=== PATIENT | male | born 1950 | race Native Hawaiian/Other Pacific Islander ===

== ENCOUNTER 2017-06-04 10:32 | Day surgery (SDC) | payer MEDICARE, MEDICAID ==
[2017-06-03 09:55] VITALS: BMI 18.6
[2017-06-04 11:21] LABS: BASO # 0.02 K/mm3 (0.0-2.0); BASO % 0.3 % (0.0-3.0); EOS # 0.5 (0.0-0.7); EOS % 6.3 % (1.5-5.0); GRAN # 5.51 (1.4-6.5); LYMPH # 1.1 (1.2-3.4); MEAN CELL VOLUME 88.1 fl (80.0-105.0); MEAN CORPUSCULAR HEMOGLOBIN 29.5 pg (25.0-35.0); MEAN CORPUSCULAR HGB CONC 33.4 g/dl (31.0-37.0); MEAN PLATELET VOLUME 8.9 fl (7.0-11.0); MONO # 0.7 (0.1-0.6); MONO % 8.4 % (1.0-6.0); WHITE BLOOD COUNT 7.8 10^3/ul (4.5-11.0)
[2017-06-04 11:30] LABS: CALCIUM 9.9 mg/dL (8.4-10.5); POTASSIUM 4.7 mmol/L (3.6-5.0)
[2017-06-04] MEDS ORDERED: Lidocaine 2% Inj (20ml) ONE (11:31)
[2017-06-04] MEDS ORDERED: Iodixanol 320 MG/ML 100 ML BOTTLE IV ONE (11:31)
[2017-06-04 11:33] LABS: INR 1.04 (0.93-1.08); PARTIAL THROMBOPLASTIN TIME 31.7 Seconds (23.7-30.8)
[2017-06-04] MEDS ORDERED: Midazolam 2 MG/2 ML VIAL ONE (13:24)
--- NOTE | 2017-06-04 13:30 | CP.SDSHP ---
Same Day Surgery H & P - History Proposed Procedure: Right arm AV fistulagram with possible TOSSER or stent. Pre-Op Diagnosis: ESRD, AVF poor flow - Previous Medical/Surgical History Cardiac: Hypertension - Allergies Allergies: Allergies No Known Allergies Allergy (Verified 07/27/15 21:57) - Physical Exam Vital Signs: Vital Signs 06/04/17 11:11 Temperature 98.0 F Pulse Rate 70 Respiratory 18 Rate Blood Pressure 166/72 H O2 Sat by Pulse 100 Oximetry Mental Status: Alert & Oriented x3 Neuro: WNL Heart: WNL Lungs: WNL - {Optional Preform as Required} Other Pertinent Findings: Failed right brachiocephalic AVF. Patent Right brachiobasilic AVF has thrill. Two small venous aneurysm. Failed left arm AVG. - Impression Impression: Pt with ESRD and right arm AVF with poor flow. Plan AV fistulagram and possible stent placement, thrombectomy. Informed consent obtained. Pt. Evaluated Today:Candidate for Anesthesia & Procedure: Yes (ASA 3 Malampati 3) - Date & Time Date: 06/04/17 Time: 13:20 Short Stay Discharge - Short Stay Discharge Admitting Diagnosis/Reason for Visit: ESRD N18.6 Progress Note/Discharge Note with Instructions: s/p AV fistulagram. There were no immediate complications.
--- NOTE | 2017-06-04 13:45 | PCM.SURG1 ---
Surgeon's Initial Post Op Note - Surgeon's Notes Surgeon: aRul Meyer MD Shorthand Teacher: NONE Type of Anesthesia: Moderate Sedation{RN} Pre-Operative Diagnosis: ESRD Operative Findings: Moderate 30% basilic vein stenosis. Normal central venogram. Normal arterial anastomosis. Post-Operative Diagnosis: ESRD, outflow vein 30 % stenosis Operation Performed: Right arm AV fistulagram. LOG CUTTER outflow basilic vein stenosis. Specimen/Specimens Removed: NONE Estimated Blood Loss: EBL {In ML}: 4 Blood Products Given: N/A Drains Used: No Drains Post-Op Condition: Good Date of Surgery/Procedure: 06/04/17 Time of Surgery/Procedure: 13:40
[2017-06-04 14:49] VITALS: RESP 18; TEMP 97.8; O2SAT 96
--- NOTE | 2017-06-04 15:34 | VASCULAR ---
PROCEDURE: Date of procedure: 06/04/2017 Procedure: 1. Right arm AVG fistulagram 2. Balloon angioplasty outflow 30 percent stenosis basilic Vein Medications: 3 cubic centimeters 2 percent lidocaine, 1 milligram Versed and 50 microgram fentanyl. HISTORY: End-stage renal disease right arm brachial basilic AV fistula with poor flow. TECHNIQUE: History and physical was performed prior to procedure. Informed consent was obtained. Following informed consent and procedure time-out, the patient was placed supine on the interventional table and procedure time was called. The right arm was prepped and draped in the usual sterile fashion. The right AV fistula was accessed with micropuncture technique and hemodialysis fistulogram was then performed through a 5 Spanish dilator. Hemodialysis fistulogram demonstrated moderate, 30 percent, outflow vein stenosis in the axillary vein. Central venogram showed normal subclavian vein and superior vena cava. A reflux fistulogram showed a normal arch anastomosis. The 5 Spanish dilator was exchanged over a guidewire for a 6 Spanish vascular sheath. Through the sheath, 8 millimeter balloon angioplasty was performed across the stenotic axillary vein segment. A post balloon angioplasty repeat fistulogram demonstrated no residual stenosis in the outflow vein. A guidewire vascular sheath were removed and hemostasis achieved with manual compression. A great as thrill was present throughout the fistula at completion of case. IMPRESSION: Right arm brachial basilic AV fistula with moderate stenosis at the axillary vein successfully treated with 8 millimeter balloon angioplasty. Normal central venogram. Normal arterial anastomosis.
[2017-06-04 15:48] VITALS: PULSE 65
[2017-06-04 16:05] VITALS: BP 154/74
== END 2017-06-04 15:45 | disposition home or self-care (01) ==
LOC: SDSVAS 10:32
PROVIDERS: ATTEND Radiology Vascular & Interventional Radiology
DX: T82.858A Stenosis of other vascular prosthetic devices, implants and grafts, initial encounter (principal); I12.0 Hypertensive chronic kidney disease with stage 5 chronic kidney disease or end stage renal disease; N18.6 End stage renal disease; Z99.2 Dependence on renal dialysis; Y83.2 Surgical operation with anastomosis, bypass or graft as the cause of abnormal reaction of the patient, or of later complication, without mention of misadventure at the time of the procedure
CPT/HCPCS: 36415; 36902; 80048; 85025; 85610; 85730; 99152; C1725; C1769; C1894; J1644; J2250; J3010; Q9967

== ENCOUNTER 2017-06-17 19:52 | Inpatient (IN) | payer MEDICARE, MEDICAID ==
[2017-06-17 20:08] VITALS: BMI 26.6
[2017-06-17 20:59] LABS: BASO # 0.01 K/mm3 (0.0-2.0); BASO % 0.1 % (0.0-3.0); EOS # 0.1 (0.0-0.7); EOS % 1.4 % (1.5-5.0); GRAN # 5.5 (1.4-6.5); HEMATOCRIT 27.9 % (42.0-52.0); LYMPH # 0.8 (1.2-3.4); MEAN CELL VOLUME 88.6 fl (80.0-105.0); MEAN CORPUSCULAR HEMOGLOBIN 29.2 pg (25.0-35.0); MEAN PLATELET VOLUME 8.8 fl (7.0-11.0); MONO # 0.7 (0.1-0.6); MONO % 9.5 % (1.0-6.0); RED CELL DISTRIBUTION WIDTH 13.3 % (11.5-14.5); WHITE BLOOD COUNT 7.1 10^3/ul (4.5-11.0)
--- NOTE | 2017-06-17 21:00 | ED PDOC ---
Arrival/HPI - General Chief Complaint: Fever Time Seen by Provider: 06/17/17 19:57 Historian: Patient - History of Present Illness Narrative History of Present Illness (Text): 06/17/17 21:00 Moshe Coleman is a 66 year old male, whose past medical history includes seizure disorder, diabetes, ME with coronary stents, hypertension, hypothyroidism, chonic renal failure on hemodialysis, anemia, and degenerative arthritis, who presents to the Emergency department complaining of fever following dialysis tonight. Patient denies any chills, chest pain, shortness of breath, nausea, vomiting, diarrhea, urinary symptoms, back pain, neck pain, headache, dizziness, or any other complaints. Symptom Onset: Gradual Symptom Course: Unchanged Activities at Onset: Light Context: Home Past Medical History - Provider Review Nursing Documentation Reviewed: Yes - Infectious Disease Hx of Infectious Diseases: None - Tetanus Immunization Tetanus Immunization: Unknown - Cardiac Hx Cardiac Disorders: Yes Hx Congestive Heart Failure: Yes Hx Hypertension: Yes Hx Pacemaker: No - Pulmonary Hx Bronchitis: Yes Hx Pneumonia: Yes Hx Tuberculosis: Yes - Neurological Hx Paralysis: No - HEENT Hx Cataracts: Yes - Renal Hx Renal Disorder: Yes Hx Dialysis: Yes Date of Last Dialysis Treatment: 06/17/17 Hx Renal Failure: Yes Other/Comment: Kidney Transplant > 5 years, rejected - Endocrine/Metabolic Hx Endocrine Disorders: Yes Hx Diabetes Mellitus Type 1: Yes Hx Hypothyroidism: Yes - Hematological/Oncological Hx Blood Transfusions: No Hx Blood Transfusion Reaction: No - Integumentary Hx Dermatological Disorder: Yes (OLD NF SCARRED AREA LEFT UPPER ARM. SHUNT TO RIGHT UPPER ARM) Other/Comment: dry tight discolored slin to ble +1 edema rll - Musculoskeletal/Rheumatological Hx Musculoskeletal Disorders: Yes Hx Gout: Yes - Gastrointestinal Hx Gastrointestinal Disorders: No - Genitourinary/Gynecological Hx Genitourinary Disorders: Yes (voids very little in am) - Psychiatric Hx Emotional Abuse: No Hx Physical Abuse: No Hx Substance Use: No - Surgical History Hx Kidney Transplant: Yes (> years, rejected) - Anesthesia Hx Anesthesia: Yes Hx Anesthesia Reactions: No Hx Malignant Hyperthermia: No - Suicidal Assessment Feels Threatened In Home Enviroment: No Family/Social History - Physician Review Nursing Documentation Reviewed: Yes Family/Social History: Unknown Family HX Smoking Status: Former Smoker Hx Alcohol Use: No Hx Substance Use: No Hx Substance Use Treatment: No Allergies/Home Meds Allergies/Adverse Reactions: Allergies No Known Allergies Allergy (Verified 06/17/17 20:07) Home Medications: Home Meds Medication Instructions Recorded Confirmed Metoprolol Tartrate [Lopressor] 50 mg PO BID 01/17/15 06/18/17 Levothyroxine [Synthroid] 25 mcg PO DAILY 07/28/15 06/18/17 Aspirin [Ecotrin] 81 mg PO DAILY 12/30/15 06/18/17 Minoxidil 2.5 mg PO TID 12/30/15 06/18/17 Omeprazole 20 mg PO DAILY 12/30/15 06/18/17 Atorvastatin [Lipitor] 20 mg PO DIN 06/18/17 06/18/17 Review of Systems - Physician Review All systems were reviewed & negative as marked: Yes - Review of Systems Constitutional: Fevers Eyes: Normal ENT: Normal Respiratory: Normal. absent: SOB, Cough Cardiovascular: Normal. absent: Chest Pain Gastrointestinal: Normal. absent: Abdominal Pain, Diarrhea, Nausea, Vomiting Genitourinary Male: Normal. absent: Dysuria, Frequency, Hematuria, Urinary Output Changes Musculoskeletal: Normal. absent: Back Pain, Neck Pain Skin: Normal. absent: Rash Neurological: Normal. absent: Headache, Dizziness Endocrine: Normal Hemo/Lymphatic: Normal Psychiatric: Normal Physical Exam Vital Signs Reviewed: Yes Vital Signs Temp Pulse Resp BP Pulse Ox 06/17/17 23:52 95 H 14 154/68 H 99 06/17/17 20:07 99.0 F 91 H 12 171/73 H 99 Temperature: Afebrile Blood Pressure: Hypertensive Pulse: Regular Respiratory Rate: Normal Appearance: Positive for: Well-Appearing, Non-Toxic, Comfortable Pain Distress: None Mental Status: Positive for: Alert and Oriented X 3 - Systems Exam Head: Present: Atraumatic, Normocephalic Pupils: Present: PERRL Extroacular Muscles: Present: EOMI Conjunctiva: Present: Normal Mouth: Present: Moist Mucous Membranes Neck: Present: Normal Range of Motion Respiratory/Chest: Present: Clear to Auscultation, Good Air Exchange. No: Respiratory Distress, Accessory Muscle Use Cardiovascular: Present: Regular Rate and Rhythm, Normal S1, S2. No: Murmurs Abdomen: Present: Normal Bowel Sounds. No: Tenderness, Distention, Peritoneal Signs Back: Present: Normal Inspection Upper Extremity: Present: Normal Inspection. No: Cyanosis, Edema Lower Extremity: Present: Normal Inspection. No: Edema Neurological: Present: GCS=15, CN II-XII Intact, Speech Normal Skin: Present: Warm, Dry, Normal Color. No: Rashes Psychiatric: Present: Alert, Oriented x 3, Normal Insight, Normal Concentration Medical Decision Making ED Course and Treatment: 06/17/17 20:14 Impression: 66 year old male complaining of fever following dialysis today. Plan: -- EKG -- Chest X-ray -- Labs, VBG, blood cultures -- UA -- Reassess and disposition Prior Visits: Notes and results from previous visits were reviewed. On 09/19/2015, pt was seen in the Emergency department for shortness of breath. Pt was admitted to the hospital for further evaluation. Progress Notes: Reviewed EKG, NSR at 91 bpm. LVH. Non-specific T wave changes. 06/17/17 20:30 Reviewed radiology, Chest X-ray shows some streaking in the right lower lobe. 06/17/17 21:[address] Banda, who is aware and agrees with plan. Accepts pt in to her service. Pt will go to Telemetry observation for sepsis. Pt in no acute distress. Discussed results and hospital observation plan with pt , who is aware and verbalizes understanding. - Lab Interpretations Microbiology Results: Microbiology Results 06/17/17 20:30 Blood Blood Culture - Preliminary NO GROWTH AFTER 48 HOURS 06/17/17 20:00 Blood Blood Culture - Preliminary NO GROWTH AFTER 48 HOURS Lab Results: 06/17/17 20:30 06/17/17 20:30 Lab Results 06/18/17 10:15: Procalcitonin 1.06 H 06/18/17 10:15: Hemoglobin A1c 5.8 06/18/17 07:36: POC Glucose (mg/dL) 105 06/17/17 20:30: Sodium 138, Chloride 91 L, Potassium 4.8, Carbon Dioxide 34 H, Anion Gap 18, BUN 51 H, Creatinine 9.3 H*, Est GFR ( Amer) 7, Est GFR ( Non-Af Amer) 6, Random Glucose 199 H, Calcium 10.3, Phosphorus 3.2, Magnesium 2.3 H, Total Bilirubin 0.6, AST 23, ALT 22, Alkaline Phosphatase 84, Total Protein 7.7, Albumin 4.5, Globulin 3.3, Albumin/Globulin Ratio 1.4 06/17/17 20:30: pO2 53, VBG pH 7.50 H, VBG pCO2 49.0, VBG HCO3 38.2 H, VBG Total CO2 39.7 H, VBG O2 Sat (Calc) 93.6 H, VBG Base Excess 13.0 H, VBG Potassium 4.7, Sodium 136.0, Chloride 96.0 L, Glucose 211 H, Lactate 1.6, FiO2 21.0, Venous Blood Potassium 4.7 06/17/17 20:30: PT 11.5, INR 1.06, APTT 31.5 H 06/17/17 20:30: WBC 7.1, RBC 3.15 L, Hgb 9.2 L, Hct 27.9 L, MCV 88.6, MCH 29.2, MCHC 33.0, RDW 13.3, Plt Count 170, MPV 8.8, Gran % 78.0 H, Lymph % (Auto) 11.0 L, [place] % (Auto) 9.5 H, Eos % (Auto) 1.4 L, Baso % (Auto) 0.1, Gran # 5.50, Lymph # 0.8 L, [place] # 0.7 H, Eos # 0.1, Baso # 0.01 06/17/17 20:15: POC Glucose (mg/dL) 212 H I have reviewed the lab results: Yes - RAD Interpretation Radiology Orders: 06/17/17 20:14 CHEST PORTABLE [RAD] Stat Tuber Machine Operator: ED Physician - EKG Interpretation Interpreted by ED Physician: Yes Type: 12 lead EKG - Medication Orders Current Medication Orders: Acetaminophen (Tylenol 325mg Tab) 650 mg PO Q4H PRN PRN Reason: Fever >100.4 F Last Admin: 06/19/17 10:23 Dose: 650 mg [facility] Pain/Vitals Document 06/19/17 10:23 (Rec: 06/19/17 10:23 [id number] Vitals Temperature (97.6 F-99.6 F) 99.1 F Temperature Source Oral Re-Assess: MT Pain/Vitals Document 06/19/17 11:23 (Rec: 06/19/17 13:03 [id number] Pain Reassessment Is This A Pain ReAssessment? No Presence of Pain Presence of Pain No Vitals Temperature (97.6 F-99.6 F) 100.7 F Aspirin (Aspirin Chewable) 81 mg PO DAILY [facility] Last Admin: 06/19/17 10:22 Dose: 81 mg Atorvastatin Calcium (Lipitor) 20 mg PO DIN [facility] Last Admin: 06/19/17 17:45 Dose: 20 mg Calcium Acetate (Phoslo) 667 mg PO WM [facility] Last Admin: 06/19/17 17:45 Dose: 667 mg Famotidine (Pepcid) 20 mg PO HS [facility] Last Admin: 06/19/17 22:26 Dose: 20 mg Cefepime HCl 0.5 gm/ Sodium (Chloride) 100 mls @ 100 mls/hr IVPB 2200 [facility] Last Admin: 06/19/17 22:25 Dose: 100 mls/hr eMAR Start Stop Document 06/19/17 22:25 TTC (Rec: 06/19/17 22:26 [facility] [id number]) Intravenous Solution Start Date 06/19/17 Start Time 22:26 End Date 06/19/17 End time 23:26 Total Infusion Time 60 Vancomycin HCl (Vancomycin 500mg In Ns) 500 mg in 100 mls @ 200 mls/hr IVPB POSTDI@MWF [facility] Stop: 06/24/17 10:29 Last Admin: 06/19/17 10:24 Dose: 200 mls/hr eMAR Start Stop Document 06/19/17 10:24 DH (Rec: 06/19/17 10:24 [id number] Intravenous Solution Start Date 06/19/17 Start Time 10:24 End Date 06/19/17 End time 11:24 Total Infusion Time 60 Insulin Human Regular (Humulin R Low) 0 units SC ACHS [facility] PRN Reason: Protocol Last Admin: 06/19/17 17:44 Dose: 1 units Comments: with meal MAR Blood Glucose Document 06/19/17 17:44 DH (Rec: 06/19/17 17:45 [id number] Blood Glucose Finger Stick Blood Glucose (70-120) 182 Subcutaneous Administrations Document 06/19/17 17:44 DH (Rec: 06/19/17 17:45 [id number][facility] Charges for Administration # of Subcutaneous Administrations 1 Levothyroxine Sodium (Synthroid) 25 mcg PO 0600 [facility] Last Admin: 06/19/17 05:36 Dose: 25 mcg Metoprolol Tartrate (Lopressor) 50 mg PO BRKDIN [facility] Last Admin: 06/19/17 17:45 Dose: 50 mg [facility] Pulse and Blood Pressure Document 06/19/17 17:45 (Rec: 06/19/17 17:47 DH [id number]) Pulse Pulse Rate (60-90) 89 Blood Pressure Blood Pressure (100/60-150/90) 130/62 Minoxidil (Minoxidil) 2.5 mg PO BID [facility] Last Admin: 06/19/17 17:45 Dose: 2.5 mg Nitroglycerin (Nitro-Bid 2% Oint) 1 ea TOP Q4H PRN PRN Reason: accelerated hypertension Discontinued Medications Acetaminophen (Tylenol 325mg Tab) 650 mg PO Q4H PRN PRN Reason: Fever >100.5 F Last Admin: 06/18/17 00:31 Dose: 650 mg MT Pain/Vitals Document 06/18/17 00:31 FDE (Rec: 06/18/17 00:31 FDE [id number]) Pain Reassessment Is This A Pain ReAssessment? Yes Sleep Is patient sleeping during reassessment? No Re-Assess: MT Pain/Vitals Document 06/18/17 01:31 FDE (Rec: 06/18/17 02:23 FDE [id number]) Pain Reassessment Is This A Pain ReAssessment? Yes Sleep Is patient sleeping during reassessment? Yes Cefepime HCl (Maxipime 1gm) 1 gm in 100 mls @ 100 mls/hr IVPB STAT STA PRN Reason: Protocol Stop: 06/17/17 22:37 Last Admin: 06/17/17 23:47 Dose: 100 mls/hr eMAR Start Stop Document 06/17/17 23:47 SS (Rec: 06/17/17 23:48 SS [id number]) Intravenous Solution Start Date 06/17/17 Start Time 23:40 End Date 06/18/17 End time 00:40 Total Infusion Time 60 Vancomycin HCl (Vancomycin 1gm) 1 gm in 250 mls @ 167 mls/hr IVPB STAT STA PRN Reason: Protocol Stop: 06/17/17 23:06 Last Admin: 06/17/17 22:03 Dose: 167 mls/hr eMAR Start Stop Document 06/17/17 22:03 SS (Rec: 06/17/17 22:03 SS [id number]) Intravenous Solution Start Date 06/17/17 Start Time 22:03 End Date 06/17/17 End time 23:33 Total Infusion Time 90 Minoxidil (Minoxidil) 2.5 mg PO DAILY [facility] Ondansetron HCl (Zofran Inj) 4 mg IVP STAT STA Stop: 06/17/17 22:36 Last Admin: 06/17/17 22:30 Dose: 4 mg IVP Administration Document 06/17/17 22:30 SS (Rec: 06/17/17 23:06 SS [id number]) Charges for Administration # of IVP Administrations 1 - Scribe Statement The provider has reviewed the documentation as recorded by the Scribe Radha Veliz All medical record entries made by the Scribe were at my direction and personally dictated by me. I have reviewed the chart and agree that the record accurately reflects my personal performance of the history, physical exam, medical decision making, and the department course for this patient. I have also personally directed, reviewed, and agree with the discharge instructions and disposition. Disposition/Present on Arrival - Present on Arrival Any Indicators Present on Arrival: No History of DVT/PE: No History of Uncontrolled Diabetes: No Urinary Catheter: No History of Decub. Ulcer: No History Surgical Site Infection Following: None - Disposition Have Diagnosis and Disposition been Completed?: Yes Diagnosis: Pneumonia, Sepsis Disposition: HOSPITALIZED Disposition Time: 22:00 Condition: GOOD
[2017-06-17 21:06] LABS: ALB/GLOB RATIO 1.4 (1.1-1.8); BILIRUBIN,TOTAL 0.6 mg/dL (0.2-1.3); CALCIUM 10.3 mg/dL (8.4-10.5); MAGNESIUM 2.3 mg/dL (1.7-2.2); PHOSPHOROUS 3.2 mg/dL (2.5-4.5); POTASSIUM 4.8 mmol/L (3.6-5.0); TOTAL PROTEIN 7.7 g/dL (5.8-8.3)
[2017-06-17 21:07] LABS: INR 1.06 (0.93-1.08); PARTIAL THROMBOPLASTIN TIME 31.5 Seconds (23.7-30.8)
[2017-06-17] MEDS ORDERED: Vancomycin 1gm in NS 250ml 1 GM/250 ML BAG IVPB STA (21:37)
[2017-06-17] MEDS ORDERED: Cefepime 1gm in NS 100ml 1 GM/100 ML BAG IVPB STA (21:38)
[2017-06-18] MEDS: Insulin Reg-LOW-Coverage SC SCH ×4 (07:47→22:30)
--- NOTE | 2017-06-18 08:45 | RAD ---
HISTORY: Sepsis Patient COMPARISON: 10/29/2016 FINDINGS: LUNGS: No active pulmonary disease. PLEURA: Slight blunting of right costophrenic angle unchanged from prior examination and likely chronic pleural thickening. Cannot rule out small pleural effusion. No left pleural effusion. No pneumothorax. CARDIOVASCULAR: Normal heart size. Left subclavian vascular stent. OSSEOUS STRUCTURES: No significant abnormalities. VISUALIZED UPPER ABDOMEN: Normal. OTHER FINDINGS: None. IMPRESSION: No acute infiltrate. Probable mild chronic pleural thickening at right costophrenic angle. Otherwise unremarkable.
[2017-06-18] MEDS ORDERED: Cefepime 1gm in NS 100ml 1 GM/100 ML BAG IVPB SCH (09:00)
[2017-06-18] MEDS ORDERED: Nitroglycerin 2% Ointment Foilpak UD TOP PRN (10:23)
[2017-06-18] MEDS ORDERED: Vancomycin 1 g Inj PO SCH (10:30)
[2017-06-18] MEDS ORDERED: Cefepime 0.5 GM in Sodium Chloride 0.9% 100 ML IVPB ONE (10:30)
--- NOTE | 2017-06-18 14:33 | HP ---
DATE: 06/18/2017 HISTORY OF PRESENT ILLNESS: This 66-year-old male was examined at his bedside. His case was reviewed in detail with himself, his at the bedside, his nurse, Yessy Villar, registered nurse, as well as his daughter, Cesar, registered nurse, . This is a 66-year-old [place] gentleman who presented to the [facility] last evening complaining of fever and chills that occurred after his dialysis yesterday. When questioning the patient he denied any headache, neck stiffness, photophobia, ear ache, sore throat, cough, chest pain, shortness of breath, nausea, vomiting, diarrhea, dysuria, skin rash or obvious source of infection. He denied any association with any recently febrile patient's and states his dialysis Saturday at the [facility] renal dialysis unit was uneventful. PAST MEDICAL HISTORY: Significant for end-stage renal failure, hemodialysis dependent; history of insulin-dependent diabetes mellitus; hyperlipidemia; hypertension; stable atherosclerotic heart disease; status post coronary artery stents after myocardial infarction in the past; also with gastroesophageal reflux disease; anemia of chronic disease; hyperphosphatemia; hypothyroidism and degenerative arthritis as well as anemia of chronic illness. OUTPATIENT MEDICATIONS: Uororclqi65 mcg p.o. daily, Lipitor 20 mg p.o. at dinner time, Minoxidil 2.5 mg p.o. b.i.d. Phoslo 667 WM t.i.d., Lopressor 50 mg b.i.d. and Ecotrin 81 mg p.o. daily. SOCIAL HISTORY: The patient is a nondrinker, nonsmoker, non IV drug misuse. He is disabled, retired gentleman. ALLERGIES: NO KNOWN ALLERGIES TO MEDICATIONS. FAMILY HISTORY: Noncontributory. REVIEW OF SYSTEMS: HEAD REVIEW: No headache or seizure. EYES REVIEW: No change in visual acuity. No photophobia. EARS REVIEW: No hearing loss. No earache. THROAT REVIEW: No sore throat, no swallowing difficulty. NECK REVIEW: No stiffness. CARDIAC REVIEW: As per HPI. No chest pain, no palpitation. PULMONARY: No cough. No hemoptysis. GASTROINTESTINAL: Chronic gastroesophageal reflux disease, no diarrhea, no vomiting. GENITOURINARY: End-stage renal disease, no urine output. SKIN: Without rash. NEUROLOGICAL: History of seizures in the past. He was taken off all anti seizure medication by his neurologist. VASCULAR: No claudication. ENDOCRINOLOGICAL: He has hyperlipidemia, insulin-dependent diabetes mellitus and hypothyroidism. MUSCULOSKELETAL: Degenerative arthritis. PHYSICAL EXAMINATION: VITAL SIGNS: Temperature 99.3, respirations 20, pulse 85, blood pressure 123/51 with a pulse ox of 95% with nasal O2. HEENT: Head: Normocephalic, atraumatic. Eyes: No icterus. Ears: Clear. Throat: Noninjected. NECK: Supple. HEART: Regular S1, S2. No pathological rubs, murmurs or gallops. LUNGS: Clear to auscultation. No rhonchi. No wheezing. ABDOMEN: Soft, nontender. No palpable organomegaly. No rebound, no guarding. No tenderness. EXTREMITIES: No clubbing, no cyanosis, no edema. SKIN: Warm and dry. There are no rashes. VASCULAR: Legs are warm to touch. He has an excellent bruits and thrill in his left upper extremity AV graft. PSYCHOLOGICAL: Alert and oriented x3. NEUROLOGICAL: Grossly intact. LABORATORY DATA: White count 7100, hemoglobin 9.2, hematocrit 27.9, platelets 170,000. PT/INR 1.06, PTT 31.5. Sodium 138, potassium 4.8, chloride 91, bicarb 34, BUN 51, creatinine 9.3, random blood sugar 106. Phosphorous 3.2. All liver function testing was normal including bilirubin 0.6, AST 23, ALT 22, alk phos 84. Chest x-ray showed no active pulmonary disease, no pneumothorax, normal heart size, no significant abnormalities, no acute infiltrates. IMPRESSION: A 66-year-old male, rule out sepsis; end-stage renal disease, hemodialysis dependent; degenerative arthritis; insulin-dependent diabetes mellitus; hyperlipidemia; stable atherosclerotic heart disease; history of myocardial infarction; history of coronary artery stents; well-controlled hypertension; hyperphosphatemia; gastroesophageal reflux disease; hypothyroidism. PLAN: As discussed with the patient, nursing, and daughter is to continue renal diabetic heart-healthy diet. He is ordered to have physical therapy for reconditioning and gait training. He will remain on the cardiac unit. He remains on a renal diabetic heart-healthy diet with 1000 mL p.o. fluid restriction. He did receive vancomycin 1 g and Maxipime 1 g stat and will have further doses 500 mg IV post dialysis as well as Maxipime 500 mg IV daily. He is ordered to have Tylenol 650 p.o. q.4 hour p.r.n. pain or temperature greater than 101, Synthroid 25 mcg p.o. daily, PhosLo 667 mg p.o. with meals t.i.d., Pepcid 20 mg p.o. at bedtime, nitroglycerin ointment to chest wall 1 inch q.4 hour p.r.n. accelerated hypertension if his systolic blood pressure is greater than 160 or diastolic blood pressure is greater than 180, minoxidil 2.5 mg p.o. b.i.d., metoprolol tartrate 50 mg p.o. b.i.d., Lipitor 20 mg p.o. at dinner time, regular low-dose insulin protocol a.c. meals and at bedtime and Ecotrin 81 mg p.o. daily. I have ordered a procalcitonin serum level for completeness sake and will order right and left shoulder x-rays because of chronic shoulder discomfort which most likely is on the basis of degenerative arthritis. Blood cultures have been received but are pending. He has no urine to be sent for culture after straight cath and will have a repeat CBC and hemoglobin A1c ordered for the a.m. All of the above was discussed in detail with the patient, , nursing and daughter. Greater than 60 minutes was spent in the care, management and counseling of this patient today. All questions were answered. No Banda MD MTDD
--- NOTE | 2017-06-18 15:38 | RAD ---
PROCEDURE: Radiographs of the Right Shoulder HISTORY: pain COMPARISON: No prior. FINDINGS: BONES: Normal. No fracture. JOINTS: Normal. Glenohumeral and acromioclavicular joints preserved. No osteoarthritis. SOFT TISSUES: Normal. OTHER FINDINGS: None. IMPRESSION: Normal radiographs of the right shoulder.
--- NOTE | 2017-06-18 15:39 | RAD ---
PROCEDURE: Radiographs of the Left Shoulder HISTORY: pain COMPARISON: No prior. FINDINGS: BONES: Normal. No fracture. JOINTS: Normal. Glenohumeral and acromioclavicular joints preserved. No osteoarthritis. SOFT TISSUES: Normal. OTHER FINDINGS: None. IMPRESSION: Normal radiographs of the left shoulder.
--- NOTE | 2017-06-18 22:19 | CARD ---
APPROVED REPORT EKG Measurement Heart [id number] <Conclusion> Normal sinus rhythm Possible Left atrial enlargement Left ventricular hypertrophy Abnormal ECG
[2017-06-18] MEDS: Cefepime 0.5 GM in Sodium Chloride 0.9% 100 ML IVPB SCH (22:26)
[2017-06-19] MEDS: Levothyroxine 25 MCG TAB PO SCH (05:36)
[2017-06-19] MEDS ORDERED: Pantoprazole 40 mg EC Tab PO SCH (06:00)
[2017-06-19 06:59] LABS: BASO # 0.01 K/mm3 (0.0-2.0); BASO % 0.2 % (0.0-3.0); EOS # 0.2 (0.0-0.7); EOS % 2.7 % (1.5-5.0); GRAN # 3.67 (1.4-6.5); GRAN % 66.9 % (50.0-68.0); HEMATOCRIT 25.7 % (42.0-52.0); LYMPH # 0.9 (1.2-3.4); LYMPH % 17.2 % (22.0-35.0); MEAN CELL VOLUME 86.2 fl (80.0-105.0); MEAN CORPUSCULAR HEMOGLOBIN 28.2 pg (25.0-35.0); MEAN CORPUSCULAR HGB CONC 32.7 g/dl (31.0-37.0); MEAN PLATELET VOLUME 9.2 fl (7.0-11.0); MONO # 0.7 (0.1-0.6); WHITE BLOOD COUNT 5.5 10^3/ul (4.5-11.0)
[2017-06-19 07:06] LABS: ALB/GLOB RATIO 1.4 (1.1-1.8); BILIRUBIN,TOTAL 0.5 mg/dL (0.2-1.3); CALCIUM 10.2 mg/dL (8.4-10.5); PHOSPHOROUS 4.8 mg/dL (2.5-4.5); POTASSIUM 5.1 mmol/L (3.6-5.0); TOTAL PROTEIN 7.2 g/dL (5.8-8.3)
[2017-06-19] MEDS: Insulin Reg-LOW-Coverage SC SCH ×4 (08:45→22:30)
[2017-06-19] MEDS: Vancomycin 500mg in NS 500 MG/100 ML BAG IVPB SCH (10:24)
--- NOTE | 2017-06-19 14:54 | PN ---
DATE: 06/19/2017 DIALYSIS PROGRESS NOTE This 66-year-old male who was dialyzing in the [facility] renal dialysis unit today and has been having intermittent fever of unclear etiology. At present, his blood pressure is 160/87, pulse is 90 and blood flow rates are 400 mL per minute. I am aiming for 3 kg off. Of note, his procalcitonin level is 1.06, which is an indeterminate level and represents intermediate risk for sepsis. Today, blood culture showed no growth. Review of his temperature curve shows that he is running intermittent low grade fevers 99.1 to 100.5. I will have repeat blood cultures drawn. The patient continues on vancomycin 500 mg IV post dialysis Saturday, Saturday and Saturday. He is also receiving Maxipime 500 mg IV 10:00 p.m. nightly. There is no obvious source of infection and I will order a infectious disease consultation for completeness sake. All of the above was reviewed in detail with the patient, family and nursing. No Banda MD CHRIS
--- NOTE | 2017-06-19 20:27 | PN ---
DIALYSIS PROGRESS NOTE DATE: 06/19/2017 SUBJECTIVE: This 66-year-old male was in the [facility] Renal Dialysis Unit, dialyzing via left upper extremity AV dialysis access, on a F160, 140 sodium, 2K bicarb bath. OBJECTIVE: VITAL SIGNS: Blood pressure was 150/63, pulse of 82, temperature afebrile, respirations 16 and unlabored. Blood flow rates 400 mL per minute. HEART: Regular S1, S2. LUNGS: Clear to auscultation. LABORATORY DATA: White count 5500, hemoglobin 8.4, hematocrit 25.7, platelets 144,000. I am aiming for 3 kg fluid removal today. The patient will receive Aranesp 50 mcg IV as well as Hectorol 10 mcg IV during treatment today. No Banda MD MTDD
[2017-06-19] MEDS ORDERED: Cefepime (Maxipime) 1 g Inj IVPB SCH (22:00)
[2017-06-19] MEDS: Cefepime 0.5 GM in Sodium Chloride 0.9% 100 ML IVPB SCH (22:25)
--- NOTE | 2017-06-19 22:42 | CP.PCM.CON ---
History of Present Illness - History of Present Illness History of Present Illness: Infectious Disease Consultation: June 19, 2017 66 yo [place] male presented with fevers and chills that occurred after dialysis on the 17 of June. The patient states he was in his normal state of health prior to that. PMHx: ESRD on HD Insulin dependent DM HLD HTN ASHD AMI hypothyroidism degenerative arthritis anemia of chronic illness GERDs PSHx: dialysis access Coronary artery stents Allergies: NKDA Social Hx: No tobacco, EtOH, or illicit drug use retired disabled Active Medications Acetaminophen (Tylenol 325mg Tab) 650 mg PO Q4H PRN PRN Reason: Fever >100.4 F Last Admin: 06/19/17 10:23 Dose: 650 mg Aspirin (Aspirin Chewable) 81 mg PO DAILY [facility] Last Admin: 06/19/17 10:22 Dose: 81 mg Atorvastatin Calcium (Lipitor) 20 mg PO DIN [facility] Last Admin: 06/19/17 17:45 Dose: 20 mg Calcium Acetate (Phoslo) 667 mg PO WM [facility] Last Admin: 06/19/17 17:45 Dose: 667 mg Famotidine (Pepcid) 20 mg PO HS [facility] Last Admin: 06/19/17 22:26 Dose: 20 mg Cefepime HCl 0.5 gm/ Sodium (Chloride) 100 mls @ 100 mls/hr IVPB 2200 [facility] Last Admin: 06/19/17 22:25 Dose: 100 mls/hr Vancomycin HCl (Vancomycin 500mg In Ns) 500 mg in 100 mls @ 200 mls/hr IVPB POSTDI@MWF [facility] Stop: 06/24/17 10:29 Last Admin: 06/19/17 10:24 Dose: 200 mls/hr Insulin Human Regular (Humulin R Low) 0 units SC ACHS [facility] PRN Reason: Protocol Last Admin: 06/19/17 22:30 Dose: Not Given Levothyroxine Sodium (Synthroid) 25 mcg PO 0600 [facility] Last Admin: 06/19/17 05:36 Dose: 25 mcg Metoprolol Tartrate (Lopressor) 50 mg PO BRKDIN [facility] Last Admin: 06/19/17 17:45 Dose: 50 mg Minoxidil (Minoxidil) 2.5 mg PO BID [facility] Last Admin: 06/19/17 17:45 Dose: 2.5 mg Nitroglycerin (Nitro-Bid 2% Oint) 1 ea TOP Q4H PRN PRN Reason: accelerated hypertension Family Hx: none given ROS: Patient with fevers and chills No headaches, dizziness, chest pain, abdominal pain, melena, hematuria, hematemesis, hematochezia, depression, anxiety, diarrhea, cough, SOB, LOC. Past Patient History - Infectious Disease Hx of Infectious Diseases: None - Tetanus Immunizations Tetanus Immunization: Unknown - Past Medical History & Family History Past Medical History?: Yes - Past Social History Smoking Status: Former Smoker - CARDIAC Hx Cardiac Disorders: Yes Hx Congestive Heart Failure: Yes Hx Hypertension: Yes Hx Pacemaker: No - PULMONARY Hx Bronchitis: Yes Hx Pneumonia: Yes Hx Tuberculosis: Yes - NEUROLOGICAL Hx Paralysis: No - HEENT Hx Cataracts: Yes - RENAL Hx Chronic Kidney Disease: Yes Hx Dialysis: Yes Date of Last Dialysis Treatment: 06/17/17 Hx Renal Failure: Yes Other/Comment: Kidney Transplant > 5 years, rejected - ENDOCRINE/METABOLIC Hx Endocrine Disorders: Yes Hx Diabetes Mellitus Type 1: Yes Hx Hypothyroidism: Yes - HEMATOLOGICAL/ONCOLOGICAL Hx Blood Transfusions: No Hx Blood Transfusion Reaction: No - INTEGUMENTARY Hx Dermatological Problems: Yes (OLD NF SCARRED AREA LEFT UPPER ARM. SHUNT TO RIGHT UPPER ARM) Other/Comment: dry tight discolored slin to ble +1 edema rll - MUSCULOSKELETAL/RHEUMATOLOGICAL Hx Musculoskeletal Disorders: Yes Hx Gout: Yes - GASTROINTESTINAL Hx Gastrointestinal Disorders: No - GENITOURINARY/GYNECOLOGICAL Hx Genitourinary Disorders: Yes (voids very little in am) - PSYCHIATRIC Hx Emotional Abuse: No Hx Physical Abuse: No Hx Substance Use: No - SURGICAL HISTORY Hx Kidney Transplant: Yes (> years, rejected) - ANESTHESIA Hx Anesthesia: Yes Hx Anesthesia Reactions: No Hx Malignant Hyperthermia: No Meds Allergies/Adverse Reactions: Allergies Allergy/AdvReac Type Severity Reaction Status Date / Time No Known Allergies Allergy Verified 06/17/17 20:07 - Medications Medications: Current Medications Acetaminophen (Tylenol 325mg Tab) 650 mg PO Q4H PRN PRN Reason: Fever >100.4 F Last Admin: 06/19/17 10:23 Dose: 650 mg Aspirin (Aspirin Chewable) 81 mg PO DAILY [facility] Last Admin: 06/19/17 10:22 Dose: 81 mg Atorvastatin Calcium (Lipitor) 20 mg PO DIN [facility] Last Admin: 10/18/17 17:45 Dose: 20 mg Calcium Acetate (Phoslo) 667 mg PO WM [facility] Last Admin: 06/19/17 17:45 Dose: 667 mg Famotidine (Pepcid) 20 mg PO HS [facility] Last Admin: 06/19/17 22:26 Dose: 20 mg Cefepime HCl 0.5 gm/ Sodium (Chloride) 100 mls @ 100 mls/hr IVPB 2200 [facility] Last Admin: 06/19/17 22:25 Dose: 100 mls/hr Vancomycin HCl (Vancomycin 500mg In Ns) 500 mg in 100 mls @ 200 mls/hr IVPB POSTDI@MWF [facility] Stop: 06/24/17 10:29 Last Admin: 06/19/17 10:24 Dose: 200 mls/hr Insulin Human Regular (Humulin R Low) 0 units SC ACHS [facility] PRN Reason: Protocol Last Admin: 06/19/17 17:44 Dose: 1 units Levothyroxine Sodium (Synthroid) 25 mcg PO 0600 [facility] Last Admin: 06/19/17 05:36 Dose: 25 mcg Metoprolol Tartrate (Lopressor) 50 mg PO BRKDIN [facility] Last Admin: 06/19/17 17:45 Dose: 50 mg Minoxidil (Minoxidil) 2.5 mg PO BID [facility] Last Admin: 06/19/17 17:45 Dose: 2.5 mg Nitroglycerin (Nitro-Bid 2% Oint) 1 ea TOP Q4H PRN PRN Reason: accelerated hypertension Physical Exam - Constitutional Appears: Non-toxic, No Acute Distress, Chronically Ill - Head Exam Head Exam: ATRAUMATIC, NORMOCEPHALIC - Eye Exam Eye Exam: EOMI, PERRL Pupil Exam: NORMAL ACCOMODATION, PERRL - ENT Exam ENT Exam: Mucous Membranes Moist, Normal External Ear Exam, TM's Normal Bilaterally - Neck Exam Neck exam: Positive for: Full Rom, Normal Inspection - Respiratory Exam Respiratory Exam: Clear to Auscultation Bilateral, NORMAL BREATHING PATTERN. absent: Rales, Rhonchi, Wheezes - Cardiovascular Exam Cardiovascular Exam: REGULAR RHYTHM, RRR, +S1, +S2 - GI/Abdominal Exam GI & Abdominal Exam: Normal Bowel Sounds, Soft. absent: Distended, Tenderness - Extremities Exam Extremities exam: Positive for: full ROM, normal inspection Additional comments: Left AV graft - Neurological Exam Neurological exam: Alert, CN II-XII Intact, Oriented x3 - Psychiatric Exam Psychiatric exam: Normal Affect, Normal Mood - Skin Skin Exam: Intact, Normal Color Results - Vital Signs Recent Vital Signs: Last Vital Signs Temp 97.8 F 06/19/17 17:57 Pulse 85 06/19/17 17:57 Resp 20 06/19/17 17:57 BP 130/62 06/19/17 17:57 Pulse Ox 96 06/19/17 06:00 - Labs Result Diagrams: 06/19/17 05:58 06/19/17 05:58 Labs: Laboratory Results - last 24 hr 06/19/17 06/19/17 05:58 05:58 WBC 5.5 D RBC 2.98 L Hgb 8.4 L Hct 25.7 L MCV 86.2 MCH 28.2 MCHC 32.7 RDW 13.0 Plt Count 144 MPV 9.2 Gran % 66.9 Lymph % (Auto) 17.2 L Walton % (Auto) 13.0 H Eos % (Auto) 2.7 Baso % (Auto) 0.2 Gran # 3.67 Lymph # 0.9 L Walton # 0.7 H Eos # 0.2 Baso # 0.01 Sodium 135 Potassium 5.1 H Chloride 90 L Carbon Dioxide 28 Anion Gap 22 H BUN 88 H Creatinine 13.0 H* D Est GFR ( Amer) 5 Est GFR (Non-Af Amer) 4 Random Glucose 141 H Calcium 10.2 Phosphorus 4.8 H Total Bilirubin 0.5 AST 24 ALT 22 Alkaline Phosphatase 80 Total Protein 7.2 Albumin 4.2 Globulin 3.0 Albumin/Globulin Ratio 1.4 Assessment & Plan - Assessment and Plan (Free Text) Assessment: 66 yo [place] male with fevers up to 102.2 F on admission but no leukocytosis. Cultures of blood negative at 48 hours. Chest X-ray showed no infiltrate. Procalcitonin was elevated at 1.06 but not to the level of severe sepsis. Would check for influenza. Currently on Vancomycin and Cefepime for antibiotic coverage. Supportive care. The patient fever appears to be resolving but source unclear. Thank you for allowing me to participate in the care of the patient, we will follow with you.
[2017-06-20 05:53] LABS: HEMATOCRIT 26.4 % (42.0-52.0); MEAN CELL VOLUME 86.8 fl (80.0-105.0); MEAN CORPUSCULAR HEMOGLOBIN 28.3 pg (25.0-35.0); MEAN CORPUSCULAR HGB CONC 32.6 g/dl (31.0-37.0); MEAN PLATELET VOLUME 8.8 fl (7.0-11.0); WHITE BLOOD COUNT 4.4 10^3/ul (4.5-11.0)
[2017-06-20] MEDS: Levothyroxine 25 MCG TAB PO SCH (05:55)
[2017-06-20] MEDS: Insulin Reg-LOW-Coverage SC SCH ×4 (08:28→22:02)
[2017-06-20 12:11] LABS: IRON 31 ug/dL (45-180)
[2017-06-20] MEDS: Vancomycin 500mg in NS 500 MG/100 ML BAG IVPB SCH (14:02)
--- NOTE | 2017-06-20 14:19 | PN ---
DATE: 06/20/2017 SUBJECTIVE: This 66-year-old male was examined at his bedside. His case was reviewed in detail with himself and his nurse, Sharifa Adair, registered nurse. The patient remains hospitalized with fever of unknown origin. He was seen and evaluated by Dr. Henok De from infectious disease, who concurs with the antibiotic choice of vancomycin 500 mg IV post dialysis as well as Maxipime 500 mg IV nightly at 10 p.m. To date, all blood and blood cultures are negative for infection and chest x-ray shows no infiltrate. It is unclear where the fever is coming from but it is infectious disease opinion that he should continue on current antibiotics as outlined. The patient denies any chills or cough, diarrhea or rash. PHYSICAL EXAMINATION: VITAL SIGNS: Today, he is in a normal sinus rhythm on the school lunch monitor with a temperature of 99.6, respirations 20, pulse 81, and blood pressure 118/65 with a pulse ox of 97%. HEENT: Head: Normocephalic, atraumatic. Eyes: No icterus. Ears: Clear. Throat: Noninjected. NECK: Supple. HEART: Regular S1 and S2. LUNGS: Clear to auscultation. ABDOMEN: Soft. EXTREMITIES: No edema. SKIN: Without rash. NEUROLOGIC: Intact. PSYCHOLOGIC: Alert. VASCULAR: Legs warm to touch. LABORATORY DATA: White count 4400, hemoglobin 8.6, hematocrit 26.4, platelets 133,000. Sodium 135, potassium 5.1, chloride 90, bicarb 28, BUN 88, creatinine 13.0, random blood sugar 141. All liver function testing was normal including bilirubin 0.5, AST 24, ALT 22 and alk phos 80. Influenza A and B serologies are negative. Chest x-ray was reviewed. It shows no infiltrate. IMPRESSION: A 66-year-old male with fever of unknown origin, on antibiotics as outlined with comorbidities, end-stage renal disease, hemodialysis dependent, stable atherosclerotic heart disease, status post myocardial infarction, status post coronary artery stents, insulin-dependent diabetes mellitus, hyperlipidemia, chronic hypertension, degenerative arthritis, gastroesophageal reflux disease, hyperphosphatemia, hypothyroidism. PLAN: At present is to continue renal diabetic heart-healthy diet with 1000 mL p.o. fluid restriction. The patient continues on vancomycin 500 mg IV post dialysis on Saturday, Saturday, and Saturday; Tylenol 650 p.o. q.6 hours p.r.n. fever or pain; Synthroid 25 mcg p.o. daily; PhosLo 667 mg p.o. p.c. meals t.i.d.; Pepcid 20 mg p.o. at bedtime; nitroglycerin ointment 1 inch to chest wall q.4 hours p.r.n. accelerated hypertension if systolic blood pressure is greater than 160 or diastolic blood pressure is greater than 100; minoxidil 2.5 mg p.o. b.i.d.; Maxipime 500 mg IV q. 10 p.m.; Lopressor 50 mg p.o. b.i.d.; Lipitor 20 mg p.o. at bedtime; regular low-dose insulin protocol a.c. meals and at bedtime; aspirin 81 mg p.o. daily. The patient will have ferritin, folic acid, iron TIBC, transferrin, and vitamin B12 levels drawn for completeness sake given his anemia of chronic disease, and the patient will be evaluated for transitional care unit for reconditioning, gait training, and antibiotic therapy. No Banda MD MTDD
--- NOTE | 2017-06-20 16:15 | CT ---
PROCEDURE: CT Chest And Abdomen Without Contrast HISTORY: fever of unknown origin COMPARISON: No prior CT available for comparison. TECHNIQUE: Helical CT of the abdomen and pelvis was performed without oral or intravenous contrast as per referring physician request . Radiation dose: Total exam DLP = 613.38 mGy-cm. This CT exam was performed using one or more of the following dose reduction techniques: Automated exposure control, adjustment of the mA and/or kV according to patient size, and/or use of iterative reconstruction technique. FINDINGS: CHEST In the chest, mild infiltrates identified at the right middle lobe laterally as well as at the right upper lobe superior segment with an element of linear atelectasis or fibrosis seen at the right base in both the right middle and lower lobes. No left-sided infiltrate is seen though trace emphysematous changes are identified in the periphery at superior segment left lower lobe. No definitive pulmonary mass seen however follow-up CT is advised following therapy to exclude underlying lesions at the right base. Central airways appear clear. The thoracic inlet is unremarkable and an atherosclerotic but nonaneurysmal thoracic aorta aorta is identified. Mild peritracheal lymphadenopathy is appreciated including 1.0 x 1.5 cm inferior pretracheal lymph node and a 1.4 x 1.8 cm subcarinal lymph node. No gross hilar adenopathy though lesser enlarged lymph lymph nodes at either hilar region are not excluded. Chronic pleural thickening seen the right lower lobe associated with plaque like calcifications. None is clearly identified at the left chest. A mild pericardial effusion is seen anteriorly. No pleural effusions bilaterally. LIVER: Mild hepatosplenomegaly is appreciated without focal mass. lack images contact stress limits evaluation of solid abdominal viscera. No gross biliary tree dilatation is appreciable. GALLBLADDER AND BILE DUCTS: The gallbladder appears mildly distended with numerous calculi in the lumen. Mural thickening is not excluded. Clinically correlate for potential cholecystitis although no pericholecystic fluid collections appreciated this time. PANCREAS: A definitive pancreatic mass is not identified however the pancreatic duct appears upper limits normal caliber at 2.5-3 mm. SPLEEN: Please see hepatic section above. ADRENALS: Unremarkable. No mass. KIDNEYS AND URETERS: Marked bilateral renal cortical atrophy is appreciated with intrarenal arterial calcifications favored over urolithiasis bilaterally. No perinephric reaction. However, there is a large intermediate density lesion identified at the upper midpole left kidney measuring 6.2 x 4.5 x 3.8 cm and 39 Hounsfield units suspicious for a mass. Pelvic ultrasound or MRI is advised for additional characterization. VASCULATURE: Unremarkable. No aortic aneurysm. BOWEL: Unremarkable. No obstruction. No gross mural thickening. Examinations is not exclude the pelvis and therefore not all the large and small bowel is included in this study. APPENDIX: The visualized appendix appears unremarkable but the majority is not captured in this exam. PERITONEUM: Unremarkable. No free fluid. No free air. LYMPH NODES: [id number] retroperitoneal lymphadenopathy appears including 1.5 x 1.0 cm left periaortic lymph node BONES: No acute fracture. OTHER FINDINGS: None. IMPRESSION: 1. Limited infiltrates in the right middle and lower lobes as discussed above for which follow-up CT is advised following therapy to exclude underlying lesions. Mild mediastinal lymphadenopathy is identified. 2. Mild pericardial effusion. No pleural effusion bilaterally. 3. Partially calcified pleural plaques right lung. 4. 6.2 cm mass is suspected at the upper midpole left kidney which follow-up MRI or ultrasound is advised for greater characterization. A complex cysts is felt to be less likely but is a possibility. 5. [id number] retroperitoneal lymphadenopathy. 6. Cholelithiasis with mild mural thickening. Pancreatic duct appears upper limits normal caliber as well. Further clinical correlation is advised.
[2017-06-20 17:39] LABS: FOLATE > 20.0 ng/mL
--- NOTE | 2017-06-20 18:17 | CP.PCM.PN ---
Subjective - Date & Time of Evaluation Date of Evaluation: 06/20/17 Time of Evaluation: 16:45 - Subjective Subjective: Infectious Disease Follow Up: June 20, 2017 66 yo [place] male presented with fevers and chills that occurred after dialysis on the 17 of June. The patient states he was in his normal state of health prior to that. Currently patient states that he feels comfortable. Objective - Vital Signs/Intake and Output Vital Signs (last 24 hours): Temp Pulse Resp BP Pulse Ox 98.5 F 73 20 149/62 99 06/20/17 16:12 06/20/17 16:44 06/20/17 16:12 06/20/17 16:44 06/20/17 16:12 Intake and Output: 06/20/17 06/20/17 06:59 18:59 Intake Total 720 Output Total 0 Balance 720 - Medications Medications: Current Medications Acetaminophen (Tylenol 325mg Tab) 650 mg PO Q4H PRN PRN Reason: Fever >100.4 F Last Admin: 06/19/17 10:23 Dose: 650 mg Aspirin (Aspirin Chewable) 81 mg PO DAILY [facility] Last Admin: 06/20/17 13:55 Dose: 81 mg Atorvastatin Calcium (Lipitor) 20 mg PO DIN [facility] Last Admin: 06/20/17 16:44 Dose: 20 mg Calcium Acetate (Phoslo) 667 mg PO WM [facility] Last Admin: 06/20/17 16:44 Dose: 667 mg Famotidine (Pepcid) 20 mg PO HS [facility] Last Admin: 06/19/17 22:26 Dose: 20 mg Cefepime HCl 0.5 gm/ Sodium (Chloride) 100 mls @ 100 mls/hr IVPB 2200 [facility] Last Admin: 06/19/17 22:25 Dose: 100 mls/hr Vancomycin HCl (Vancomycin 500mg In Ns) 500 mg in 100 mls @ 200 mls/hr IVPB POSTDI@MWF [facility] Stop: 06/24/17 10:29 Last Admin: 06/20/17 14:02 Dose: Not Given Iron Sucrose 100 mg/ Sodium (Chloride) 105 mls @ 210 mls/hr IVPB DAILY [facility] Stop: 06/23/17 10:29 Insulin Human Regular (Humulin R Low) 0 units SC ACHS [facility] PRN Reason: Protocol Last Admin: 06/20/17 16:43 Dose: 1 units Levothyroxine Sodium (Synthroid) 25 mcg PO 0600 [facility] Last Admin: 06/20/17 05:55 Dose: 25 mcg Metoprolol Tartrate (Lopressor) 50 mg PO BRKDIN [facility] Last Admin: 06/20/17 16:44 Dose: 50 mg Minoxidil (Minoxidil) 2.5 mg PO BID [facility] Last Admin: 06/20/17 17:58 Dose: 2.5 mg Nitroglycerin (Nitro-Bid 2% Oint) 1 ea TOP Q4H PRN PRN Reason: accelerated hypertension - Labs Labs: 06/20/17 05:20 06/19/17 05:58 PT 11.5 Seconds (9.9-11.8) 06/17/17 20:30 INR 1.06 (0.93-1.08) 06/17/17 20:30 APTT 31.5 Seconds (23.7-30.8) H 06/17/17 20:30 - Constitutional Appears: Non-toxic, No Acute Distress, Chronically Ill - Head Exam Head Exam: ATRAUMATIC, NORMOCEPHALIC - Eye Exam Eye Exam: EOMI, PERRL Pupil Exam: NORMAL ACCOMODATION, PERRL - ENT Exam ENT Exam: Mucous Membranes Moist, Normal External Ear Exam, TM's Normal Bilaterally - Neck Exam Neck Exam: Full ROM, Normal Inspection - Respiratory Exam Respiratory Exam: Clear to Ausculation Bilateral, NORMAL BREATHING PATTERN. absent: Rales, Rhonchi, Wheezes - Cardiovascular Exam Cardiovascular Exam: REGULAR RHYTHM, RRR, +S1, +S2 - GI/Abdominal Exam GI & Abdominal Exam: Soft, Normal Bowel Sounds. absent: Distended, Tenderness - Extremities Exam Extremities Exam: Full ROM Additional comments: Left AV graft - Neurological Exam Neurological Exam: Alert, Awake, CN II-XII Intact, Oriented x3 - Psychiatric Exam Psychiatric exam: Normal Affect, Normal Mood - Skin Skin Exam: Normal Color Assessment and Plan - Assessment and Plan (Free Text) Assessment: 66 yo [place] male with fevers up to 102.2 F on admission but no leukocytosis. Cultures of blood negative at 48 hours. Chest X-ray showed no infiltrate. Procalcitonin was elevated at 1.06 but not to the level of severe sepsis. Would check for influenza. Currently on Vancomycin and Cefepime for antibiotic coverage. Supportive care. The patient fever appears to be resolving but source unclear. Influenza negative. CT Chest/Abd in progress. Thank you for allowing me to participate in the care of the patient, we will follow with you.
[2017-06-20] MEDS: Cefepime 0.5 GM in Sodium Chloride 0.9% 100 ML IVPB SCH (22:02)
[2017-06-21] MEDS: Levothyroxine 25 MCG TAB PO SCH (05:57)
[2017-06-21 07:12] LABS: HEMATOCRIT 24.9 % (42.0-52.0); MEAN CELL VOLUME 85.9 fl (80.0-105.0); MEAN CORPUSCULAR HEMOGLOBIN 28.6 pg (25.0-35.0); MEAN CORPUSCULAR HGB CONC 33.3 g/dl (31.0-37.0); MEAN PLATELET VOLUME 9.2 fl (7.0-11.0); RED CELL DISTRIBUTION WIDTH 12.9 % (11.5-14.5)
[2017-06-21 07:20] LABS: ALB/GLOB RATIO 1.3 (1.1-1.8); BILIRUBIN,TOTAL 0.6 mg/dL (0.2-1.3); CALCIUM 10.4 mg/dL (8.4-10.5); MAGNESIUM 2.5 mg/dL (1.7-2.2); POTASSIUM 4.8 mmol/L (3.6-5.0)
[2017-06-21] MEDS: Insulin Reg-LOW-Coverage SC SCH ×3 (07:30→17:15)
[2017-06-21 08:23] VITALS: RESP 20; TEMP 98; O2SAT 100
[2017-06-21] MEDS: Vancomycin 500mg in NS 500 MG/100 ML BAG IVPB SCH (09:08)
--- NOTE | 2017-06-21 14:08 | US ---
PROCEDURE: Ultrasound of the Kidneys HISTORY: Possible mass COMPARISON: CT chest/ abdomen and pelvis 06/20/2017. TECHNIQUE: Sonogram of the kidneys. FINDINGS: RIGHT KIDNEY: Measures: 8.3 cm. Diffusely increased cortical echogenicity with cortical thinning. 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 No solid mass. No calculus. No hydronephrosis. LEFT KIDNEY: Measures: 8.7 cm. Diffusely echogenic cortex with cortical thinning. Upper pole solid mass, 4.4 x 6.5 x 4.6 cm. Vascularity is demonstrated within the mass on color Doppler interrogation. No calculus or hydronephrosis. OTHER FINDINGS: Transplant kidney in right iliac fossa, 11.0 cm in length. Normal cortical echogenicity and thickness. IMPRESSION: 6.5 cm solid mass upper pole left kidney, suspicious for renal cell neoplasm. Bilaterally echogenic small kidneys consistent with chronic kidney disease. Transplant kidney in right iliac fossa with unremarkable appearance.
--- NOTE | 2017-06-21 15:47 | CP.PCM.PN ---
Subjective - Date & Time of Evaluation Date of Evaluation: 06/21/17 Time of Evaluation: 14:15 - Subjective Subjective: Infectious Disease Follow Up: June 21, 2017 66 yo [place] male presented with fevers and chills that occurred after dialysis on the 17 of June. The patient states he was in his normal state of health prior to that. Currently patient states that he feels comfortable. CT scan showed a questionable pneumonia. However, incidental finding of the 6.2 cm mass on the left kidney mid to upper pole. Ultrasound confirms mass like structure of about 6.3 cm with high suspicion of malignancy. Objective - Vital Signs/Intake and Output Vital Signs (last 24 hours): Temp Pulse Resp BP Pulse Ox 98 F 71 20 142/57 L 100 06/21/17 08:22 06/21/17 08:22 06/21/17 08:22 06/21/17 08:22 06/21/17 08:22 Intake and Output: 06/21/17 06/21/17 06:59 18:59 Intake Total 120 480 Balance 120 480 - Medications Medications: Current Medications Acetaminophen (Tylenol 325mg Tab) 650 mg PO Q4H PRN PRN Reason: Fever >100.4 F Last Admin: 06/19/17 10:23 Dose: 650 mg Aspirin (Aspirin Chewable) 81 mg PO DAILY [facility] Last Admin: 06/21/17 11:59 Dose: 81 mg Atorvastatin Calcium (Lipitor) 20 mg PO DIN [facility] Last Admin: 06/20/17 16:44 Dose: 20 mg Calcium Acetate (Phoslo) 667 mg PO WM [facility] Last Admin: 06/21/17 12:01 Dose: 667 mg Famotidine (Pepcid) 20 mg PO HS [facility] Last Admin: 06/20/17 22:03 Dose: 20 mg Cefepime HCl 0.5 gm/ Sodium (Chloride) 100 mls @ 100 mls/hr IVPB 2200 [facility] Last Admin: 06/20/17 22:02 Dose: 100 mls/hr Vancomycin HCl (Vancomycin 500mg In Ns) 500 mg in 100 mls @ 200 mls/hr IVPB POSTDI@MWF [facility] Stop: 06/24/17 10:29 Last Admin: 06/21/17 09:08 Dose: 200 mls/hr Insulin Human Regular (Humulin R Low) 0 units SC ACHS GURVINDER PRN Reason: Protocol Last Admin: 06/21/17 12:02 Dose: 2 units Levothyroxine Sodium (Synthroid) 25 mcg PO 0600 [facility] Last Admin: 06/21/17 05:57 Dose: 25 mcg Metoprolol Tartrate (Lopressor) 50 mg PO BRKDIN [facility] Last Admin: 06/21/17 07:30 Dose: Not Given Minoxidil (Minoxidil) 2.5 mg PO BID [facility] Last Admin: 06/21/17 12:00 Dose: 2.5 mg Nitroglycerin (Nitro-Bid 2% Oint) 1 ea TOP Q4H PRN PRN Reason: accelerated hypertension - Labs Labs: 06/21/17 07:05 06/21/17 07:05 PT 11.5 Seconds (9.9-11.8) 06/17/17 20:30 INR 1.06 (0.93-1.08) 06/17/17 20:30 APTT 31.5 Seconds (23.7-30.8) H 06/17/17 20:30 - Constitutional Appears: Non-toxic, No Acute Distress, Chronically Ill - Head Exam Head Exam: ATRAUMATIC, NORMOCEPHALIC - Eye Exam Eye Exam: EOMI, PERRL Pupil Exam: NORMAL ACCOMODATION, PERRL - ENT Exam ENT Exam: Mucous Membranes Moist, Normal External Ear Exam, TM's Normal Bilaterally - Neck Exam Neck Exam: Full ROM, Normal Inspection - Respiratory Exam Respiratory Exam: Clear to Ausculation Bilateral, NORMAL BREATHING PATTERN. absent: Rales, Rhonchi, Wheezes - Cardiovascular Exam Cardiovascular Exam: REGULAR RHYTHM, RRR, +S1, +S2 - GI/Abdominal Exam GI & Abdominal Exam: Soft, Normal Bowel Sounds. absent: Distended, Tenderness - Extremities Exam Extremities Exam: Full ROM, Normal Inspection - Neurological Exam Neurological Exam: Alert, Awake, CN II-XII Intact, Oriented x3 - Psychiatric Exam Psychiatric exam: Normal Affect, Normal Mood - Skin Skin Exam: Intact, Normal Color Assessment and Plan - Assessment and Plan (Free Text) Assessment: 66 yo [place] male with fevers up to 102.2 F on admission but no leukocytosis. Cultures of blood negative at 48 hours. Chest X-ray showed no infiltrate. Procalcitonin was elevated at 1.06 but not to the level of severe sepsis. Would check for influenza. Currently on Vancomycin and Cefepime for antibiotic coverage. Supportive care. The patient fever appears to be resolving but source unclear. Influenza negative. CT Chest/Abd showed questionable pneumonia but more importantly a 6.2 -6.3 cm renal mass in the upper lobe of left kidney. IR evaluation for biopsy. Thank you for allowing me to participate in the care of the patient, we will follow with you.
[2017-06-21 17:22] VITALS: BP 143/54; PULSE 77
--- NOTE | 2017-06-22 01:56 | PN ---
DATE: 06/21/2017 SUBJECTIVE: This 66-year-old male was in the [facility] renal dialysis unit, dialyzing on a F160, 140 sodium, 2K bicarb bath with a temperature of 98.6, respirations 16, blood pressure 142/53 and pulse of 74. Heart: Regular S1, S2. Lungs: Clear. The patient is tolerating blood flow rates of 400 mL per minute and will attempt to have 1-2 kg of fluid removed today. No Banda MD MTDD
--- NOTE | 2017-06-24 08:32 | PN ---
DIALYSIS PROGRESS NOTE DATE: 06/21/2017 SUBJECTIVE: This 66-year-old male was in the [facility] Renal Dialysis Unit, dialyzing via his right upper extremity AV fistula with a blood pressure of 109/49, pulse of 72 with blood flow rates of 400 mL per minute. He continues on 2K bicarb bath, white count 5000, hemoglobin 8.3, hematocrit 24.9, and platelets 138,000. Sodium 136, K 4.8, chloride 90, bicarb 29, BUN 79, and creatinine 11.7. Random blood sugar 143. All liver function testing is normal including bilirubin 0.6, AST 33, ALT 23, and alk phos 85. B12 level 361. Folic acid level greater than 20 and ferritin 1360. We will aim for 1-2 kg off on hemodialysis today. No Banda MD MTDD
== END 2017-06-21 18:42 | DRG 864 ==
LOC: ED 19:52 → ERH 22:14 → 2RNO 06-18 00:15 → OBSVTOIN 06-18 10:18 → 5RNO 06-20 14:42
PROVIDERS: ADMIT Internal Medicine; ATTEND Internal Medicine
PROC: 5A1D70Z Performance of Urinary Filtration, Intermittent, Less than 6 Hours Per Day (ICD-10-PCS; principal; 2017-06-21)
DX: R50.9 Fever, unspecified (principal); I13.2 Hypertensive heart and chronic kidney disease with heart failure and with stage 5 chronic kidney disease, or end stage renal disease; N18.6 End stage renal disease; E11.22 Type 2 diabetes mellitus with diabetic chronic kidney disease; I50.9 Heart failure, unspecified; E83.39 Other disorders of phosphorus metabolism; K21.9 Gastro-esophageal reflux disease without esophagitis; E03.9 Hypothyroidism, unspecified; I25.10 Atherosclerotic heart disease of native coronary artery without angina pectoris; E78.5 Hyperlipidemia, unspecified; D63.8 Anemia in other chronic diseases classified elsewhere; M13.812 Other specified arthritis, left shoulder; M13.811 Other specified arthritis, right shoulder; Z99.2 Dependence on renal dialysis; Z79.4 Long term (current) use of insulin; I25.2 Old myocardial infarction; Z95.5 Presence of coronary angioplasty implant and graft; Z87.891 Personal history of nicotine dependence; Z79.82 Long term (current) use of aspirin

== ENCOUNTER 2017-06-21 18:33 | Inpatient (IN) | payer OTHER, MEDICAID ==
[2017-06-21 18:53] VITALS: BMI 25.3
[2017-06-21] MEDS ORDERED: Nitroglycerin 2% Ointment Foilpak UD TOP PRN (19:11)
[2017-06-21] MEDS: Cefepime 0.5 GM in Sodium Chloride 0.9% 100 ML IVPB SCH (21:45)
[2017-06-21] MEDS: Insulin Reg-LOW-Coverage SC SCH (22:03)
[2017-06-22] MEDS ORDERED: Levothyroxine 25 MCG TAB PO SCH (06:30)
[2017-06-22] MEDS: Insulin Reg-LOW-Coverage SC SCH ×4 (06:48→22:18)
--- NOTE | 2017-06-22 15:12 | PN ---
DATE: 06/22/2017 SUBJECTIVE: This 66-year-old male was examined at his bedside. His case was reviewed in detail with himself, his and his [id number], a registered nurse. The patient remains hospitalized for pneumonia, fever and a newly noted 6.5 cm solid mass in his left upper pole of the kidney. Consultations with Dr. Frederic Meek from urology and Dr. Hang Brandt from oncology are pending at present. Of note, the patient denies any fever or chills, is tolerating vancomycin 500 mg IV post dialysis Saturday, Saturday and Saturday and Maxipime 500 mg IV daily at bedtime. At present, he denies any fever or chills. PHYSICAL EXAMINATION: VITAL SIGNS: Temperature was 98.6, respirations 16, pulse 75 and blood pressure 151/50 with a pulse ox of 93% on room air. HEENT: Head normocephalic and atraumatic. Eyes: No icterus. Ears: Clear. Throat: Noninjected. NECK: Supple. HEART: Regular S1 and S2. No pathological rubs, murmurs or gallops. LUNGS: With occasional rhonchi that clear with coughing. ABDOMEN: Soft. EXTREMITIES: No edema. SKIN: Without rash. NEUROLOGICAL: Intact. PSYCHOLOGICAL: Alert. VASCULAR: Legs warm to touch. LABORATORY DATA: Most recent labs, white count 5000; hemoglobin 8.3; hematocrit 24.9; platelets 138,000. PT/INR 1.06, PTT 31.5. Sodium 136, K of 4.8, chloride 90, bicarb 29, BUN 79, creatinine 11.7, random blood sugar was 143. All liver function testing was normal including bilirubin 0.6, AST 33, ALT 23 and alk phos 85. B12 normal at 361, folic acid greater than 20. Influenza A and B serology negative. 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 CT of the abdomen and pelvis performed earlier in the course of his hospital stay showed infiltrates in the right middle and right lower lobes, also a 6.2-cm mass in the left upper kidney pole with [id number] retroperitoneal lymphadenopathy and asymptomatic cholelithiasis. All of the above was reviewed in detail in the presence of the patient, his and his [id number]. I gave a copy of the report to the [id number], a registered nurse, as well and have explained that consultations have been called with Dr. Frederic Meek from urology as well as Dr. Hang Brandt from oncology. The patient will continue at present on renal diabetic heart-healthy diet. He will continue on Maxipime 500 mg IV 10:00 p.m. nightly; Ecotrin 81 mg p.o. daily; Humulin, regular low-dose insulin coverage a.c. meals at bedtime; Lipitor 20 mg p.o. at dinner time; Lopressor 50 mg p.o. b.i.d.; minoxidil 2.5 mg p.o. b.i.d.; nitroglycerin to chest wall 1 inch q. 4 hours, p.r.n. accelerated hypertension if systolic blood pressure greater than 160, diastolic blood pressure greater than 100; Pepcid 20 mg p.o. at bedtime; PhosLo 667 mg p.o. p.c. meals t.i.d.; Synthroid 25 mcg p.o. daily and vancomycin 500 mg IV post dialysis Saturday, Saturday, Saturday. Tylenol 650 p.o. q. 6 hours p.r.n. pain or temperature greater than 101 is ordered, and we will await discussion of further workup and intervention regarding left kidney mass after being seen by Dr. Meek from urology and Dr. Brandt from oncology. All of the above was discussed in detail with the patient, nursing and family at bedside. Greater than fifty minutes was spent in the care, management, counseling of this patient today. All questions were answered. No Banda MD MTDMariano
[2017-06-22] MEDS: Cefepime 0.5 GM in Sodium Chloride 0.9% 100 ML IVPB SCH (22:18)
[2017-06-23] MEDS: Levothyroxine 25 MCG TAB PO SCH (05:18)
[2017-06-23] MEDS: Insulin Reg-LOW-Coverage SC SCH ×4 (06:35→22:09)
[2017-06-23 07:00] LABS: HEMATOCRIT 24.4 % (42.0-52.0); MEAN CELL VOLUME 86.8 fl (80.0-105.0); MEAN CORPUSCULAR HEMOGLOBIN 28.5 pg (25.0-35.0); MEAN CORPUSCULAR HGB CONC 32.8 g/dl (31.0-37.0); MEAN PLATELET VOLUME 9.6 fl (7.0-11.0); RED CELL DISTRIBUTION WIDTH 13.2 % (11.5-14.5); WHITE BLOOD COUNT 6.4 10^3/ul (4.5-11.0)
[2017-06-23 07:07] LABS: CALCIUM 10.2 mg/dL (8.4-10.5); POTASSIUM 4.7 mmol/L (3.6-5.0)
[2017-06-23 14:20] VITALS: RESP 20
[2017-06-23] MEDS: Cefepime 0.5 GM in Sodium Chloride 0.9% 100 ML IVPB SCH (22:09)
--- NOTE | 2017-06-24 02:18 | PN ---
DATE: 06/23/2017 SUBJECTIVE: This 66-year-old male was examined at bedside. His case was reviewed in detail with himself. His was present for the interview as well as his nurse. He remains out of bed to chair. He is tolerating IV antibiotics as outlined. He is denying fever or chills and states that his cough has improved. PHYSICAL EXAMINATION: VITAL SIGNS: Showed temperature 97.9, respirations 20, pulse 69 and blood pressure 146/75. Pulse ox 98%. HEENT: Head: Normocephalic, atraumatic. Eyes: No icterus. Ears: Clear. Throat: Noninjected. NECK: Supple. HEART: Regular S1 and S2. LUNGS: Clear. ABDOMEN: Soft. EXTREMITIES: No edema. SKIN: Without rash. NEUROLOGICAL: Intact. PSYCHOLOGICAL: Alert. VASCULAR: Legs are warm to touch. LABORATORY DATA: White count 6400, hemoglobin 8, hematocrit 24.4, platelets 260,000. Sodium 137, potassium 4.7, chloride 92, bicarb 31, BUN 68, creatinine 10.7, random blood sugar 96, calcium 10.2. IMPRESSION: A 66-year-old male with end-stage renal disease, hemodialysis dependent; now with pneumonia; insulin-dependent diabetes mellitus; hyperlipidemia; stable atherosclerotic heart disease; chronic hypertension; history of gastroesophageal reflux disease; hyperphosphatemia; hypothyroidism; degenerative arthritis with a left kidney mass on recent abdominal CAT scan that was confirmed on renal ultrasound. PLAN: The plan is to await Urology and Oncology evaluations. He is scheduled for hemodialysis in the a.m. He continues on Ecotrin, insulin, Lipitor, Lopressor, Maxipime, minoxidil, nitroglycerin, Pepcid, PhosLo, Synthroid, IV vancomycin; renal diabetic heart-healthy diet and 1000 mL p.o. fluid restriction. He is scheduled for hemodialysis in the a.m. I will ask renal nursing to transfuse 2 units of packed red blood cells for O2 carrying capacity while on dialysis and we will await recommendations of Urology and Oncology regarding the treatment plan for probable renal cell carcinoma. Greater than fifty minutes was spent in care, counseling management of patient today. All of the above discussed in detail with the patient, family and nursing. All questions answered. No Banda MD [facility] # [id number] CHRIS
[2017-06-24] MEDS: Levothyroxine 25 MCG TAB PO SCH (05:41)
[2017-06-24] MEDS: Insulin Reg-LOW-Coverage SC SCH (07:00)
[2017-06-24 07:43] VITALS: BP 171/69; PULSE 84; TEMP 99.1; O2SAT 93
--- NOTE | 2017-06-24 10:53 | PCM.RRT ---
COMPUTER REPAIRER Nurse Assessment - Situation Date: 06/24/17 Time COMPUTER REPAIRER was called: 10:22 COMPUTER REPAIRER Location:: Renal Dialysis COMPUTER REPAIRER Reason for Call: Chest Pain COMPUTER REPAIRER Called By: RN - IV IV Inserted during COMPUTER REPAIRER?: No - Respiratory Oxygen Delivery Method: Nasal Cannula @L/min (2) Oxygen Flow Rate: 2 - Medication Medications Administered During COMPUTER REPAIRER: NONE - Diagnostic Test Ordered EKG: No (Deferred to the ED) Chest X-Ray: No (Deferred to the ED) CT Scan: No (Deferred to the ED) - Stat Labs Ordered COMPUTER REPAIRER Other Labs Ordered: Deferred to the ED CPR started during COMPUTER REPAIRER?: No - Vital Signs Vital Sign: BP: 175/78 HR: 85 SO2: 2 L nasal cannula - not done - sent to the ED - Finger Stick Blood Glucose Finger Stick Blood Glucose: 78 - Silvia Coma Scale Coma Scale Eye Opening: Spontaneous Coma Scale Motor: Obeys Commands Movement Coma Scale Verbal: Confused/able to answer - Recommendations 5) COMPUTER REPAIRER Level of Care Recommendations: Discharge to Emergency Room Notifications: Attending Physician (Dr Armstrong ) I.Reason for COMPUTER REPAIRER - A) Acute Change in Patient: (Select all that apply): Chest Pain - Neurological Status (Select all that apply): Confused - Respiratory Oxygen Delivery Method: Nasal Cannula @L/min Oxygen Flow Rate: 2 - Constitutional Appears: Confused - Head Head Exam: ATRAUMATIC, NORMOCEPHALIC - Eyes Eye Exam: EOMI, PERRL - Respiratory Exam Respiratory Exam: Clear to Ausculation Bilateral. absent: Rales, Rhonchi, Wheezes - Cardiovascular Exam Cardiovascular Exam: RRR, +S1, +S2 - GI/Abdominal Exam GI & Abdominal Exam: Soft. absent: Tenderness - Neurological Exam Neurological Exam: Alert, Awake Additional exam: AAOx1 - Extremities Exam Extremities Exam: absent: Calf Tenderness, Pedal Edema Plan - Assessment of Findings&Treatment Plan COMPUTER REPAIRER Called at 10:22AM at Renal Dialysis center. Pt was complaining of chest pain following 2 units of PRBC administration and upon completion of his dialysis. Total net of 2.5L removed during this session. Pt complain of non radiating chest pain 8/10 in severity. Denies any diaphoresis , n/v. Pt was hemodynamically stable and transferred to the ED. Signed patient out to Dr Armstrong. CTH, CXR, Ekg, and/or Labs (troponins) will be done as per the ED. I called and spoke to Dr Banda, which agrees with the plan of transferring care to the ED. Jose David Christina PGY2
[2017-06-24] MEDS ORDERED: Vancomycin 500mg in NS 500 MG/100 ML BAG IVPB SCH (22:00)
--- NOTE | 2017-06-25 04:02 | DS ---
From the TCU, from room #317, bed #1 on 06/24/2017. SUMMARY: This 66-year-old Serbian attended hemodialysis earlier on the morning of Saturday06/24/2017. At the end of treatment, a rapid response was called in the renal dialysis unit where the patient complained of shortness of breath and mild chest discomfort. The patient was brought immediately to the [facility] ER for further evaluation where he will continue treatment for pneumonia, newly noted renal mass, chronic hypertension, stable atherosclerotic heart disease, anemia of chronic disease, hyperlipidemia, degenerative arthritis and insulin-dependent diabetes mellitus. The patient was seen in the emergency room by myself where he was alert, family at bedside, stable and will be evaluated for admission to the medical macros. No Banda MD MTDD
== END 2017-06-24 10:38 | disposition short-term general hospital (02) | DRG 193 ==
LOC: TRCU 18:33
PROVIDERS: ADMIT Internal Medicine; ATTEND Internal Medicine
PROC: F07Z9ZZ Gait Training/Functional Ambulation Treatment (ICD-10-PCS; principal; 2017-06-23)
PROC: F07L6UZ Therapeutic Exercise Treatment of Musculoskeletal System - Lower Back / Lower Extremity using Prosthesis (ICD-10-PCS; 2017-06-23)
PROC: 5A1D70Z Performance of Urinary Filtration, Intermittent, Less than 6 Hours Per Day (ICD-10-PCS; 2017-06-24)
DX: J18.9 Pneumonia, unspecified organism (principal); N18.6 End stage renal disease; I12.0 Hypertensive chronic kidney disease with stage 5 chronic kidney disease or end stage renal disease; E11.22 Type 2 diabetes mellitus with diabetic chronic kidney disease; E03.9 Hypothyroidism, unspecified; E78.5 Hyperlipidemia, unspecified; D63.8 Anemia in other chronic diseases classified elsewhere; I25.10 Atherosclerotic heart disease of native coronary artery without angina pectoris; K21.9 Gastro-esophageal reflux disease without esophagitis; M19.90 Unspecified osteoarthritis, unspecified site; R07.9 Chest pain, unspecified; K80.20 Calculus of gallbladder without cholecystitis without obstruction; N28.89 Other specified disorders of kidney and ureter; Z99.2 Dependence on renal dialysis; Z79.4 Long term (current) use of insulin

== ENCOUNTER 2017-06-24 10:37 | Inpatient (IN) | payer OTHER, MEDICAID ==
--- NOTE | 2017-06-24 10:53 | ED PDOC ---
Arrival/HPI - General Time Seen by Provider: 06/24/17 10:39 Historian: Patient EM Caveat: Language Barrier - History of Present Illness Narrative History of Present Illness (Text): 06/24/17 10:40 Moshe Coleman is a 66 year old male, whose past medical history includes CAD , hypertension, diabetes, seizure disorder, and is currently on hemodialysis, who presents to the emergency department as a rapid response. Patient had been in TCU for dialysis treating his pneumonia when he began to have chest pain. Patient is a poor historian due to language barrier and has no present family members on bedside. Patient states his chest pain has resolved and denies any shortness of breath, fever, nausea, vomiting, chills, abdominal pain, or other complaints. PMD: Dr. Banda Time/Duration: Prior to Arrival Symptom Onset: Sudden Symptom Course: Resolved Activities at Onset: Light Past Medical History - Provider Review Nursing Documentation Reviewed: Yes - Infectious Disease Hx of Infectious Diseases: None - Tetanus Immunization Tetanus Immunization: Unknown - Cardiac Hx Cardiac Disorders: Yes (with stents; M.I.) Hx Hypertension: Yes - Pulmonary Hx Bronchitis: Yes Hx Pneumonia: Yes Hx Tuberculosis: Yes - Neurological Hx Neurological Disorder: No Hx Seizures: No (denies) - HEENT Hx Cataracts: Yes - Renal Hx Renal Disorder: Yes Hx Dialysis: Yes Hx Renal Failure: Yes Other/Comment: Kidney Transplant > 5 years, rejected - Endocrine/Metabolic Hx Diabetes Mellitus Type 1: Yes Hx Hypothyroidism: Yes - Hematological/Oncological Hx Blood Disorders: Yes Hx Anemia: Yes - Integumentary Hx Dermatological Disorder: Yes (OLD NF SCARRED AREA LEFT UPPER ARM. SHUNT TO RIGHT UPPER ARM) Other/Comment: dry tight discolored slin to ble +1 edema rll - Musculoskeletal/Rheumatological Hx Arthritis: Yes - Gastrointestinal Hx Gastrointestinal Disorders: No - Genitourinary/Gynecological Hx Genitourinary Disorders: Yes (voids very little in am) - Psychiatric Hx Emotional Abuse: No Hx Physical Abuse: No Hx Substance Use: No - Surgical History Hx Kidney Transplant: Yes (> years, rejected) - Anesthesia Hx Anesthesia: Yes Hx Anesthesia Reactions: No Hx Malignant Hyperthermia: No - Suicidal Assessment Feels Threatened In Home Enviroment: No Family/Social History - Physician Review Nursing Documentation Reviewed: Yes Family/Social History: Unknown Family HX Smoking Status: Former Smoker Hx Alcohol Use: No Hx Substance Use: No Hx Substance Use Treatment: No Allergies/Home Meds Allergies/Adverse Reactions: Allergies No Known Allergies Allergy (Verified 06/23/17 20:45) Home Medications: Home Meds Medication Instructions Recorded Confirmed Metoprolol Tartrate [Lopressor] 50 mg PO BID 01/17/15 06/24/17 Levothyroxine [Synthroid] 25 mcg PO DAILY 07/28/15 06/24/17 Aspirin [Ecotrin] 81 mg PO DAILY 12/30/15 06/24/17 Minoxidil 2.5 mg PO TID 12/30/15 06/24/17 Omeprazole 20 mg PO DAILY 12/30/15 06/24/17 Atorvastatin [Lipitor] 20 mg PO DIN 06/18/17 06/24/17 Review of Systems - Review of Systems Constitutional: absent: Fevers Respiratory: absent: SOB, Cough Cardiovascular: Chest Pain Gastrointestinal: absent: Abdominal Pain, Nausea, Vomiting Musculoskeletal: absent: Back Pain Neurological: absent: Headache Physical Exam Vital Signs Reviewed: Yes Vital Signs Temp Pulse Resp BP Pulse Ox 06/24/17 11:50 20 97 06/24/17 11:30 80 20 161/81 H 97 06/24/17 10:47 98.7 F 86 18 164/64 H 92 L Temperature: Afebrile Blood Pressure: Hypertensive Pulse: Regular Respiratory Rate: Apneic Appearance: Positive for: Well-Appearing, Non-Toxic, Comfortable Pain Distress: None Mental Status: Positive for: Confused (slow in responding questions). No: Alert and Oriented X 3 (alert) - Systems Exam Head: Present: Atraumatic, Normocephalic Neck: Present: Normal Range of Motion Respiratory/Chest: Present: Clear to Auscultation, Decreased Breath Sounds ( diminished breath sounds bilaterally ). No: Good Air Exchange, Respiratory Distress, Accessory Muscle Use Cardiovascular: Present: Regular Rate and Rhythm, Normal S1, S2. No: Murmurs Abdomen: Present: Normal Bowel Sounds. No: Tenderness, Distention, Peritoneal Signs, Guarding Upper Extremity: Present: Normal Inspection. No: Cyanosis, Edema Lower Extremity: Present: Normal Inspection. No: Edema Neurological: Present: GCS=15, CN II-XII Intact, Speech Normal Skin: Present: Warm, Dry, Normal Color. No: Rashes Psychiatric: Present: Alert, Oriented x 3, Normal Insight, Normal Concentration Medical Decision Making ED Course and Treatment: pt rapid response from hd/cp and sob. - xr show patchy infiltirates. pt already on antibiotics, la wbc neg. suspect chf as pt got 2 units blood. additioanl hd ordered. dr banda bedside. accepts for admission. 06/24/17 EKG: Ordered, reviewed, and independently interpreted the EKG. Rate : 86 BPM Rhythm : NSR Interpretation : LVH. Non specific ST-segment elevations or depressions, no T- wave inversions, normal intervals. No changes from previous EKG. 06/24/17 14:02 Chest X-ray: Creator : Marlee Frias MD COMPARISON: CT chest from 06/20/2017 FINDINGS: LUNGS: There is confluent airspace disease in the right middle and lower lobes. The lungs are well inflated. There is mild pulmonary venous congestion. PLEURA: There is a small right pleural effusion, worse since the prior examination. CARDIOVASCULAR: The heart is normal in size. Atherosclerotic aortic arch calcifications are present. With OSSEOUS STRUCTURES: No significant abnormalities. VISUALIZED UPPER ABDOMEN: Normal. OTHER FINDINGS: None. IMPRESSION: Multifocal pneumonia in the right middle and lower lobes. Follow-up to resolution is advised. Worsening right pleural effusion. 06/24/17 12:[address]: Creator: Marlee Frias MD FINDINGS: HEMORRHAGE: No intracranial hemorrhage. BRAIN: There are mild chronic microangiopathic changes. There is no mass, mass effect or abnormal extra-axial fluid collection. There are symmetric senile calcifications in bilateral basal ganglia. VENTRICLES: There is mild age-related global parenchymal volume loss and proportionate enlargement of the ventricles and cortical sulci. CALVARIUM: The skull base and calvarium are normal. PARANASAL SINUSES: Predominantly clear. MASTOID AIR CELLS: Predominantly clear. OTHER FINDINGS: There are extensive atherosclerotic vascular calcifications in the scalp arteries. IMPRESSION: No acute intracranial abnormality. Mild chronic microangiopathic changes and mild age-related global parenchymal volume loss. 06/24/17 18:26 - Lab Interpretations Lab Results: 06/24/17 11:16 06/24/17 11:16 Lab Results 06/24/17 11:16: pO2 158 H, VBG pH 7.54 H, VBG pCO2 39.0 L, VBG HCO3 33.3 H, VBG Total CO2 34.5 H, VBG O2 Sat (Calc) 98.9 H, VBG Base Excess 10.0 H, VBG Potassium 4.0, Sodium 138.0, Chloride 99.0, Glucose 91, Lactate 1.4, FiO2 21.0, Venous Blood Potassium 4.0 06/24/17 11:16: Sodium 142, Chloride 95 L, Potassium 4.2, Carbon Dioxide 33, Anion Gap 18, BUN 26 H, Creatinine 4.7 H, Est GFR ( Amer) 15, Est GFR ( Non-Af Amer) 12, Random Glucose 93, Calcium 9.6, Magnesium 2.2, Total Bilirubin 1.5 H, AST 47, ALT 34, Alkaline Phosphatase 126, Lactate Dehydrogenase 741 H, Total Creatine Kinase 131, Troponin I 0.05 D, Total Protein 7.8, Albumin 4.4, Globulin 3.5, Albumin/Globulin Ratio 1.3 06/24/17 11:16: PT 12.3, INR 1.12 H, APTT 32.0 06/24/17 11:16: WBC 8.4 D, RBC 3.72, Hgb 10.8 L D, Hct 32.1 L, MCV 86.3, MCH 29.0, MCHC 33.6, RDW 13.6, Plt Count 170, MPV 9.5, Gran % 73.4 H, Lymph % (Auto ) 7.3 L, [place] % (Auto) 12.1 H, Eos % (Auto) 6.8 H, Baso % (Auto) 0.4, Gran # 6.17, Lymph # 0.6 L, [place] # 1.0 H, Eos # 0.6, Baso # 0.03 I have reviewed the lab results: Yes - RAD Interpretation Radiology Orders: 06/24/17 10:40 CHEST PORTABLE [RAD] Stat 06/24/17 10:43 HEAD W/O CONTRAST [CT] Stat Deputy Of Counter Intelligence: Radiologist - EKG Interpretation Interpreted by ED Physician: Yes Type: 12 lead EKG - Medication Orders Current Medication Orders: Acetaminophen (Tylenol 325mg Tab) 650 mg PO Q6 PRN PRN Reason: Pain, Mild (1-3) Aspirin (Ecotrin) 81 mg PO DAILY GURVINDER Atorvastatin Calcium (Lipitor) 20 mg PO DIN GURVINDER Last Admin: 06/24/17 16:15 Dose: 20 mg Docusate Sodium (Colace) 100 mg PO BID PRN PRN Reason: Constipation Heparin Sodium (Porcine) (Heparin) 5,000 units SC Q12H GURVINDER PRN Reason: Protocol Last Admin: 06/24/17 16:15 Dose: 5,000 units MAR aPTT Document 06/24/17 16:15 SPA (Rec: 06/24/17 16:15 [facility] [id number]) aPTT aPTT (secs) 32.0 Subcutaneous Administrations Document 06/24/17 16:15 SPA (Rec: 06/24/17 16:15 [id number] Injection Site MAR Injection Site Right Abdomen Charges for Administration # of Subcutaneous Administrations 1 Cefepime HCl 0.5 gm/ Sodium (Chloride) 100 mls @ 100 mls/hr IVPB HS GURVINDER PRN Reason: Protocol Stop: 06/28/17 05:00 Vancomycin HCl (Vancomycin 500mg In Ns) 500 mg in 100 mls @ 200 mls/hr IVPB MWF [facility] PRN Reason: Protocol Stop: 06/27/17 05:00 Levothyroxine Sodium (Synthroid) 25 mcg PO 0600 [facility] Metoprolol Tartrate (Lopressor) 50 mg PO BRKDIN [facility] Last Admin: 06/24/17 16:15 Dose: 50 mg MAR Pulse and Blood Pressure Document 06/24/17 16:15 SPA (Rec: 06/24/17 16:15 [id number]) Pulse Pulse Rate (60-90) 77 Blood Pressure Blood Pressure (100/60-150/90) 186/78 Minoxidil (Minoxidil) 2.5 mg PO TID [facility] Last Admin: 06/24/17 16:15 Dose: 2.5 mg Pantoprazole Sodium (Protonix Ec Tab) 20 mg PO DAILY [facility] Discontinued Medications Aspirin (Aspirin) 325 mg PO STAT STA Stop: 06/24/17 11:53 Last Admin: 06/24/17 12:01 Dose: 325 mg Pneumococcal Polyvalent Vaccine (Pneumovax 23 Vaccine) 0.5 ml IM .ONCE ONE Stop: 06/24/17 17:27 - Scribe Statement The provider has reviewed the documentation as recorded by the Scribe Lynette Cedillo Provider Scribe Attestation: All medical record entries made by the Scribe were at my direction and personally dictated by me. I have reviewed the chart and agree that the record accurately reflects my personal performance of the history, physical exam, medical decision making, and the department course for this patient. I have also personally directed, reviewed, and agree with the discharge instructions and disposition. Disposition/Present on Arrival - Present on Arrival Any Indicators Present on Arrival: No History of DVT/PE: No History of Uncontrolled Diabetes: No Urinary Catheter: No History Surgical Site Infection Following: None - Disposition Have Diagnosis and Disposition been Completed?: Yes Diagnosis: Congestive heart failure (CHF) Disposition: HOSPITALIZED Disposition Time: 03:00 Condition: FAIR
--- NOTE | 2017-06-24 11:16 | RAD ---
HISTORY: Chest pain COMPARISON: CT chest from 06/20/2017 FINDINGS: LUNGS: There is confluent airspace disease in the right middle and lower lobes. The lungs are well inflated. There is mild pulmonary venous congestion. PLEURA: There is a small right pleural effusion, worse since the prior examination. CARDIOVASCULAR: The heart is normal in size. Atherosclerotic aortic arch calcifications are present. With OSSEOUS STRUCTURES: No significant abnormalities. VISUALIZED UPPER ABDOMEN: Normal. OTHER FINDINGS: None. IMPRESSION: Multifocal pneumonia in the right middle and lower lobes. Follow-up to resolution is advised. Worsening right pleural effusion.
[2017-06-24 11:22] LABS: VENOUS BLOOD PH 7.54 (7.32-7.43)
[2017-06-24 11:26] LABS: BASO # 0.03 K/mm3 (0.0-2.0); BASO % 0.4 % (0.0-3.0); EOS # 0.6 (0.0-0.7); EOS % 6.8 % (1.5-5.0); GRAN # 6.17 (1.4-6.5); GRAN % 73.4 % (50.0-68.0); HEMATOCRIT 32.1 % (42.0-52.0); LYMPH # 0.6 (1.2-3.4); LYMPH % 7.3 % (22.0-35.0); MEAN CELL VOLUME 86.3 fl (80.0-105.0); MEAN CORPUSCULAR HGB CONC 33.6 g/dl (31.0-37.0); MEAN PLATELET VOLUME 9.5 fl (7.0-11.0); MONO % 12.1 % (1.0-6.0); RED CELL DISTRIBUTION WIDTH 13.6 % (11.5-14.5); WHITE BLOOD COUNT 8.4 10^3/ul (4.5-11.0)
[2017-06-24 11:32] VITALS: BMI 29.9
[2017-06-24 11:32] LABS: ALB/GLOB RATIO 1.3 (1.1-1.8); BILIRUBIN,TOTAL 1.5 mg/dL (0.2-1.3); CALCIUM 9.6 mg/dL (8.4-10.5); MAGNESIUM 2.2 mg/dL (1.7-2.2); POTASSIUM 4.2 mmol/L (3.6-5.0); TOTAL PROTEIN 7.8 g/dL (5.8-8.3)
[2017-06-24 11:34] LABS: INR 1.12 (0.93-1.08)
[2017-06-24 11:42] LABS: TROPONIN I 0.05 ng/mL
--- NOTE | 2017-06-24 11:53 | CT ---
PROCEDURE: CT HEAD WITHOUT CONTRAST. HISTORY: Altered mental status COMPARISON: None available. TECHNIQUE: Axial computed tomography images were obtained through the head/brain without intravenous contrast. Radiation dose: Total exam DLP = 703.52 mGy-cm. This CT exam was performed using one or more of the following dose reduction techniques: Automated exposure control, adjustment of the mA and/or kV according to patient size, and/or use of iterative reconstruction technique. FINDINGS: HEMORRHAGE: No intracranial hemorrhage. BRAIN: There are mild chronic microangiopathic changes. There is no mass, mass effect or abnormal extra-axial fluid collection. There are symmetric senile calcifications in bilateral basal ganglia. VENTRICLES: There is mild age-related global parenchymal volume loss and proportionate enlargement of the ventricles and cortical sulci. CALVARIUM: The skull base and calvarium are normal. PARANASAL SINUSES: Predominantly clear. MASTOID AIR CELLS: Predominantly clear. OTHER FINDINGS: There are extensive atherosclerotic vascular calcifications in the scalp arteries. IMPRESSION: No acute intracranial abnormality. Mild chronic microangiopathic changes and mild age-related global parenchymal volume loss.
--- NOTE | 2017-06-24 16:31 | CARD ---
APPROVED REPORT EKG Measurement Heart [id number] ND [id number] <Conclusion> Normal sinus rhythm Possible Left atrial enlargement PRWP Prolonged QT
[2017-06-24] MEDS ORDERED: Influenza Vaccine 60 mcg/0.5 mL SYR (4YR UP) IM ONE (17:26)
[2017-06-24] MEDS ORDERED: Pneumococcal 23-Valent Vaccine IM ONE (17:26)
[2017-06-24] MEDS ORDERED: Nitroglycerin 2% Ointment Foilpak UD TOP PRN (20:39)
[2017-06-24] MEDS: Insulin Reg-LOW-Coverage SC SCH (22:15)
[2017-06-24] MEDS: Cefepime 0.5 GM in Sodium Chloride 0.9% 100 ML IVPB SCH (22:15)
[2017-06-25] MEDS: Levothyroxine 25 MCG TAB PO SCH (06:01)
[2017-06-25 07:09] LABS: BASO # 0.01 K/mm3 (0.0-2.0); BASO % 0.1 % (0.0-3.0); EOS # 0.6 (0.0-0.7); EOS % 6.8 % (1.5-5.0); GRAN # 6.05 (1.4-6.5); GRAN % 71.8 % (50.0-68.0); HEMATOCRIT 32.8 % (42.0-52.0); LYMPH # 0.8 (1.2-3.4); MEAN CELL VOLUME 86.3 fl (80.0-105.0); MEAN CORPUSCULAR HEMOGLOBIN 29.2 pg (25.0-35.0); MEAN CORPUSCULAR HGB CONC 33.8 g/dl (31.0-37.0); MEAN PLATELET VOLUME 9.4 fl (7.0-11.0); MONO % 11.3 % (1.0-6.0); RED CELL DISTRIBUTION WIDTH 13.5 % (11.5-14.5); WHITE BLOOD COUNT 8.4 10^3/ul (4.5-11.0)
[2017-06-25 07:28] LABS: ALB/GLOB RATIO 1.3 (1.1-1.8); CALCIUM 9.8 mg/dL (8.4-10.5); MAGNESIUM 2.4 mg/dL (1.7-2.2); POTASSIUM 4.4 mmol/L (3.6-5.0); TOTAL PROTEIN 7.7 g/dL (5.8-8.3)
[2017-06-25] MEDS: Insulin Reg-LOW-Coverage SC SCH ×4 (08:05→22:01)
[2017-06-25 08:09] LABS: TROPONIN I 0.05 ng/mL
--- NOTE | 2017-06-25 08:34 | HP ---
HISTORY OF PRESENT ILLNESS: This 66-year-old male was examined in the [facility] ER in the presence of his family and emergency room physician, Dr. Kvng Armstrong. The patient earlier this morning had completed his hemodialysis treatment in the renal dialysis unit at the [facility] He received 2 units of packed red blood cell without incident. At the end of treatment, he complained of substernal chest discomfort and a rapid response was called. He was brought to the [facility] ER where he denied any further chest pain. He denied any shortness of breath. He denied fever, chills, abdominal pain, headache, but seems somewhat confused on questioning. PAST MEDICAL HISTORY: The patient's past medical history is extensive and includes end-stage renal disease, hemodialysis dependent; stable atherosclerotic heart disease, anemia of chronic disease, degenerative arthritis, insulin-dependent diabetes mellitus, chronic hypertension, hyperlipidemia, recent pneumonia, a renal mass on recent CT of abdomen and renal ultrasound, hypothyroidism, degenerative arthritis. MEDICATIONS: The patient's medications at present include parenteral vancomycin; IV Maxipime, dose reduced for renal insufficiency; Synthroid 25 mcg p.o. daily, Pepcid 20 mg p.o. bedtime, minoxidil 2.5 mg p.o. t.i.d., Lopressor 50 mg p.o. b.i.d., Lipitor 20 mg p.o. at dinner time, Ecotrin 81 mg p.o. daily, Colace 100 mg p.o. b.i.d. p.r.n. obstipation. SOCIAL HISTORY: The patient is a current nondrinker, nonsmoker, non-IV drug misuser. He is retired and attends hemodialysis on Saturday, Wednesdays and Fridays. He is awaiting urology and oncology evaluation for a renal mass noted on recent CT and abdominal ultrasound and also is awaiting neurological evaluation of reported altered mental status and chest discomfort during rapid response this morning. FAMILY HISTORY: Noncontributory. REVIEW OF SYSTEMS: CONSTITUTIONAL: He denied fever or chills. HEAD: No knowledge of stroke. EYES: No change in visual acuity. EAR REVIEW: No hearing loss. THROAT REVIEW: No swallowing difficulty. NECK REVIEW: No stiffness. CARDIAC REVIEW: He has stable atherosclerotic heart disease. He denies any active chest pain at present. RESPIRATORY: No shortness of breath. ABDOMINAL: Asymptomatic gallstones. GENITOURINARY: End-stage renal disease, hemodialysis dependent. As per HPI. MUSCULOSKELETAL: Chronic degenerative arthritis. ENDOCRINOLOGICAL: Insulin-dependent diabetes mellitus, hyperlipidemia, hypothyroidism. VASCULAR: No claudication. PSYCHOLOGICAL: Denied depression. PHYSICAL EXAMINATION: GENERAL: The patient is alert, oriented, and answering questions appropriately. VITAL SIGNS: Temperature 98.7, respirations 18, pulse 86, blood pressure 161/81 with a pulse ox of 97%. HEENT: Head is normocephalic, atraumatic. Eyes, no icterus. Ears, clear. Throat, noninjected. NECK: Supple. HEART: Was regular S1, S2. No pathological rubs, murmurs or gallops. LUNGS: Had occasional rhonchi bilaterally. No wheezing. ABDOMEN: Soft. EXTREMITIES: No edema. SKIN: Without rash. NEUROLOGICAL: Intact. PSYCHOLOGICAL: Alert. VASCULAR: Legs warm to touch. LABORATORY WORKUP: White count 8400, hemoglobin 10.8, hematocrit 32.1, platelets 170,000. PT/INR 1.12, PTT 32.0. Sodium 142, K 4.2, chloride 95, bicarb 33, BUN 26, creatinine 4.7, random blood sugar 93. Magnesium 2.2, normal. Bilirubin 1.5. AST 47, ALT 34, and alk phos 126. CPK normal at 131. Troponin 0.05. CEA antigen normal at 2.1, normal 0 to 3. Chest x-ray was reviewed and was consistent with mild pulmonary congestion, also consistent with multifocal pneumonia in the right middle and lower lobes. Head CT was reviewed and showed no acute intracranial abnormalities. No intracranial hemorrhage, no mass, no evidence of stroke. EKG was reviewed and showed a normal sinus rhythm with nonspecific ST-T wave changes. IMPRESSION: This is a 66-year-old male on recent treatment for bronchial pneumonia awaiting urological and oncological consultations with Dr. Meek and Dr. Brandt to further evaluate CT and renal ultrasound studies of a 6.5 cm solid left kidney mass. Also, patient with rapid response and chest pain which will need to be further evaluated by the patient's navigation officer, Dr. Archer, and I have also requested a consultation by Dr. Hernandez from Neurology because of altered mental status at the time of this rapid response. All of the above was discussed in detail with the patient, his and 2 daughters at the bedside. Greater than sixty minutes was spent in the care, management, and counseling of this patient and family today. All questions were answered. All of the above was discussed with the dialysis nursing team. We will be scheduling dry ultrafiltration dialysis again this afternoon to further treat newly noted congestive heart failure on recent chest x-ray findings. The patient remains stable at present No Banda MD MTDD
--- NOTE | 2017-06-25 08:35 | PN ---
DATE OF SERVICE: 06/24/2017 SUMMARY: This 66-year-old male is once again in the Renal Dialysis Unit today for the second time dialyzing on an F160, 140 sodium, 4 potassium, bicarb bath. He has blood flow rates of 400 mL per minute. Blood pressure is 178/83 with a pulse of 77, aiming for 2 kg fluid removal. No Banda MD
--- NOTE | 2017-06-25 08:37 | PN ---
DIALYSIS PROGRESS NOTE DATE: 06/24/2017 This 66-year-old male remains in the Renal Dialysis Unit. He is being dialyzed to remove 2 kilograms extra fluid today. He did tolerate blood transfusion earlier and at present, hemoglobin is 10.8 with hematocrit 32.1. His blood flow rates are 400 mL per minute, blood pressure is 178/83, pulse is 77. The patient is tolerating treatment. He will have a chest x-ray repeated. No Banda MD MTDD
[2017-06-25] MEDS ORDERED: Midazolam 2 MG/2 ML VIAL ONE (09:22)
[2017-06-25] MEDS ORDERED: Lidocaine 1% Inj (20ml) ONE (09:23)
--- NOTE | 2017-06-25 09:52 | MRI ---
PROCEDURE: MRI BRAIN WITHOUT CONTRAST HISTORY: AMS COMPARISON: None. TECHNIQUE: Multiplanar, multisequence MR images of the brain were obtained without intravenous contrast enhancement. FINDINGS: HEMORRHAGE: None DWI: No evidence of an acute or early subacute infarction. BRAIN PARENCHYMA: No mass effect or edema. No atrophy or chronic microvascular ischemic changes. VENTRICLES: Unremarkable. No hydrocephalus. CRANIUM: Unremarkable. ORBITS: Grossly unremarkable. PARANASAL SINUSES/MASTOIDS: Clear VASCULAR SYSTEM: Skull base flow voids intact. OTHER FINDINGS: None. IMPRESSION: No acute intracranial findings
[2017-06-25] MEDS ORDERED: Pantoprazole 20 mg EC Tab PO SCH (10:00)
--- NOTE | 2017-06-25 10:02 | RAD ---
PROCEDURE: CHEST RADIOGRAPH, 1 VIEW HISTORY: RE EVAL chf COMPARISON: 06/24/2017 FINDINGS: LUNGS: There is a slight decrease in vascular congestion and right lower lobe infiltrate PLEURA: No pneumothorax or pleural fluid seen. CARDIOVASCULAR: Normal. OSSEOUS STRUCTURES: No significant abnormalities. VISUALIZED UPPER ABDOMEN: Normal. OTHER FINDINGS: None. IMPRESSION: There is a slight decrease in vascular congestion and right lower lobe infiltrate
--- NOTE | 2017-06-25 10:16 | CON ---
DATE: 06/25/2017 INDICATIONS: Chest pain following hemodialysis yesterday. HISTORY OF PRESENT ILLNESS: Apparently, he underwent dialysis and 2 units packed red cell blood transfusion yesterday. At the end of the process, he began to experience chest discomfort. Altered mental status was also noted. He was brought to the emergency room and subsequently admitted to telemetry. He had additional ultrafiltration done. He had been in the hospital because of pneumonia and was in the TC unit; undergoing chronic dialysis. This morning, he is on telemetry. There was no chest pain or shortness of breath. There was no orthopnea, PND, syncope, presyncope, lightheadedness, dizziness, or vertigo. There was no fever, chills, cough, sputum production, hemoptysis. There was no abdominal pain, nausea, vomiting, diarrhea, constipation or melena. PAST MEDICAL HISTORY: Notable for recent pneumonia, chronic hemodialysis, recent diagnosis of a renal mass. He has known coronary artery disease with remote circumflex artery intervention and a more recent right coronary artery intervention. He has hypertension, diabetes, hypothyroidism, anemia, seizure disorder. He is a former smoker. There is no history of myocardial infarction, congestive heart failure, stroke, TIA, or gout. MEDICATIONS: Include aspirin, Lipitor, metoprolol, minoxidil, omeprazole, Synthroid, and Colace. ALLERGIES: THERE ARE NO KNOWN MEDICATION ALLERGIES. SOCIAL HISTORY: He is a former smoker. He does not drink alcohol significantly. He lives at home with his . FAMILY HISTORY: Noncontributory. REVIEW OF SYSTEMS: A 10-point review of systems is limited because of language but is otherwise unremarkable. PHYSICAL EXAMINATION: GENERAL: Reveals a well-developed male, lying in bed, on telemetry, in no acute distress. VITAL SIGNS: Notable for a sinus rhythm. He is afebrile. Blood pressure 133/72, respirations 20, and O2 saturation 93% to 97% on room air. HEENT AND NECK: Reveals no neck vein distention, thyromegaly, or carotid bruits. Mucous membranes are moist. Conjunctivae are pink. Neck is supple. CHEST: Lung urrutia scattered rhonchi. No wheezing. HEART: Revealed normal first and second heart sounds. There is a soft systolic murmur along the left sternal border. ABDOMEN: Soft. Bowel sounds are present. No mass, organomegaly, tenderness, rebound, guarding, CVA tenderness, or palpable abdominal aortic aneurysm. EXTREMITIES: Revealed no cyanosis, clubbing, or edema. NEUROLOGIC: He is awake and alert. PSYCHIATRIC: Normal as to mood and affect. SKIN: Warm and dry. No rash or cellulitis. LABORATORY AND IMAGING: A chest x-ray portable study revealed bilateral infiltrates, right greater than left, interpreted as multifocal pneumonia in the right, middle and lower lobes, worsening right pleural effusion. EKG demonstrates regular sinus rhythm, nonspecific ST wave changes, T waves are somewhat peaked in V3 and V4, but this is unchanged from a prior EKG. CT scan of the head revealed no acute intracranial abnormality. There are mild chronic microangiopathic changes and mild age related global parenchymal volume loss. White count normal. Platelet count normal. Hemoglobin 11.1, hematocrit 32.8. PT/INR and PTT unremarkable. Blood gases are noted. Chemistries are noted. BUN and creatinine noted with creatinine 8.2 this morning. Magnesium 2.4. LFTs unremarkable. Troponins are unremarkable times several. TSH is normal. IMPRESSION: The patient is a 66-year-old man admitted with chest pain at the end of dialysis and blood transfusions yesterday with bilateral multifocal pneumonia being treated; history of coronary artery disease, no evidence of myocardial infarction or congestive heart failure at this time. PLAN: I will review his old records. I will continue his usual cardiac medications including aspirin, Lipitor, metoprolol, minoxidil. He is also getting Colace, subcu heparin, Maxipime, nitro paste, Synthroid, Tylenol, vancomycin. A followup chest x-ray is ordered. He is undergoing a Neurologic evaluation. He will have Urologic evaluation for the renal mass and an Oncology evaluation. If chest pain is recurrent, we will consider a nuclear stress testing and/or cardiac catheterization. At the moment, I will continue medical therapy. I will follow along with you. I will make additional recommendations based on his clinical course. Carlos A Faulkner MD MTDMariano
--- NOTE | 2017-06-25 10:39 | CP.PCM.CON ---
History of Present Illness - History of Present Illness History of Present Illness: Neurology consult note for Dr. Hernandez's service HPI: Patient is a 66yo male with past medical history of ESRD on hemodialysis, CAD s/p PCI, IDDM, hypertension, hyperlipidemia, hypothyroidism, renal mass, arthritis that presented to [facility] from the transitional care unit where he was receiving dialysis and being treated for pneumonia. Patient had been at dialysis when he began experiencing chest pain and a rapid response was called. He was subsequently brought to the ER for further evaluation. Cardiology was consulted. Neurology consulted for altered mental status. An MRI of the brain was done which revealed no acute intracranial abnormalities. PMH: as stated above Allergies: NKDA Family Hx: Reviewed and non-contributory Social Hx: Denied alcohol, tobacco and illicit drug use Medications: Reviewed and as per chart Past Patient History - Infectious Disease Hx of Infectious Diseases: None - Tetanus Immunizations Tetanus Immunization: Unknown - Past Medical History & Family History Past Medical History?: Yes - Past Social History Smoking Status: Former Smoker - CARDIAC Hx Cardiac Disorders: Yes (with stents; M.I.) Hx Hypertension: Yes - PULMONARY Hx Bronchitis: Yes Hx Pneumonia: Yes Hx Tuberculosis: Yes - NEUROLOGICAL Hx Neurological Disorder: No Hx Seizures: No (denies) - HEENT Hx Cataracts: Yes - RENAL Hx Chronic Kidney Disease: Yes Hx Dialysis: Yes Hx Renal Failure: Yes Other/Comment: Kidney Transplant > 5 years, rejected - ENDOCRINE/METABOLIC Hx Diabetes Mellitus Type 1: Yes Hx Hypothyroidism: Yes - HEMATOLOGICAL/ONCOLOGICAL Hx Blood Disorders: Yes Hx Anemia: Yes - INTEGUMENTARY Hx Dermatological Problems: Yes (OLD NF SCARRED AREA LEFT UPPER ARM. SHUNT TO RIGHT UPPER ARM) Other/Comment: dry tight discolored slin to ble +1 edema rll - MUSCULOSKELETAL/RHEUMATOLOGICAL Hx Arthritis: Yes - GASTROINTESTINAL Hx Gastrointestinal Disorders: No - GENITOURINARY/GYNECOLOGICAL Hx Genitourinary Disorders: Yes (voids very little in am) - PSYCHIATRIC Hx Emotional Abuse: No Hx Physical Abuse: No Hx Substance Use: No - SURGICAL HISTORY Hx Kidney Transplant: Yes (> years, rejected) - ANESTHESIA Hx Anesthesia: Yes Hx Anesthesia Reactions: No Hx Malignant Hyperthermia: No Meds Allergies/Adverse Reactions: Allergies Allergy/AdvReac Type Severity Reaction Status Date / Time No Known Allergies Allergy Verified 06/23/17 20:45 - Medications Medications: Current Medications Acetaminophen (Tylenol 325mg Tab) 650 mg PO Q6 PRN PRN Reason: Pain, Mild (1-3) Aspirin (Ecotrin) 81 mg PO DAILY [facility] Atorvastatin Calcium (Lipitor) 20 mg PO DIN [facility] Last Admin: 06/24/17 16:15 Dose: 20 mg Docusate Sodium (Colace) 100 mg PO BID PRN PRN Reason: Constipation Famotidine (Pepcid) 20 mg PO HS [facility] Last Admin: 06/24/17 22:14 Dose: 20 mg Heparin Sodium (Porcine) (Heparin) 5,000 units SC Q12H [facility] PRN Reason: Protocol Last Admin: 06/25/17 06:00 Dose: 5,000 units Cefepime HCl 0.5 gm/ Sodium (Chloride) 100 mls @ 100 mls/hr IVPB [facility] PRN Reason: Protocol Stop: 06/28/17 05:00 Last Admin: 06/24/17 22:15 Dose: 100 mls/hr Vancomycin HCl (Vancomycin 500mg In Ns) 500 mg in 100 mls @ 200 mls/hr IVPB [facility] PRN Reason: Protocol Stop: 06/29/17 05:00 Insulin Human Regular (Humulin R Low) 0 units SC ACHS [facility] PRN Reason: Protocol Last Admin: 06/25/17 08:05 Dose: Not Given Levothyroxine Sodium (Synthroid) 25 mcg PO 0600 [facility] Last Admin: 06/25/17 06:01 Dose: 25 mcg Metoprolol Tartrate (Lopressor) 50 mg PO BRKDIN [facility] Last Admin: 06/25/17 08:05 Dose: 50 mg Minoxidil (Minoxidil) 2.5 mg PO TID [facility] Last Admin: 06/24/17 16:15 Dose: 2.5 mg Nitroglycerin (Nitro-Bid 2% Oint) 1 ea TOP Q4H PRN PRN Reason: accelerated hypertension Last Admin: 06/25/17 06:01 Dose: 1 ea Ondansetron HCl (Zofran Inj) 4 mg IVP Q6H PRN PRN Reason: Nausea/Vomiting Physical Exam - Constitutional Appears: No Acute Distress - Head Exam Head Exam: ATRAUMATIC, NORMAL INSPECTION, NORMOCEPHALIC - Eye Exam Eye Exam: EOMI Pupil Exam: PERRL - Respiratory Exam Respiratory Exam: Decreased Breath Sounds. absent: Rales, Rhonchi, Wheezes - Cardiovascular Exam Cardiovascular Exam: +S1, +S2. absent: Gallop, JVD, Systolic Murmur - GI/Abdominal Exam GI & Abdominal Exam: Soft. absent: Distended, Firm, Guarding, Rigid, Tenderness - Neurological Exam Neurological exam: Alert, CN II-XII Intact, Oriented x3 - Psychiatric Exam Psychiatric exam: Normal Affect, Normal Mood - Skin Skin Exam: Dry, Intact, Normal Color, Warm Results - Vital Signs Recent Vital Signs: Last Vital Signs Temp 98.6 F 06/25/17 06:00 Pulse 86 06/25/17 08:05 Resp 20 06/25/17 06:00 BP 133/72 06/25/17 08:05 Pulse Ox 93 L 06/25/17 06:00 - Labs Result Diagrams: 06/25/17 06:57 06/25/17 06:57 Labs: Laboratory Results - last 24 hr 06/24/17 06/24/17 06/24/17 16:50 16:50 16:50 WBC RBC Hgb Hct MCV MCH MCHC RDW Plt Count MPV Gran % Lymph % (Auto) [place] % (Auto) Eos % (Auto) Baso % (Auto) Gran # Lymph # [place] # Eos # Baso # ESR Sodium Potassium Chloride Carbon Dioxide Anion Gap BUN Creatinine Est GFR ( Amer) Est GFR (Non-Af Amer) Random Glucose Calcium Phosphorus Magnesium Total Bilirubin AST ALT Alkaline Phosphatase Troponin I 0.06 Total Protein Albumin Globulin Albumin/Globulin Ratio Carcinoembryonic Ag 2.1 Procalcitonin 0.74 H TSH 3rd Generation 06/25/17 06/25/17 06/25/17 06:57 06:57 06:57 WBC 8.4 RBC 3.80 Hgb 11.1 L Hct 32.8 L MCV 86.3 MCH 29.2 MCHC 33.8 RDW 13.5 Plt Count 182 MPV 9.4 Gran % 71.8 H Lymph % (Auto) 10.0 L [place] % (Auto) 11.3 H Eos % (Auto) 6.8 H Baso % (Auto) 0.1 Gran # 6.05 Lymph # 0.8 L [place] # 1.0 H Eos # 0.6 Baso # 0.01 ESR 109 H Sodium 140 Potassium 4.4 Chloride 95 Carbon Dioxide 29 Anion Gap 20 BUN 46 H Creatinine 8.2 H* D Est GFR ( Amer) 8 Est GFR (Non-Af Amer) 7 Random Glucose 107 Calcium 9.8 Phosphorus 5.0 H Magnesium 2.4 H Total Bilirubin 1.0 AST 34 ALT 35 Alkaline Phosphatase 112 Troponin I 0.05 Total Protein 7.7 Albumin 4.3 Globulin 3.4 Albumin/Globulin Ratio 1.3 Carcinoembryonic Ag Procalcitonin TSH 3rd Generation 0.94 Assessment & Plan - Assessment and Plan (Free Text) Plan: 66yo male with history of ESRD on hemodialysis, CAD s/p PCI, IDDM, hypertension , hyperlipidemia, hypothyroidism, renal mass, arthritis that presents for evaluation of chest pain during hemodialysis session. Neurology consulted for altered mental status. Currently being treated for multifocal pneumonia. 1. Altered mental status 2. Multifocal pneumonia in the right middle and right lower lobe 3. Chest pain 4. ESRD on hemodialysis 5. Diabetes mellitus type 2 6. Hypertension 7. CAD -Brain MRI reviewed; revealed no acute intracranial abnormalities. -TSH within normal limits -Altered mental status possibly secondary to delirium from multifocal pneumonia , recommend continue with IV antibiotics and f/u cultures -Monitor and correct electrolyte abnormalities as indicated -Continue current medical management as per primary team -Further recommendations as per attending, Dr. Hernandez Patient seen and case discussed/reviewed with attending, Dr. Hernandez - Date & Time Date: 06/25/17 Time: 10:48
--- NOTE | 2017-06-25 11:48 | CT ---
PROCEDURE: CT guided left renal biopsy. HISTORY: 6 cm left renal mass. End-stage renal disease. Evaluate for renal cell carcinoma. PHYSICIAN(S): Levon Silva MD. TECHNIQUE: The relative risks and indications of the procedure were explained to the patient and consent obtained. The patient was placed supine on the CT scanner and preliminary images through the mid abdomen obtained. Conscious sedation and monitoring were provided throughout the procedure by a nurse. There is a 6 cm solid mass in the anterior aspect left kidney.. A left anterior oblique approach was selected and the area prepped and draped in the usual sterile fashion. 1% Xylocaine was used to anesthetize the skin and soft tissues. A 17-gauge guiding needle was advanced into the 6 cm left renal mass. Its position was confirmed with CT. Using coaxial technique, multiple core biopsies were obtained. The postprocedure images show no evidence of significant hemorrhage. IMPRESSION: 1. CT-guided left renal biopsy as described above.
--- NOTE | 2017-06-25 13:45 | CARD ---
APPROVED REPORT EXAM: Two-dimensional and M-mode echocardiogram with Doppler and color Doppler. INDICATION LVFX 2D DIMENSIONS Left Atrium (2D)4.9 (1.6-4.0cm)IVSd1.6 (0.7-1.1cm) LVDd4.8 (3.9-5.9cm)PWd1.8 (0.7-1.1cm) LVDs3.0 (2.5-4.0cm)FS (%) 38.2 % LVEF (%)68.4 (>50%) M-Mode DIMENSIONS Aortic Root3.40 (2.2-3.7cm)Aortic Cusp Exc.1.60 (1.5-2.0cm) Aortic Valve AoV Peak Dxzberbd329.0cm/Yong Peak GR.16mmHg Mitral Valve MV E Epngpvvw793.0cm/sMV A Gsmunvka935.0cm/sE/A ratio0.8 TDI Lateral E' Peak V5.65cm/sMedial E' Peak V5.36cm/sE/Lateral E'21.6 E/Medial E'22.8 Pulmonary Valve PV Peak Yesopcyg098.0cm/sPV Peak Grad.5mmHg Tricuspid Valve TR Peak Ltiaqsdk889af/sRAP [id number] Peak Gr.67mmHg [id number] LEFT VENTRICLE The left ventricle is normal size. There is moderate concentric left ventricular hypertrophy. The left ventricular function is normal. The left ventricular ejection fraction is within the normal range. There is normal LV segmental wall motion. RIGHT VENTRICLE The right ventricle is normal size. The right ventricular systolic function is normal. ATRIA The left atrium is moderately dilated. The right atrium is moderately dilated. The interatrial septum is intact with no evidence for an atrial septal defect. AORTIC VALVE The aortic valve is mildly sclerotic. No aortic regurgitation is present. There is no aortic valvular stenosis. MITRAL VALVE Mitral annular calcification is moderate. Mitral regurgitation is mild. TRICUSPID VALVE The tricuspid valve is normal in structure. There is moderate tricuspid regurgitation. There is severe pulmonary hypertension. PULMONIC VALVE The pulmonic valve is not well visualized. GREAT VESSELS The aortic root is normal in size. The IVC is normal in size and collapses >50% with inspiration. PERICARDIAL EFFUSION There is no pleural effusion. There is a trace pericardial effusion. <Conclusion> Biatrial enlargment. Moderate concentric LVH. Normal LV systolic function. Moderate TR. Mild MR. Elevated RVSP of 77 mm Hg noted.
[2017-06-25] MEDS ORDERED: Influenza Vaccine 60 mcg/0.5 mL SYR (4YR UP) IM ONE (17:47)
[2017-06-25] MEDS: Cefepime 0.5 GM in Sodium Chloride 0.9% 100 ML IVPB SCH (21:58)
[2017-06-26] MEDS: Levothyroxine 25 MCG TAB PO SCH (05:44)
[2017-06-26 06:34] LABS: HEMATOCRIT 27.3 % (42.0-52.0); MEAN CELL VOLUME 87.2 fl (80.0-105.0); MEAN CORPUSCULAR HEMOGLOBIN 29.4 pg (25.0-35.0); MEAN CORPUSCULAR HGB CONC 33.7 g/dl (31.0-37.0); MEAN PLATELET VOLUME 9.6 fl (7.0-11.0); RED CELL DISTRIBUTION WIDTH 13.7 % (11.5-14.5); WHITE BLOOD COUNT 10.9 10^3/ul (4.5-11.0)
[2017-06-26 06:54] LABS: BASO # 0.02 K/mm3 (0.0-2.0); BASO % 0.2 % (0.0-3.0); EOS # 0.5 (0.0-0.7); EOS % 6.3 % (1.5-5.0); GRAN # 6.04 (1.4-6.5); GRAN % 73.7 % (50.0-68.0); HEMATOCRIT 25.4 % (42.0-52.0); LYMPH # 0.8 (1.2-3.4); LYMPH % 10.2 % (22.0-35.0); MEAN CELL VOLUME 86.1 fl (80.0-105.0); MEAN CORPUSCULAR HEMOGLOBIN 29.2 pg (25.0-35.0); MEAN CORPUSCULAR HGB CONC 33.9 g/dl (31.0-37.0); MEAN PLATELET VOLUME 9.2 fl (7.0-11.0); MONO # 0.8 (0.1-0.6); MONO % 9.6 % (1.0-6.0); RED CELL DISTRIBUTION WIDTH 13.5 % (11.5-14.5); WHITE BLOOD COUNT 8.2 10^3/ul (4.5-11.0)
[2017-06-26 07:02] LABS: CALCIUM 10.1 mg/dL (8.4-10.5); PHOSPHOROUS 5.6 mg/dL (2.5-4.5); POTASSIUM 3.8 mmol/L (3.6-5.0)
[2017-06-26] MEDS: Insulin Reg-LOW-Coverage SC SCH ×4 (08:24→22:12)
[2017-06-26] MEDS: Darbepoetin Alfa 25 mcg/ml Inj IVP SCH ×2 (08:24→10:26)
[2017-06-26] MEDS ORDERED: Doxercalciferol 4 mcg/2 ml Inj IV SCH (10:00)
[2017-06-26] MEDS ORDERED: Iron Sucrose 100 mg/5 ml Inj IVP SCH (10:00)
--- NOTE | 2017-06-26 10:25 | RAD ---
HISTORY: r/o chf COMPARISON: 06/25/2017 and 07/27/2011 ; chest CT study 06/20/2017 noted TECHNIQUE: Chest PA and lateral FINDINGS: LUNGS: Right perihilar nodular masslike opacity is noted. Posterior right perihilar CT nonspecific opacity -attributed to infiltrate was referenced. Current appearance may be due to summation effects of right lung parenchymal changes is well superimposed pleural thickening some calcified pleural plaques are noted on CT is well. An currently right lateral pleural thickening is similar to the 2015 chest x-ray. Continued surveillance- particularly of the right perihilar they nodular masslike opacity is recommended this appearance not appreciated as such on the 2015 study. Follow-up to complete pulmonary resolution of presumed infiltrates is recommended. PLEURA: A small right pleural effusion and/or pleural thickening is suggested. This appearance is similar No pneumothorax apparent. CARDIOVASCULAR: Normal heart size. Axillary vascular stent OSSEOUS STRUCTURES: Old healed right rib fractures unchanged since 2015 VISUALIZED UPPER ABDOMEN: Normal. OTHER FINDINGS: None. IMPRESSION: Indeterminate appearance to the right mid lung perihilar vague nodular/masslike opacity- given the recent CT appearance summation effects and patchy pulmonary infiltrates superimposed on pleural thickening are consideration. Follow-up imaging to ensure complete resolution is advised
--- NOTE | 2017-06-26 11:27 | CON ---
DATE: 06/25/2017 GENITOURINARY CONSULTATION HISTORY OF PRESENT ILLNESS: The patient is currently getting an MRI. I have reviewed the chart, and I am dictating the consultation based on that. I will see him physically later. The patient is a 66-year-old man with a complicated history. He is currently on hemodialysis. He has a failed kidney transplant. He has chronic admission for recurrent pulmonary effusions. A CAT scan showed on his [place] band kidney on the left a 6-cm solid lesion, which is confirmed with an ultrasound as being solid, the first was with a CT without contrast, and there is vascularity on the renal ultrasound. PAST MEDICAL HISTORY: Significant for the end-stage renal disease, a failed transplant, stable CAD, and he is an insulin-dependent diabetic. MEDICATIONS: At home, he is on Synthroid, Pepcid, minoxidil, Lopressor, and Lipitor. FAMILY HISTORY: Noncontributory. SOCIAL HISTORY: He does not drink or smoke. REVIEW OF SYSTEMS: From the chart, review of symptoms; no symptoms referable to the head, eyes, ears, nose, or throat. No cardiac symptoms or shortness of breath. No dermatologic symptoms. PHYSICAL EXAMINATION: VITAL SIGNS: Shows him to be afebrile, pulse 86, blood pressure 133/72. LABORATORY DATA: I have reviewed his CAT scan and his renal ultrasound. He has a 6-cm mass on his left [place] band kidney. His lab work shows hemoglobin 11.1, white count 8000. He is dialyzed on Saturday, Saturday, and Saturday. His current creatinine is 8.2. RECOMMENDATIONS: When he is stable electively, he can have a laparoscopic nephrectomy. I would refer him to our urologic oncologist, who is a fellowship trained minimally invasive surgeon, and this could be done electively. I will come back to examine him physically, but I wanted to get my consult on record for what should be done. Sergio Perez MD
--- NOTE | 2017-06-26 13:13 | PN ---
DATE: 06/25/2017 SUBJECTIVE: This 66-year-old male was examined at his bedside in the presence of his and his daughter, Beth. This case was reviewed in detail with his nurse, Minal. The patient is status post a left renal biopsy earlier this morning for left renal mass, rule out renal cell carcinoma. The patient was admitted after a rapid response yesterday at the end of his hemodialysis. The patient at present is chest pain free. He denies shortness of breath. He has had no fever or chills and is in a normal sinus rhythm on the playground monitor. OBJECTIVE: VITAL SIGNS: Temperature 98.4, respirations 16, pulse 67, blood pressure 118/46. Pulse ox 99% room air. HEENT: Head: Normocephalic, atraumatic. Eyes: No icterus. Ears: Clear. Throat: Noninjected. NECK: Supple. HEART: Regular S1, S2. No pathological rubs, murmurs or gallops. LUNGS: Decreased breath sounds, both bases. No wheezing. ABDOMEN: Soft. EXTREMITIES: No edema. SKIN: Without rash. NEUROLOGICAL: Intact. PSYCHOLOGICAL: Alert. VASCULAR: Legs warm to touch. LABORATORY DATA: White count 8400, hemoglobin 11.1, hematocrit 32.8, platelets 182,000. PT/INR 1.12, PTT 32.0. Sodium 140, K 4.4, chloride 95, bicarb 29, BUN 46, creatinine 8.2, random blood sugar 107. Phosphorous 5, magnesium 2.4, bilirubin 1.0, AST 34, ALT 35, alkaline phosphatase 112. all normal. CEA level 2.1 normal. Procalcitonin level 0.74. TSH normal at 0.94. Troponin 0.05. Brain MRI was reviewed and unremarkable for stroke or bleed. Chest x-ray was reviewed. Improvement in CHF, improving right lower lung infiltrate. IMPRESSION: A 66-year-old male with left renal mass status post CT-guided biopsy. results pending who is awaiting evaluations by Urology. Dr. Meek; Oncology, Dr. Brandt. He had altered mental status during rapid response. He is awaiting Neurology evaluation with Dr. Antoine Hernandez and now resolved chest discomfort, awaiting evaluation by Dr. Archer. It should be noted his echocardiogram is pending. He is scheduled for hemodialysis in the a.m. He will continue on renal diabetic heart-healthy diet 1000 mL p.o. fluid restriction has been enforced. Medications will continue. Vancomycin 500 mg IV Saturday, Saturday, Saturday 10:00 p.m. Synthroid 25 mcg p.o. daily Pepcid 20 mg p.o. at bedtime, nitroglycerin 1 inch to chest wall q. 4 hours. p.r.n. systolic blood pressure greater than 160, diastolic blood pressure greater than 100, minoxidil 2.5 mg p.o. t.i.d., Maxipime 500 mg IV 10 p.m. nightly, Lopressor 50 mg p.o. b.i.d., Lipitor 20 mg p.o. at dinnertime, regular low-dose insulin coverage a.c. meals and at bedtime, subQ heparin will be discontinued given his ambulatory status, Ecotrin 81 mg p.o. daily continues and Colace 100 mg p.o. b.i.d. p.r.n. obstipation. He also will receive PhosLo 667 mg p.o. p.c. meals t.i.d. Pending the results of his renal biopsy and the opinions of Neurology, Urology, Oncology and Cardiology, the patient will be readied for outpatient treatment plan. I have discussed this in detail with the patient and his family who may be requesting an additional opinion at [facility]. The patient will continue hemodialysis Saturday, Wednesdays and Fridays and all of the above was reviewed in detail with the patient and family members and nursing at bedside. Greater than 50 minutes was spent in the care, management and counseling of this patient today. All questions were answered. No Banda MD MTDD
--- NOTE | 2017-06-26 13:43 | CP.PCM.CON ---
<Ariane Lundberg - Last Filed: 06/26/17 13:25> History of Present Illness - History of Present Illness History of Present Illness: Seen and examined at the bedside earlier this morning, the chart was reviewed. Request for GI consult is for drop in hemoglobin, rule out GI bleed. HPI: This is a 66-year-old male with a past medical history of end-stage renal disease on hemodialysis, renal transplant 2007, chronic anemia, diabetes mellitus, who was originally admitted to TCU was in dialysis and post dialysis complained of chest pain and was brought to the emergency room for further evaluation and rapid response was called. While in TCU had CT scan of chest abdomen and pelvis for fever, patient was found to have 6.2 cm mass in the left kidney, mild to moderate retroperitoneal lymphadenopathy and cholelithiasis with mild mural thickening. The patient had yesterday a CT-guided kidney biopsy. In review of labs the patient is noted to have a declining hemoglobin. The patient denies any nausea, vomiting, melena or bright red blood per rectum. His family is at the bedside and report that the patient has never had an endoscopy or colonoscopy. Denies any change in bowel habits, weight loss or loss of appetite. Patient does report having some abdominal pain yesterday, denies any pain now. He did receive 2 units of packed RBC. Currently he is started on as and received iron infusion. Past medical history:end-stage renal disease on hemodialysis,chronic anemia, diabetes mellitus, hypertension, hyperlipidemia, hypothyroidism, degenerative arthritis, coronary artery disease with stents Surgical history: Renal transplant in 2007, then as per family in 2013 patient with failed kidney transplant. Now on hemodialysis Allergies: No known drug allergies Family history: Noncontributory Social history: Former smoker, denies alcohol, denies substance abuse. Medications: Reviewed as per MAR ROS: Systems positive finding see HPI. Past Patient History - Infectious Disease Hx of Infectious Diseases: None - Tetanus Immunizations Tetanus Immunization: Unknown - Past Medical History & Family History Past Medical History?: Yes - Past Social History Smoking Status: Former Smoker - CARDIAC Hx Cardiac Disorders: Yes (with stents; M.I.) Hx Hypertension: Yes - PULMONARY Hx Bronchitis: Yes Hx Pneumonia: Yes Hx Tuberculosis: Yes - NEUROLOGICAL Hx Neurological Disorder: No Hx Seizures: No (denies) - HEENT Hx Cataracts: Yes - RENAL Hx Chronic Kidney Disease: Yes Hx Dialysis: Yes Hx Renal Failure: Yes Other/Comment: Kidney Transplant > 5 years, rejected - ENDOCRINE/METABOLIC Hx Diabetes Mellitus Type 1: Yes Hx Hypothyroidism: Yes - HEMATOLOGICAL/ONCOLOGICAL Hx Blood Disorders: Yes Hx Anemia: Yes - INTEGUMENTARY Hx Dermatological Problems: Yes (OLD NF SCARRED AREA LEFT UPPER ARM. SHUNT TO RIGHT UPPER ARM) Other/Comment: dry tight discolored slin to ble +1 edema rll - MUSCULOSKELETAL/RHEUMATOLOGICAL Hx Arthritis: Yes - GASTROINTESTINAL Hx Gastrointestinal Disorders: No - GENITOURINARY/GYNECOLOGICAL Hx Genitourinary Disorders: Yes (voids very little in am) - PSYCHIATRIC Hx Emotional Abuse: No Hx Physical Abuse: No Hx Substance Use: No - SURGICAL HISTORY Hx Kidney Transplant: Yes (> years, rejected) - ANESTHESIA Hx Anesthesia: Yes Hx Anesthesia Reactions: No Hx Malignant Hyperthermia: No Meds Allergies/Adverse Reactions: Allergies Allergy/AdvReac Type Severity Reaction Status Date / Time No Known Allergies Allergy Verified 06/23/17 20:45 - Medications Medications: Current Medications Acetaminophen (Tylenol 325mg Tab) 650 mg PO Q6 PRN PRN Reason: Pain, Mild (1-3) Aspirin (Ecotrin) 81 mg PO DAILY [facility] Last Admin: 06/26/17 10:40 Dose: 81 mg Atorvastatin Calcium (Lipitor) 20 mg PO DIN [facility] Last Admin: 06/25/17 16:45 Dose: 20 mg Calcium Acetate (Phoslo) 667 mg PO WM [facility] Last Admin: 06/26/17 11:54 Dose: 667 mg Darbepoetin Rajesh (Aranesp) 75 mcg IVP WE [facility] Last Admin: 06/26/17 10:26 Dose: 75 mcg Docusate Sodium (Colace) 100 mg PO BID PRN PRN Reason: Constipation Last Admin: 06/25/17 13:21 Dose: 100 mg Doxercalciferol (Hectorol) 10 mcg IV MWF [facility] Last Admin: 06/26/17 10:27 Dose: 10 mcg Famotidine (Pepcid) 20 mg PO HS [facility] Last Admin: 06/25/17 21:59 Dose: 20 mg Cefepime HCl 0.5 gm/ Sodium (Chloride) 100 mls @ 100 mls/hr IVPB [facility] PRN Reason: Protocol Stop: 06/28/17 05:00 Last Admin: 06/25/17 21:58 Dose: 100 mls/hr Vancomycin HCl (Vancomycin 500mg In Ns) 500 mg in 100 mls @ 200 mls/hr IVPB MWF [facility] PRN Reason: Protocol Stop: 06/29/17 05:00 Insulin Human Regular (Humulin R Low) 0 units SC ACHS [facility] PRN Reason: Protocol Last Admin: 06/26/17 11:53 Dose: 1 units Iron Sucrose (Venofer) 100 mg IVP MWF [facility] Last Admin: 06/26/17 10:28 Dose: 100 mg Levothyroxine Sodium (Synthroid) 25 mcg PO 0600 [facility] Last Admin: 06/26/17 05:44 Dose: 25 mcg Metoprolol Tartrate (Lopressor) 50 mg PO BRKDIN [facility] Last Admin: 06/26/17 08:24 Dose: Not Given Minoxidil (Minoxidil) 2.5 mg PO TID [facility] Last Admin: 06/26/17 10:35 Dose: 2.5 mg Nitroglycerin (Nitro-Bid 2% Oint) 1 ea TOP Q4H PRN PRN Reason: accelerated hypertension Last Admin: 06/25/17 06:01 Dose: 1 ea Ondansetron HCl (Zofran Inj) 4 mg IVP Q6H PRN PRN Reason: Nausea/Vomiting Last Admin: 06/25/17 14:10 Dose: 4 mg Physical Exam - Constitutional Appears: No Acute Distress - Head Exam Head Exam: NORMOCEPHALIC - Eye Exam Eye Exam: Normal appearance. absent: Scleral icterus - ENT Exam ENT Exam: Mucous Membranes Moist - Neck Exam Neck exam: Positive for: Normal Inspection - Respiratory Exam Respiratory Exam: NORMAL BREATHING PATTERN. absent: Respiratory Distress - Cardiovascular Exam Cardiovascular Exam: +S1, +S2 - GI/Abdominal Exam GI & Abdominal Exam: Distended, Soft, Tenderness (epigastric tenderness on palpation). absent: Guarding, Organomegaly, Rebound - Rectal Exam Rectal Exam: Hemorrhoids (external, no blood, noted light brown stool.). absent : Bloody Stool - Extremities Exam Extremities exam: Positive for: pedal pulses present. Negative for: calf tenderness, pedal edema - Neurological Exam Neurological exam: Alert, CN II-XII Intact, Oriented x3 - Skin Skin Exam: Dry, Warm Results - Vital Signs Recent Vital Signs: Last Vital Signs Temp 97.5 F L 06/26/17 06:00 Pulse 82 06/26/17 06:00 Resp 18 06/26/17 06:00 BP 140/60 06/26/17 06:00 Pulse Ox 94 L 06/26/17 06:00 - Labs Result Diagrams: 06/26/17 06:15 06/26/17 06:15 Labs: Laboratory Results - last 24 hr 06/24/17 06/26/17 06/26/17 16:50 06:00 06:15 WBC 10.9 D 8.2 D RBC 3.13 L 2.95 L Hgb 9.2 L 8.6 L Hct 27.3 L 25.4 L MCV 87.2 86.1 MCH 29.4 29.2 MCHC 33.7 33.9 RDW 13.7 13.5 Plt Count 218 195 MPV 9.6 9.2 Gran % 73.7 H Lymph % (Auto) 10.2 L Titus % (Auto) 9.6 H Eos % (Auto) 6.3 H Baso % (Auto) 0.2 Gran # 6.04 Lymph # 0.8 L Titus # 0.8 H Eos # 0.5 Baso # 0.02 Sodium Potassium Chloride Carbon Dioxide Anion Gap BUN Creatinine Est GFR ( Amer) Est GFR (Non-Af Amer) POC Glucose (mg/dL) Random Glucose Calcium Phosphorus CA 125 Antigen 11.4 06/26/17 06/26/17 06/26/17 06:15 08:08 08:19 WBC RBC Hgb Hct MCV MCH MCHC RDW Plt Count MPV Gran % Lymph % (Auto) Titus % (Auto) Eos % (Auto) Baso % (Auto) Gran # Lymph # Titus # Eos # Baso # Sodium 140 Potassium 3.8 Chloride 95 L Carbon Dioxide 29 Anion Gap 20 BUN 53 H Creatinine 9.2 H* Est GFR ( Amer) 7 Est GFR (Non-Af Amer) 6 POC Glucose (mg/dL) 98 105 Random Glucose 118 H Calcium 10.1 Phosphorus 5.6 H CA 125 Antigen Assessment & Plan - Assessment and Plan (Free Text) Assessment: Assessment: Acute on chronic anemia, rule out GI bleed Renal mass, status post renal biopsy Recent pneumonia End-stage renal disease on hemodialysis History of renal transplant Epigastric pain, CT scan noted cholelithiasis, mildly distended, no apparent cholestatic fluid appreciated at the time Diabetes mellitus2 Coronary artery disease status post cardiac stent Hypothyroidism Plan: Stool guiac obtained and sent Continue GI prophylaxis Abdominal ultrasound monitor H&H On IV antibiotics On our snap On iron IV Patient would benefit from upper endoscopy for further evaluation, will discuss w/ family Thank you for this consult and for last participate in your patient's care, further recommendations based upon clinical course. Seen and discussed with Dr. Waters. <Romel Waters V - Last Filed: 06/26/17 23:33> Meds - Medications Medications: Current Medications Acetaminophen (Tylenol 325mg Tab) 650 mg PO Q6 PRN PRN Reason: Pain, Mild (1-3) Aspirin (Ecotrin) 81 mg PO DAILY [facility] Last Admin: 06/26/17 10:40 Dose: 81 mg Atorvastatin Calcium (Lipitor) 20 mg PO DIN [facility] Last Admin: 06/26/17 18:42 Dose: 20 mg Calcium Acetate (Phoslo) 667 mg PO WM [facility] Last Admin: 06/26/17 18:42 Dose: 667 mg Darbepoetin Rajesh (Aranesp) 75 mcg IVP WE [facility] Last Admin: 06/26/17 10:26 Dose: 75 mcg Docusate Sodium (Colace) 100 mg PO BID PRN PRN Reason: Constipation Last Admin: 06/25/17 13:21 Dose: 100 mg Doxercalciferol (Hectorol) 10 mcg IV MWF [facility] Last Admin: 06/26/17 10:27 Dose: 10 mcg Famotidine (Pepcid) 20 mg PO HS [facility] Last Admin: 06/26/17 21:36 Dose: 20 mg Cefepime HCl 0.5 gm/ Sodium (Chloride) 100 mls @ 100 mls/hr IVPB [facility] PRN Reason: Protocol Stop: 06/28/17 05:00 Last Admin: 06/26/17 21:36 Dose: 100 mls/hr Vancomycin HCl (Vancomycin 500mg In Ns) 500 mg in 100 mls @ 200 mls/hr IVPB F [facility] PRN Reason: Protocol Stop: 06/29/17 05:00 Last Admin: 06/26/17 21:36 Dose: 200 mls/hr Insulin Human Regular (Humulin R Low) 0 units SC ACHS [facility] PRN Reason: Protocol Last Admin: 06/26/17 22:12 Dose: Not Given Iron Sucrose (Venofer) 100 mg IVP MWF [facility] Last Admin: 06/26/17 10:28 Dose: 100 mg Levothyroxine Sodium (Synthroid) 25 mcg PO 0600 [facility] Last Admin: 06/26/17 05:44 Dose: 25 mcg Metoprolol Tartrate (Lopressor) 50 mg PO BRKDIN [facility] Last Admin: 06/26/17 18:41 Dose: 50 mg Minoxidil (Minoxidil) 2.5 mg PO TID [facility] Last Admin: 06/26/17 18:42 Dose: 2.5 mg Nitroglycerin (Nitro-Bid 2% Oint) 1 ea TOP Q4H PRN PRN Reason: accelerated hypertension Last Admin: 06/25/17 06:01 Dose: 1 ea Ondansetron HCl (Zofran Inj) 4 mg IVP Q6H PRN PRN Reason: Nausea/Vomiting Last Admin: 06/25/17 14:10 Dose: 4 mg Results - Vital Signs Recent Vital Signs: Last Vital Signs Temp 98.6 F 06/26/17 17:53 Pulse 81 06/26/17 22:00 Resp 20 06/26/17 17:53 BP 130/60 06/26/17 18:41 Pulse Ox 94 L 06/26/17 06:00 - Labs Result Diagrams: 06/26/17 06:15 06/26/17 06:15 Labs: Laboratory Results - last 24 hr 06/26/17 06/26/17 06/26/17 06:00 06:15 06:15 WBC 10.9 D 8.2 D RBC 3.13 L 2.95 L Hgb 9.2 L 8.6 L Hct 27.3 L 25.4 L MCV 87.2 86.1 MCH 29.4 29.2 MCHC 33.7 33.9 RDW 13.7 13.5 Plt Count 218 195 MPV 9.6 9.2 Gran % 73.7 H Lymph % (Auto) 10.2 L Titus % (Auto) 9.6 H Eos % (Auto) 6.3 H Baso % (Auto) 0.2 Gran # 6.04 Lymph # 0.8 L Titus # 0.8 H Eos # 0.5 Baso # 0.02 Sodium 140 Potassium 3.8 Chloride 95 L Carbon Dioxide 29 Anion Gap 20 BUN 53 H Creatinine 9.2 H* Est GFR ( Amer) 7 Est GFR (Non-Af Amer) 6 POC Glucose (mg/dL) Random Glucose 118 H Calcium 10.1 Phosphorus 5.6 H Stool Occult Blood 06/26/17 06/26/17 06/26/17 08:08 08:19 16:35 WBC RBC Hgb Hct MCV MCH MCHC RDW Plt Count MPV Gran % Lymph % (Auto) Titus % (Auto) Eos % (Auto) Baso % (Auto) Gran # Lymph # Titus # Eos # Baso # Sodium Potassium Chloride Carbon Dioxide Anion Gap BUN Creatinine Est GFR ( Amer) Est GFR (Non-Af Amer) POC Glucose (mg/dL) 98 105 Random Glucose Calcium Phosphorus Stool Occult Blood Negative Attending/Attestation - Attestation I have personally seen and examined this patient.: Yes I have fully participated in the care of the patient.: Yes I have reviewed all pertinent clinical information: Yes Notes (Text): This is an addendum to GI consult Review of the severe anemia it is reasonable to consider GI workupreport dictated by Ariane Lundberg APN.The patient was seen and examined earlier. Medical records, lab studies, imagings were reviewed. Last 24 hours events reviewed. Agreed with the above treatment plan as outlined in Ariane Lundberg APN's notes the with the addition of the following This patient was seen and evaluated earlier. Imaging studies are reviewed . On examination abdomen soft no tenderne0 Mediastinal adenopathy ,retroperitoneal adenopathy chest pain Cholelithiasis Patient would benefit from the endoscopy evaluation Continue PPI Consider upper GI endoscopy 06/26/17 23:25
--- NOTE | 2017-06-26 14:01 | PN ---
DATE: 06/26/2017 SUBJECTIVE: The patient is seen sitting in bed on telemetry. He is more comfortable. He has had no chest pain overnight. He has some mild abdominal discomfort intermittently. He denies any dyspnea. CURRENT MEDICATIONS: Include Aranesp, cefepime, aspirin 81 mg daily, insulin coverage, Lipitor 20 mg daily, metoprolol 50 mg b.i.d., minoxidil 2.5 mg t.i.d., topical nitrates, Pepcid 20 mg daily, PhosLo, Synthroid 25 mcg daily, vancomycin and Zofran p.r.n. OBJECTIVE: GENERAL: He is a middle age, who appears comfortable at the present time. VITAL SIGNS: His blood pressure is 140/60 with pulse of 82 and sinus, and respirations are 14. He is afebrile. HEENT: No JVD. CHEST: Bilateral scattered rhonchi heard. HEART: PMI displaced laterally with systolic murmur noted at the apex as well as left sternal border. ABDOMEN: Soft and nontender with normoactive bowel sounds. EXTREMITIES: No edema. DIAGNOSTIC DATA: Potassium is 3.8 and BUN and creatinine are 53 and 9.2. Hemoglobin and hematocrit are 8.6 and 25.4, with a white count of 8.2, and platelet count of 195,000. Echocardiogram was reviewed. From yesterday, this revealed a biatrial enlargement with moderate concentric LVH, normal LV systolic function, moderate tricuspid regurgitation, and mild mitral regurgitation. Right ventricular systolic pressure was noted to be elevated at 77 mmHg. Pathology report from his renal biopsy remains pending at this time. IMPRESSION: 1. Recent chest pain on dialysis, no evidence of cardiac ischemia. 2. Coronary artery disease status post multivessel percutaneous coronary intervention, appears clinically stable at present. 3. Mitral and tricuspid regurgitation with elevated right ventricular systolic pressure likely secondary to valvular heart disease and volume overload in the setting of chronic renal failure. 4. Recent anemia status post transfusion. 5. Chronic renal failure, maintained on hemodialysis. 6. Rest of problems as noted. RECOMMENDATIONS: At this time, continue medical therapy for his coronary artery disease of what appears more appropriate. Maintenance of adequate dialysis with maintenance of ideal dry weight is advised. His pulmonary hypertension appears secondary to his valvular heart disease and diastolic dysfunction and does not require further workup or intervention at the present time. We will continue to follow and make further recommendations as appropriate. Leoncio Archer MD
[2017-06-26 14:24] VITALS: RESP 20
--- NOTE | 2017-06-26 15:26 | PN ---
DATE: 06/26/2017 SUBJECTIVE: This 67-year-old male in the renal dialysis unit has a blood pressure 109/54 and pulse of 90. He is tolerating dialysis. No chest pain or shortness of breath. PHYSICAL EXAMINATION: HEART: Regular S1, S2. LUNGS: No wheezing, no rales. I am aiming for 2 to 2-1/2 kg fluid removal today. He will receive Venofer 100 mg for 10 doses and Aranesp has been increased to 75 mcg IV weekly. Of note, today's white count is 8200, hemoglobin 8.6, hematocrit 25.4, platelets 195,000. Previous hemoglobin 11.1, hematocrit 32.8. I have spoken with, Ariane Lundberg, registered nurse from gastroenterology. She will be performing a stool for occult blood and be discussing possible evaluation by Dr. Waters for GI bleeding given the drop in his hemoglobin/hematocrit and repeat hemoglobin/hematocrit will be ordered for the a.m. Post dialysis chest x-ray has been ordered as well. No Banda MD MTDMariano
--- NOTE | 2017-06-26 16:51 | PN ---
DATE: 06/26/2017 DIALYSIS PROGRESS NOTE SUBJECTIVE: This 66-year-old male was in the renal dialysis unit, dialyzing on F160, 140 sodium, 2 K bicarb bath with blood flow rates of 400 mL per minute. PHYSICAL EXAMINATION: VITAL SIGNS: Blood pressure 123/56, pulse of 97, temperature afebrile. HEART: Regular S1 and S2. LUNGS: No wheezing. ABDOMEN: Soft. EXTREMITIES: No edema. We are aiming for 2.3 kg off today. The patient will have a chest x-ray post procedure. No Banda MD MTDD
--- NOTE | 2017-06-26 18:46 | US ---
HISTORY: Epigastric pain COMPARISON: None. TECHNIQUE: Grayscale imaging was performed. FINDINGS: LIVER: Measures 13.2 cm. Normal echogenicity of the liver parenchyma. No mass. No intrahepatic bile duct dilatation. GALLBLADDER: There are multiple gallstones. No wall thickening or pericholecystic fluid. The sonographic Gutiérrez's sign is negative. COMMON BILE DUCT: Measures 9.0 mm. No stones. No dilatation. PANCREAS: Unremarkable as visualized. No mass. No ductal dilatation. RIGHT KIDNEY: Measures 10.7cm. There is diffuse increased echogenicity. No calculus, mass, or hydronephrosis. There is a 8 x 6 x 11 mm cyst in the upper pole, 8 x 5 x 10 mm cyst in the upper pole and a 9 x 6 x 6 mm cyst in the interpolar region. LEFT KIDNEY: Measures 9.0cm. There is diffuse increased echogenicity. No calculus, mass, or hydronephrosis. There is a 12 x 10 x 9 mm cyst in the interpolar region SPLEEN: Normal in size and contour. No mass. AORTA: No aneurysmal dilatation. IVC: Unremarkable. OTHER FINDINGS: There is small right perihepatic ascites. IMPRESSION: 1. Cholelithiasis. 2. Medical renal disease. 3. Small right perihepatic ascites.
[2017-06-26] MEDS: Cefepime 0.5 GM in Sodium Chloride 0.9% 100 ML IVPB SCH (21:36)
[2017-06-26] MEDS ORDERED: Vancomycin 500mg in NS 500 MG/100 ML BAG IVPB SCH (22:00)
[2017-06-27 00:24] VITALS: O2SAT 97
[2017-06-27] MEDS: Levothyroxine 25 MCG TAB PO SCH (05:35)
[2017-06-27 06:27] LABS: HEMATOCRIT 24.2 % (42.0-52.0); MEAN CELL VOLUME 89.3 fl (80.0-105.0); MEAN CORPUSCULAR HEMOGLOBIN 31.7 pg (25.0-35.0); MEAN CORPUSCULAR HGB CONC 35.5 g/dl (31.0-37.0); MEAN PLATELET VOLUME 9.2 fl (7.0-11.0); RED CELL DISTRIBUTION WIDTH 13.4 % (11.5-14.5); WHITE BLOOD COUNT 10.7 10^3/ul (4.5-11.0)
--- NOTE | 2017-06-27 07:35 | CP.PCM.PN ---
Subjective - Date & Time of Evaluation Date of Evaluation: 06/27/17 Time of Evaluation: 07:00 - Subjective Subjective: Stable on 2R. No chest pain or SOB. V/S noted. RSR PE: Lungs: clear Cor.: S1S2 Abd.: soft Ext.: no edema Neuro.: alert Labs noted: H/H = 8.6/24.2 Stool for OB: neg. BC x2 NG at 48 hrs. Abd U/S noted. CXR 06/26 noted. Echo 06/25: NL LV with mod. LVH, Mod. TR and MIld MR. RVSP 77 mm/Hg. Objective - Vital Signs/Intake and Output Vital Signs (last 24 hours): Temp Pulse Resp BP Pulse Ox 99.2 F 87 20 133/57 L 97 06/27/17 06:00 06/27/17 06:00 06/27/17 06:00 06/27/17 06:00 06/27/17 06:00 Intake and Output: 06/27/17 06/27/17 06:59 18:59 Intake Total 520 Balance 520 - Medications Medications: Current Medications Acetaminophen (Tylenol 325mg Tab) 650 mg PO Q6 PRN PRN Reason: Pain, Mild (1-3) Aspirin (Ecotrin) 81 mg PO DAILY [facility] Last Admin: 06/26/17 10:40 Dose: 81 mg Atorvastatin Calcium (Lipitor) 20 mg PO DIN [facility] Last Admin: 06/26/17 18:42 Dose: 20 mg Calcium Acetate (Phoslo) 667 mg PO WM [facility] Last Admin: 06/26/17 18:42 Dose: 667 mg Darbepoetin Rajesh (Aranesp) 75 mcg IVP WE [facility] Last Admin: 06/26/17 10:26 Dose: 75 mcg Docusate Sodium (Colace) 100 mg PO BID PRN PRN Reason: Constipation Last Admin: 06/25/17 13:21 Dose: 100 mg Doxercalciferol (Hectorol) 10 mcg IV MWF [facility] Last Admin: 06/26/17 10:27 Dose: 10 mcg Famotidine (Pepcid) 20 mg PO [facility] Last Admin: 06/26/17 21:36 Dose: 20 mg Cefepime HCl 0.5 gm/ Sodium (Chloride) 100 mls @ 100 mls/hr IVPB [facility] PRN Reason: Protocol Stop: 06/28/17 05:00 Last Admin: 06/26/17 21:36 Dose: 100 mls/hr Vancomycin HCl (Vancomycin 500mg In Ns) 500 mg in 100 mls @ 200 mls/hr IVPB [facility] PRN Reason: Protocol Stop: 06/29/17 05:00 Last Admin: 06/26/17 21:36 Dose: 200 mls/hr Insulin Human Regular (Humulin R Low) 0 units SC ACHS [facility] PRN Reason: Protocol Last Admin: 06/26/17 22:12 Dose: Not Given Iron Sucrose (Venofer) 100 mg IVP MWF [facility] Last Admin: 06/26/17 10:28 Dose: 100 mg Levothyroxine Sodium (Synthroid) 25 mcg PO 0600 [facility] Last Admin: 06/27/17 05:35 Dose: 25 mcg Metoprolol Tartrate (Lopressor) 50 mg PO BRKDIN [facility] Last Admin: 06/26/17 18:41 Dose: 50 mg Minoxidil (Minoxidil) 2.5 mg PO TID [facility] Last Admin: 06/26/17 18:42 Dose: 2.5 mg Nitroglycerin (Nitro-Bid 2% Oint) 1 ea TOP Q4H PRN PRN Reason: accelerated hypertension Last Admin: 06/25/17 06:01 Dose: 1 ea Ondansetron HCl (Zofran Inj) 4 mg IVP Q6H PRN PRN Reason: Nausea/Vomiting Last Admin: 06/25/17 14:10 Dose: 4 mg - Labs Labs: 06/27/17 05:30 06/26/17 06:15 PT 12.3 SECONDS (9.4-12.5) 06/24/17 11:16 INR 1.12 (0.93-1.08) H 06/24/17 11:16 APTT 32.0 Seconds (25.1-36.5) 06/24/17 11:16 Assessment and Plan - Assessment and Plan (Free Text) Assessment: CP, resolved Abdominal Pain Pneumonia Anemia Renal mass, s/p biopsy CKD/HD/Failed Renal Transplant CAD/PCIs Echo: Nl LV with mod. LVH, mod. TR, mild MR and mod/sev. PH HBP Diabetes Hypothyroidism Seizure Disorder Gall Stones Plan: Continue cardiac meds. As per Dr Banda, Uro., GI, Heme/Onc., Neuro. Await biopsy results HD If elective surgery is contemplated, pre-op nuclear stress testing would be appropriate. Will Follow.
--- NOTE | 2017-06-27 07:45 | CP.PCM.PN ---
Subjective - Date & Time of Evaluation Date of Evaluation: 06/27/17 Time of Evaluation: 07:45 - Subjective Subjective: Neurology progress note for Dr. Hernandez's service Patient seen and examined at bedside this morning. No acute overnight events or new complaints reported. Denied chest pain, palpitations, SOB. Objective - Vital Signs/Intake and Output Vital Signs (last 24 hours): Temp Pulse Resp BP Pulse Ox 99.2 F 87 20 133/57 L 97 06/27/17 06:00 06/27/17 06:00 06/27/17 06:00 06/27/17 06:00 06/27/17 06:00 Intake and Output: 06/27/17 06/27/17 06:59 18:59 Intake Total 520 Balance 520 - Medications Medications: Current Medications Acetaminophen (Tylenol 325mg Tab) 650 mg PO Q6 PRN PRN Reason: Pain, Mild (1-3) Aspirin (Ecotrin) 81 mg PO DAILY [facility] Last Admin: 06/26/17 10:40 Dose: 81 mg Atorvastatin Calcium (Lipitor) 20 mg PO DIN [facility] Last Admin: 06/26/17 18:42 Dose: 20 mg Calcium Acetate (Phoslo) 667 mg PO WM [facility] Last Admin: 06/26/17 18:42 Dose: 667 mg Darbepoetin Rajesh (Aranesp) 75 mcg IVP WE [facility] Last Admin: 06/26/17 10:26 Dose: 75 mcg Docusate Sodium (Colace) 100 mg PO BID PRN PRN Reason: Constipation Last Admin: 06/25/17 13:21 Dose: 100 mg Doxercalciferol (Hectorol) 10 mcg IV MWF [facility] Last Admin: 06/26/17 10:27 Dose: 10 mcg Famotidine (Pepcid) 20 mg PO [facility] Last Admin: 06/26/17 21:36 Dose: 20 mg Cefepime HCl 0.5 gm/ Sodium (Chloride) 100 mls @ 100 mls/hr IVPB [facility] PRN Reason: Protocol Stop: 06/28/17 05:00 Last Admin: 06/26/17 21:36 Dose: 100 mls/hr Vancomycin HCl (Vancomycin 500mg In Ns) 500 mg in 100 mls @ 200 mls/hr IVPB F [facility] PRN Reason: Protocol Stop: 06/29/17 05:00 Last Admin: 06/26/17 21:36 Dose: 200 mls/hr Insulin Human Regular (Humulin R Low) 0 units SC ACHS [facility] PRN Reason: Protocol Last Admin: 06/26/17 22:12 Dose: Not Given Iron Sucrose (Venofer) 100 mg IVP MWF [facility] Last Admin: 06/26/17 10:28 Dose: 100 mg Levothyroxine Sodium (Synthroid) 25 mcg PO 0600 [facility] Last Admin: 06/27/17 05:35 Dose: 25 mcg Metoprolol Tartrate (Lopressor) 50 mg PO BRKDIN [facility] Last Admin: 06/26/17 18:41 Dose: 50 mg Minoxidil (Minoxidil) 2.5 mg PO TID [facility] Last Admin: 06/26/17 18:42 Dose: 2.5 mg Nitroglycerin (Nitro-Bid 2% Oint) 1 ea TOP Q4H PRN PRN Reason: accelerated hypertension Last Admin: 06/25/17 06:01 Dose: 1 ea Ondansetron HCl (Zofran Inj) 4 mg IVP Q6H PRN PRN Reason: Nausea/Vomiting Last Admin: 06/25/17 14:10 Dose: 4 mg - Labs Labs: 06/27/17 05:30 06/26/17 06:15 PT 12.3 SECONDS (9.4-12.5) 06/24/17 11:16 INR 1.12 (0.93-1.08) H 06/24/17 11:16 APTT 32.0 Seconds (25.1-36.5) 06/24/17 11:16 - Constitutional Appears: No Acute Distress - Head Exam Head Exam: ATRAUMATIC, NORMAL INSPECTION, NORMOCEPHALIC - Eye Exam Eye Exam: EOMI Pupil Exam: PERRL - ENT Exam ENT Exam: Mucous Membranes Moist - Respiratory Exam Respiratory Exam: absent: Decreased Breath Sounds, Rales, Rhonchi, Wheezes Additional comments: crackes notable in the right lung base. Left side clear - Cardiovascular Exam Cardiovascular Exam: +S1, +S2. absent: Clicks, Rubs, Murmur - GI/Abdominal Exam GI & Abdominal Exam: Soft. absent: Distended, Firm, Guarding, Rigid, Tenderness , Rebound - Neurological Exam Neurological Exam: Alert, Awake, CN II-XII Intact, Oriented x3 Neuro motor strength exam: Left Upper Extremity: 5, Right Upper Extremity: 5, Left Lower Extremity: 5, Right Lower Extremity: 5 - Psychiatric Exam Psychiatric exam: Normal Affect, Normal Mood - Skin Skin Exam: Dry, Intact, Normal Color, Warm Assessment and Plan - Assessment and Plan (Free Text) Plan: 66yo male with history of ESRD on hemodialysis, CAD s/p PCI, IDDM, hypertension , hyperlipidemia, hypothyroidism, renal mass, arthritis that presents for evaluation of chest pain during hemodialysis session. Neurology consulted for altered mental status. Currently being treated for multifocal pneumonia. 1. Altered mental status 2. Multifocal pneumonia in the right middle and right lower lobe 3. Chest pain 4. ESRD on hemodialysis 5. Diabetes mellitus type 2 6. Hypertension 7. CAD -Brain MRI reviewed; revealed no acute intracranial abnormalities. -TSH within normal limits -Altered mental status possibly secondary to delirium from multifocal pneumonia , recommend continue with IV antibiotics and f/u cultures -Monitor and correct electrolyte abnormalities as indicated -Continue current medical management as per primary team/cardiology/oncology -Further recommendations as per attending, Dr. Hernandez Patient seen and case discussed/reviewed with attending, Dr. Hernandez
[2017-06-27] MEDS: Insulin Reg-LOW-Coverage SC SCH ×2 (08:00→12:36)
--- NOTE | 2017-06-27 08:23 | CON ---
ONCOLOGY CONSULTATION NOTE DATE: 06/26/2017 HISTORY OF PRESENT ILLNESS: This is a 66-year-old man who has a renal mass. The patient with dialysis. He does have former renal transplant, but that failed and he is on dialysis. PHYSICAL EXAMINATION: SKIN: No petechiae. No bruise. HEENT: Anicteric. NODES: Nonpalpable in axillary, cervical, supraclavicular, or inguinal regions. LUNGS: Clear at present. No vertebral tenderness. HEART: S1 and S2. No rubs, gallop or murmur. ABDOMEN: Shows no liver, no spleen, no tenderness, no ascites. EXTREMITIES: No edema. CENTRAL NERVOUS SYSTEM: No focal findings. ASSESSMENT AND PLAN: The mass is present. There does not seem to be any obvious metastasis on the CAT scan and so we decided to do a biopsy of this mass. We are awaiting the pathology reports. If it is positive for renal cell, we have to see back Surgery to resect it. Hang Brandt MD
[2017-06-27 12:34] VITALS: BP 135/57; TEMP 97.1
--- NOTE | 2017-06-27 13:30 | CP.PCM.PN ---
<Ariane Lundberg - Last Filed: 06/27/17 13:29> Subjective - Date & Time of Evaluation Date of Evaluation: 06/27/17 Time of Evaluation: 12:10 - Subjective Subjective: Seen and examined at the bedside this afternoon, patient was eating lunch, patient denies nausea, vomiting, or abdominal pain. His had abdominal ultrasound yesterday and this did show gallstones as she is a common bile duct measured 9.0 mm. The patient denies any hematemesis or bleeding per rectum. No new complaints or acute overnight events reported. Stool guaiac negative. Objective - Vital Signs/Intake and Output Vital Signs (last 24 hours): Temp Pulse Resp BP Pulse Ox 97.1 F L 73 20 135/57 L 97 06/27/17 12:00 06/27/17 12:00 06/27/17 12:00 06/27/17 12:00 06/27/17 06:00 Intake and Output: 06/27/17 06/27/17 06:59 18:59 Intake Total 520 Balance 520 - Medications Medications: Current Medications Acetaminophen (Tylenol 325mg Tab) 650 mg PO Q6 PRN PRN Reason: Pain, Mild (1-3) Aspirin (Ecotrin) 81 mg PO DAILY [facility] Last Admin: 06/27/17 10:39 Dose: 81 mg Atorvastatin Calcium (Lipitor) 20 mg PO DIN [facility] Last Admin: 06/26/17 18:42 Dose: 20 mg Calcium Acetate (Phoslo) 667 mg PO WM [facility] Last Admin: 06/27/17 12:38 Dose: 667 mg Darbepoetin Rajesh (Aranesp) 75 mcg IVP WE [facility] Last Admin: 06/26/17 10:26 Dose: 75 mcg Docusate Sodium (Colace) 100 mg PO BID PRN PRN Reason: Constipation Last Admin: 06/27/17 10:39 Dose: 100 mg Doxercalciferol (Hectorol) 10 mcg IV MWF [facility] Last Admin: 06/26/17 10:27 Dose: 10 mcg Famotidine (Pepcid) 20 mg PO [facility] Last Admin: 06/26/17 21:36 Dose: 20 mg Cefepime HCl 0.5 gm/ Sodium (Chloride) 100 mls @ 100 mls/hr IVPB [facility] PRN Reason: Protocol Stop: 06/28/17 05:00 Last Admin: 10/25/17 21:36 Dose: 100 mls/hr Vancomycin HCl (Vancomycin 500mg In Ns) 500 mg in 100 mls @ 200 mls/hr IVPB [facility] [place] [place] PRN Reason: Protocol Stop: 06/29/17 05:00 Last Admin: 06/26/17 21:36 Dose: 200 mls/hr Insulin Human Regular (Humulin R Low) 0 units SC ACHS [facility] PRN Reason: Protocol Last Admin: 06/27/17 12:36 Dose: 1 units Iron Sucrose (Venofer) 100 mg IVP MWF [facility] Last Admin: 06/26/17 10:28 Dose: 100 mg Levothyroxine Sodium (Synthroid) 25 mcg PO 0600 [facility] Last Admin: 06/27/17 05:35 Dose: 25 mcg Metoprolol Tartrate (Lopressor) 50 mg PO BRKDIN [facility] Last Admin: 06/27/17 08:44 Dose: 50 mg Minoxidil (Minoxidil) 2.5 mg PO TID [facility] Last Admin: 06/27/17 10:39 Dose: 2.5 mg Nitroglycerin (Nitro-Bid 2% Oint) 1 ea TOP Q4H PRN PRN Reason: accelerated hypertension Last Admin: 06/25/17 06:01 Dose: 1 ea Ondansetron HCl (Zofran Inj) 4 mg IVP Q6H PRN PRN Reason: Nausea/Vomiting Last Admin: 06/25/17 14:10 Dose: 4 mg - Labs Labs: 06/27/17 05:30 06/26/17 06:15 PT 12.3 SECONDS (9.4-12.5) 06/24/17 11:16 INR 1.12 (0.93-1.08) H 06/24/17 11:16 APTT 32.0 Seconds (25.1-36.5) 06/24/17 11:16 - Constitutional Appears: No Acute Distress - Head Exam Head Exam: NORMOCEPHALIC - Eye Exam Eye Exam: Normal appearance. absent: Scleral icterus - ENT Exam ENT Exam: Mucous Membranes Moist - Respiratory Exam Respiratory Exam: NORMAL BREATHING PATTERN. absent: Respiratory Distress - Cardiovascular Exam Cardiovascular Exam: +S1, +S2 - GI/Abdominal Exam GI & Abdominal Exam: Soft, Normal Bowel Sounds. absent: Guarding, Tenderness, Organomegaly, Rebound - Extremities Exam Extremities Exam: Normal Capillary Refill. absent: Calf Tenderness, Pedal Edema - Neurological Exam Neurological Exam: Alert, Awake, Oriented x3 - Skin Skin Exam: Dry, Warm Assessment and Plan - Assessment and Plan (Free Text) Assessment: Assessment: Acute on chronic anemia, rule out GI bleed Renal mass, status post renal biopsy Mediastinal adenopathy ,retroperitoneal adenopathy Recent pneumonia End-stage renal disease on hemodialysis History of renal transplant Epigastric pain, CT scan noted cholelithiasis, mildly distended, no apparent cholestatic fluid appreciated at the time, status post abdominal ultrasound found to have multiple gallstones, CBD measured 9.0 mm no cholecystitis. Diabetes mellitus2 Coronary artery disease status post cardiac stent Hypothyroidism Plan: Continue GI prophylaxis, Pepcid monitor H&H On IV antibiotics On iron IV , Aranesp NPO midnight for EGD tomorrow afternoon, will give clear liquid breakfast, discussed with patient and at the bedside. Agree for procedure. Patient would also benefit from colonoscopy, discussed w/ patient, last colon was prior to renal transplant in 2008 Seen and discussed with Dr. Waters. <Romel Waters V - Last Filed: 06/27/17 23:13> Objective - Vital Signs/Intake and Output Vital Signs (last 24 hours): Temp Pulse Resp BP Pulse Ox 97.1 F L 76 20 135/57 L 97 06/27/17 12:00 06/27/17 14:00 06/27/17 12:00 06/27/17 12:00 06/27/17 06:00 Intake and Output: 06/27/17 06/28/17 18:59 06:59 Intake Total 240 Output Total 0 Balance 240 - Labs Labs: 06/27/17 05:30 06/26/17 06:15 PT 12.3 SECONDS (9.4-12.5) 06/24/17 11:16 INR 1.12 (0.93-1.08) H 06/24/17 11:16 APTT 32.0 Seconds (25.1-36.5) 06/24/17 11:16 Attending/Attestation - Attestation I have personally seen and examined this patient.: Yes I have fully participated in the care of the patient.: Yes I have reviewed all pertinent clinical information, including history, physical exam and plan: Yes Notes (Text): This is an addendum to GI progress report dictated by Ariane Lundberg APN.The patient was seen and examined earlier. Medical records, lab studies, imagings were reviewed. Last 24 hours events reviewed. Agreed with the above treatment plan as outlined in Ariane Lundberg APN's notes the with the addition of the following On examination abdomen soft no tenderness Schedule for upper endoscopy tomorrow Hematology follow up with Dr. Brandt 06/27/17 23:12
--- NOTE | 2017-06-27 15:58 | CON ---
DATE: ONCOLOGY CONSULTATION This is a man who has a renal cell mass. He has hemodialysis that he was put on after he had a kidney transplant that had failed, and he has anemia of chronic disease, renal failure, arthritis, etc,. He has a mass in his kidney. I dictated a note the other day, but I do not see it on the computer. Basically, I spoke with Dr. Banda, I spoke with the nurse practitioner, and I spoke with the patient, so that he should have the renal biopsy, which he did undergo and if positive he should consider surgery for removal of the tumor. There does not seem to be active obvious metastatic cancer. There was a chest x-ray that was performed which showed some past infiltrate when he had an infection pleural thickening, but no obvious nodules in his lung. If questionable, we could at some later point do a CAT scan prior to an operation. He has some right mid lung perihilar vague opacity, but this is probably summation appearance. So at this present point, assuming that the cancer is positive for renal cell carcinoma, we would recommend evaluation by surgeon for resection. Hang Brandt MD
[2017-06-27 16:22] VITALS: PULSE 76
--- NOTE | 2017-06-28 08:14 | DS ---
DATE: 06/27/2017 SUBJECTIVE: This 67-year-old gentleman was examined at his bedside. His case was reviewed in detail with himself, nursing, case management, and co-consultants. The patient is being readied for discharge to transitional care rehab. FINAL DIAGNOSES: 1. Bilateral pneumonia, improving. 2. Congestive heart failure, improved. 3. End-stage renal disease, hemodialysis dependent. 4. Left renal mass, biopsy results pending. 5. Insulin-dependent diabetes mellitus. 6. Hyperlipidemia. 7. Chronic hypertension. 8. Peptic ulcer disease. 9. Anemia of chronic disease. 10. Hyperphosphatemia. 11. Hypothyroidism. 12. Degenerative arthritis. DISPOSITION: Transitional care rehab. DISCHARGE MEDICATIONS: Aranesp 75 mcg IV weekly, Maxipime 500 mg IV 10:00 p.m. nightly, Colace 100 mg p.o. daily, Ecotrin 81 mg p.o. daily, Hectorol 10 mcg IV Saturday, Saturday, Saturday, regular low-dose insulin coverage a.c. meals and h.s., Lipitor 20 mg p.o. at dinner time, Lopressor 50 mg p.o. b.i.d., minoxidil 2.5 mg p.o. t.i.d., nitroglycerin ointment 1-inch to chest wall q.4h. if systolic blood pressure greater than 160, diastolic blood pressure greater than 100, Pepcid 20 mg h.s., PhosLo 667 mg p.o. p.c. meals t.i.d., Synthroid 25 mcg p.o. daily, and vancomycin 500 mg IV post dialysis Saturday, Saturday, Saturday. Venofer 100 mg IV Saturday, Saturday, Saturday at dialysis. SUMMARY: This 67-year-old male was admitted to the cardiac unit after a Rapid Response was called in the Renal Dialysis Unit, where, at the end of treatment, on the day of admission, he complained of substernal chest pressure, shortness of breath, and was noted to have mild altered mental status. He was admitted, ruled out for myocardial infarction, had no evidence of stroke, was cleared by Cardiology, Neurology, was seen in consultation by Dr. Perez from Urology for a newly noted left renal mass that was biopsied by Dr. Levon Silva from Interventional Radiology, the results of which are pending at the time of this dictation. After lengthy discussion with co-consultants and family, the patient will be seen in a second opinion at the [facility] in [place] on 07/08/2017, for evaluation for possible laparoscopic left nephrectomy by a urological oncologist, Dr. Shelby. This was arranged by the family and agreed upon by myself and Dr. Sergio Perez from Urology. The patient was also seen in consultation by Dr. Brandt from Oncology, who has recommended waiting for the official biopsy results. He feels that the patient should proceed with elective nephrectomy if stable, and he will follow the patient post-procedure regarding scanning with CAT scans through his office. Of note, the patient has chest x-ray and CT of the chest that are showing pneumonic infiltrates with subcarinal mediastinal and hilar adenopathy. The question is whether it is reactive from his pneumonia or represents something more, which will need to be pursued with the PET scan as discussed with Dr. Brandt and Dr. Levon Silva from Interventional Radiology. We prefer to wait on PET scan timing at present given his recent infection and so as not to confuse any future results. The family is aware of this and will be discussing this with the Oncologic surgeons at [facility] when they see them in early July and they can help us best time the timing of a PET scan that is appropriate. Greater than sixty minutes was spent in the care, counseling, and management of the patient today. All questions were answered. His case has been reviewed in detail with himself, his family, co-consultants, case management, social service, and nursing. Prognosis remains stable at present. No Banda MD CHRIS
--- NOTE | 2017-06-28 13:06 | CON ---
DATE: Dr. Sergio Perez re-dictating the consultation that I did 06/25/2017 and completed today 06/28/2017. CHIEF COMPLAINT: Left renal mass. HISTORY OF PRESENT ILLNESS: The patient was originally seen on 06/25/2017. He was downstairs, I was told getting an MRI when I came to see him, I reviewed the chart and dictated history consultation based on the chart. He is a 66-year-old man with complicated history, he is currently on hemodialysis. He had a failed kidney transplant, he is now on hemodialysis. He has had recurrent admission for pulmonary effusions. A CAT scan done showed a 6-cm left solid mass in his [place] kidney. Ultrasound confirmed as being solid, there was vascularity on the ultrasound. PAST MEDICAL HISTORY: Shows he has end-stage renal disease, a failed transplant, stable CAD, and he is also an insulin-dependent diabetic. MEDICATIONS: He takes Synthroid, Pepcid, minoxidil, Lopressor, and Lipitor. FAMILY HISTORY: Noncontributory. SOCIAL HISTORY: He does not smoke or drink. REVIEW OF SYSTEMS: Again obtained from the chart, although I saw the patient today the 07/29/2017 and he has no symptoms currently referable to the head, eyes, ears, nose or throat. No cardiac, respiratory or GI symptoms. No dermatologic symptoms. PHYSICAL EXAMINATION: GENERAL: His physical examination, which was done today shows him to be well oriented x3. VITAL SIGNS: Afebrile, pulse of 89, and blood pressure of 131/54. BACK: He has no CVA pain. ABDOMEN: No hepatosplenomegaly, rebound or guarding. No suprapubic tenderness. GENITOURINARY: He does not void at all. Genitalia unremarkable. LABORATORY DATA: His lab work shows a hemoglobin of 8.2 with a white count of 10,000. His creatine today was 10.9. He is dialyzed three times a week. The patient also underwent a biopsy of this mass, which shows that to be renal cell. I told that the patient and Dr. Banda that he should have nephrectomy, we would refer him to someone in our group, who is a fellowship trained urologic oncologist, who would do this laparoscopically; however, Dr. Banda indicated the family wanted to get a second opinion taking him elsewhere which is fine, but it should be removed. The patient is aware of this as his Dr. Banda. Sergio Perez MD
--- NOTE | 2017-06-28 16:08 | CON ---
ADDENDUM PHYSICAL EXAMINATION: GENERAL: Shows him to be well oriented x3. NECK: He has no neck adenopathy. BACK: No CVA pain. ABDOMEN: No hepatosplenomegaly. No guarding. He has no suprapubic fullness. GENITALIA: Unremarkable. LABORATORY DATA: Shows hemoglobin of 8.2 and white count 10,600. His creatinine is 10.9. He is dialyzed 3 times a week. His HIV serology is negative. His hepatitis C is negative. I again reviewed the CAT scan. His renal biopsy shows renal cell. ASSESSMENT AND PLAN: I told the patient that he has a tumor in the left kidney that should be removed, if he wishes, we would refer him to one of our robotic minimally invasive urologic oncologist in our group, but according to Dr. Banda, the family wishes to take him for second opinion elsewhere. This is fine, but the kidney should be removed and the patient was told this. Sergio Perez MD
== END 2017-06-27 15:00 | DRG 291 ==
LOC: ED 10:37 → ERH 12:01 → 2RNO 16:01
PROVIDERS: ADMIT Internal Medicine; ATTEND Internal Medicine
PROC: 0TB43ZX Excision of Left Kidney Pelvis, Percutaneous Approach, Diagnostic (ICD-10-PCS; principal; 2017-06-25 09:30)
PROC: 5A1D70Z Performance of Urinary Filtration, Intermittent, Less than 6 Hours Per Day (ICD-10-PCS; 2017-06-26)
DX: I13.2 Hypertensive heart and chronic kidney disease with heart failure and with stage 5 chronic kidney disease, or end stage renal disease (principal); J18.9 Pneumonia, unspecified organism; N18.6 End stage renal disease; E11.22 Type 2 diabetes mellitus with diabetic chronic kidney disease; C64.2 Malignant neoplasm of left kidney, except renal pelvis; I08.1 Rheumatic disorders of both mitral and tricuspid valves; Z94.0 Kidney transplant status; I50.9 Heart failure, unspecified; I27.20 Pulmonary hypertension, unspecified; E83.39 Other disorders of phosphorus metabolism; E03.9 Hypothyroidism, unspecified; D63.8 Anemia in other chronic diseases classified elsewhere; Z99.2 Dependence on renal dialysis; I25.10 Atherosclerotic heart disease of native coronary artery without angina pectoris; E78.5 Hyperlipidemia, unspecified; M19.90 Unspecified osteoarthritis, unspecified site; K80.20 Calculus of gallbladder without cholecystitis without obstruction; G40.909 Epilepsy, unspecified, not intractable, without status epilepticus; R59.0 Localized enlarged lymph nodes; K27.9 Peptic ulcer, site unspecified, unspecified as acute or chronic, without hemorrhage or perforation; K59.00 Constipation, unspecified; Z79.4 Long term (current) use of insulin; Z95.5 Presence of coronary angioplasty implant and graft; Z86.11 Personal history of tuberculosis; Z87.891 Personal history of nicotine dependence

== ENCOUNTER 2017-06-27 15:47 | Inpatient (IN) | payer OTHER, MEDICAID ==
[2017-06-27] MEDS ORDERED: Nitroglycerin 2% Ointment Foilpak UD TOP PRN (16:10)
[2017-06-27] MEDS: Insulin Reg-LOW-Coverage SC SCH ×2 (18:00→22:14)
[2017-06-27 18:01] VITALS: BMI 23.8
[2017-06-27] MEDS ORDERED: Influenza Vaccine 60 mcg/0.5 mL SYR (4YR UP) IM ONE (18:01)
[2017-06-27] MEDS ORDERED: Pneumococcal 23-Valent Vaccine IM ONE (18:01)
[2017-06-27] MEDS: Cefepime 0.5 GM in Sodium Chloride 0.9% 100 ML IVPB SCH (22:14)
[2017-06-28] MEDS: Levothyroxine 25 MCG TAB PO SCH (05:43)
[2017-06-28 06:46] VITALS: RESP 20
[2017-06-28 06:49] LABS: ALB/GLOB RATIO 1.3 (1.1-1.8); BILIRUBIN,TOTAL 0.8 mg/dL (0.2-1.3); CALCIUM 10.6 mg/dL (8.4-10.5); POTASSIUM 4.2 mmol/L (3.6-5.0); TOTAL PROTEIN 7.5 g/dL (5.8-8.3)
[2017-06-28 06:59] LABS: BASO # 0.04 K/mm3 (0.0-2.0); BASO % 0.4 % (0.0-3.0); EOS # 1.1 (0.0-0.7); EOS % 9.9 % (1.5-5.0); GRAN # 7.14 (1.4-6.5); GRAN % 67.1 % (50.0-68.0); HEMATOCRIT 24.4 % (42.0-52.0); LYMPH # 0.8 (1.2-3.4); LYMPH % 7.9 % (22.0-35.0); MEAN CELL VOLUME 86.8 fl (80.0-105.0); MEAN CORPUSCULAR HEMOGLOBIN 29.2 pg (25.0-35.0); MEAN CORPUSCULAR HGB CONC 33.6 g/dl (31.0-37.0); MEAN PLATELET VOLUME 9.1 fl (7.0-11.0); MONO # 1.6 (0.1-0.6); MONO % 14.7 % (1.0-6.0); RED CELL DISTRIBUTION WIDTH 13.3 % (11.5-14.5); WHITE BLOOD COUNT 10.6 10^3/ul (4.5-11.0)
[2017-06-28] MEDS: Insulin Reg-LOW-Coverage SC SCH ×3 (07:02→22:20)
[2017-06-28] MEDS ORDERED: Doxercalciferol 4 mcg/2 ml Inj IV SCH (10:00)
[2017-06-28] MEDS ORDERED: Iron Sucrose 100 mg/5 ml Inj IVP SCH (10:00)
[2017-06-28] MEDS ORDERED: Vancomycin 500mg in NS 500 MG/100 ML BAG IVPB SCH ×2 (10:00→22:00)
--- NOTE | 2017-06-28 13:55 | PN ---
DATE: 06/28/2017 HEMODIALYSIS PROGRESS NOTE SUBJECTIVE: This 67-year-old male in the renal dialysis unit, had a blood pressure of 146/65 with a pulse of 84. Of note, hemoglobin was 8.2, hematocrit 24.4, white count 10,600 and platelets 244,000. Stool for occult blood was negative. I did review the renal ultrasound with Dr. Skyler Prescott, there is no demonstration of a renal hematoma, status post renal biopsy a few days ago. PLAN: To transfuse the patient 1 unit of packed red blood cells. He will continue on Venofer and Aranesp and is to have a GI workup as per Dr. Waters. The patient will dialyze for 3 hours. All of the above was discussed in detail with the patient and . No Banda MD MTDMariano
--- NOTE | 2017-06-28 14:22 | PN ---
DATE: 06/28/2017 DIALYSIS PROGRESS NOTE This 67-year-old male was in the renal dialysis unit, dialyzing on a F160, 140 sodium, 2 K bicarb bath. PHYSICAL EXAMINATION: VITAL SIGNS: Blood pressure 153/64, pulse 90, temperature 98. HEART: Regular, S1 and S2. LUNGS: With occasional rhonchi. No wheezing. The patient will dialyze for 3 hours today and has blood flow rates of 400 mL per minute. I am aiming for 2.5 kg off. No Banda MD MTDD
[2017-06-28] MEDS ORDERED: Sodium Chloride 0.9% 1,000 ML IV SCH (17:30)
[2017-06-28] MEDS: Cefepime 0.5 GM in Sodium Chloride 0.9% 100 ML IVPB SCH (21:50)
[2017-06-29] MEDS: Levothyroxine 25 MCG TAB PO SCH (06:17)
[2017-06-29] MEDS: Insulin Reg-LOW-Coverage SC SCH ×2 (06:50→11:45)
[2017-06-29 09:18] LABS: HEMATOCRIT 25.6 % (42.0-52.0)
[2017-06-29 11:23] VITALS: BP 127/66; PULSE 74; TEMP 97.7; O2SAT 96
--- NOTE | 2017-06-30 08:52 | DS ---
FINAL DIAGNOSES: 1. Anemia due to gastrointestinal bleeding with a duodenal ulcer noted on upper endoscopy. 2. Pneumonia, improving. 3. Left kidney renal cell carcinoma. 4. Insulin-dependent diabetes mellitus. 5. Hyperlipidemia. 6. Chronic hypertension. 7. End-stage renal disease, hemodialysis dependent. 8. Anemia of chronic disease. 9. Hyperphosphatemia. 10. Hypothyroidism. DISPOSITION: Home to care of family. DISCHARGE DIET: Heart healthy, renal, diabetic. DISCHARGE MEDS: Ecotrin 81 mg p.o. daily, regular low-dose insulin protocol a.c. meals at bedtime, Lipitor 20 mg p.o. at dinner time, Lopressor 50 mg p.o. b.i.d., minoxidil 2.5 mg p.o. t.i.d., Pepcid 20 mg p.o. at dinner, Carafate 1 g liquid p.o. at bedtime, and Protonix 20 mg p.o. at breakfast. PhosLo 667 mg p.o. p.c. meals t.i.d., Synthroid 25 mg p.o. daily. The patient has a scheduled urological oncology evaluation with Dr. Frederci Shelby MD at the [facility] in [place] on 07/08/2017. The patient and daughter, Kathryn Coleman, were given copies of chest x-ray, CT of chest, abdomen and pelvis, renal ultrasound, endoscopy report, echocardiogram, and renal biopsy results. SUMMARY: This 67-year-old male was admitted to transitional care rehab for reconditioning, gait training, and further management of newly noted anemia that required blood cell transfusion. Endoscopy revealed a bleeding duodenal ulcer. The patient was given blood cell transfusion at renal dialysis. A the time of discharge, he still has infiltrates and adenopathy on chest CT and x-ray. It is unclear if this is secondary to pneumonia versus renal cell cancer on biopsy of left renal mass. At the time of discharge, temperature is 97.7, respirations 20, pulse 74, and blood pressure 127/66 with a pulse ox of 96% on room air. Labs show hemoglobin 9.4, hematocrit 25.6. Sodium 137, K 4.2, chloride 93, bicarb 29, BUN 56, creatinine 10.9, and random blood sugar is 133. All liver function testing was normal including bilirubin 0.8, AST 33, ALT 23, and alk phos 93. The patient is discharged to home to the care of his family. He will continue outpatient hemodialysis on a no heparin protocol. He is aware of his need to be compliant with his antacid medication regime as outlined by Dr. Romel Waters, from GI and to follow up with oncological urology consultation as scheduled for 07/08/2017. I have discussed with the patient and his daughter Kathryn to discuss with Dr. Frederic Shelby the timing of a possible PET CT to further evaluate his abnormal findings on chest CT including his mediastinal, hilar, and subcarinal adenopathy of unclear etiology at present. They will hopefully be compliant with this recommendation and I did give them copies of all reports for his review. The patient remains stable at present. Greater than 50 minutes were spent in the care, counseling and management of this patient today. All questions were answered. No Banda MD CHRIS
[2017-07-03] MEDS ORDERED: Darbepoetin Alfa 60 mcg/ml Inj IVP SCH (10:00)
== END 2017-06-29 13:49 | disposition home or self-care (01) | DRG 377 ==
LOC: TRCU 15:47
PROVIDERS: ADMIT Internal Medicine; ATTEND Internal Medicine
PROC: 5A1D70Z Performance of Urinary Filtration, Intermittent, Less than 6 Hours Per Day (ICD-10-PCS; 2017-06-28)
PROC: F07Z9ZZ Gait Training/Functional Ambulation Treatment (ICD-10-PCS; principal; 2017-06-29)
PROC: F07Z8ZZ Transfer Training Treatment (ICD-10-PCS; 2017-06-29)
PROC: F07L6ZZ Therapeutic Exercise Treatment of Musculoskeletal System - Lower Back / Lower Extremity (ICD-10-PCS; 2017-06-29)
DX: K26.4 Chronic or unspecified duodenal ulcer with hemorrhage (principal); J18.9 Pneumonia, unspecified organism; N18.6 End stage renal disease; C64.2 Malignant neoplasm of left kidney, except renal pelvis; I12.0 Hypertensive chronic kidney disease with stage 5 chronic kidney disease or end stage renal disease; E11.22 Type 2 diabetes mellitus with diabetic chronic kidney disease; D50.0 Iron deficiency anemia secondary to blood loss (chronic); E78.5 Hyperlipidemia, unspecified; E83.39 Other disorders of phosphorus metabolism; E03.9 Hypothyroidism, unspecified; Z79.4 Long term (current) use of insulin; Z99.2 Dependence on renal dialysis

== ENCOUNTER 2017-06-28 13:34 | Day surgery (SDC) | payer MEDICARE, MEDICAID ==
[2017-06-27 18:01] VITALS: BMI 23.8
[2017-06-28] MEDS ORDERED: Propofol 10 mg/ml Inj (20 ML) ONE (16:57)
[2017-06-28] MEDS ORDERED: Lidocaine 2% Inj (20ml) ONE (16:57)
[2017-06-28] MEDS ORDERED: Etomidate 20 mg/10ml Inj IV ONE (16:57)
[2017-06-28 18:42] VITALS: BP 125/57; PULSE 86; RESP 20; TEMP 98.5; O2SAT 95
== END 2017-06-28 19:00 ==
LOC: ENDO 13:34
PROVIDERS: ATTEND Internal Medicine Gastroenterology
DX: K25.4 Chronic or unspecified gastric ulcer with hemorrhage (principal); K26.9 Duodenal ulcer, unspecified as acute or chronic, without hemorrhage or perforation; K29.80 Duodenitis without bleeding; D64.9 Anemia, unspecified; I25.10 Atherosclerotic heart disease of native coronary artery without angina pectoris
CPT/HCPCS: 43239; 88305; 88342; J2405; J2704; J7040

== ENCOUNTER 2017-10-14 07:51 | Inpatient (IN) | payer MEDICARE, MEDICAID ==
--- NOTE | 2017-10-14 08:05 | ED PDOC ---
Arrival/HPI - General Chief Complaint: Chest Pain Time Seen by Provider: 10/14/17 07:53 Historian: Patient - History of Present Illness Narrative History of Present Illness (Text): 10/14/17 08:09 67 year old male, with past medical history of seizure, SD with cardiac stents, CHF, ESRD on hemodialysis 3x a week, diabetes, hypothyroidism, and degenerative arthritis, presents to the Emergency department complaining of left-sided chest discomfort prior to arrival. Patient informs pain began today as a pressure, rated 6/10, during his regular hemo dialysis session bringing him to the Emergency department. Patient informs completing half of his dialysis. Patient denies any fever, chills, nausea, vomiting, diarrhea, abdominal pain, shortness of breath or any other complaints. Time/Duration: Prior to Arrival Symptom Onset: Sudden Symptom Course: Improving Quality: Pressure Activities at Onset: Light Context: Other (dialysis center) Past Medical History - Provider Review Nursing Documentation Reviewed: Yes - Infectious Disease Hx of Infectious Diseases: None - Tetanus Immunization Tetanus Immunization: Unknown - Cardiac Hx Cardiac Disorders: Yes (with stents; M.I.) - Pulmonary Hx Bronchitis: Yes Hx Pneumonia: Yes Hx Tuberculosis: Yes - Neurological Hx Paralysis: No - HEENT Hx Cataracts: Yes - Renal Hx Renal Failure: Yes - Endocrine/Metabolic Hx Diabetes Mellitus Type 1: Yes Hx Hypothyroidism: Yes - Hematological/Oncological Hx Blood Transfusions: Yes Hx Blood Transfusion Reaction: No - Integumentary Hx Dermatological Disorder: Yes (OLD NF SCARRED AREA LEFT UPPER ARM. SHUNT TO RIGHT UPPER ARM) Other/Comment: dry tight discolored slin to ble +1 edema rll - Musculoskeletal/Rheumatological Hx Arthritis: Yes - Gastrointestinal Hx Gastrointestinal Disorders: No - Genitourinary/Gynecological Hx Reproductive Disorders: No - Psychiatric Hx Emotional Abuse: No Hx Physical Abuse: No Hx Substance Use: No - Surgical History Other/Comment: Kidney - Anesthesia Hx Anesthesia Reactions: No Hx Malignant Hyperthermia: No - Suicidal Assessment Feels Threatened In Home Enviroment: No Family/Social History - Physician Review Nursing Documentation Reviewed: Yes Family/Social History: No Known Family HX Smoking Status: Former Smoker Hx Alcohol Use: No Hx Substance Use: No Hx Substance Use Treatment: No Allergies/Home Meds Allergies/Adverse Reactions: Allergies No Known Allergies Allergy (Verified 10/14/17 19:11) Home Medications: Home Meds Medication Instructions Recorded Confirmed Metoprolol Tartrate [Lopressor] 50 mg PO BID 01/17/15 10/14/17 Levothyroxine [Synthroid] 25 mcg PO DAILY 07/28/15 10/14/17 Aspirin [Ecotrin] 81 mg PO DAILY 12/30/15 10/14/17 Minoxidil 2.5 mg PO TID 12/30/15 10/14/17 Atorvastatin [Lipitor] 20 mg PO DIN 06/18/17 10/14/17 Review of Systems - Physician Review All systems were reviewed & negative as marked: Yes - Review of Systems Constitutional: Normal. absent: Fevers Eyes: Normal ENT: Normal Respiratory: Normal. absent: SOB Cardiovascular: Chest Pain (left-sided) Gastrointestinal: Normal. absent: Abdominal Pain, Diarrhea, Nausea, Vomiting Genitourinary Male: Normal Musculoskeletal: Normal Skin: Normal Neurological: Normal Endocrine: Normal Hemo/Lymphatic: Normal Psychiatric: Normal Physical Exam Vital Signs Temp Pulse Resp BP Pulse Ox 10/14/17 18:59 89 10/14/17 18:32 98.8 F 18 L 20 136/64 98 10/14/17 13:12 88 16 120/51 L 98 10/14/17 11:20 88 18 129/88 98 10/14/17 09:30 90 18 139/80 98 10/14/17 08:33 130 H 140/83 10/14/17 08:00 98.5 F 126 H 20 144/88 94 L Respiratory Rate: Normal Appearance: Positive for: Well-Appearing, Non-Toxic, Comfortable Pain Distress: None Mental Status: Positive for: Alert and Oriented X 3 - Systems Exam Head: Present: Atraumatic, Normocephalic Pupils: Present: PERRL Extroacular Muscles: Present: EOMI Conjunctiva: Present: Normal Mouth: Present: Moist Mucous Membranes Neck: Present: Normal Range of Motion Respiratory/Chest: Present: Clear to Auscultation, Good Air Exchange. No: Respiratory Distress, Accessory Muscle Use Cardiovascular: Present: Regular Rate and Rhythm, Normal S1, S2. No: Murmurs Abdomen: Present: Tenderness (mild epigastric tenderness), Normal Bowel Sounds. No: Distention, Peritoneal Signs Back: Present: Normal Inspection Upper Extremity: Present: Normal Inspection. No: Cyanosis, Edema Lower Extremity: Present: Normal Inspection. No: Edema Neurological: Present: GCS=15, CN II-XII Intact, Speech Normal Skin: Present: Warm, Dry, Normal Color. No: Rashes Psychiatric: Present: Alert, Oriented x 3, Normal Insight, Normal Concentration Medical Decision Making ED Course and Treatment: 10/14/17 08:16 Impression: 67 year old male presents to the Emergency department for left- sided chest pain. Plan: -- EKG -- Labs -- Chest X-ray -- Aspirin -- Cardizem -- Zofran -- Urinalysis -- Reassess and disposition Progress Notes: 10/14/17 09:36 Chest X-ray reviewed by radiologist, shows stable cardiomegaly and pulmonary venous congestion. Persistent small right pleural effusion. 10/14/17 12:58 CT of chest reviewed by radiologist, shows no evidence of pulmonary embolus. No evidence of aortic dissection or aneurysm. Diffuse atherosclerotic disease. Scattered noncalcified lung nodules more prominent on the right suspicious for lung metastasis. Cardiomegaly. Small left and trace right pleural effusion. Small to moderate pericardial effusion. Focal inflammatory changes with extraluminal fluid and droplet of air noted at the left upper abdomen adjacent to the left renal bed and adjacent/ medial to the spleen of uncertain etiology. The possibility of infectious process or localize perforation should be considered. Gallstones without evidence of cholecystitis. Small amount of free fluid in the pelvis. Status post left nephrectomy since the previous exam. - Lab Interpretations Lab Results: 10/14/17 08:37 10/14/17 08:37 Lab Results 10/14/17 12:09: POC Glucose (mg/dL) 129 H 10/14/17 10:10: Thyroxine (T4) 9.1 10/14/17 08:37: Sodium 139, Potassium 3.9, Chloride 94 L, Carbon Dioxide 25, Anion Gap 23 H, BUN 29 H, Creatinine 7.5 H*, Est GFR ( Amer) 9, Est GFR ( Non-Af Amer) 7, Random Glucose 113 H, Calcium 11.1 H, Magnesium 2.2, Total Bilirubin 0.9, AST 43, ALT 22, Alkaline Phosphatase 105, Lactate Dehydrogenase 477, Total Creatine Kinase 37, Troponin I 0.02 D, Total Protein 7.9, Albumin 4.2, Globulin 3.7, Albumin/Globulin Ratio 1.1, Lipase 285 10/14/17 08:37: PT 11.7, INR 1.02, APTT 33.9 10/14/17 08:37: WBC 12.9 H D, RBC 3.75, Hgb 10.2 L, Hct 32.0 L, MCV 85.3, MCH 27.2, MCHC 31.9, RDW 14.2, Plt Count 273, MPV 9.6, Gran % 77.3 H, Lymph % (Auto ) 9.4 L, [place] % (Auto) 9.1 H, Eos % (Auto) 3.9, Baso % (Auto) 0.3, Gran # 9.98 H , Lymph # (Auto) 1.2, [place] # (Auto) 1.2 H, Eos # (Auto) 0.5, Baso # (Auto) 0.04 - RAD Interpretation Radiology Orders: 10/14/17 08:06 CHEST PORTABLE [RAD] Stat 10/14/17 10:13 ANGIO CHEST/ABDOMEN/PELVIS [CT] Stat - Medication Orders Current Medication Orders: Acetaminophen (Tylenol 325mg Tab) 650 mg PO Q6H PRN PRN Reason: Fever >100.4 F Aspirin (Ecotrin) 81 mg PO DAILY [facility] Last Admin: 10/15/17 09:16 Dose: 81 mg Atorvastatin Calcium (Lipitor) 20 mg PO HS [facility] Last Admin: 10/14/17 21:12 Dose: 20 mg Heparin Sodium (Porcine) (Heparin) 5,000 units SC Q8H GURVINDER PRN Reason: Protocol Last Admin: 10/15/17 09:16 Dose: 5,000 units Subcutaneous Administrations Document 10/15/17 09:16 YD (Rec: 10/15/17 09:16 Y [id number]) Injection Site MAR Injection Site Left Abdomen Charges for Administration # of Subcutaneous Administrations 1 Pantoprazole Sodium 20 mg/ (Sodium Chloride) 100 mls @ 400 mls/hr IV DAILY [facility] Last Admin: 10/15/17 10:08 Dose: 400 mls/hr eMAR Start Stop Document 10/15/17 10:08 YD (Rec: 10/15/17 10:08 [id number]) Intravenous Solution Start Date 10/15/17 Start Time 10:08 Insulin Human Regular (Humulin R Low) 0 units SC ACHS GURVINDER PRN Reason: Protocol Last Admin: 10/15/17 08:29 Dose: Not Given Non-Admin Reason: Blood Sugar Parameter Levothyroxine Sodium (Synthroid) 25 mcg PO 0600 [facility] Last Admin: 10/15/17 06:48 Dose: 25 mcg Metoprolol Tartrate (Lopressor) 50 mg PO BID [facility] Last Admin: 10/15/17 09:16 Dose: 50 mg MAR Pulse and Blood Pressure Document 10/15/17 09:16 YD (Rec: 10/15/17 09:16 YD [id number]) Pulse Pulse Rate (60-90) 82 Minoxidil (Minoxidil) 2.5 mg PO BID [facility] Last Admin: 10/15/17 09:15 Dose: 2.5 mg Ondansetron HCl (Zofran Inj) 4 mg IVP Q6H PRN PRN Reason: Nausea/Vomiting Sevelamer HCl (Renagel) 800 mg PO TID [facility] Last Admin: 10/15/17 09:16 Dose: 800 mg Discontinued Medications Aspirin (Aspirin) 325 mg PO STAT STA Stop: 10/14/17 08:07 Last Admin: 10/14/17 08:34 Dose: 325 mg Diltiazem HCl (Cardizem) 15 mg IVP STAT STA Stop: 10/14/17 08:08 Last Admin: 10/14/17 08:33 Dose: 15 mg IVP Administration Document 10/14/17 08:33 [facility] (Rec: 10/14/17 08:34 [id number] Charges for Administration # of IVP Administrations 1 MAR Pulse and Blood Pressure Document 10/14/17 08:33 [facility] (Rec: 10/14/17 08:34 [id number] Pulse Pulse Rate (60-90) 130 Blood Pressure Blood Pressure (100/60-150/90) 140/83 Enoxaparin Sodium (Lovenox) 60 mg SC STAT STA PRN Reason: Protocol Stop: 10/14/17 12:59 Last Admin: 10/14/17 13:07 Dose: 60 mg Subcutaneous Administrations Document 10/14/17 13:07 [facility] (Rec: 10/14/17 13:07 [id number] Injection Site MAR Injection Site Left Abdomen Charges for Administration # of Subcutaneous Administrations 1 Vancomycin HCl (Vancomycin 1gm) 1 gm in 250 mls @ 167 mls/hr IVPB STAT STA PRN Reason: Protocol Stop: 10/14/17 14:30 Last Admin: 10/14/17 21:56 Dose: 167 mls/hr eMAR Start Stop Document 10/14/17 21:56 [facility] (Rec: 10/14/17 21:56 [facility] [id number]) Intravenous Solution Start Date 10/14/17 Start Time 21:56 End Date 10/14/17 End time 23:26 Total Infusion Time 90 Gentamicin Sulfate 80 mg/ (Sodium Chloride) 52 mls @ 100 mls/hr IVPB STAT STA PRN Reason: Protocol Stop: 10/14/17 13:32 Last Admin: 10/14/17 18:24 Dose: 100 mls/hr eMAR Start Stop Document 10/14/17 18:24 [facility] (Rec: 10/14/17 18:24 [id number] Intravenous Solution Start Date 10/14/17 Start Time 18:24 Ondansetron HCl (Zofran Inj) 4 mg IVP STAT STA Stop: 10/14/17 08:08 Last Admin: 10/14/17 08:34 Dose: 4 mg IVP Administration Document 10/14/17 08:34 [facility] (Rec: 10/14/17 08:34 [facility] [id number]) Charges for Administration # of IVP Administrations 1 Pneumococcal Polyvalent Vaccine (Pneumovax 23 Vaccine) 0.5 ml IM .ONCE ONE Stop: 10/14/17 19:39 - PA / STAFF PHARMACIST / Resident Statement MD/DO has examined the patient and agrees with the treatment plan. - Scribe Statement The provider has reviewed the documentation as recorded by the Scribe Vinay Queen. All medical record entries made by the Scribe were at my direction and personally dictated by me. I have reviewed the chart and agree that the record accurately reflects my personal performance of the history, physical exam, medical decision making, and the department course for this patient. I have also personally directed, reviewed, and agree with the discharge instructions and disposition. Disposition/Present on Arrival - Present on Arrival Any Indicators Present on Arrival: No History of DVT/PE: No History of Uncontrolled Diabetes: No Urinary Catheter: No History of Decub. Ulcer: No History Surgical Site Infection Following: None - Disposition Have Diagnosis and Disposition been Completed?: Yes Diagnosis: End stage kidney disease, Atrial fibrillation Disposition: HOSPITALIZED Disposition Time: 11:00 Condition: FAIR
[2017-10-14 09:30] LABS: BASO # 0.04 K/mm3 (0.0-2.0); BASO % 0.3 % (0.0-3.0); EOS # 0.5 (0.0-0.7); EOS % 3.9 % (1.5-5.0); GRAN # 9.98 (1.4-6.5); GRAN % 77.3 % (50.0-68.0); HEMOGLOBIN 10.2 g/dL (14.0-18.0); LYMPH # 1.2 (1.2-3.4); LYMPH % 9.4 % (22.0-35.0); MEAN CELL VOLUME 85.3 fl (80.0-105.0); MEAN CORPUSCULAR HEMOGLOBIN 27.2 pg (25.0-35.0); MEAN CORPUSCULAR HGB CONC 31.9 g/dl (31.0-37.0); MEAN PLATELET VOLUME 9.6 fl (7.0-11.0); MONO # 1.2 (0.1-0.6); MONO % 9.1 % (1.0-6.0); RBC 3.75 10^6/uL (3.5-6.1); RED CELL DISTRIBUTION WIDTH 14.2 % (11.5-14.5); WHITE BLOOD COUNT 12.9 10^3/ul (4.5-11.0)
--- NOTE | 2017-10-14 09:32 | RAD ---
HISTORY: Chest pain COMPARISON: 06/26/2017. FINDINGS: LUNGS: The lungs are well inflated. There is mild pulmonary venous congestion. There is stable prominence of the right hilum, likely vascular. PLEURA: Small right pleural effusion, no pneumothorax apparent. CARDIOVASCULAR: Stable moderate cardiomegaly. Atherosclerotic aortic arch calcifications are present. OSSEOUS STRUCTURES: There is an old fracture deformity in the right posterolateral 6th rib. VISUALIZED UPPER ABDOMEN: Normal. OTHER FINDINGS: None. IMPRESSION: Stable cardiomegaly and pulmonary venous congestion. Persistent small right pleural effusion.
[2017-10-14 09:40] LABS: ALB/GLOB RATIO 1.1 (1.1-1.8); ALBUMIN 4.2 g/dL (3.0-4.8); CALCIUM 11.1 mg/dL (8.4-10.5); MAGNESIUM 2.2 mg/dL (1.7-2.2)
[2017-10-14 09:43] LABS: INR 1.02 (0.93-1.08); PARTIAL THROMBOPLASTIN TIME 33.9 Seconds (25.1-36.5); PROTHROMBIN TIME 11.7 SECONDS (9.4-12.5)
[2017-10-14 09:51] LABS: TROPONIN I 0.02 ng/mL
--- NOTE | 2017-10-14 12:16 | CARD ---
APPROVED REPORT EKG Measurement Heart [id number] <Conclusion> Atrial fibrillation with rapid ventricular response ST depressions c/w ischemia PRWP Prolonged QTc
--- NOTE | 2017-10-14 12:57 | CT ---
PROCEDURE: CT Angiography Chest, Abdomen and Pelvis with and without intravenous contrast HISTORY: sob/abd pain h/o of afib r/o pe, COMPARISON: Comparison is made with the previous noncontrast study dated 06/20/2017 TECHNIQUE: Contiguous axial images of the chest, abdomen and pelvis were obtained in the phase of aortic enhancement. A noncontrast enhanced CT of the chest was also obtained to evaluate for possible intramural thrombus. Coronal and sagittal reformats were generated. IV dose administered: 150 mL Omnipaque 350 Radiation dose: Total exam DLP = 622.03 mGy-cm. This CT exam was performed using one or more of the following dose reduction techniques: Automated exposure control, adjustment of the mA and/or kV according to patient size, and/or use of iterative reconstruction technique. FINDINGS: CT ANGIOGRAPHY OF THE CHEST WITH & WITHOUT CONTRAST: AORTA (CHEST AND ABDOMEN): The thoracic and abdominal aorta are unremarkable, without aneurysm, dissection or rupture. No intramural thrombus identified in the thoracic aorta on the non-contrast ct of the chest. The celiac axis, superior mesenteric artery, inferior mesenteric artery and the renal arteries are widely patent. The pelvic arteries are unremarkable. Pulmonary arteries: There is no evidence of filling defect in the visualized pulmonary arteries to suggest pulmonary embolus. LUNGS: There is interval increase in the size of the right lower lobe nodule since the previous exam measures 9.5 millimeter in the current study. There is a right upper lobe noncalcified nodule measures 8.5 millimeter also noted. There is right middle lobe 5 millimeter noncalcified nodule also noted. There is 5 millimeter noncalcified nodule noted at the peripheral portion of the lingula in the left lung. These findings are suspicious for lung metastasis. Mild bibasilar atelectasis is noted. MEDIASTINUM: The main pulmonary trunk is mildly enlarged. No evidence of aortic dissection or aneurysm. The heart is mildly to moderately enlarged. There is a small to moderate amount of pericardial effusion. LYMPH NODES: Slightly prominent AP window and paratracheal lymph nodes noted. PLEURA: There is a small left and trace right pleural effusions noted. BONES: No evidence of destructive bony lesion. OTHER FINDINGS: None. CT ANGIOGRAPHY OF THE ABDOMEN AND PELVIS WITH CONTRAST: LIVER: Mild hepatomegaly is noted. No evidence of suspicious mass in the liver. GALLBLADDER AND BILE DUCTS: Gallstones are seen associated with mild dietitian of the gallbladder and mild diffuse wall thickening. No definite CT evidence of acute cholecystitis. PANCREAS: Unremarkable. No gross lesion or ductal dilatation. SPLEEN: The spleen is prominent in size measures up to 12.8 centimeter in the longitudinal diameter. ADRENALS: No significant interval change in the adrenal gland noted KIDNEYS AND URETERS: The patient is status post left nephrectomy and resection of the previously seen 6 centimeters solid mass at the left kidney. The right kidney is small in size with thin cortex consistent with patient history of chronic renal insufficiency. The patient status post right lower abdomen kidney transplant. The transplanted kidney is again seen at the right lower abdomen without evidence of hydronephrosis. There are vascular calcifications seen at and adjacent to the transplanted kidney. VASCULATURE: Diffuse vascular calcification noted in the abdominal aorta and iliac arteries. . No aortic aneurysm. STOMACH AND BOWEL: The stomach is not distended therefore cannot be evaluated. . No obstruction. Scattered colonic diverticulosis are again noted. Mild constipation is noted in the right colon. APPENDIX: There is no evidence of acute appendicitis. PERITONEUM: There is extraluminal fluid and droplet of air seen at the left upper abdomen adjacent to the left renal bed and medial to the spleen of uncertain etiology. The possibility of diverticulitis or other infection process should be considered. Differential consideration includes also and barely abscess formation. There is also free fluid in the pelvis. No evidence of free air otherwise in the abdomen and pelvis. LYMPH NODES: There are slightly prominent mesenteric and periaortic lymph nodes seen at the mid and upper abdomen. BLADDER: Urinary bladder is not distended therefore cannot be evaluated. REPRODUCTIVE: The prostate is mildly to moderately enlarged. BONES: No evidence of destructive bony lesion. OTHER FINDINGS: None. IMPRESSION: No evidence of pulmonary embolus. No evidence of aortic dissection or aneurysm. Diffuse atherosclerotic disease. Scattered noncalcified lung nodules more prominent on the right suspicious for lung metastasis. Cardiomegaly. Small left and trace right pleural effusion. Small to moderate pericardial effusion. Focal inflammatory changes with extraluminal fluid and droplet of air noted at the left upper abdomen adjacent to the left renal bed and adjacent/ medial to the spleen of uncertain etiology. The possibility of infectious process or localize perforation should be considered. Gallstones without evidence of cholecystitis. Small amount of free fluid in the pelvis. Status post left nephrectomy since the previous exam.
[2017-10-14] MEDS ORDERED: Enoxaparin 60 mg Syringe SC STA (12:58)
[2017-10-14] MEDS ORDERED: Vancomycin 1gm in NS 250ml 1 GM/250 ML BAG IVPB STA (13:01)
[2017-10-14] MEDS: Insulin Reg-LOW-Coverage SC SCH ×2 (16:30→22:54)
[2017-10-14 19:38] VITALS: BMI 21.1
[2017-10-14] MEDS ORDERED: Influenza Vaccine 60 mcg/0.5 mL SYR (4YR UP) IM ONE (19:38)
[2017-10-14] MEDS ORDERED: Pneumococcal 23-Valent Vaccine IM ONE (19:38)
--- NOTE | 2017-10-14 22:56 | HP ---
DATE OF EXAM: 10/14/2017 HISTORY OF PRESENT ILLNESS: This 67-year-old male is admitted to [facility]. He was examined in the [facility] ER in the presence of his daughter, Kathryn. The patient was sent to the emergency room for evaluation of shortness of breath and chest discomfort. The patient has a significant past medical history. He is recently status post left nephrectomy for renal cell carcinoma at [facility]. Postoperative course was complicated by postoperative fever and the patient has comorbidities of end-stage renal disease, hemodialysis dependent; stable atherosclerotic heart disease; hyperlipidemia; hyperphosphatemia; peptic ulcer disease with GERD; hypothyroidism; chronic hypertension and anemia of chronic disease. In the emergency room, the patient was noted to be in new onset atrial fibrillation, was given a dose of IV diltiazem and remains in atrial fibrillation with a pulse rate of approximately 100. SOCIAL HISTORY: Patient is a current nondrinker, nonsmoker and non IV drug misuser. He is a retired gentleman who attends hemodialysis Saturday, Saturday, Saturday at the [facility] outpatient renal dialysis unit. FAMILY HISTORY: Noncontributory. ALLERGIES: HE HAS NO KNOWN ALLERGIES TO MEDICATION. OUTPATIENT MEDICATIONS: Include Protonix, minoxidil, Lopressor, Synthroid, Pepcid, PhosLo, Lipitor and Ecotrin. REVIEW OF SYSTEMS: CONSTITUTIONAL: No fever, no chills. HEENT: Head review, no headache, no seizures. Eye review, no change in visual acuity. Ear review, no hearing loss. Throat review, no swallowing difficulty. NECK: No stiffness. CARDIAC: As per HPI. PULMONARY: No hemoptysis. GASTROINTESTINAL: GERD and history of peptic ulcer disease. GENITOURINARY: End-stage renal disease, hemodialysis dependent. VASCULAR: No claudication. PSYCHOLOGICAL: No anxiety. NEUROLOGICAL: No knowledge of stroke. SKIN; No rashes. PHYSICAL EXAMINATION: VITAL SIGNS: Temperature 98.5, respirations 20, pulse 100, blood pressure 140/83. Pulse ox 94% room air. HEENT: Head : Normocephalic, atraumatic. Eyes: No icterus. Ears: Clear. Throat: Noninjected. NECK: Supple. HEART: Irregular S1, S2. LUNGS: No wheezing. ABDOMEN: Soft. EXTREMITIES: No edema. SKIN: Without rash. NEUROLOGICAL: Intact. PSYCHOLOGICAL: Alert. VASCULAR: Legs warm to touch. LABORATORY DATA: White count 12,900, hemoglobin 10.2, hematocrit 32.0, platelets 273,000. PT/INR 1.02, PTT 33.9. Sodium 139, K 3.9, chloride 94, bicarb 25, BUN 29, creatinine 7.5, random blood sugar 129, calcium 11.1. Bilirubin 0.9, AST 43, ALT 22, alk phos 105. CPK 37, troponin 0.02. T4 normal at 9.1. Lipase 285. Chest x-ray was consistent with congestive heart failure. EKG showed atrial fibrillation with nonspecific ST-T wave changes, and chest, abdomen and pelvic CTA is in progress. IMPRESSION: A 67-year-old male with new-onset atrial fibrillation and comorbidities of recent surgery for left renal cell carcinoma and nephrectomy with end-stage renal disease, hemodialysis dependent; peptic ulcer disease; chronic hypertension; stable atherosclerotic heart disease with coronary artery stents; hypothyroidism; peptic ulcer disease; gastroesophageal reflux disease; hyperphosphatemia and hyperlipidemia. PLAN: As discussed with the patient, nursing, emergency room physicians and daughter at bedside, will be to admit this patient to the cardiac unit. He will continue on Ecotrin, Lipitor, Pepcid, Synthroid, Lopressor, minoxidil, Protonix and will have a Cardiology consultation with Dr. Archer. If patient does require chronic anticoagulation, Ecotrin may need to be discontinued and institution of Coumadin may be needed. Patient will receive Lovenox temporarily. He will have a blood culture for completeness sake, will require dialysis this afternoon and will require a heart-healthy renal diabetic diet with insulin coverage a.c. meals and at bedtime. Greater than 75 minutes was spent in the care management, review of x-rays, labs, medication orders and discussion of this patient's care with himself, emergency room physician, nursing and daughter. All questions were answered. No Banda MD MTDMariano
--- NOTE | 2017-10-14 23:00 | PN ---
DATE: 10/14/2017 DIALYSIS PROGRESS NOTE SUBJECTIVE: This 67-year-old male is in the [facility] Renal Unit with a blood pressure 127/72, pulse of 82. Heart: Irregular S1, S2. Lungs: Basilar rales. He is tolerating blood flow rates of 400 mL per minute. Thus far he has had 1.5 kg removed and will be aiming for 2 kg today. Potassium is 3.9, hemoglobin 10.2, hematocrit 32.0. Blood cultures were drawn and the patient was given 1 g of vancomycin and gentamicin 80 mg, pending blood culture results. No Banda MD MTDD
--- NOTE | 2017-10-14 23:03 | PN ---
DATE: 10/14/2017 DIALYSIS PROGRESS NOTE SUBJECTIVE: This 67-year-old male is in the [facility] Renal Dialysis Unit, dialyzing on a capsule F160, 140 sodium, 4 K bicarb bath with blood flow rates of 400 mL per minute. PHYSICAL EXAMINATION: VITAL SIGNS: Blood pressure 138/54, pulse of 87, respirations 16, afebrile. HEART: Irregular S1, S2. LUNGS: Basilar crackles. LABORATORY DATA: White count 12,900, hemoglobin 10.2, hematocrit 32.0, platelets 273,000. Potassium 3.9. ASSESSMENT AND PLAN: The patient will dialyze for 1 hour, aiming for 2 kg fluid removal. No Banda MD MTDD
[2017-10-15 06:33] LABS: HEMOGLOBIN 9.1 g/dL (14.0-18.0); MEAN CELL VOLUME 88.7 fl (80.0-105.0); MEAN CORPUSCULAR HEMOGLOBIN 27.2 pg (25.0-35.0); MEAN CORPUSCULAR HGB CONC 30.6 g/dl (31.0-37.0); MEAN PLATELET VOLUME 9.3 fl (7.0-11.0); RBC 3.35 10^6/uL (3.5-6.1); RED CELL DISTRIBUTION WIDTH 14.6 % (11.5-14.5); WHITE BLOOD COUNT 12.3 10^3/ul (4.5-11.0)
[2017-10-15] MEDS: Levothyroxine 25 MCG TAB PO SCH (06:48)
[2017-10-15 07:27] LABS: CALCIUM 11.6 mg/dL (8.4-10.5)
[2017-10-15] MEDS: Insulin Reg-LOW-Coverage SC SCH ×4 (08:29→22:12)
[2017-10-15] MEDS ORDERED: Enoxaparin 60 mg Syringe SC SCH (09:00)
--- NOTE | 2017-10-15 09:18 | CON ---
DATE: 10/15/2017 REASON FOR CONSULTATION: Chest pain, atrial fibrillation. HISTORY OF PRESENT ILLNESS: This is a 67-year-old man, known to our practice. Admitted yesterday through the emergency room when he presented with chest pain and shortness of breath. He was found to be in atrial fibrillation, which is new. The rate was rapid. He was given IV Cardizem. The heart rate slowed. Chest pain has resolved. He is now admitted to telemetry. This morning, he is comfortable without symptoms. There is no chest pain or shortness of breath. There was no orthopnea, PND, syncope, presyncope, lightheadedness, dizziness, vertigo, edema, fever, chills, cough, sputum production, hemoptysis, abdominal pain, nausea, vomiting, diarrhea, constipation, melena. PAST MEDICAL HISTORY: His past medical history is complex. He has known coronary artery disease and remote coronary interventions. He was admitted to [facility] with chest pain in 06/2017. He was found to have a renal mass and has subsequently undergone a nephrectomy for renal cell cancer. He has chronic kidney disease and 3 times a week hemodialysis. He has a history of hypertension, diabetes, hypothyroidism, anemia, seizure disorder, peptic ulcer disease, GERD and he is a former smoker. An echocardiogram during the 06/2017 admission showed normal left ventricular function with LVH, moderate tricuspid regurgitation, mild mitral regurgitation and severe pulmonary hypertension. MEDICATIONS AT THE TIME OF ADMISSION: Include Sucralfate, aspirin, Lipitor, metoprolol, Minoxidil, Pepcid, PhosLo, Protonix, Synthroid. ALLERGIES: THERE ARE NO MEDICATION ALLERGIES NOTED. SOCIAL HISTORY: He lives at home. He is a former smoker. He does not drink alcohol significantly. FAMILY HISTORY: Noncontributory. REVIEW OF SYSTEMS: Ten-point review of systems is otherwise unremarkable except as noted above. PHYSICAL EXAMINATION: GENERAL: He is a well-developed male, in no acute distress, lying in bed on telemetry. VITAL SIGNS: Notable for sinus rhythm. He is afebrile, blood pressure 134/70, respirations 16 to 20, O2 sat 95-98% on room air. HEENT: Reveals no neck vein distention, thyromegaly, carotid bruit. Mucous membranes moist. Conjunctivae pink. NECK: Supple. LUNGS: Lung urrutia clear with a few scattered rhonchi. HEART: Examination of the heart revealed a regular rhythm. Normal first and second heart sounds. There is a soft systolic murmur along the left sternal border. ABDOMEN: Soft. Bowel sounds are present. No mass, organomegaly, tenderness, rebound or guarding. EXTREMITIES: Revealed no cyanosis, clubbing or edema. NEUROLOGIC: Awake, alert and oriented. PSYCHIATRIC: Normal as to mood and affect. SKIN: Warm and dry. No rash or cellulitis. LABORATORY AND IMAGING: The initial EKG demonstrated new atrial fibrillation with rapid ventricular response. There were ST-T wave changes consistent with ischemia and poor R-wave progression was noted. A portable chest x-ray revealed stable cardiomegaly with pulmonary venous congestion, persistent small right pleural effusion. A CT angio demonstrated no evidence of PE or aortic dissection. Other findings are noted. White count 12,300, hemoglobin 9.1, hematocrit 29.7, platelet count normal. PT, INR, PTT unremarkable. Electrolytes unremarkable. BUN 29, creatinine 7.5. Today, creatinine 10.4. Blood sugar is in the 100 to 200 range. Magnesium 2.2. LFTs unremarkable. CK 37. Troponin 0.02. T4 at 9.1. Lipase 285. IMPRESSION: Moshe Coleman is a 67-year-old man with known coronary artery disease and remote coronary interventions, presents with chest pain in the setting of rapid atrial fibrillation. He converted to sinus rhythm after treatment in the emergency room with intravenous diltiazem. He is now in sinus rhythm. There is no further chest pain. The initial troponin is negative. I will review his old records. He is on telemetry. He is getting aspirin, Lipitor, metoprolol, Lovenox, Renagel, Synthroid, Tylenol. Given the episode of paroxysmal atrial fibrillation, he should be considered for chronic anticoagulation. I will discuss this with Dr. Archer, who follows him in our office and with Dr. Banda. In the meantime, he is getting Lovenox. He is in sinus rhythm currently. If the chest pain is recurrent, he should be considered for a nuclear stress testing or cardiac catheterization to define his current coronary anatomy. We will repeat his troponin this morning. I will repeat his EKG. He could be out of bed to a chair. I will follow along with you and make additional recommendations based on his clinical course. Carlos A Faulkner MD [facility] # [id number] CHRIS
[2017-10-15] MEDS: Pantoprazole 20 MG in Sodium Chloride 0.9% 100 ML IV SCH (10:08)
--- NOTE | 2017-10-15 10:43 | CARD ---
APPROVED REPORT EKG Measurement Heart [id number] <Conclusion> Normal sinus rhythm, new since ECG 10/14/[address] elevations 2,3,F
--- NOTE | 2017-10-15 19:37 | PN ---
DATE: 10/15/2017 SUBJECTIVE: This 67-year-old male was examined at his bedside in the presence of his nurse, Baljeet, registered nurse. The patient remains in a normal sinus rhythm on the quality assurance monitor body. His rhythm strips were reviewed with the telemetry cardiac community leader. There have been no reports of paroxysmal atrial fibrillation and the patient has remained in normal sinus rhythm since admission after conversion with IV diltiazem. The patient was seen in consultation by Dr. Carlos A Faulkner from Cardiology who was reviewing past reports. Of note, I did review his 2D echocardiogram from 07/2017. It did reveal that the patient had a dilated left atrium at that time and this raises concern for recurrence of atrial fibrillation versus paroxysmal atrial fibrillation. Of note, Dr. Faulkner has started the patient on subcu heparin at this point and he continues on Ecotrin daily. REVIEW OF SYSTEMS: The patient denies fever, chills, chest pain, or shortness of breath. PHYSICAL EXAMINATION: VITAL SIGNS: air sampling and monitoring, normal sinus rhythm. Temperature 98.4, respirations 20, pulse 80, blood pressure 134/70 with a pulse ox of 95% on room air. HEENT: Head: Normocephalic, atraumatic. Eyes: No icterus. Ears: Clear. Throat: Noninjected. NECK: Supple. HEART: Regular S1, S2. LUNGS: Clear. ABDOMEN: Soft. EXTREMITIES: No edema. SKIN: Without rash. NEUROLOGICAL: Unchanged. PSYCHOLOGICAL: Alert and oriented x3. NEUROLOGICAL: Grossly intact. LABORATORY DATA: White count 12,300, admission white count 12,900; hemoglobin 9.1; hematocrit 29.7; platelets 261,000; PT/INR 1.02, PTT 33.9. Sodium 137, K 4.7, chloride 94, bicarb 26, BUN 42, creatinine 10.4, random blood sugar 157. Troponin 0.16, previously 0.02 with a normal CPK of 37. Chest, abdomen, and pelvic CTA were reviewed; significant findings were, no evidence of abdominal aortic aneurysm; no dissection or rupture; no thrombus identified in the aorta with widely patent celiac axis, superior mesenteric artery, inferior mesenteric artery, and renal arteries. There was no evidence of pulmonary embolism. In his lungs, he was noted to have an increase in the size of his right lower lobe nodule as well as a right upper lung noncalcified nodule measuring 8.5 mm. There was a right middle lobe 5-mm nodule and a 5-mm left lingular nodule noted as well, suspicious for lung metastases in the clinical setting of left renal cell carcinoma recently resected. He was also noted to have paratracheal lymph nodes. Gallstones were noted on abdominal CT which are chronic in nature. He was noted to be status post left nephrectomy of his previously noted 6-cm solid mass in the left kidney and there was noted extraluminal fluid and a droplet of air in the left upper abdomen adjacent to the left renal bed. A possibility of diverticulitis or other infectious process was included in the differential versus abscess formation. Patient was noted to have slightly prominent mesenteric and periaortic lymph nodes. There was no evidence of any destructive bony lesions. These findings were reviewed in detail with Dr. Henok De from Infectious Disease. We will see the patient regarding my concerns of his peritoneal findings on CT of abdomen and persistent leukocytosis. Of note, the patient's blood cultures are pending and he did receive dosing of vancomycin and gentamicin on admission. IMPRESSION: A 67-year-old male admitted with rapid atrial fibrillation, chest discomfort now resolved, history of stable atherosclerotic heart disease with coronary artery stents in the past, and end-stage renal disease, hemodialysis dependent, recently status post a left nephrectomy at [facility] for left renal cell carcinoma with preoperative findings consistent with possible pulmonary metastases that the patient and his family are aware of and for which they will be following with nib inspector, Dr. Dykes, and oncologist, Dr. Garcia at [facility]. Also with comorbidities of hyperlipidemia, chronic hypertension, anemia of chronic disease, peptic ulcer disease with gastroesophageal reflux disease, hypothyroidism, hyperphosphatemia, degenerative arthritis. PLAN: As discussed with patient, family, nursing, and co-consultants, Dr. Faulkner from Cardiology and Dr. De from Infectious Disease, will be to maintain this patient on the cardiac unit while monitoring his cardiac rhythms. He remains on a heart-healthy renal diabetic diet and is receiving medication including Synthroid, Renagel, IV Protonix, minoxidil, metoprolol tartrate, Lipitor, regular low-dose insulin protocol a.c. meals and at bedtime, subcu heparin, Ecotrin, having received IV vancomycin and gentamicin, pending Infectious Disease evaluation. Based on the patient's clinical course, additional testing, medications, and interventions will be determined. The patient will indeed follow up with Oncology and Pulmonary as an outpatient and will continue his dialysis sessions on Saturday, Saturday, and Fridays at the [facility]. All of the above was discussed in detail and greater than 35 minutes was spent in the care, management, review of x-rays, labs, medication, and discussion of treatment for this patient today. All questions were answered. No Banda MD [email or web address]
--- NOTE | 2017-10-15 23:27 | CP.PCM.CON ---
History of Present Illness - History of Present Illness History of Present Illness: Infectious Disease Consultation: October 15, 2017 67 yo male with mild leukocytosis. CT scan showing extraluminal fluid and droplet of air at the left upper abdomen adjacent to the left renal bed (recent left nephrectomy performed at [facility] within the past 2 weeks) . The patient was brought to [facility] for SOB and chest discomfort. The patient has multiple medical issues and was found to have new onset Atrial Fibrillation. PMHx: renal cell carcinoma, end-stage renal disease on HD, ASHD, GERD, Peptic Ulcer Disease, hypothyroidism, chronic hypertension, and anemia of chronic disease PSHx: left nephrectomy, dialysis access Allergies: NKDA Social Hx: No current tobacco, EtOH, or illicit drug use Active Medications Acetaminophen (Tylenol 325mg Tab) 650 mg PO Q6H PRN PRN Reason: Fever >100.4 F Aspirin (Ecotrin) 81 mg PO DAILY [facility] Last Admin: 10/15/17 09:16 Dose: 81 mg Atorvastatin Calcium (Lipitor) 20 mg PO HS [facility] Last Admin: 10/15/17 22:13 Dose: 20 mg Heparin Sodium (Porcine) (Heparin) 5,000 units SC Q8H [facility] PRN Reason: Protocol Last Admin: 10/16/17 00:29 Dose: 5,000 units Pantoprazole Sodium 20 mg/ (Sodium Chloride) 100 mls @ 400 mls/hr IV DAILY [facility] Last Admin: 10/15/17 10:08 Dose: 400 mls/hr Insulin Human Regular (Humulin R Low) 0 units SC ACHS [facility] PRN Reason: Protocol Last Admin: 10/15/17 22:12 Dose: Not Given Levothyroxine Sodium (Synthroid) 25 mcg PO 0600 [facility] Last Admin: 10/15/17 06:48 Dose: 25 mcg Metoprolol Tartrate (Lopressor) 50 mg PO BID [facility] Last Admin: 10/15/17 18:08 Dose: 50 mg Minoxidil (Minoxidil) 2.5 mg PO BID [facility] Last Admin: 10/15/17 18:08 Dose: 2.5 mg Ondansetron HCl (Zofran Inj) 4 mg IVP Q6H PRN PRN Reason: Nausea/Vomiting Sevelamer HCl (Renagel) 800 mg PO TID [facility] Last Admin: 10/15/17 18:08 Dose: 800 mg Family Hx: none given ROS: Chest discomfort, SOB NO abdominal pain, melena, hematuria, hematemesis, hematochezia, depression, anxiety, diarrhea, vomiting, vision loss, hearing loss, loss of consciousness. Past Patient History - Infectious Disease Hx of Infectious Diseases: None - Tetanus Immunizations Tetanus Immunization: Unknown - Past Medical History & Family History Past Medical History?: Yes - Past Social History Smoking Status: Former Smoker - CARDIAC Hx Cardiac Disorders: Yes (with stents; M.I.) - PULMONARY Hx Bronchitis: Yes Hx Pneumonia: Yes Hx Tuberculosis: Yes - NEUROLOGICAL Hx Paralysis: No - HEENT Hx Cataracts: Yes - RENAL Hx Renal Failure: Yes - ENDOCRINE/METABOLIC Hx Diabetes Mellitus Type 1: Yes Hx Hypothyroidism: Yes - HEMATOLOGICAL/ONCOLOGICAL Hx Blood Transfusions: Yes Hx Blood Transfusion Reaction: No - INTEGUMENTARY Hx Dermatological Problems: Yes (OLD NF SCARRED AREA LEFT UPPER ARM. SHUNT TO RIGHT UPPER ARM) Other/Comment: dry tight discolored slin to ble +1 edema rll - MUSCULOSKELETAL/RHEUMATOLOGICAL Hx Arthritis: Yes - GASTROINTESTINAL Hx Gastrointestinal Disorders: No - GENITOURINARY/GYNECOLOGICAL Hx Reproductive Disorders: No - PSYCHIATRIC Hx Emotional Abuse: No Hx Physical Abuse: No Hx Substance Use: No - SURGICAL HISTORY Other/Comment: Kidney - ANESTHESIA Hx Anesthesia Reactions: No Hx Malignant Hyperthermia: No Meds Allergies/Adverse Reactions: Allergies Allergy/AdvReac Type Severity Reaction Status Date / Time No Known Allergies Allergy Verified 10/14/17 19:11 - Medications Medications: Current Medications Acetaminophen (Tylenol 325mg Tab) 650 mg PO Q6H PRN PRN Reason: Fever >100.4 F Aspirin (Ecotrin) 81 mg PO DAILY [facility] Last Admin: 10/15/17 09:16 Dose: 81 mg Atorvastatin Calcium (Lipitor) 20 mg PO HS [facility] Last Admin: 10/15/17 22:13 Dose: 20 mg Heparin Sodium (Porcine) (Heparin) 5,000 units SC Q8H [facility] PRN Reason: Protocol Last Admin: 10/15/17 18:09 Dose: 5,000 units Pantoprazole Sodium 20 mg/ (Sodium Chloride) 100 mls @ 400 mls/hr IV DAILY [facility] Last Admin: 10/15/17 10:08 Dose: 400 mls/hr Insulin Human Regular (Humulin R Low) 0 units SC ACHS [facility] PRN Reason: Protocol Last Admin: 10/15/17 22:12 Dose: Not Given Levothyroxine Sodium (Synthroid) 25 mcg PO 0600 [facility] Last Admin: 10/15/17 06:48 Dose: 25 mcg Metoprolol Tartrate (Lopressor) 50 mg PO BID [facility] Last Admin: 10/15/17 18:08 Dose: 50 mg Minoxidil (Minoxidil) 2.5 mg PO BID [facility] Last Admin: 10/15/17 18:08 Dose: 2.5 mg Ondansetron HCl (Zofran Inj) 4 mg IVP Q6H PRN PRN Reason: Nausea/Vomiting Sevelamer HCl (Renagel) 800 mg PO TID [facility] Last Admin: 10/15/17 18:08 Dose: 800 mg Physical Exam - Constitutional Appears: Non-toxic, No Acute Distress, Chronically Ill - Head Exam Head Exam: ATRAUMATIC, NORMOCEPHALIC - Eye Exam Eye Exam: EOMI, PERRL Pupil Exam: NORMAL ACCOMODATION, PERRL - ENT Exam ENT Exam: Mucous Membranes Moist, Normal External Ear Exam, TM's Normal Bilaterally - Neck Exam Neck exam: Positive for: Full Rom, Normal Inspection - Respiratory Exam Respiratory Exam: Clear to Auscultation Bilateral, NORMAL BREATHING PATTERN. absent: Rales, Rhonchi, Wheezes - Cardiovascular Exam Cardiovascular Exam: REGULAR RHYTHM, RRR, +S1, +S2 - GI/Abdominal Exam GI & Abdominal Exam: Distended, Normal Bowel Sounds, Soft. absent: Tenderness Additional comments: steristrips on abdomen from laproscopic nephrectomy - Extremities Exam Extremities exam: Positive for: full ROM, normal inspection - Neurological Exam Neurological exam: Alert, CN II-XII Intact, Oriented x3 - Psychiatric Exam Psychiatric exam: Normal Affect, Normal Mood - Skin Skin Exam: Intact, Normal Color Results - Vital Signs Recent Vital Signs: Last Vital Signs Temp 98 F 10/15/17 18:00 Pulse 72 10/15/17 18:00 Resp 18 10/15/17 18:00 BP 126/68 10/15/17 18:08 Pulse Ox 95 10/15/17 05:38 - Labs Result Diagrams: 10/15/17 05:30 10/15/17 05:30 Labs: Laboratory Results - last 24 hr 10/15/17 10/15/17 10/15/17 05:30 05:30 05:30 WBC 12.3 H RBC 3.35 L Hgb 9.1 L Hct 29.7 L MCV 88.7 D MCH 27.2 MCHC 30.6 L RDW 14.6 H Plt Count 261 MPV 9.3 Sodium 137 Potassium 4.7 Chloride 94 L Carbon Dioxide 26 Anion Gap 22 H BUN 42 H Creatinine 10.4 H* D Est GFR ( Amer) 6 Est GFR (Non-Af Amer) 5 POC Glucose (mg/dL) Random Glucose 103 Calcium 11.6 H Troponin I 0.16 H* D 10/15/17 10/15/17 10/15/17 07:42 11:23 16:32 WBC RBC Hgb Hct MCV MCH MCHC RDW Plt Count MPV Sodium Potassium Chloride Carbon Dioxide Anion Gap BUN Creatinine Est GFR ( Amer) Est GFR (Non-Af Amer) POC Glucose (mg/dL) 107 157 H 159 H Random Glucose Calcium Troponin I 10/15/17 21:36 WBC RBC Hgb Hct MCV MCH MCHC RDW Plt Count MPV Sodium Potassium Chloride Carbon Dioxide Anion Gap BUN Creatinine Est GFR ( Amer) Est GFR (Non-Af Amer) POC Glucose (mg/dL) 148 H Random Glucose Calcium Troponin I Assessment & Plan - Assessment and Plan (Free Text) Assessment: 67 yo male with SOB and chest discomfort found to have on CT scan extraluminal fluid and a droplet of air in the left upper abdominal area adjacent to the left renal bed. This finding may be secondary to postsurgical findings and incomplete healing from recent nephectomy. No fevers or leukocytosis at this time. New onset Atrial Fibrillation and known history of Coronary Artery Disease. For now, will start Rocephin for antibiotic coverage. The patient may need oral antibiotics with Keflex 500mg BID for 7-10 days and follow up imaging in 1 to [address] of the abdomen. The patient is in no distress at time of evaluation. Supportive care. Thank you for allowing me to participate in the care of the patient, we will follow with you.
[2017-10-16] MEDS: Levothyroxine 25 MCG TAB PO SCH (05:18)
[2017-10-16 06:50] LABS: HEMOGLOBIN 8.8 g/dL (14.0-18.0); MEAN CELL VOLUME 87.5 fl (80.0-105.0); MEAN CORPUSCULAR HEMOGLOBIN 27.6 pg (25.0-35.0); MEAN CORPUSCULAR HGB CONC 31.5 g/dl (31.0-37.0); MEAN PLATELET VOLUME 9.6 fl (7.0-11.0); RBC 3.19 10^6/uL (3.5-6.1); RED CELL DISTRIBUTION WIDTH 14.9 % (11.5-14.5)
[2017-10-16] MEDS ORDERED: Darbepoetin Alfa 100 mcg/ml Inj IVP ONE (07:18)
[2017-10-16] MEDS: Insulin Reg-LOW-Coverage SC SCH ×4 (07:30→21:45)
[2017-10-16] MEDS: Pantoprazole 20 MG in Sodium Chloride 0.9% 100 ML IV SCH (12:33)
[2017-10-16] MEDS: cefTRIAXone 1 gm 1 GM/100 ML BAG IVPB SCH (12:48)
--- NOTE | 2017-10-16 12:56 | PN ---
DATE OF VISIT: 10/16/2017 SUBJECTIVE: The patient is seen lying in a chair in dialysis. He feels significantly better. He has had no recurrent chest pain. He has had no further palpitations. He is currently in sinus rhythm. His current medications include aspirin, subcutaneous heparin, insulin coverage, Lipitor, metoprolol 50 mg b.i.d., minoxidil, Protonix, Renagel, Rocephin, and Synthroid. OBJECTIVE: GENERAL: He is a middle-aged man, appears comfortable at the present time. VITAL SIGNS: His blood pressure is 126/62 with a pulse of 72 and sinus, respirations are 14, and he is afebrile. NECK: No JVD. CHEST: A few scattered rhonchi. HEART: PMI displaced laterally with systolic murmur at the apex. ABDOMEN: Soft and nontender with normoactive bowel sounds. EXTREMITIES: No edema. DIAGNOSTIC DATA: White count 12.0, hemoglobin and hematocrit 8.8 and 27.9 with a platelet count of 279,000, troponin 0.16. Morning electrocardiogram is pending. IMPRESSION: 1. Recent chest pain in the setting of rapid atrial fibrillation with borderline troponin elevation, clinically stable at present. 2. Known coronary artery disease, status post prior multivessel percutaneous coronary intervention with a normal stress test recently. 3. Status post resection of renal cell carcinoma. 4. Chronic renal failure, maintained on hemodialysis. RECOMMENDATIONS: 1. His current medications will continue for now. Beta-radha therapy will be maintained. If he has recurrent chest pain, reevaluation and possible repeat catheterization can be considered; however, given his recent stress test which was normal, medical therapy appears most reasonable at this time. 2. If he has recurrence of his atrial fibrillation, initiation of long-term anticoagulant therapy will need to be considered. We will continue to follow and make further recommendations as appropriate. Leoncio Archer MD
--- NOTE | 2017-10-16 14:46 | CP.PCM.PN ---
Subjective - Date & Time of Evaluation Date of Evaluation: 10/16/17 Time of Evaluation: 11:45 - Subjective Subjective: Infectious Disease Follow Up: October 16, 2017 67 yo male with mild leukocytosis. CT scan showing extraluminal fluid and droplet of air at the left upper abdomen adjacent to the left renal bed (recent left nephrectomy performed at [facility] within the past 2 weeks) . The patient was brought to [facility] for SOB and chest discomfort. The patient has multiple medical issues and was found to have new onset Atrial Fibrillation. Objective - Vital Signs/Intake and Output Vital Signs (last 24 hours): Temp Pulse Resp BP Pulse Ox 98.2 F 70 20 122/58 L 97 10/16/17 12:00 10/16/17 12:31 10/16/17 12:00 10/16/17 12:31 10/16/17 05:47 Intake and Output: 10/16/17 10/16/17 06:59 18:59 Intake Total 240 335 Balance 240 335 - Medications Medications: Current Medications Acetaminophen (Tylenol 325mg Tab) 650 mg PO Q6H PRN PRN Reason: Fever >100.4 F Aspirin (Ecotrin) 81 mg PO DAILY [facility] Last Admin: 10/16/17 12:31 Dose: 81 mg Atorvastatin Calcium (Lipitor) 20 mg PO HS [facility] Last Admin: 10/15/17 22:13 Dose: 20 mg Heparin Sodium (Porcine) (Heparin) 5,000 units SC Q8H [facility] PRN Reason: Protocol Last Admin: 10/16/17 12:32 Dose: 5,000 units Pantoprazole Sodium 20 mg/ (Sodium Chloride) 100 mls @ 400 mls/hr IV DAILY [facility] Last Admin: 10/16/17 12:33 Dose: 400 mls/hr Ceftriaxone Sodium (Rocephin 1 Gram Ivpb) 1 gm in 100 mls @ 100 mls/hr IVPB DAILY [facility] PRN Reason: Protocol Last Admin: 10/16/17 12:48 Dose: 100 mls/hr Insulin Human Regular (Humulin R Low) 0 units SC ACHS [facility] PRN Reason: Protocol Last Admin: 10/16/17 12:32 Dose: 2 units Levothyroxine Sodium (Synthroid) 25 mcg PO 0600 [facility] Last Admin: 10/16/17 05:18 Dose: 25 mcg Metoprolol Tartrate (Lopressor) 50 mg PO BID [facility] Last Admin: 10/16/17 12:31 Dose: 50 mg Minoxidil (Minoxidil) 2.5 mg PO BID [facility] Last Admin: 10/16/17 12:31 Dose: 2.5 mg Ondansetron HCl (Zofran Inj) 4 mg IVP Q6H PRN PRN Reason: Nausea/Vomiting Sevelamer HCl (Renagel) 800 mg PO TID [facility] Last Admin: 10/16/17 14:02 Dose: Not Given - Labs Labs: 10/16/17 05:00 10/16/17 06:39 PT 11.7 SECONDS (9.4-12.5) 10/14/17 08:37 INR 1.02 (0.93-1.08) 10/14/17 08:37 APTT 33.9 Seconds (25.1-36.5) 10/14/17 08:37 - Constitutional Appears: Non-toxic, No Acute Distress, Chronically Ill - Head Exam Head Exam: ATRAUMATIC, NORMOCEPHALIC - Eye Exam Eye Exam: EOMI, PERRL Pupil Exam: NORMAL ACCOMODATION, PERRL - ENT Exam ENT Exam: Mucous Membranes Moist, Normal External Ear Exam, TM's Normal Bilaterally - Neck Exam Neck Exam: Full ROM, Normal Inspection - Respiratory Exam Respiratory Exam: Clear to Ausculation Bilateral, NORMAL BREATHING PATTERN. absent: Rales, Rhonchi, Wheezes - Cardiovascular Exam Cardiovascular Exam: REGULAR RHYTHM, RRR, +S1, +S2 - GI/Abdominal Exam GI & Abdominal Exam: Distended, Soft, Normal Bowel Sounds. absent: Tenderness Additional comments: steristrips on abdomen from laproscopic nephrectomy - Extremities Exam Extremities Exam: Full ROM, Normal Inspection - Neurological Exam Neurological Exam: Alert, Awake, CN II-XII Intact, Oriented x3 - Psychiatric Exam Psychiatric exam: Normal Affect, Normal Mood - Skin Skin Exam: Intact, Normal Color Assessment and Plan - Assessment and Plan (Free Text) Assessment: 67 yo male with SOB and chest discomfort found to have on CT scan extraluminal fluid and a droplet of air in the left upper abdominal area adjacent to the left renal bed. This finding may be secondary to postsurgical findings and incomplete healing from recent nephectomy. No fevers or leukocytosis at this time. New onset Atrial Fibrillation and known history of Coronary Artery Disease. For now, will start Rocephin for antibiotic coverage. The patient may need oral antibiotics with Keflex 500mg BID for 7-10 days and follow up imaging in 1 to [address] of the abdomen. The patient is in no distress at time of evaluation. Supportive care. Thank you for allowing me to participate in the care of the patient, we will follow with you.
--- NOTE | 2017-10-16 15:19 | PN ---
DATE: 10/16/2017 DIALYSIS PROGRESS NOTE SUBJECTIVE: This 67-year-old male was in the renal dialysis unit, receiving blood cell transfusion in the setting of acute on chronic anemia, status post laparoscopic left nephrectomy at [facility]. At present, blood pressure is 113/48, pulse is 72, blood flow rates of 400 mL per minute. He is dialyzing for 3 hours today. We are aiming for 2-1/2-3 kg fluid removal and hemoglobin/hematocrit will be checked again in a.m. Potassium is 5.1. The patient continues on a 2K bicarb bath. No Banda MD MTDD
--- NOTE | 2017-10-16 16:02 | PN ---
DATE: 10/16/2017 DIALYSIS PROGRESS NOTE SUBJECTIVE: This 67-year-old male was in the [facility] renal dialysis unit, dialyzing on a F160, 140 sodium, 2K bicarb bath with blood flow rates of 300 mL per minute via a right upper extremity AV fistula. PHYSICAL EXAMINATION: VITAL SIGNS: Blood pressure is 158/80 with a pulse of 73, respirations 16, temperature afebrile. HEART: Regular S1, S2. LUNGS: Clear. LABORATORY DATA: White count 12,000, hemoglobin 8.8, hematocrit 27.9, platelets 279,000. ASSESSMENT AND PLAN: As discussed with the patient, Marietta Edmonds, registered nurse the patient will receive 2 units of packed red blood cells on treatment. No Banda MD MTDMariano
[2017-10-17] MEDS: Levothyroxine 25 MCG TAB PO SCH (06:16)
[2017-10-17 06:28] VITALS: O2SAT 97
[2017-10-17 07:23] LABS: MEAN CELL VOLUME 89.6 fl (80.0-105.0); MEAN CORPUSCULAR HEMOGLOBIN 27.4 pg (25.0-35.0); MEAN CORPUSCULAR HGB CONC 30.6 g/dl (31.0-37.0); MEAN PLATELET VOLUME 9.3 fl (7.0-11.0); RBC 3.65 10^6/uL (3.5-6.1); RED CELL DISTRIBUTION WIDTH 15.5 % (11.5-14.5)
[2017-10-17] MEDS: Insulin Reg-LOW-Coverage SC SCH ×2 (07:53→12:08)
--- NOTE | 2017-10-17 08:44 | CP.PCM.PN ---
Subjective - Date & Time of Evaluation Date of Evaluation: 10/17/17 Time of Evaluation: 07:00 - Subjective Subjective: Stable on 2R. No CP or SOB. S/P HD yesterday. PE: Lungs: clear Cor.: S1S2 Abd.: soft Ext.: no edema Neuro.: alert BC X2 NG at 48 hrs. Objective - Vital Signs/Intake and Output Vital Signs (last 24 hours): Temp Pulse Resp BP Pulse Ox 98.6 F 77 20 125/56 L 97 10/17/17 06:00 10/17/17 06:00 10/17/17 06:00 10/17/17 06:00 10/17/17 06:00 Intake and Output: 10/17/17 10/17/17 06:59 18:59 Intake Total 600 Balance 600 - Medications Medications: Current Medications Acetaminophen (Tylenol 325mg Tab) 650 mg PO Q6H PRN PRN Reason: Fever >100.4 F Aspirin (Ecotrin) 81 mg PO DAILY [facility] Last Admin: 10/16/17 12:31 Dose: 81 mg Atorvastatin Calcium (Lipitor) 20 mg PO HS [facility] Last Admin: 10/16/17 21:45 Dose: 20 mg Heparin Sodium (Porcine) (Heparin) 5,000 units SC Q8H [facility] PRN Reason: Protocol Last Admin: 10/17/17 00:54 Dose: 5,000 units Pantoprazole Sodium 20 mg/ (Sodium Chloride) 100 mls @ 400 mls/hr IV DAILY [facility] Last Admin: 10/16/17 12:33 Dose: 400 mls/hr Ceftriaxone Sodium (Rocephin 1 Gram Ivpb) 1 gm in 100 mls @ 100 mls/hr IVPB DAILY [facility] PRN Reason: Protocol Last Admin: 10/16/17 12:48 Dose: 100 mls/hr Insulin Human Regular (Humulin R Low) 0 units SC ACHS [facility] PRN Reason: Protocol Last Admin: 10/17/17 07:53 Dose: Not Given Levothyroxine Sodium (Synthroid) 25 mcg PO 0600 [facility] Last Admin: 10/17/17 06:16 Dose: 25 mcg Metoprolol Tartrate (Lopressor) 50 mg PO BID [facility] Last Admin: 10/16/17 17:48 Dose: 50 mg Minoxidil (Minoxidil) 2.5 mg PO BID [facility] Last Admin: 10/16/17 17:48 Dose: 2.5 mg Ondansetron HCl (Zofran Inj) 4 mg IVP Q6H PRN PRN Reason: Nausea/Vomiting Sevelamer HCl (Renagel) 800 mg PO TID [facility] Last Admin: 10/16/17 17:48 Dose: 800 mg - Labs Labs: 10/17/17 06:40 10/16/17 06:39 PT 11.7 SECONDS (9.4-12.5) 10/14/17 08:37 INR 1.02 (0.93-1.08) 10/14/17 08:37 APTT 33.9 Seconds (25.1-36.5) 10/14/17 08:37 Assessment and Plan - Assessment and Plan (Free Text) Assessment: CP/SOB PAF with RVR episode CAD/PCIs/recent neg nuclear stress test CKD/HD S/P left nephrectomy for renal cell cancer HBP Diabetes Hypothyroidism Anemia Seizure Disorder Former Smoker Echo 06/18: Nl LV with LVH, mod. TR and MR, sev. PH Plan: As per Dr. Banda HD Continue metoprolol OOB as prema If recurrent AF, consider A/C If recur CP, consider cath Home soon with out-pt cardiology F/U
[2017-10-17] MEDS: cefTRIAXone 1 gm 1 GM/100 ML BAG IVPB SCH (09:54)
[2017-10-17] MEDS: Pantoprazole 20 MG in Sodium Chloride 0.9% 100 ML IV SCH (11:27)
[2017-10-17 11:44] VITALS: BP 117/66; PULSE 76; RESP 18; TEMP 97.9
--- NOTE | 2017-10-17 16:43 | CP.PCM.PN ---
Subjective - Date & Time of Evaluation Date of Evaluation: 10/17/17 Time of Evaluation: 13:00 - Subjective Subjective: Infectious Disease Follow Up: October 17, 2017 67 yo male with mild leukocytosis. CT scan showing extraluminal fluid and droplet of air at the left upper abdomen adjacent to the left renal bed (recent left nephrectomy performed at [facility] within the past 2 weeks) . The [place] [facility] [place] and chest discomfort. The patient has multiple medical issues and was found to have new onset Atrial Fibrillation. Objective - Vital Signs/Intake and Output Vital Signs (last 24 hours): Temp Pulse Resp BP Pulse Ox 97.9 F 76 18 117/66 97 10/17/17 11:43 10/17/17 11:43 10/17/17 11:43 10/17/17 11:43 10/17/17 06:00 Intake and Output: 10/17/17 10/17/17 06:59 18:59 Intake Total 600 Balance 600 - Labs Labs: 10/17/17 06:40 10/16/17 06:39 PT 11.7 SECONDS (9.4-12.5) 10/14/17 08:37 INR 1.02 (0.93-1.08) 10/14/17 08:37 APTT 33.9 Seconds (25.1-36.5) 10/14/17 08:37 - Constitutional Appears: Non-toxic, No Acute Distress, Chronically Ill - Head Exam Head Exam: ATRAUMATIC, NORMOCEPHALIC - Eye Exam Eye Exam: EOMI, PERRL Pupil Exam: NORMAL ACCOMODATION, PERRL - ENT Exam ENT Exam: Mucous Membranes Moist, Normal External Ear Exam, TM's Normal Bilaterally - Neck Exam Neck Exam: Full ROM, Normal Inspection - Respiratory Exam Respiratory Exam: Clear to Ausculation Bilateral, NORMAL BREATHING PATTERN. absent: Rales, Rhonchi, Wheezes - Cardiovascular Exam Cardiovascular Exam: REGULAR RHYTHM, RRR, +S1, +S2 - GI/Abdominal Exam GI & Abdominal Exam: Soft, Normal Bowel Sounds. absent: Distended, Tenderness - Extremities Exam Extremities Exam: Full ROM, Normal Inspection - Neurological Exam Neurological Exam: Alert, Awake, CN II-XII Intact, Oriented x3 - Psychiatric Exam Psychiatric exam: Normal Affect, Normal Mood - Skin Skin Exam: Intact, Normal Color Assessment and Plan - Assessment and Plan (Free Text) Assessment: 67 yo male with SOB and chest discomfort found to have on CT scan extraluminal fluid and a droplet of air in the left upper abdominal area adjacent to the left renal bed. This finding may be secondary to postsurgical findings and incomplete healing from recent nephectomy. No fevers or leukocytosis at this time. New onset Atrial Fibrillation and known history of Coronary Artery Disease. For now, will start Rocephin for antibiotic coverage. The patient may need oral antibiotics with Keflex 500mg BID for 7-10 days and follow up imaging in 1 to [address] of the abdomen. The patient is in no distress at time of evaluation. Supportive care. Thank you for allowing me to participate in the care of the patient, we will follow with you.
--- NOTE | 2017-10-18 08:33 | DS ---
DATE; 10/17/2017 FINAL DIAGNOSES: Paroxysmal atrial fibrillation, resolved, the patient is now in normal sinus rhythm; end-stage renal disease, hemodialysis dependent; history of laparoscopic left nephrectomy in the recent past at [facility] for renal cell carcinoma, probable pulmonary mets, hyperlipidemia ; atherosclerotic heart disease, stable with coronary artery stents; peptic ulcer disease with gastroesophageal reflux disease; hypertension; hypothyroidism; hyperphosphatemia; newly noted leukocytosis, improved on IV Rocephin; now normalized and anemia of chronic disease. DISPOSITION: Home. FOLLOWUP: Follow up at [facility] renal dialysis unit Saturday, Saturday, Fridays. The patient is to follow up with Dr. Levon Silva from Interventional Radiology for an AV fistulogram. The patient will follow up with Dr. Garcia, Oncology, [facility] and also Dr. Dykes, Pulmonary, [facility] for CT findings of possible metastatic renal cell cancer to the lungs and for the initiation of treatment of renal cell carcinoma recently resected. DISCHARGE MEDICATIONS: Include Pepcid 20 mg p.o. at bedtime, Lipitor 20 mg p.o. at dinnertime, minoxidil 2.5 mg p.o. t.i.d., Lopressor 25 mg p.o. b.i.d., Synthroid 25 mcg p.o. daily, Renagel 800 mg p.o. after meals t.i.d. The patient will be maintained on a 2.0 calcium dialysate until further notice. Ecotrin 81 mg p.o. daily and Keflex 500 mg p.o. b.i.d. #14. The patient and his daughter, Nicanor Coleman, registered nurse are also aware that the patient will need a followup CT under the guidance of Dr. Garcia, Oncology in the next 1-2 months to ensure adequacy of treatment of abnormal CT as noted here at the [facility]. HOSPITAL COURSE: In summary, he is a 67-year-old male who was admitted to [facility] with complaints of chest discomfort in the setting of new onset rapid atrial fibrillation. The patient converted to normal sinus rhythm with IV Cardizem in the emergency room. He was seen in consultation by Dr. Carlos A Faulkner from Cardiology and had no further episodes of atrial fibrillation and remained in a normal sinus rhythm throughout his hospital course. It was Dr. Faulkner's opinion that the patient be discharged to home on the current medications with an understanding that if he has any further atrial fibrillation, he will need anticoagulation with Coumadin and if he has any chest pain, he will need a cardiac cath. The patient was seen by Dr. Henok De, who cleared the patient for discharge to home after receiving 3 days of IV Rocephin, on oral Keflex 500 mg p.o. b.i.d. to complete a 1-week course. This was for a finding of an extraluminal fluid and droplet of air seen in the left upper abdomen adjacent to his left renal bed and raising the possibility of post nephrectomy inflammation versus early diverticulitis. At the time of discharge, the patient's temperature was 97.9, respirations 18, pulse 76 and blood pressure 117/66 with a pulse ox of 97% on room air. Initial white count was 12,900, at the time of discharge 11,000 normal. Hemoglobin 10.0, hematocrit 32.7 and platelets 230,000. PT/INR 1.02, PTT 33.9. Random blood sugar 121. Sodium 137, K 4.7, chloride 94, bicarb 26, BUN 42, creatinine 10.4. Of note, the patient and daughter are also aware the patient should have blood sugar check by Accu-Chek monitor before meals and at bedtime and he should be following a low-dose regular insulin coverage protocol as outlined before meals and at bedtime. Greater than 35 minutes was spent in the care management, review of x-rays, labs, medication and discharge instructions with the patient, nursing and daughter, Nicanor, who is a registered nurse. All questions were answered. No Banda MD CHRIS
== END 2017-10-17 15:20 | disposition home or self-care (01) | DRG 308 ==
LOC: ED 07:51 → ERH 12:58 → 2RSO 18:45 → 2RNO 10-17 13:43
PROVIDERS: ADMIT Internal Medicine; ATTEND Internal Medicine
PROC: 5A1D70Z Performance of Urinary Filtration, Intermittent, Less than 6 Hours Per Day (ICD-10-PCS; principal; 2017-10-14)
DX: I48.0 Paroxysmal atrial fibrillation (principal); N18.6 End stage renal disease; I13.2 Hypertensive heart and chronic kidney disease with heart failure and with stage 5 chronic kidney disease, or end stage renal disease; I50.9 Heart failure, unspecified; E83.39 Other disorders of phosphorus metabolism; D63.8 Anemia in other chronic diseases classified elsewhere; E03.9 Hypothyroidism, unspecified; E78.5 Hyperlipidemia, unspecified; I25.10 Atherosclerotic heart disease of native coronary artery without angina pectoris; K21.9 Gastro-esophageal reflux disease without esophagitis; G40.909 Epilepsy, unspecified, not intractable, without status epilepticus; M19.90 Unspecified osteoarthritis, unspecified site; Z99.2 Dependence on renal dialysis; Z85.528 Personal history of other malignant neoplasm of kidney; Z90.5 Acquired absence of kidney; Z95.5 Presence of coronary angioplasty implant and graft; Z87.11 Personal history of peptic ulcer disease; Z79.82 Long term (current) use of aspirin; Z87.891 Personal history of nicotine dependence

== ENCOUNTER 2017-10-18 06:01 | Day surgery (SDC) | payer MEDICARE, MEDICAID ==
[2017-10-17 15:20] VITALS: BMI 22.7
[2017-10-18 06:52] LABS: BASO # 0.03 K/mm3 (0.0-2.0); BASO % 0.2 % (0.0-3.0); EOS # 0.4 (0.0-0.7); EOS % 2.7 % (1.5-5.0); GRAN # 10.38 (1.4-6.5); GRAN % 80.2 % (50.0-68.0); HEMOGLOBIN 10.3 g/dL (14.0-18.0); LYMPH % 7.9 % (22.0-35.0); MEAN CELL VOLUME 89.5 fl (80.0-105.0); MEAN CORPUSCULAR HEMOGLOBIN 27.7 pg (25.0-35.0); MEAN CORPUSCULAR HGB CONC 30.9 g/dl (31.0-37.0); MEAN PLATELET VOLUME 9.7 fl (7.0-11.0); MONO # 1.2 (0.1-0.6); RBC 3.72 10^6/uL (3.5-6.1); RED CELL DISTRIBUTION WIDTH 15.8 % (11.5-14.5)
[2017-10-18] MEDS ORDERED: Lidocaine 2% Inj (20ml) ONE (06:58)
[2017-10-18] MEDS ORDERED: Nitroglycerin 50mg in D5W 50 MG/250 ML BOTTLE IV ONE (06:58)
[2017-10-18] MEDS ORDERED: Iodixanol 320 MG/ML 100 ML BOTTLE IV ONE (06:58)
[2017-10-18 07:10] LABS: CALCIUM 11.6 mg/dL (8.4-10.5)
[2017-10-18 07:15] LABS: INR 1.1 (0.93-1.08); PARTIAL THROMBOPLASTIN TIME 31.9 Seconds (25.1-36.5); PROTHROMBIN TIME 12.7 SECONDS (9.4-12.5)
[2017-10-18] MEDS ORDERED: Midazolam 2 MG/2 ML VIAL ONE (08:17)
[2017-10-18 10:10] VITALS: BP 121/58; PULSE 84; RESP 18; TEMP 97.9; O2SAT 98
--- NOTE | 2017-10-18 13:20 | VASCULAR ---
PROCEDURE: 1. Right upper extremity AV fistula angiogram. 2. Venous angioplasty HISTORY: End-stage renal disease. Malfunctioning AV access PHYSICIAN(S): Levon Silva MD. TECHNIQUE: The relative risks and indications of the procedure were explained to the patient and consent obtained. The patient was placed supine on the angiography table and the right arm prepped and draped in usual sterile fashion. Conscious sedation and monitoring provided throughout the procedure by a nurse. Ultrasound of the anastomosis was performed. This revealed a patent anastomosis with a tapered appearance to the proximal venous outflow. Under ultrasound guidance, the proximal right AV fistula was punctured in antegrade direction. A 5 Brazilian catheter was placed. An overlapping right upper extremity AV fistula angiogram was performed. Central venous imaging was obtained. Pressure was applied near the access site and reflux of the arterial anastomosis performed. Exchange is made for a 7 Brazilian sheath. The stenosis in the right basilic vein was crossed with 0.035 wire. The focal stenosis in the mid right basilic vein was dilated with 10 mm x 6 cm balloon. A much improved angiographic result was obtained with a strong thrill. The sheath was removed and hemostasis obtained with a purse string suture. The patient tolerated the procedure well. FINDINGS: The patient's right upper extremity basilic vein transposition fistula is patent. The anastomosis is patent. Is a tapered appearance to the proximal 6 cm of the fistula. Aneurysmal dilatation is seen. There is a significant stenosis in the mid right basilic vein. This was successfully dilated with a 10 mm balloon. The right axillary vein, right subclavian vein, right innominate vein, and SVC are widely patent. IMPRESSION: 1. Focal stenosis in the mid right basilic vein. This was successfully dilated with a 10 mm balloon 2. Widely patent central veins. 3. Patent anastomosis with a tapered appearance to the proximal basilic vein transposition fistula. This was not felt to be hemodynamically significant and was not treated
--- NOTE | 2017-10-18 23:15 | CON ---
DATE: 10/18/2017 MEDICAL EVALUATION SUMMARY: This is a 67-year-old male who was admitted to the [facility] for elective right upper extremity AV fistulogram. The patient has recently been having difficulties at dialysis related to post dialysis bleeding at his access site. This has caused difficulty at the completion of dialysis treatments. The patient was recently hospitalized with rapid atrial fibrillation that resolved and was discharged to home on oral Keflex for concerns of possible inflammation on CT involving the perinephric area on the left where his left kidney was laparoscopically removed at [facility] approximately 2 weeks ago. At present, the patient is chest pain free. He denies any palpitations. Has had no fever or chills. REVIEW OF SYSTEMS: CONSTITUTIONAL: No fever. No chills. HEAD: No headache. No seizure. EYES: No change in visual acuity. EARS: No hearing loss. THROAT: No swallowing difficulty. NECK: No stiffness. CARDIAC: As per HPI. LUNGS: No cough. No hemoptysis. GI: History of peptic ulcer disease. : End-stage renal disease, hemodialysis dependent. VASCULAR: No claudication. PSYCHOLOGICAL: Denies depression. NEUROLOGICAL: No knowledge of stroke. ENDOCRINE: Insulin-dependent diabetes mellitus and hyperlipidemia. FAMILY HISTORY: Noncontributory. He is a current nondrinker, nonsmoker, non IV drug misuser. ALLERGIES: HE HAS NO KNOWN ALLERGIES TO MEDICATION: OUTPATIENT MEDICATIONS: Included Minoxidil, Lopressor, Synthroid, Pepcid, Renagel, Lipitor and Keflex. PHYSICAL EXAMINATION: Temperature 97.9, respirations 18, pulse 84 and blood pressure 121/58 with a pulse ox of 98% on room air. HEENT: Head normocephalic, atraumatic. Eyes: No icterus. Ears: Clear. Throat: Noninjected. NECK: Supple. HEART: Regular S1, S2. LUNGS: Clear. ABDOMEN: Soft. EXTREMITIES: No clubbing, cyanosis. No edema. SKIN: Without rash. NEUROLOGICAL: Intact. PSYCHOLOGICAL: Alert. VASCULAR: Excellent bruits and thrill in right upper extremity AV fistula. LABORATORY DATA: White count 13,000, hemoglobin 10.3, hematocrit 33.3, platelets 252,000. PT/INR 1.10, PTT 31.9. Sodium 137, K 5.3, chloride 91, bicarb 24, BUN 49, creatinine 9.9, random blood sugar 160. IMPRESSION: A 67-year-old male with multiple medical problems as listed above, on schedule for elective arteriovenous fistulogram to be followed by dialysis with comorbidities of chronic hypertension, stable atherosclerotic heart disease, history of coronary artery stents, paroxysmal atrial fibrillation resolved, chronic hypertension, hypothyroidism, peptic ulcer disease with gastroesophageal reflux disease, hyperlipidemia and recent left nephrectomy for renal cell carcinoma with probable pulmonary metastasis, under the outpatient followup of Dr. Garcia, Oncology at [facility] and Dr. Dykes, certified nuclear medicine technologist at [facility]. The plan will be to perform an arteriovenous fistulogram followed by hemodialysis today. The patient will continue Keflex 500 mg p.o. b.i.d. as outlined to complete a full 1-week additional course and then to have a followup CT done by Dr. Garcia within the next 1-2 months as the patient and family have been advised. He will continue on a 2.0 calcium dialysate to potassium, blood flow rates of 400 mL per minute and medications as outlined. All of the above was reviewed in detail with the patient, nursing, family and the patient will be monitored in the renal dialysis unit regarding the success of a possible balloon angioplasty of venous stenosis in the arteriovenous fistula. No Banda MD MTDD
== END 2017-10-18 10:45 | disposition home or self-care (01) ==
LOC: SDSVAS 06:01
PROVIDERS: ATTEND Radiology Vascular & Interventional Radiology
DX: T82.41XA Breakdown (mechanical) of vascular dialysis catheter, initial encounter (principal); I87.1 Compression of vein; N18.6 End stage renal disease; I12.0 Hypertensive chronic kidney disease with stage 5 chronic kidney disease or end stage renal disease; E11.22 Type 2 diabetes mellitus with diabetic chronic kidney disease; I25.10 Atherosclerotic heart disease of native coronary artery without angina pectoris; K21.9 Gastro-esophageal reflux disease without esophagitis; E03.9 Hypothyroidism, unspecified; I48.0 Paroxysmal atrial fibrillation; E78.5 Hyperlipidemia, unspecified; Z85.528 Personal history of other malignant neoplasm of kidney; Z90.5 Acquired absence of kidney; Y83.2 Surgical operation with anastomosis, bypass or graft as the cause of abnormal reaction of the patient, or of later complication, without mention of misadventure at the time of the procedure; Z99.2 Dependence on renal dialysis; Z87.11 Personal history of peptic ulcer disease; Z95.5 Presence of coronary angioplasty implant and graft
CPT/HCPCS: 36415; 36902; 80048; 85025; 85610; 85730; 99152; C1725; C1760; C1769; C1894; J2250; J2405; J3010; J7030; Q9967

== ENCOUNTER 2017-10-21 09:20 | Inpatient (IN) | payer MEDICARE, MEDICAID ==
--- NOTE | 2017-10-21 09:37 | ED PDOC ---
Arrival/HPI - General Time Seen by Provider: 10/21/17 09:22 Historian: Patient - History of Present Illness Narrative History of Present Illness (Text): 10/21/17 09:34 67 y/o male, pmh including CHF/ESRD (Saturday/saturday/saturday)/A.fibb(not anticoagulated)/GERD/Hypothyroidism/Seizure/Post Left Nephrectomy renal cell carinoma at [place], [facility], c/o lt. sided chest pain started about 1 hour ago. Pt. stated that he was at dialysis with 1 hour remaining, suddenly has non -exertional lt. sided chest pain that's unresolved, no palpitation, no pleuritic pain, no coughing, no night sweat, no rash, no other medical or psychological complaints. 10/21/17 11:30 The daughter is at the bedside and obtained history from the her as well. Patient has been having black stools for the past few days and been feeling fatigue, admits chronic epigastric abdominal pain. Past Medical History - Provider Review Nursing Documentation Reviewed: Yes - Infectious Disease Hx of Infectious Diseases: None - Tetanus Immunization Tetanus Immunization: Unknown - Cardiac Hx Pacemaker: No - Pulmonary Hx Bronchitis: Yes Hx Pneumonia: Yes Hx Tuberculosis: Yes - Neurological Hx Paralysis: No - HEENT Hx Cataracts: Yes - Renal Hx Renal Failure: Yes - Endocrine/Metabolic Hx Diabetes Mellitus Type 1: Yes Hx Hypothyroidism: Yes - Hematological/Oncological Hx Blood Transfusions: Yes Hx Blood Transfusion Reaction: No - Integumentary Hx Dermatological Disorder: Yes (OLD NF SCARRED AREA LEFT UPPER ARM. SHUNT TO RIGHT UPPER ARM) Other/Comment: dry tight discolored slin to ble +1 edema rll - Musculoskeletal/Rheumatological Hx Musculoskeletal Disorders: Yes - Gastrointestinal Hx Gastrointestinal Disorders: No - Genitourinary/Gynecological Hx Reproductive Disorders: No - Psychiatric Hx Emotional Abuse: No Hx Physical Abuse: No Hx Substance Use: No - Surgical History Other/Comment: Kidney - Anesthesia Hx Anesthesia Reactions: No Hx Malignant Hyperthermia: No - Suicidal Assessment Feels Threatened In Home Enviroment: No Family/Social History - Physician Review Nursing Documentation Reviewed: Yes Family/Social History: Unknown Family HX Smoking Status: Former Smoker Hx Alcohol Use: No Hx Substance Use: No Hx Substance Use Treatment: No Allergies/Home Meds Allergies/Adverse Reactions: Allergies No Known Allergies Allergy (Verified 10/14/17 19:11) Home Medications: Home Meds Medication Instructions Recorded Confirmed Metoprolol Tartrate [Lopressor] 25 mg PO TID 01/17/15 10/21/17 Levothyroxine [Synthroid] 25 mcg PO DAILY 07/28/15 10/21/17 Aspirin [Ecotrin] 81 mg PO DAILY 12/30/15 10/21/17 Minoxidil 5 mg PO PRN PRN 12/30/15 10/21/17 Atorvastatin [Lipitor] 20 mg PO DIN 06/18/17 10/21/17 Clopidogrel [Plavix] 75 mg PO DAILY 10/21/17 10/21/17 Omeprazole 20 mg PO DAILY 10/21/17 10/21/17 Vitamin B Complex/Vit C/Folic 1 tab PO DAILY 10/21/17 10/21/17 [Nephro-Armando] Review of Systems - Review of Systems Constitutional: Fatigue. absent: Fevers Eyes: absent: Vision Changes ENT: absent: Hearing Changes Respiratory: absent: SOB, Cough Cardiovascular: Chest Pain. absent: Palpitations, Edema, Calf Pain Gastrointestinal: absent: Abdominal Pain, Diarrhea, Nausea, Vomiting Musculoskeletal: absent: Arthralgias, Back Pain Skin: absent: Rash, Pruritis Neurological: absent: Headache, Dizziness Psychiatric: absent: Anxiety, Depression, Suicidal Ideation Physical Exam Vital Signs Reviewed: Yes Vital Signs Temp Pulse Resp BP Pulse Ox 10/21/17 14:17 97.7 F 81 20 104/53 L 100 10/21/17 12:39 84 19 103/46 L 100 10/21/17 11:56 86 18 101/49 L 100 10/21/17 09:34 97.5 F L 80 18 100/62 100 Temperature: Afebrile Blood Pressure: Normal Pulse: Regular Respiratory Rate: Normal Appearance: Positive for: Well-Appearing, Non-Toxic, Comfortable Pain Distress: Moderate Mental Status: Positive for: Alert and Oriented X 3 - Systems Exam Head: Present: Atraumatic, Normocephalic Pupils: Present: PERRL Extroacular Muscles: Present: EOMI Conjunctiva: Present: Normal Mouth: Present: Moist Mucous Membranes Neck: Present: Normal Range of Motion Respiratory/Chest: Present: Clear to Auscultation, Good Air Exchange. No: Respiratory Distress, Accessory Muscle Use Cardiovascular: Present: Regular Rate and Rhythm, Normal S1, S2, Other (no pedal edema). No: Murmurs Abdomen: Present: Normal Bowel Sounds. No: Tenderness, Distention, Peritoneal Signs Rectal: Present: Hemorrhoids, Normal Rectal Tone, Other (Female Retail Department Supervisor: IT SECURITY ENGINEER Salome. Guaiac is positive. ). No: Occult Blood, Rectal Tenderness, Gross Blood, Melena, Fissures, Nodule/Mass/Lesions Back: Present: Normal Inspection. No: CVA Tenderness Upper Extremity: Present: Normal Inspection. No: Cyanosis, Edema Lower Extremity: Present: Normal Inspection. No: Edema Neurological: Present: GCS=15, CN II-XII Intact, Speech Normal, Motor Func Grossly Intact, Memory Normal Skin: Present: Warm, Dry, Normal Color. No: Rashes Psychiatric: Present: Alert, Oriented x 3, Normal Insight, Normal Concentration Medical Decision Making ED Course and Treatment: 10/21/17 09:37 -labs/ua/cardiac enzyme -ekg -chest ray -IV morphine/pepcid/nitro/oxygen -observe and reassess 10/21/17 12:01 -HEART score is high, will need admission. -EKG: NSR @ 80 BPM, no acute ST or T wave changes noted compared with previous ekg. -Chest xray: no active disease -Guaiac is positive with no active bleeding and no diarrhea, IV protonix ordered , type and screen/pt/ptt ordered. -Labs are non-significant except hgb 9.5 from 10.3, K+ 3.3 from 5.3 (potassium chloride 20meq po ordered), BUN 33 from 49, Creatine 4.9 from 9.9, elevation of AST and ALT noted, BNP [id number] from [id number] -Pt. need to be admitted for observation at least for 24 hours for r/o ACS vs. other etiology causes of this chest pain episode. I discussed with the patient and the family, they agreed to be admitted, paging Dr. Banda for admission. 10/21/17 12:01 -BP is on the lower end, IVF 500 bolus ordered. -I spoke to Dr. Banda about this case/labs/radiology and new onset of GI bleed, agreed to admit this patient to her service which she will contact the [facility] for consult. -I spoke to Dr. Armstrong about the case and he agreed on the treatment/admission plan, he will put in the admission order. Reassessment Condition: Improved - Critical Care Critical Care Minutes: 30 minutes Critical Care Time: Unstable Narrative Critical Care (Text): 10/21/17 15:05 GI bleed with low blood pressure, chest pain and dialysis patient, cardiac exercise physiologist. - Lab Interpretations Lab Results: 10/21/17 09:44 10/21/17 09:44 Lab Results 10/21/17 09:44: WBC 11.0, RBC 3.36 L, Hgb 9.5 L, Hct 29.0 L, MCV 86.3 D, MCH 28.3, MCHC 32.8, RDW 16.4 H, Plt Count 246, MPV 9.8, Gran % 81.1 H, Lymph % ( Auto) 5.5 L, Trigg % (Auto) 11.5 H, Eos % (Auto) 1.7, Baso % (Auto) 0.2, Gran # 8.91 H, Lymph # (Auto) 0.6 L, Trigg # (Auto) 1.3 H, Eos # (Auto) 0.2, Baso # ( Auto) 0.02 10/21/17 09:44: Sodium 140, Potassium 3.3 L, Chloride 96 L, Carbon Dioxide 26, Anion Gap 21 H, BUN 33 H, Creatinine 4.9 H, Est GFR ( Amer) 14, Est GFR ( Non-Af Amer) 12, Random Glucose 99, Calcium 9.1, Total Bilirubin 0.7, AST 99 H D , ALT 336 H, Alkaline Phosphatase 251 H D, Lactate Dehydrogenase 443, Total Creatine Kinase 30 L, Troponin I 0.05 D, NT-Pro-B Natriuret Pep 21633 H, Total Protein 7.0, Albumin 3.8, Globulin 3.2, Albumin/Globulin Ratio 1.2 - RAD Interpretation Radiology Orders: 10/21/17 09:44 CHEST PORTABLE [RAD] Stat no active disease Battery Wrecker Operator: Radiologist - EKG Interpretation EKG Interpretation (Text): 10/21/17 09:37 -EKG: NSR @ 80 BPM, no acute ST or T wave changes noted compared with previous ekg. Interpreted by ED Physician: Yes Type: 12 lead EKG Comparison: Com.w/previous EKG - Medication Orders Current Medication Orders: Acetaminophen (Tylenol 325mg Tab) 650 mg PO Q6H PRN PRN Reason: Fever >100.4 F Aspirin (Ecotrin) 81 mg PO DAILY [facility] Atorvastatin Calcium (Lipitor) 10 mg PO DIN [facility] Cephalexin Monohydrate (Keflex) 500 mg PO BID [facility] PRN Reason: Protocol Stop: 10/26/17 10:00 Clopidogrel Bisulfate (Plavix) 75 mg PO DAILY [facility] Famotidine (Pepcid) 40 mg PO HS [facility] Insulin Human Regular (Humulin R Low) 0 units SC ACHS [facility] PRN Reason: Protocol Levothyroxine Sodium (Synthroid) 25 mcg PO 0600 [facility] Metoprolol Tartrate (Lopressor) 25 mg PO BID [facility] Minoxidil (Minoxidil) 2.5 mg PO BID [facility] Nitroglycerin (Nitro-Bid 2% Oint) 1 ea TOP Q4H [facility] Ondansetron HCl (Zofran Inj) 4 mg IVP Q8H [facility] Sevelamer HCl (Renagel) 800 mg PO TID [facility] Vitamin B Complex/Vit C/Folic Acid (Nephro-Armando) 1 tab PO 0800 [facility] Discontinued Medications Aspirin (Aspirin) 325 mg PO STAT STA Stop: 10/21/17 09:45 Last Admin: 10/21/17 10:40 Dose: 325 mg Famotidine (Pepcid) 20 mg IVP STAT STA Stop: 10/21/17 09:45 Last Admin: 10/21/17 10:58 Dose: 20 mg IVP Administration Document 10/21/17 10:58 LAC (Rec: 10/21/17 10:[address] [id number] Charges for Administration # of IVP Administrations 1 Sodium Chloride (Sodium Chloride 0.9%) 500 mls @ 999 mls/hr IV .Q31M STA Stop: 10/21/17 12:01 Last Admin: 10/21/17 12:36 Dose: 999 mls/hr eMAR Start Stop Document 10/21/17 12:36 OCS (Rec: 10/21/17 12:36 OCS [id number]) Intravenous Solution Start Date 10/21/17 Start Time 12:36 Morphine Sulfate (Morphine) 4 mg IVP STAT STA Stop: 10/21/17 09:46 Last Admin: 10/21/17 10:58 Dose: 4 mg MAR Pain Assessment Document 10/21/17 10:58 LAC (Rec: 10/21/17 10:58 LAC [facility] [id number] Pain Reassessment Is this a pain reassessment? No IVP Administration Document 10/21/17 10:58 LAC (Rec: 10/21/17 10:58 LAC [facility] [id number] Charges for Administration # of IVP Administrations 1 Nitroglycerin (Nitrostat Sl Tab) 0.3 mg SL STAT STA Stop: 10/21/17 09:45 Last Admin: 10/21/17 10:40 Dose: 0.3 mg Pantoprazole Sodium (Protonix Inj) 40 mg IVP STAT STA Stop: 10/21/17 11:30 Last Admin: 10/21/17 12:36 Dose: 40 mg IVP Administration Document 10/21/17 12:36 OCS (Rec: 10/21/17 12:36 OCS [id number]) Charges for Administration # of IVP Administrations 1 Potassium Chloride (K-Dur 20 Meq Er Tab) 20 meq PO STAT [facility] Stop: 10/21/17 10:45 Last Admin: 10/21/17 10:59 Dose: 20 meq - PA / JOURNEYMAN OPERATOR ASSISTANT / Resident Statement / has reviewed & agrees with the documentation as recorded. Disposition/Present on Arrival - Present on Arrival Any Indicators Present on Arrival: No History of DVT/PE: No History of Uncontrolled Diabetes: No Urinary Catheter: No History of Decub. Ulcer: No History Surgical Site Infection Following: None - Disposition Have Diagnosis and Disposition been Completed?: Yes Diagnosis: Chest pain, Anemia, GI bleed Disposition: HOSPITALIZED Disposition Time: 10:42 Patient Plan: Observation, Telemetry Patient Problems: Current Active Problems Problem Status Onset Chest pain Acute Anemia Acute GI bleed Acute Condition: FAIR
[2017-10-21] MEDS ORDERED: Morphine 4 mg/ml ISec IVP STA (09:45)
[2017-10-21 10:21] LABS: BASO # 0.02 K/mm3 (0.0-2.0); BASO % 0.2 % (0.0-3.0); EOS # 0.2 (0.0-0.7); EOS % 1.7 % (1.5-5.0); GRAN # 8.91 (1.4-6.5); GRAN % 81.1 % (50.0-68.0); HEMOGLOBIN 9.5 g/dL (14.0-18.0); LYMPH # 0.6 (1.2-3.4); LYMPH % 5.5 % (22.0-35.0); MEAN CELL VOLUME 86.3 fl (80.0-105.0); MEAN CORPUSCULAR HEMOGLOBIN 28.3 pg (25.0-35.0); MEAN CORPUSCULAR HGB CONC 32.8 g/dl (31.0-37.0); MEAN PLATELET VOLUME 9.8 fl (7.0-11.0); MONO # 1.3 (0.1-0.6); MONO % 11.5 % (1.0-6.0); RBC 3.36 10^6/uL (3.5-6.1); RED CELL DISTRIBUTION WIDTH 16.4 % (11.5-14.5)
--- NOTE | 2017-10-21 10:28 | RAD ---
HISTORY: lt. sided chest pain COMPARISON: 10/14/2017 FINDINGS: LUNGS: No active pulmonary disease. PLEURA: No significant pleural effusion identified, no pneumothorax apparent. CARDIOVASCULAR: Moderate cardiomegaly OSSEOUS STRUCTURES: Old rib fracture on the right VISUALIZED UPPER ABDOMEN: Normal. OTHER FINDINGS: None. IMPRESSION: No active disease.
[2017-10-21 10:31] LABS: ALB/GLOB RATIO 1.2 (1.1-1.8); ALBUMIN 3.8 g/dL (3.0-4.8); CALCIUM 9.1 mg/dL (8.4-10.5)
[2017-10-21 10:43] LABS: TROPONIN I 0.05 ng/mL
[2017-10-21] MEDS ORDERED: Potassium Chloride 20 mEq ER Tab PO STA (10:44)
[2017-10-21] MEDS ORDERED: Sodium Chloride 0.9% 500 ML IV STA (11:31)
[2017-10-21 13:36] LABS: INR 1.21 (0.93-1.08); PARTIAL THROMBOPLASTIN TIME 33.6 Seconds (25.1-36.5)
[2017-10-21] MEDS: Nitroglycerin 2% Ointment Foilpak UD TOP SCH ×2 (15:56→22:30)
[2017-10-21 18:35] LABS: TROPONIN I 0.04 ng/mL
[2017-10-21 20:27] VITALS: BMI 22.8
[2017-10-21] MEDS ORDERED: Influenza Vaccine 60 mcg/0.5 mL SYR (4YR UP) IM ONE (20:28)
[2017-10-21] MEDS ORDERED: Pneumococcal 23-Valent Vaccine IM ONE (20:28)
--- NOTE | 2017-10-21 21:27 | CARD ---
APPROVED REPORT EKG Measurement Heart [id number] <Conclusion> Normal sinus rhythm Possible Left atrial enlargement T wave abnormality, consider lateral ischemia Prolonged QT Abnormal ECG
[2017-10-21] MEDS: Insulin Reg-LOW-Coverage SC SCH (22:00)
[2017-10-22 00:27] LABS: TROPONIN I 0.05 ng/mL
--- NOTE | 2017-10-22 00:50 | HP ---
DATE OF EXAM: 10/21/2017 HISTORY OF PRESENT ILLNESS: This 67-year-old male was examined in the [facility] ER. He is being readied for admission to the cardiac marcos. He was in the [facility] Renal Unit earlier this morning where he experienced the onset of chest discomfort and shortness of breath. He was sent to the [facility] ER for further evaluation of the above. 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 He also has a longstanding history of insulin-dependent diabetes mellitus; end-stage renal disease, hemodialysis dependent; hyperlipidemia; atherosclerotic heart disease with coronary artery stents; anemia of chronic disease; peptic ulcer disease with GERD; hypothyroidism; degenerative arthritis, and hyperphosphatemia. In the emergency room, the patient was noted to have dark stools and guaiac-positive stools. He is being evaluated for this as well. OUTPATIENT MEDICATIONS: Included Ecotrin, regular low-dose Humulin insulin protocol before meals and at bedtime, Keflex, Lipitor, Lopressor, minoxidil, Nephro-Armando, Pepcid, Plavix, Renagel, Synthroid, and Tylenol p.r.n. SOCIAL HISTORY: The patient is a current nondrinker, nonsmoker, non IV drug misuser. FAMILY HISTORY: Noncontributory. ALLERGIES: HE HAS NO KNOWN ALLERGIES TO MEDICATION. REVIEW OF SYSTEMS: CONSTITUTIONAL: Denied fever or chills. HEAD: Denied headache or seizure. EYES: Denied change in visual acuity. EARS: No hearing loss. THROAT: No swallowing difficulty. NECK: No stiffness. CARDIAC: As per HPI. PULMONARY: As per HPI. GASTROINTESTINAL: Peptic ulcer disease. GENITOURINARY: End-stage renal disease, hemodialysis dependent. VASCULAR: No claudication. SKIN: No rash. HEMATOLOGIC: Anemia of chronic disease. ENDOCRINOLOGIC: Hyperlipidemia, insulin-dependent diabetes mellitus, and hypothyroidism. MUSCULOSKELETAL: Chronic degenerative arthritis. PHYSICAL EXAMINATION: VITAL SIGNS: The patient was in a normal sinus rhythm on the case monitor. Temperature 97.5, respirations 18, pulse 80, blood pressure 101/49, and pulse ox 100% room air. HEENT: Head normocephalic, atraumatic. Eyes: No icterus. Ears: Clear. Throat: Noninjected. NECK: Supple. HEART: Regular S1, S2. LUNGS: No wheezing. ABDOMEN: Soft. EXTREMITIES: No edema. SKIN: Without rash. NEUROLOGIC: Intact. PSYCHOLOGIC: Alert. VASCULAR: Legs warm to touch. DIAGNOSTIC DATA: Chest x-ray was reviewed. There were no pleural effusions, no pneumothorax. The patient has chronic cardiomegaly and evidence of an old right rib fracture. No infiltrate was noted. EKG was consistent with normal sinus rhythm with nonspecific ST-T wave changes. LABORATORY DATA: White count 11,000, hemoglobin 9.5, hematocrit 29.0, platelets 246,000. PT/INR 1.21, PTT 33.6. Sodium 140, K 3.3 post dialysis, chloride 96, bicarb 26, BUN 33, creatinine 4.9, random blood sugar 99. Bilirubin 0.7, AST 99, ALT 336, alkaline phosphatase 251. CPK normal 30. Troponin 0.05. BNP 12,900. IMPRESSION: This is a 67-year-old male with multiple medical problems including chest pain while on dialysis, rule out unstable angina; also with history of atherosclerotic heart disease with coronary artery stents and history of left nephrectomy for renal cell cancer; chronic renal failure, on hemodialysis Mondays, Wednesdays, and Fridays; also with evidence of a probable pulmonary mets on CAT scan of the lung and comorbidities of insulin-dependent diabetes mellitus, hyperlipidemia, chronic hypertension, peptic ulcer disease with gastroesophageal reflux disease, hyperphosphatemia, hypothyroidism, degenerative arthritis, anemia of chronic disease, and history of gastric ulcer in the past, now with newly noted elevated liver function testing. PLAN: As discussed with the patient; at bedside; daughter, Nicanor Coleman, registered nurse; and emergency room physician and dialysis nursing will be to admit this patient to the cardiac unit while obtaining a consultation with his taproom attendant, Dr. Leoncio Archer, for consideration of possible cardiac cath and a consultation with Dr. Romel Waters regarding guaiac-positive stools and possible need for endoscopy. The patient at present remains n.p.o. pending gastrointestinal evaluation. He is ordered to have nasal O2 p.r.n. I have ordered a hepatic gallbladder ultrasound for completeness sake as well as for hepatitis A, B, C panel. He is ordered to have Zofran 4 mg IV q. 8 hours p.r.n. nausea or vomiting, Tylenol 650 p.o. q. 6 hours p.r.n. pain or temperature greater than 101, Synthroid 25 mcg p.o. daily, Renagel 800 mg p.o. t.i.d. The patient received a stat dose of Protonix 40 mg IV and will be ordered to have Pepcid 20 mg p.o. at bedtime. He continues on Plavix 75 mg p.o. daily, nitroglycerin 1 inch to chest wall q. 4 hours, Nephro-Armando, minoxidil 2.5 mg p.o. b.i.d., Lopressor 25 mg p.o. b.i.d., Lipitor 10 mg p.o. at dinner time and regular low-dose insulin protocol before meals and at bedtime, and Ecotrin 81 mg p.o. daily. He is ordered to have a comprehensive metabolic panel and CBC in the a.m. and will have cardiac isoenzymes q. 8 x2. Greater than 75 minutes was spent in the care management, review of x-rays, labs, medication, and orders for this patient today. All questions were answered. No Banda MD MTDD
[2017-10-22] MEDS: Nitroglycerin 2% Ointment Foilpak UD TOP SCH ×6 (02:30→22:39)
[2017-10-22] MEDS: Levothyroxine 25 MCG TAB PO SCH (06:52)
[2017-10-22 07:14] LABS: HEMOGLOBIN 9.1 g/dL (14.0-18.0); MEAN CELL VOLUME 90.3 fl (80.0-105.0); MEAN CORPUSCULAR HEMOGLOBIN 27.5 pg (25.0-35.0); MEAN CORPUSCULAR HGB CONC 30.4 g/dl (31.0-37.0); MEAN PLATELET VOLUME 9.6 fl (7.0-11.0); RBC 3.31 10^6/uL (3.5-6.1); RED CELL DISTRIBUTION WIDTH 16.7 % (11.5-14.5); WHITE BLOOD COUNT 8.9 10^3/ul (4.5-11.0)
[2017-10-22 08:02] LABS: ALB/GLOB RATIO 1.2 (1.1-1.8); ALBUMIN 3.6 g/dL (3.0-4.8); CALCIUM 10.1 mg/dL (8.4-10.5)
[2017-10-22] MEDS: Insulin Reg-LOW-Coverage SC SCH ×4 (08:17→22:39)
[2017-10-22] MEDS: Multivitamin Vitamin B Complex (Nephro-Vite) Tab PO SCH (08:43)
--- NOTE | 2017-10-22 09:27 | US ---
HISTORY: elevated lfts COMPARISON: None. TECHNIQUE: Sonographic evaluation of the right upper quadrant of the abdomen. FINDINGS: LIVER: Measures 20.5 cm in length, mildly enlarged. Normal echogenicity of the liver parenchyma. No mass. No definite intrahepatic bile duct dilatation. GALLBLADDER: Cholelithiasis identified once again with the gallbladder only partially distended. Mural thickening is measured up to 3.4 mm. No pericholecystic fluid collection is associated however. Clinically correlate nevertheless for potential cholecystitis. COMMON BILE DUCT: Common bile duct as imaged appears normal caliber at 5.1 mm. No choledocholithiasis identified. PANCREAS: The pancreatic duct is dilated to 4.5 mm at the level of the body. The head and tail obscured by overlying bowel or stomach gas. RIGHT KIDNEY: Venetie Ira right kidney is grossly echogenic and is atrophic measuring 7.7 cm without obstructive uropathy evident. A transplant kidney is seen in the right lower quadrant abdomen without hydronephrosis measuring 9.4 x 4.0 x 5.7 cm. AORTA: No aneurysmal dilatation. IVC: Unremarkable. OTHER FINDINGS: None . IMPRESSION: Mild hepatomegaly is appreciate without focal hepatic mass or definite intrahepatic biliary dilatation. Cholelithiasis is identified in the gallbladder with mural thickening up to 3.4 mm but no pericholecystic fluid collection. The gallbladder is only mildly distended. Normal CBD caliber. No definite choledocholithiasis identified in the visualized CBD. Pancreatic duct appears mildly dilated to 4.5 mm with the head and tail obscured by overlying bowel gas. Right lower quadrant renal transplant appears grossly unremarkable with [place] right kidney atrophic and echogenic.
[2017-10-22 12:44] LABS: HEPATITIS B SURFACE AG Negative (NEGATIVE)
[2017-10-22 12:50] LABS: HEPATITIS A IGM NEGATIVE (NEGATIVE); HEPATITIS B CORE AB NEGATIVE (NEGATIVE)
[2017-10-22 13:02] LABS: HEPATITIS C ANTIBODY NEGATIVE (NEGATIVE)
--- NOTE | 2017-10-22 17:06 | CP.PCM.PN ---
Subjective - Date & Time of Evaluation Date of Evaluation: 10/22/17 Time of Evaluation: 10:55 - Subjective Subjective: S&E at bedside, chart reviewed, no BM for 2-3 days, denies N/V or abdominal pain. No SOB or chest pain. No acute overnight events reported. Objective - Vital Signs/Intake and Output Vital Signs (last 24 hours): Temp Pulse Resp BP Pulse Ox 97.8 F 65 18 99/47 L 94 L 10/22/17 12:00 10/22/17 14:00 10/22/17 12:00 10/22/17 12:00 10/22/17 06:00 Intake and Output: 10/22/17 10/22/17 06:59 18:59 Intake Total 660 1020 Output Total 0 0 Balance 660 1020 - Medications Medications: Current Medications Acetaminophen (Tylenol 325mg Tab) 650 mg PO Q6H PRN PRN Reason: Fever >100.4 F Aspirin (Ecotrin) 81 mg PO DAILY [facility] Last Admin: 10/22/17 09:13 Dose: 81 mg Atorvastatin Calcium (Lipitor) 10 mg PO DIN [facility] Last Admin: 10/21/17 18:31 Dose: 10 mg Cephalexin Monohydrate (Keflex) 500 mg PO BID [facility] PRN Reason: Protocol Stop: 10/26/17 10:00 Last Admin: 10/22/17 09:14 Dose: 500 mg Clopidogrel Bisulfate (Plavix) 75 mg PO DAILY [facility] Last Admin: 10/22/17 09:12 Dose: 75 mg Famotidine (Pepcid) 20 mg PO HS [facility] Last Admin: 10/21/17 22:18 Dose: 20 mg Insulin Human Regular (Humulin R Low) 0 units SC ACHS [facility] PRN Reason: Protocol Last Admin: 10/22/17 16:48 Dose: Not Given Levothyroxine Sodium (Synthroid) 25 mcg PO 0600 [facility] Last Admin: 10/22/17 06:52 Dose: 25 mcg Metoprolol Tartrate (Lopressor) 25 mg PO BID [facility] Last Admin: 10/22/17 09:13 Dose: 25 mg Minoxidil (Minoxidil) 2.5 mg PO BID [facility] Last Admin: 10/22/17 09:12 Dose: 2.5 mg Nitroglycerin (Nitro-Bid 2% Oint) 1 ea TOP Q4H [facility] Last Admin: 10/22/17 15:26 Dose: Not Given Ondansetron HCl (Zofran Inj) 4 mg IVP Q8H [facility] Last Admin: 10/22/17 13:40 Dose: 4 mg Sevelamer HCl (Renagel) 800 mg PO TID [facility] Last Admin: 10/22/17 13:40 Dose: 800 mg Vitamin B Complex/Vit C/Folic Acid (Nephro-Armando) 1 tab PO 0800 [facility] Last Admin: 10/22/17 08:43 Dose: 1 tab - Labs Labs: 10/22/17 06:30 10/22/17 06:30 PT 14.0 SECONDS (9.4-12.5) H 10/21/17 13:00 INR 1.21 (0.93-1.08) H 10/21/17 13:00 APTT 33.6 Seconds (25.1-36.5) 10/21/17 13:00 - Constitutional Appears: No Acute Distress - Head Exam Head Exam: NORMOCEPHALIC - Eye Exam Eye Exam: Normal appearance. absent: Scleral icterus - ENT Exam ENT Exam: Mucous Membranes Moist - Neck Exam Neck Exam: Normal Inspection - Respiratory Exam Respiratory Exam: NORMAL BREATHING PATTERN. absent: Respiratory Distress - Cardiovascular Exam Cardiovascular Exam: +S1, +S2 - GI/Abdominal Exam GI & Abdominal Exam: Soft, Normal Bowel Sounds. absent: Guarding, Tenderness, Rebound - Extremities Exam Extremities Exam: absent: Calf Tenderness - Neurological Exam Neurological Exam: Alert, Awake, Oriented x3 - Skin Skin Exam: Dry, Warm Assessment and Plan - Assessment and Plan (Free Text) Assessment: ASSESSMENT: Chest pain while on dialysis Gallstones H/O PUD GERD Renal cell Cancer, s/p nephrectomy CRF on dialysis (+) Guiac H/O ASHD, w/ coronary stents PLAN: continue Pepcid on Keflex On Plavix monitor H/H, overt GI bleeding plan for cardiac cath 10/23/17 as per cardiology Plan for EGD after cardiac evaluation Seen and discussed w/ Dr. Waters.
--- NOTE | 2017-10-22 17:18 | CON ---
DATE: 10/22/2017 INDICATION: Chest pain. HISTORY OF PRESENT ILLNESS: This is a 67-year-old hemodialysis patient,who is well-known to our practice, admitted yesterday after he experienced left-sided chest pain during hemodialysis. He was brought to the emergency room, where he subsequently also found to have guaiac-positive stool. He is admitted to telemetry. This morning, he feels better. There is no chest pain, shortness of breath, orthopnea, PND, syncope, presyncope, lightheadedness, dizziness, vertigo, palpitations, edema, or claudication. There is no fever, chills, cough, sputum production, or hemoptysis. There is no nausea, vomiting, diarrhea, or constipation. He has noted dark stools in the recent past. PAST MEDICAL HISTORY: Notable for recent [facility] admissions for chest pain, paroxysmal atrial fibrillation. He has known coronary artery disease with remote coronary intervention. He has had a recent nephrectomy for renal cell carcinoma. He has chronic kidney disease, three times a week hemodialysis. There is a history of hypertension, diabetes, hypothyroidism, anemia, seizure disorder, peptic ulcer disease, GERD and he is a former smoker. A recent echocardiogram revealed normal LV function with moderate tricuspid regurgitation, mild mitral regurgitation and severe pulmonary hypertension. MEDICATIONS AT THE TIME OF ADMISSION: Include aspirin, Lipitor, metoprolol, minoxidil, vitamin B, omeprazole, PhosLo, Plavix, Renagel, and Synthroid. ALLERGIES: NO MEDICATION ALLERGIES ARE NOTED. SOCIAL HISTORY: He lives at home. He does not currently smoke. He does not drink alcohol significantly. FAMILY HISTORY: Noncontributory. REVIEW OF SYSTEMS: Ten-point review of systems is otherwise unremarkable except as noted above. PHYSICAL EXAMINATION: GENERAL: He is a well-developed male, lying in bed, on telemetry, in no acute distress. VITAL SIGNS: Notable for sinus rhythm at 80 beats per minute. He is afebrile, blood pressure 103/69, respirations 18 to 20, O2 sat 94%-100% on nasal cannula and room air. HEENT: Revealed no neck vein distention, thyromegaly, carotid bruit. Mucous membranes moist. Conjunctivae pale. NECK: Supple. LUNGS: Lung urrutia few scattered rhonchi. ABDOMEN: Soft. Bowel sounds are present. EXTREMITIES: No cyanosis, clubbing or edema. NEUROLOGIC: Awake, alert and oriented. PSYCHIATRIC: Normal as to mood and affect. SKIN: Warm and dry. No rash or cellulitis. LABORATORY AND IMAGING: EKG demonstrated regular sinus rhythm, poor R-wave progression, ST-T wave changes in lateral leads, new compared to a prior EKG. Chest x-ray revealed no active disease. White count normal. Hemoglobin 9.1, hematocrit 29.9, platelet count 229,000. PT, INR, PTT unremarkable. Electrolytes, BUN and creatinine noted. Initial potassium is 3.3, repeat 4.8. Creatinine 4.9, repeat 8.8. LFTs are abnormal. CK and troponins are unremarkable x3. BNP 12,900. IMPRESSION: Moshe Coleman is a 67-year-old male with complex medical problems, chronic hemodialysis with recurring chest pain, re-admitted with chest pain during dialysis, also stool positive for occult blood. At this time, I will review his old records and discuss further with you. It appears that cardiac catheterization might be appropriate. I will discuss this with Dr. Archer, who follows him in the office. We will monitor his H and H. He is having a GI evaluation. A gallbladder ultrasound has been done. He has abnormal LFT's. I would continue his current medications including Synthroid, Renagel, Protonix, Plavix, metoprolol, minoxidil, Lipitor and aspirin. I will review his prior echocardiogram. I will follow along with you. I will make additional recommendations based on his clinical course. Carlos A Faulkner MD MTDMariano
--- NOTE | 2017-10-22 18:30 | PN ---
DATE: 10/22/2017 SUBJECTIVE: This 67-year-old male was examined on the cardiac marcos and this case was reviewed in detail with himself and his nurse, Ginna Kumar, registered nurse. The patient remains in normal sinus rhythm on the athletic monitor. He denies any further chest pain or shortness of breath. He was admitted with unstable angina and abdominal discomfort in the setting of guaiac-positive stools and newly noted elevated liver function testing including alkaline phosphatase, AST, and ALT. To date, a gallbladder liver ultrasound is pending and repeat blood work shows persistent transaminitis. Consultation with Dr. Romel Waters from Gastroenterology has been called and the patient most likely will need endoscopy and cardiac catheterization. PHYSICAL EXAMINATION: GENERAL: He remains in normal sinus rhythm. VITAL SIGNS: Temperature is 97.5, respirations 20, pulse 80, blood pressure 103/69 with a pulse ox of 94% room air. HEENT: Head: Normocephalic, atraumatic. Eyes: No icterus. Ears: Clear. Throat: Noninjected. NECK: Supple. HEART: Regular, S1 and S2. LUNGS: Clear. ABDOMEN: Soft. EXTREMITIES: No edema. SKIN: Without rash. NEUROLOGICAL: Intact. PSYCHOLOGIC: Alert and oriented. VASCULAR: Legs warm to touch. LABORATORY DATA: White count 8900; hemoglobin 9.1, previously 9.5; hematocrit 29.9; platelets 229,000. PT/INR 1.21, PTT 33.6. Sodium 138, K 4.8, chloride 97, bicarb 24, BUN 49, creatinine 8.8, random blood sugar 189. Bilirubin 0.6, calcium 10.1 normal, AST 80, ALT 247, alkaline phosphatase 177. Troponin 0.04, followup troponin 0.05. CPK 26, normal and CPK #2, 28, normal. Hepatitis A, B, C serology is negative. IMPRESSION: A 67-year-old male admitted with unstable angina; history of atherosclerotic heart disease with coronary artery stents; also with chronic hypertension; history of left renal cell carcinoma resection and probable pulmonary metastases; insulin-dependent diabetes mellitus; end-stage renal disease, hemodialysis dependent; hyperlipidemia; chronic hypertension; paroxysmal atrial fibrillation in the past; peptic ulcer disease; history of gastrointestinal bleeding; hyperphosphatemia; hypothyroidism; degenerative arthritis; and guaiac-positive stools. PLAN: As discussed with the patient, nursing, case management, and family, will be to await Cardiology and GI evaluations regarding possible endoscopy and possible cardiac catheterization regarding recurrent chest pain, especially while on dialysis. At present, the patient has been ordered to have a clear liquid diet by Dr. Romel Waters from . He is ordered to have 2 liters of nasal O2 p.r.n. He will continue on Zofran 4 mg IV q. 8 hours p.r.n. nausea or vomiting, Synthroid 25 mcg p.o. daily, Renagel 800 mg p.o. t.i.d., Plavix 75 mg p.o. daily, Pepcid 20 mg p.o. at bedtime, nitroglycerin 1 inch to chest wall q. 4 hours, Nephro-Armando 1 tablet p.o. daily, minoxidil 2.5 mg p.o. daily, metoprolol tartrate 25 mg p.o. b.i.d., Lipitor 10 mg p.o. at bedtime, insulin regular low-dose protocol before meals and at bedtime, Ecotrin 81 mg p.o. daily, and Keflex 500 mg p.o. b.i.d. to complete a course of therapy on 10/26/[address] De on previous admission. Of note, the patient's blood pressure medications including Lopressor and minoxidil will be held for any systolic blood pressure less than 110 mmHg. The patient will have a repeat basic metabolic panel and CBC in the a.m. and greater than 35 minutes was spent in the care, management, review of labs, medication, x-rays, and orders for this patient today. I did discuss this case in detail with Dr. Carlos A Faulkner and Dr. Romel Waters from and all questions were answered. No Banda MD MTDD
[2017-10-23] MEDS: Levothyroxine 25 MCG TAB PO SCH (05:21)
[2017-10-23] MEDS: Nitroglycerin 2% Ointment Foilpak UD TOP SCH ×6 (05:23→22:22)
[2017-10-23 07:12] LABS: HEMOGLOBIN 9.2 g/dL (14.0-18.0)
[2017-10-23 07:42] LABS: CALCIUM 10.2 mg/dL (8.4-10.5)
[2017-10-23] MEDS: Insulin Reg-LOW-Coverage SC SCH ×5 (08:08→21:48)
[2017-10-23] MEDS ORDERED: Iodixanol 320 mg/ml 150 ml Bottle IV ONE (09:24)
[2017-10-23] MEDS ORDERED: Lidocaine 2% Inj (20ml) ONE (09:24)
[2017-10-23] MEDS ORDERED: HEPARIN SODIUM/NS 2,000 ML IV ONE (09:25)
[2017-10-23] MEDS: Midazolam 2 MG/2 ML VIAL ONE ×2 (09:35→19:43)
[2017-10-23] MEDS ORDERED: Iohexol 350mgl/ml 50 ML ONE (09:48)
[2017-10-23] MEDS ORDERED: Iodixanol 320 MG/ML 100 ML BOTTLE IV ONE (09:51)
[2017-10-23] MEDS: Multivitamin Vitamin B Complex (Nephro-Vite) Tab PO SCH (11:46)
--- NOTE | 2017-10-23 13:59 | PN ---
DATE: 10/23/2017 SUBJECTIVE: The patient is seen lying in bed on telemetry. He is comfortable at present time. He has had no further chest pain. He is scheduled for cardiac catheterization later today. His current medications include Ecotrin, insulin, Keflex, Lipitor, metoprolol 25 mg b.i.d., minoxidil, topical nitrates, Pepcid, Plavix, Renagel, Synthroid. OBJECTIVE GENERAL: He is a middle-aged man who appears comfortable at rest. VITAL SIGNS: His blood pressure is 138/70 with a pulse of 60 and sinus respirations of 14. He is afebrile. HEENT: No JVD. CHEST: A few scattered rhonchi. HEART: PMI displaced laterally with systolic murmur in the left sternal border. ABDOMEN: Soft, nontender with normoactive bowel sounds. EXTREMITIES: Have no edema. DIAGNOSTIC DATA: Potassium 5.2, BUN and creatinine 56 and 10.4. Hemoglobin 9.2 with hematocrit 30.0. IMPRESSION 1. Recent chest pain with known coronary artery disease, status post multivessel percutaneous coronary intervention. 2. Chronic renal failure, maintained on hemodialysis. 3. Status post recent nephrectomy for renal cell carcinoma with suspicious lymph nodes and pulmonary nodule. Further workup to be planned. RECOMMENDATIONS: Given his recurrent chest pain, cardiac catheterization will be planned today. Further plans will be made based upon the results of those findings. Continued risk factor control is advised. Leoncio Archer MD <
[2017-10-23] MEDS ORDERED: Darbepoetin Alfa 100 mcg/ml Inj IVP ONE (15:33)
--- NOTE | 2017-10-23 18:39 | CARDCATH ---
PROCEDURE DATE: 10/23/2017 PROCEDURES: 1. Selective left and right coronary angiography. 2. Left ventriculography. 3. Percutaneous coronary intervention of left circumflex artery with balloon angioplasty. 4. Right femoral arteriography. 5. Angio-Seal deployment. HISTORY: This is a 67-year-old man with known coronary artery disease, status post multivessel PCI in the past with recent exertional chest discomfort. Cardiac catheterization was recommended. INDICATIONS: Exertional angina, known coronary artery disease. FINDINGS: HEMODYNAMICS: The aortic pressure was 100/60 with left ventricular pressure of 100/24. CORONARY ANATOMY: 1. Left mainstem was normal. 2. Left anterior ascending artery and its branches had mild diffuse irregularities. 3. Left circumflex artery gave rise to one large obtuse marginal branch. The previously placed stent in the mid circumflex artery had a focal 80% stenosis noted at a point of flexure of the vessel. 4. The right coronary artery was large and dominant. This had a widely patent stent in its mid portion. The distal vessel had mild irregularities. LEFT VENTRICULOGRAPHY: A hand injection was performed in the left ventricle revealing evidence of mild diffuse LV hypokinesis with overall ejection of 45%. CORONARY INTERVENTION: Given the above findings, attempted PCI of the left circumflex artery was then performed. 4000 units of intravenous heparin was administered and ACT was greater than 250 seconds during the procedure. The lesion was successfully closed with the use of a Guttenberg wire. Following this, a 3.5 x 8 mm noncompliant balloon was advanced to the side of the stenosis and inflated to 16 atmospheres at 45 seconds. There was 0% residual stenosis following intervention. BOWEN grade 3 flow was present before and after the intervention. Given the short focal stenosis and potential need for possible interventional procedures on recently discovered lung nodules, stenting was not performed. CONCLUSION: 1. Significant left circumflex artery and in-stent restenosis. 2. Patent RCA stent. 3. Mild LAD disease. 4. Mildly reduced LV function. 5. Successful PCI of left circumflex in-stent restenosis with balloon angioplasty as described above. RECOMMENDATIONS: Aspirin and Plavix therapy will be continued for now. Strictly speaking from a cardiac standpoint, Plavix can be discontinued after one week if necessary. Continued risk factor control was advised. Leoncio Archer MD [facility] # [id number]
--- NOTE | 2017-10-23 22:52 | PN ---
DATE: 10/23/2017 DIALYSIS PROGRESS NOTE SUBJECTIVE: This 67-year-old male is in the [facility] Renal Dialysis Unit, dialyzing via a right upper extremity AV fistula on a F160; 140 sodium, 2K bicarb, 2.0 calcium bath. PHYSICAL EXAMINATION: VITAL SIGNS: Blood pressure 145/77, pulse 63, respirations 16, afebrile. HEART: Regular S1, S2. LUNGS: Clear. Patient is tolerating blood flow rates of 400 mL per minute. Hemoglobin 9.2, hematocrit 30.0. I am aiming for 1.5 kg fluid removal today. Case was reviewed in detail with nurse, Marietta Edmonds, registered nurse, and the patient at bedside. No Banda MD MTDMariano
--- NOTE | 2017-10-23 23:33 | PN ---
DATE: RENAL DIALYSIS PROGRESS NOTE This 67-year-old male is in the renal dialysis unit at [facility]. Blood pressure is 111/58, with a pulse of 64. He is tolerating blood flow rates of 400 mL per minute. Sodium 135, K 5.2, chloride 96, bicarb 23, BUN 56, creatinine 10.4, random blood sugar 83. Calcium is normal at 10.2. He will continue on a 2 K bicarb bath. He will be dialyzed for 3 hours today. Given recent GI bleeding he is on no heparin protocol. The above was reviewed in detail with nurse, Marietta Miranda, registered nurse, and the patient at bedside No Banda MD MTDMariano
--- NOTE | 2017-10-23 23:50 | CP.PCM.PN ---
Subjective - Date & Time of Evaluation Date of Evaluation: 10/23/17 Time of Evaluation: 18:00 - Subjective Subjective: patient comfortable . Not in distress tolerating diet. Status post cardiac catheter Objective - Vital Signs/Intake and Output Vital Signs (last 24 hours): Temp Pulse Resp BP Pulse Ox 97.9 F 76 16 121/76 93 L 10/23/17 16:15 10/23/17 19:13 10/23/17 16:15 10/23/17 19:13 10/23/17 10:30 Intake and Output: 10/23/17 10/24/17 18:59 06:59 Intake Total 240 Balance 240 - Medications Medications: Current Medications Acetaminophen (Tylenol 325mg Tab) 650 mg PO Q6H PRN PRN Reason: Fever >100.4 F Aspirin (Ecotrin) 81 mg PO DAILY [facility] Last Admin: 10/23/17 19:42 Dose: Not Given Atorvastatin Calcium (Lipitor) 10 mg PO DIN [facility] Last Admin: 10/23/17 19:13 Dose: 10 mg Cephalexin Monohydrate (Keflex) 500 mg PO BID [facility] PRN Reason: Protocol Stop: 10/26/17 10:00 Last Admin: 10/23/17 19:13 Dose: 500 mg Clopidogrel Bisulfate (Plavix) 75 mg PO DAILY [facility] Last Admin: 10/23/17 19:43 Dose: Not Given Famotidine (Pepcid) 20 mg PO HS [facility] Last Admin: 10/23/17 22:22 Dose: 20 mg Insulin Human Regular (Humulin R Low) 0 units SC ACHS [facility] PRN Reason: Protocol Last Admin: 10/23/17 21:48 Dose: Not Given Levothyroxine Sodium (Synthroid) 25 mcg PO 0600 [facility] Last Admin: 10/23/17 05:21 Dose: 25 mcg Metoprolol Tartrate (Lopressor) 25 mg PO BID [facility] Last Admin: 10/23/17 19:13 Dose: 25 mg Minoxidil (Minoxidil) 2.5 mg PO BID [facility] Last Admin: 10/23/17 19:13 Dose: 2.5 mg Nitroglycerin (Nitro-Bid 2% Oint) 1 ea TOP Q4H [facility] Last Admin: 10/23/17 22:22 Dose: Not Given Ondansetron HCl (Zofran Inj) 4 mg IVP Q8H [facility] Last Admin: 10/23/17 22:21 Dose: Not Given Sevelamer HCl (Renagel) 800 mg PO TID [facility] Last Admin: 10/23/17 19:13 Dose: 800 mg Vitamin B Complex/Vit C/Folic Acid (Nephro-Armando) 1 tab PO 0800 [facility] Last Admin: 10/23/17 11:46 Dose: 1 tab - Labs Labs: 10/23/17 06:30 10/23/17 06:30 PT 14.0 SECONDS (9.4-12.5) H 10/21/17 13:00 INR 1.21 (0.93-1.08) H 10/21/17 13:00 APTT 33.6 Seconds (25.1-36.5) 10/21/17 13:00 - Constitutional Appears: No Acute Distress - Head Exam Head Exam: ATRAUMATIC, NORMOCEPHALIC - Eye Exam Eye Exam: EOMI Pupil Exam: PERRL - ENT Exam ENT Exam: Mucous Membranes Moist - Neck Exam Neck Exam: Full ROM. absent: Lymphadenopathy - Respiratory Exam Respiratory Exam: NORMAL BREATHING PATTERN. absent: Respiratory Distress - Cardiovascular Exam Cardiovascular Exam: +S1, +S2. absent: JVD - GI/Abdominal Exam GI & Abdominal Exam: Soft. absent: Tenderness - Extremities Exam Extremities Exam: absent: Calf Tenderness - Neurological Exam Neurological Exam: Alert, Awake, Oriented x3 Assessment and Plan - Assessment and Plan (Free Text) Assessment: 67-year-old patient with end-stage renal disease status post left nephrectomy for renal cell for cancer Coronary artery disease status post recent cardiac catheter evaluated LFTs Cholelithiasis recent sonogram reviewed normal CBD Plan: follow-up LFTs Continue PPI Follow-up hemoglobin and hematocrit Consider upper GI endoscopy when optimized History of peptic ulcer disease. Patient is on Plavix and aspirin need close follow-up of hemoglobin and hematocrit
[2017-10-24] MEDS: Nitroglycerin 2% Ointment Foilpak UD TOP SCH ×6 (02:58→21:49)
[2017-10-24] MEDS: Levothyroxine 25 MCG TAB PO SCH (06:13)
[2017-10-24 07:21] LABS: ALB/GLOB RATIO 1.1 (1.1-1.8); ALBUMIN 3.4 g/dL (3.0-4.8); CALCIUM 9.6 mg/dL (8.4-10.5)
--- NOTE | 2017-10-24 08:15 | CP.PCM.PN ---
Subjective - Date & Time of Evaluation Date of Evaluation: 10/24/17 Time of Evaluation: 07:00 - Subjective Subjective: Stable on 2R. S/P POBA CA ISR yesterday. Case d/w Dr. Archer yesterday. He had HD after procedure. NO CP or SOB today. He feels well V/S noted. RSR PE: Lungs: clear Cor.: S1S2 Abd.: soft Ext.: no edema Neuro.: alert Objective - Vital Signs/Intake and Output Vital Signs (last 24 hours): Temp Pulse Resp BP Pulse Ox 98.1 F 70 20 118/61 97 10/24/17 06:00 10/24/17 06:00 10/24/17 06:00 10/24/17 06:00 10/24/17 06:00 Intake and Output: 10/24/17 10/24/17 06:59 18:59 Intake Total 240 Balance 240 - Medications Medications: Current Medications Acetaminophen (Tylenol 325mg Tab) 650 mg PO Q6H PRN PRN Reason: Fever >100.4 F Aspirin (Ecotrin) 81 mg PO DAILY [facility] Last Admin: 10/23/17 19:42 Dose: Not Given Atorvastatin Calcium (Lipitor) 10 mg PO DIN [facility] Last Admin: 10/23/17 19:13 Dose: 10 mg Cephalexin Monohydrate (Keflex) 500 mg PO BID [facility] PRN Reason: Protocol Stop: 10/26/17 10:00 Last Admin: 10/23/17 19:13 Dose: 500 mg Clopidogrel Bisulfate (Plavix) 75 mg PO DAILY [facility] Last Admin: 10/23/17 19:43 Dose: Not Given Famotidine (Pepcid) 20 mg PO HS [facility] Last Admin: 10/23/17 22:22 Dose: 20 mg Insulin Human Regular (Humulin R Low) 0 units SC ACHS [facility] PRN Reason: Protocol Last Admin: 10/23/17 21:48 Dose: Not Given Levothyroxine Sodium (Synthroid) 25 mcg PO 0600 [facility] Last Admin: 10/24/17 06:13 Dose: 25 mcg Metoprolol Tartrate (Lopressor) 25 mg PO BID [facility] Last Admin: 10/23/17 19:13 Dose: 25 mg Minoxidil (Minoxidil) 2.5 mg PO BID [facility] Last Admin: 10/23/17 19:13 Dose: 2.5 mg Nitroglycerin (Nitro-Bid 2% Oint) 1 ea TOP Q4H [facility] Last Admin: 10/24/17 06:13 Dose: Not Given Ondansetron HCl (Zofran Inj) 4 mg IVP Q8H [facility] Last Admin: 10/24/17 06:14 Dose: Not Given Sevelamer HCl (Renagel) 800 mg PO TID [facility] Last Admin: 10/23/17 19:13 Dose: 800 mg Vitamin B Complex/Vit C/Folic Acid (Nephro-Armando) 1 tab PO 0800 [facility] Last Admin: 10/23/17 11:46 Dose: 1 tab - Labs Labs: 10/23/17 06:30 10/24/17 06:30 PT 14.0 SECONDS (9.4-12.5) H 10/21/17 13:00 INR 1.21 (0.93-1.08) H 10/21/17 13:00 APTT 33.6 Seconds (25.1-36.5) 10/21/17 13:00 Assessment and Plan - Assessment and Plan (Free Text) Assessment: CP CAD/Remote PCI ISR stent in [place]>POBA done 10/23/17 Stool + OB/GIB Abn. LFTs CKD/HD S/P Nephrectomy for renal cell cancer HBP Diabetes Hypothyroidism Anemia Seizure disorder PUD/GERD Former smoker Plan: Continue cardiac meds: ASA, Plavix for now, pending GI W/U. per GI > EGD soon Monitor H/H HD As per Dr. Banda. Will follow.
[2017-10-24] MEDS: Insulin Reg-LOW-Coverage SC SCH ×4 (08:29→21:49)
[2017-10-24] MEDS: Multivitamin Vitamin B Complex (Nephro-Vite) Tab PO SCH (08:54)
--- NOTE | 2017-10-24 16:41 | CP.PCM.PN ---
<Ariane Lundberg - Last Filed: 10/24/17 16:40> Subjective - Date & Time of Evaluation Date of Evaluation: 10/24/17 Time of Evaluation: 11:05 - Subjective Subjective: S&E at bedside, chart reviewed, family at bedside. S/p cardiac cath w/ in stent restenosis w/angioplasty now on Aspirin and Plavix, no c/o overt GI bleeding, N/ V or abdominal pain. Denies CP. Objective - Vital Signs/Intake and Output Vital Signs (last 24 hours): Temp Pulse Resp BP Pulse Ox 97.9 F 67 20 147/61 97 10/24/17 12:00 10/24/17 12:00 10/24/17 12:00 10/24/17 12:00 10/24/17 06:00 Intake and Output: 10/24/17 10/24/17 06:59 18:59 Intake Total 240 360 Balance 240 360 - Medications Medications: Current Medications Acetaminophen (Tylenol 325mg Tab) 650 mg PO Q6H PRN PRN Reason: Fever >100.4 F Aspirin (Ecotrin) 81 mg PO DAILY [facility] Last Admin: 10/24/17 11:17 Dose: 81 mg Atorvastatin Calcium (Lipitor) 10 mg PO DIN [facility] Last Admin: 10/23/17 19:13 Dose: 10 mg Cephalexin Monohydrate (Keflex) 500 mg PO BID [facility] PRN Reason: Protocol Stop: 10/26/17 10:00 Last Admin: 10/24/17 11:17 Dose: 500 mg Clopidogrel Bisulfate (Plavix) 75 mg PO DAILY [facility] Last Admin: 10/24/17 11:17 Dose: 75 mg Famotidine (Pepcid) 20 mg PO HS [facility] Last Admin: 10/23/17 22:22 Dose: 20 mg Insulin Human Regular (Humulin R Low) 0 units SC ACHS [facility] PRN Reason: Protocol Last Admin: 10/24/17 11:45 Dose: Not Given Levothyroxine Sodium (Synthroid) 25 mcg PO 0600 [facility] Last Admin: 10/24/17 06:13 Dose: 25 mcg Metoprolol Tartrate (Lopressor) 25 mg PO BID [facility] Last Admin: 10/24/17 11:18 Dose: 25 mg Minoxidil (Minoxidil) 2.5 mg PO BID [facility] Last Admin: 10/24/17 11:17 Dose: 2.5 mg Nitroglycerin (Nitro-Bid 2% Oint) 1 ea TOP Q4H [facility] Last Admin: 10/24/17 15:10 Dose: 1 ea Ondansetron HCl (Zofran Inj) 4 mg IVP Q8H [facility] Last Admin: 10/24/17 13:48 Dose: 4 mg Sevelamer HCl (Renagel) 800 mg PO TID [facility] Last Admin: 10/24/17 13:48 Dose: 800 mg Vitamin B Complex/Vit C/Folic Acid (Nephro-Armando) 1 tab PO 0800 [facility] Last Admin: 10/24/17 08:54 Dose: 1 tab - Labs Labs: 10/23/17 06:30 10/24/17 06:30 PT 14.0 SECONDS (9.4-12.5) H 10/21/17 13:00 INR 1.21 (0.93-1.08) H 10/21/17 13:00 APTT 33.6 Seconds (25.1-36.5) 10/21/17 13:00 - Constitutional Appears: No Acute Distress - Head Exam Head Exam: NORMOCEPHALIC - Eye Exam Eye Exam: Normal appearance. absent: Scleral icterus - ENT Exam ENT Exam: Mucous Membranes Moist - Respiratory Exam Respiratory Exam: NORMAL BREATHING PATTERN. absent: Respiratory Distress - Cardiovascular Exam Cardiovascular Exam: +S1, +S2 - GI/Abdominal Exam GI & Abdominal Exam: Soft, Normal Bowel Sounds. absent: Guarding, Tenderness, Rebound - Extremities Exam Extremities Exam: absent: Calf Tenderness - Neurological Exam Neurological Exam: Alert, Awake, Oriented x3 - Skin Skin Exam: Dry, Warm Assessment and Plan - Assessment and Plan (Free Text) Assessment: ASSESSMENT: Chest pain while on dialysis, s/p caridac cath, in stent restenosis w/ angioplasty Gallstones, mild pancreatic duct dilation, 4.5 cm H/O PUD GERD Renal cell Cancer, s/p nephrectomy CRF on dialysis (+) Guiac H/O ASHD, w/ coronary stents PLAN: continue Pepcid on Keflex On Plavix and aspirin, hold am dose Aspirin till after endo monitor H/H, overt GI bleeding Plan for EGD 10/25/17, will be DIAGNOSTIC, on Plavix, spoke to family at bedside and consent obtained NPO after clear liquid breakfast Seen and discussed w/ Dr. Waters. <Romel Waters V - Last Filed: 10/24/17 23:25> Objective - Vital Signs/Intake and Output Vital Signs (last 24 hours): Temp Pulse Resp BP Pulse Ox 98.2 F 66 20 131/59 L 97 10/24/17 18:00 10/24/17 18:00 10/24/17 18:00 10/24/17 18:00 10/24/17 06:00 Intake and Output: 10/24/17 10/25/17 18:59 06:59 Intake Total 360 Balance 360 - Medications Medications: Current Medications Acetaminophen (Tylenol 325mg Tab) 650 mg PO Q6H PRN PRN Reason: Fever >100.4 F Aspirin (Ecotrin) 81 mg PO DAILY [facility] Last Admin: 10/24/17 11:17 Dose: 81 mg Atorvastatin Calcium (Lipitor) 10 mg PO DIN [facility] Last Admin: 10/24/17 17:37 Dose: 10 mg Cephalexin Monohydrate (Keflex) 500 mg PO BID [facility] PRN Reason: Protocol Stop: 10/26/17 10:00 Last Admin: 10/24/17 17:36 Dose: 500 mg Clopidogrel Bisulfate (Plavix) 75 mg PO DAILY [facility] Last Admin: 10/24/17 11:17 Dose: 75 mg Famotidine (Pepcid) 20 mg PO HS [facility] Last Admin: 10/24/17 21:58 Dose: 20 mg Insulin Human Regular (Humulin R Low) 0 units SC ACHS [facility] PRN Reason: Protocol Last Admin: 10/24/17 21:49 Dose: Not Given Levothyroxine Sodium (Synthroid) 25 mcg PO 0600 [facility] Last Admin: 10/24/17 06:13 Dose: 25 mcg Metoprolol Tartrate (Lopressor) 25 mg PO BID [facility] Last Admin: 10/24/17 17:37 Dose: 25 mg Minoxidil (Minoxidil) 2.5 mg PO BID [facility] Last Admin: 10/24/17 17:37 Dose: 2.5 mg Nitroglycerin (Nitro-Bid 2% Oint) 1 ea TOP Q4H [facility] Last Admin: 10/24/17 21:49 Dose: Not Given Ondansetron HCl (Zofran Inj) 4 mg IVP Q8H [facility] Last Admin: 10/24/17 21:50 Dose: Not Given Sevelamer HCl (Renagel) 800 mg PO TID [facility] Last Admin: 10/24/17 17:37 Dose: 800 mg Vitamin B Complex/Vit C/Folic Acid (Nephro-Armando) 1 tab PO 0800 [facility] Last Admin: 10/24/17 08:54 Dose: 1 tab - Labs Labs: 10/23/17 06:30 10/24/17 06:30 PT 14.0 SECONDS (9.4-12.5) H 10/21/17 13:00 INR 1.21 (0.93-1.08) H 10/21/17 13:00 APTT 33.6 Seconds (25.1-36.5) 10/21/17 13:00 Attending/Attestation - Attestation I have personally seen and examined this patient.: Yes I have fully participated in the care of the patient.: Yes I have reviewed all pertinent clinical information, including history, physical exam and plan: Yes Notes (Text): p 10/24/17 23:25
--- NOTE | 2017-10-24 23:48 | PN ---
DATE: 10/24/2017 SUBJECTIVE: This 67-year-old male was examined at his bedside. This case was reviewed in detail with nursing, case management and family. The patient is status post a balloon angioplasty of his left circumflex artery because of restenosis within his coronary stent. The patient was noted to have a patent right coronary artery, mild LAD disease and mild reduction in his left ventricular ejection fraction, which on cardiac catheterization was estimated to be approximately 45%. The patient remains on aspirin and Plavix for the time being and as discussed with Dr. Archer from Cardiology who performed the cardiac catheterization, the Plavix can be withheld within 1 week, should further diagnostic testing or intervention be necessary based on his multiple medical problems including possible metastatic renal cell cancer to his lungs and now newly elevated liver function testing in the setting of guaiac-positive stools. The patient denied any further chest pain. There was no shortness of breath. He has had no reports of hematemesis and melena and he is tolerating his diet and cooperating with the nursing staff. 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 PHYSICAL EXAMINATION: VITAL SIGNS: At present, his temperature was 97.9, respirations 20, pulse 67, blood pressure 147/61. Pulse ox is 97% on room air. HEENT: Head: Normocephalic, atraumatic. Eyes: No icterus. Ears: Clear. Throat: Noninjected. NECK: Supple. HEART: Regular S1, S2. LUNGS: Clear. ABDOMEN: Soft. EXTREMITIES: No edema. SKIN: Without rash. NEUROLOGICAL: Intact. PSYCHOLOGICAL: Alert. VASCULAR: Legs warm to touch. LABORATORY DATA: Hemoglobin 9.2, hematocrit 30.0. Previous white count 8900, platelets 229,000. PT/INR 1.21, PTT 33.6. Sodium 137, K 4.6, chloride 95, bicarb 30, BUN 26, creatinine 7.0, random blood sugar 131. Bilirubin 0.6, AST 70, ALT 156, alk phos 127. Previous AST 80, ALT 247 and alk phos 177. Hepatitis A, B, C serologies are negative. Liver and gallbladder ultrasound was reviewed. His liver showed normal echogenicity. There were no masses or intrahepatic bile duct dilatation noted. The patient has gallstones, common bile duct is normal in diameter, no choledocholithiasis was identified and the patient's pancreatic duct was dilated to 4.5 mm. Left kidney removed and patient's pancreatic duct appeared mildly dilated with the head and tail of his pancreas obscured by overlying bowel gas. IMPRESSION: A 67-year-old male, admitted with recurrent chest pain in the setting of atherosclerotic heart disease and coronary cath was performed and successful in the balloon angioplasty of a restenosis of his left circumflex artery stent. Also, patient with newly noted elevated liver function testing, chronic gallstones, asymptomatic. No abdominal pain and abdominal ultrasound as listed above with negative hepatitis A, B, C panels; comorbidities of end-stage renal disease, hemodialysis dependent; insulin-dependent diabetes mellitus; hyperlipidemia; chronic hypertension; gastrointestinal bleeding; peptic ulcer disease; history of hypothyroidism; degenerative arthritis; hyperphosphatemia; and left nephrectomy was in the recent past. PLAN: As discussed with the patient, family, nursing, Cardiology and Gastroenterology, will be to ready the patient for no heparin hemodialysis in the a.m. He is also being readied for a diagnostic endoscopy to establish a site of possible GI bleeding in the upper abdomen. Also I have asked GI to review his abdominal ultrasound findings of the mild dilatation of his pancreatic duct and to define if any further testing is indicated at this point in time. Also, patient will have serial liver function testings followed. He will continue on Ecotrin, Plavix, regular low-dose insulin coverage, Lipitor, Lopressor, minoxidil, Nephro-Armando, nitroglycerin ointment, Pepcid, Plavix, Renagel, Synthroid, Tylenol and p.r.n. Zofran. Greater than 35 minutes was spent in the care management, review of x-rays, ordering of labs and discussion of this patient today with Cardiology, Gastroenterology, nursing and case management. All questions were answered. No Banda MD MTDMariano
[2017-10-25] MEDS: Nitroglycerin 2% Ointment Foilpak UD TOP SCH ×6 (02:36→22:13)
[2017-10-25] MEDS: Levothyroxine 25 MCG TAB PO SCH (05:58)
[2017-10-25 06:44] LABS: ALB/GLOB RATIO 1.1 (1.1-1.8); ALBUMIN 3.4 g/dL (3.0-4.8); CALCIUM 10.1 mg/dL (8.4-10.5)
[2017-10-25] MEDS: Multivitamin Vitamin B Complex (Nephro-Vite) Tab PO SCH (07:28)
[2017-10-25] MEDS: Insulin Reg-LOW-Coverage SC SCH ×4 (07:28→22:08)
--- NOTE | 2017-10-25 15:24 | PN ---
DATE: 10/25/2017 RENAL DIALYSIS PROGRESS NOTE SUBJECTIVE: This is a 67-year-old male, is in the [facility] Renal Dialysis [facility], dialyzing on a F 160, 140 sodium, 2K bicarb, 2 calcium bath dialysate. PHYSICAL EXAMINATION VITAL SIGNS: Blood pressure 140/66 with a pulse of 65. HEART: Regular S1, S2. LUNGS: Clear. LABORATORY DATA: Sodium 136, K 5.0, chloride 95, bicarb 25, BUN 35, creatinine 8.9, random blood sugar is 94. The patient will continue on a 2K bicarb bath and be dialyzed for 3 hours today. No Banda MD MTDD
--- NOTE | 2017-10-25 15:29 | PN ---
DATE: 10/25/2017 DIALYSIS PROGRESS NOTE SUBJECTIVE: This 67-year-old male is dialyzing in the renal dialysis unit. PHYSICAL EXAMINATION VITAL SIGNS: Blood pressure is 124/51 with a pulse of 69. I am aiming for 3.5 kg of fluid removal today. LABORATORY DATA: Hemoglobin is 9.2 with hematocrit of 30.0. Bilirubin 0.6, AST 51, ALT 120, alkaline phosphatase 130. The patient continues on a no heparin protocol. He is being scheduled for a diagnostic endoscopy regarding guaiac-positive stools and anemia. No Banda MD MTDD
[2017-10-25] MEDS ORDERED: Propofol 10 mg/ml Inj (20 ML) ONE (16:54)
[2017-10-25] MEDS: Sodium Chloride 0.9% 1,000 ML IV SCH (19:21)
[2017-10-26] MEDS: Nitroglycerin 2% Ointment Foilpak UD TOP SCH ×2 (03:09→05:30)
[2017-10-26] MEDS: Sodium Chloride 0.9% 1,000 ML IV SCH (05:30)
[2017-10-26] MEDS: Levothyroxine 25 MCG TAB PO SCH (05:32)
[2017-10-26] MEDS: Insulin Reg-LOW-Coverage SC SCH ×4 (08:25→22:23)
[2017-10-26] MEDS: Multivitamin Vitamin B Complex (Nephro-Vite) Tab PO SCH (08:26)
--- NOTE | 2017-10-26 13:56 | PN ---
DATE: 10/26/2017 SUBJECTIVE: This 67-year-old male was examined at his bedside in the presence of his and this case was reviewed in detail with his nurse, Connie Vargas, registered nurse. The patient is status post upper endoscopy yesterday, post dialysis, that was reviewed with Dr. Romel Waters from GI. There was no evidence of gastric ulcer or duodenal ulcer and his plans are to proceed with colonoscopy to establish the cause of his GI bleeding that required blood cell transfusion. The patient is status post a cardiac cath and a balloon angioplasty of restenosis of his stented left circumflex coronary artery and at present, the patient remains weak and deconditioned. He is also noted to have a slightly dilated pancreatic duct on recent abdominal ultrasound and liver function testing shows elevation of liver enzymes. There have been no reports of fever or chills. PHYSICAL EXAMINATION VITAL SIGNS: Temperature is 97.8, respirations 18, pulse 63, blood pressure 136/58 with a pulse ox of 98% on room air. HEENT: Head is normocephalic, atraumatic. Eyes, no icterus. Ears: Clear. Throat: Noninjected. NECK: Supple. HEART: Regular S1, S2. 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 LUNGS: Clear. ABDOMEN: Soft. EXTREMITIES: No edema. SKIN: Without rash. NEUROLOGICAL: Intact. PSYCHOLOGICAL: Alert. VASCULAR: Legs are warm to touch. LABORATORY DATA: Hemoglobin 9.2, hematocrit 30. PT/INR 1.21, PTT 33.6. Sodium 136, potassium 5.0, chloride 95, bicarbonate 25, BUN 35, creatinine 8.9, random blood sugar 182. Bilirubin 0.6, AST 51, ALT 120, alkaline phosphatase 130. Hepatitis A, B, C serology is negative. Liver and gallbladder ultrasound was reviewed. The patient has chronic gallstones with no pericholecystic fluid collection. The common bile duct was imaged and appears normal in caliber at 5 mm. There is no evidence of choledocholithiasis, but the pancreatic duct is dilated to 4.5 mm at the level of the body of the pancreas. The head and the tail of pancreas are obscured by overlying bowel gas. IMPRESSION: This is a 67-year-old male admitted with chest pain, status post cardiac cath and balloon angioplasty of restenosis of his left circumflex artery in-stent with comorbidities of end-stage renal disease, he is hemodialysis dependent; atherosclerotic heart disease; history of chronic hypertension; recent left nephrectomy for cancer of the kidney with history of probable pulmonary metastases; hyperlipidemia; chronic hypertension, anemia of GI bleeding and anemia of chronic disease; hyperphosphatemia; hypothyroidism and now newly noted liver function testing elevations with a dilated pancreatic duct and history of duodenal ulcer, now resolved on recent endoscopy. PLAN: As discussed with the patient, at bedside; daughter, Von Coleman, registered nurse and Dr. Romel Waters from GI, the plan will be to pursue additional GI workup including colonoscopy and possible EUS versus ERCP for further evaluation of his GI issues. The patient will have serial labs. His next hemodialysis is scheduled for Saturday. He will have packed red blood cell transfusion as needed and continues on a soft, bland, heart-healthy bland diabetic diet with orders for Zofran, Synthroid, Renagel, Plavix, Pepcid, vitamin B, Minoxidil, metoprolol, Lipitor, aspirin and insulin coverage. Greater than 35 minutes were spent in the care management, review of x-rays, labs, medication and counseling of this patient and family today. All questions were answered. No Banda MD MTDD
--- NOTE | 2017-10-26 15:21 | PN ---
DATE: 10/26/2017 SUBJECTIVE: The patient is seen sitting in a chair in telemetry. He is comfortable at present time. He has no chest pain. He underwent endoscopy yesterday, which showed evidence of chronic gastritis and no residual ulcers. He is anxious to go home. CURRENT MEDICATIONS: Remain aspirin, insulin coverage, Keflex, Lipitor, metoprolol 25 mg b.i.d., minoxidil, Pepcid, Plavix, Renagel, Synthroid. OBJECTIVE: GENERAL: He is a middle-aged man, appears comfortable at the present time. VITAL SIGNS: His blood pressure is 136/60 with a pulse of 76 and sinus, respirations of 14. He is afebrile. HEENT: Normocephalic, atraumatic. No JVD noted. CHEST: Clear to auscultation and percussion. HEART: PMI non-positional with no pathological gallops noted. ABDOMEN: Soft, nontender with normoactive bowel sounds. EXTREMITIES: No edema. DIAGNOSTIC DATA: No blood work pending from this morning. IMPRESSION: 1. Known coronary artery disease, status post recent balloon angioplasty of in-stent restenosis, clinically stable. 2. Chronic gastritis with healed peptic ulcer disease. 3. Chronic renal failure, maintained on dialysis. 4. History of hypertension. 5. Rest of problems as noted. RECOMMENDATIONS: From a cardiac standpoint, he appears stable for discharge home at this time. Outpatient followup will be arranged. Continued risk factor control is recommended. Leoncio Archer MD
[2017-10-27] MEDS: Levothyroxine 25 MCG TAB PO SCH (05:39)
[2017-10-27] MEDS: Insulin Reg-LOW-Coverage SC SCH ×4 (08:22→22:30)
[2017-10-27] MEDS: Multivitamin Vitamin B Complex (Nephro-Vite) Tab PO SCH (10:39)
--- NOTE | 2017-10-27 19:53 | PN ---
DATE: 10/27/2017 SUBJECTIVE: This patient was seen and evaluated earlier. Patient's was at bedside. I did discuss with the patient's daughter yesterday. PHYSICAL EXAMINATION: VITAL SIGNS: Temperature 98.7, pulse 111, blood pressure is 140/61, respirations 20. HEENT: Atraumatic. Anicteric. NECK: Supple. HEART: S1, S2 heard. LUNGS: Bilateral air entry present. ABDOMEN: Soft. No tenderness. LABORATORY DATA: Hemoglobin 9.2, hematocrit 30.2 on 10/23. There is no recent labs today. IMPRESSION: This 67-year-old patient with end-stage renal disease, on hemodialysis. He is status post cardiac catheterization. This patient had a chest pain while he was in dialysis. Patient had a cardiac catheterization and balloon angioplasty. Patient is being on aspirin and Plavix. History of peptic ulcer disease, patient had an endoscopy done recently, did not show any ulcerations. Patient has an anemia. Since the patient is on Plavix and aspirin, decision is to consider workup for the anemia, then needed further workup to rule out any colonic lesion. Patient also has history of abnormal liver function tests, history of gallstones, common bile duct normal. RECOMMENDATIONS: 1. He will be scheduled for a colonoscopy, follow up of the hemoglobin and hematocrit. Patient is on aspirin and Plavix. 2. Abnormal LFTs, history of gallstones, CBD normal before, recently MRCP done, which results pending. Patient had an abnormal sonogram. Ultrasound scan of the abdomen, which showed a slightly prominent pancreatic duct, 4.5 mm, but patient did have a CT scan of the abdomen done with contrast on 10/21, which was reviewed, did not show any focal pancreatic lesion. It is a reasonable thing to do an MRCP. We will follow up on that other comorbidities. We will continue to closely follow up with his care and suggest further management based on the clinical course. Romel Waters MD
--- NOTE | 2017-10-27 21:22 | PN ---
DATE: 10/27/2017 SUBJECTIVE: This 67-year-old male was examined on the cardiac marcos. This case was reviewed in detail with himself, his at the bedside, his daughter Nicanor Coleman, registered nurse and his floor nurse Radha Salgado. The patient remains weak and deconditioned status post cardiac cath and balloon angioplasty of his re-stenotic circumflex artery. He also is undergoing GI workup regarding gastrointestinal bleeding with anemia and elevated LFTs. To date he is still awaiting colonoscopy and results of a MRCP. The patient at present denies fever, chills, chest pain or shortness of breath, and remains in a normal sinus rhythm on the athletic monitor. PHYSICAL EXAMINATION: VITAL SIGNS: His temperature is 97.9, respirations 20, pulse 78 and blood pressure 131/62, with a pulse ox of 99%. HEENT: Head normocephalic, atraumatic. Eyes: No icterus. Ears: Clear. Throat: Noninjected. NECK: Supple. HEART: Regular S1 and S2. No pathological rubs, murmurs or gallops. LUNGS: Clear to auscultation. ABDOMEN: Soft, nontender. There is no palpable organomegaly. No rebound, no guarding. No tenderness. EXTREMITIES: No edema. SKIN: Without rash. NEUROLOGICAL: Unchanged. PSYCHOLOGICAL: Alert. VASCULAR: Legs warm to touch. LABORATORY DATA: Hemoglobin 9.2, hematocrit 30. PT/INR 1.21, PTT 33.6. Random blood sugar 90. Sodium 136, K 5.0, chloride 95, bicarb 25, BUN 35, creatinine 8.9. Bilirubin 0.6, AST 51, ALT 120, and alk phos 130. Hepatitis A, B and C serologies were negative. IMPRESSION: This is a 67-year-old male admitted to the [facility] with recurrent chest pain and gastrointestinal bleeding in the setting of atherosclerotic heart disease status post coronary artery stents and coronary artery bypass grafting in his past which prompted a cardiac cath that revealed a re-stenosis in his circumflex artery that had been stented in the past, and was treated during this admission with balloon angioplasty. Also the patient is undergoing GI workup including endoscopy, colonoscopy and magnetic resonance cholangiopancreatography for abnormalities of anemia requiring blood cell transfusion as well as guaiac-positive stools in a gentleman with elevated liver function testing and a dilated pancreatic duct on recent abdominal ultrasound. PLAN: As discussed with the patient, family, nursing and co-consultants, will be to await the results of MRCP while readying this patient for hemodialysis in the a.m. He will have his comprehensive metabolic panel and hemoglobin/hematocrit rechecked in a.m. and will be transfused with packed red blood cells on dialysis if indicated. After MRCP is discussed with Dr. Waters, he hopefully will be scheduled for colonoscopy for completeness sake, and any additional testings will be entertained based on the patient's clinical results and continued workup. Greater than 35 minutes was spent in the care management, review of x-rays, labs, medication, and discussion of the patient's testing and results with himself, and daughter at bedside. His floor nurse was present for the interview and all questions were answered. No Banda MD MTDMariano
[2017-10-28] MEDS: Levothyroxine 25 MCG TAB PO SCH (05:33)
[2017-10-28 06:48] LABS: HEMOGLOBIN 10.4 g/dL (14.0-18.0)
[2017-10-28 07:34] LABS: ALB/GLOB RATIO 1.1 (1.1-1.8); ALBUMIN 3.7 g/dL (3.0-4.8); CALCIUM 10.7 mg/dL (8.4-10.5)
--- NOTE | 2017-10-28 08:20 | MRI ---
PROCEDURE: Magnetic Resonance Cholangiopancreatography HISTORY: Abnormal LFTs history of renal cancer. COMPARISON: None available. TECHNIQUE: Incomplete study. Patient could not tolerate full exam. Coronal and axial T2 and sequences were obtained. . FINDINGS: MRCP: The common bile duct is of upper normal caliber. No evidence of choledocholithiasis. No intrahepatic biliary ductal dilatation. LIVER: The liver is mildly enlarged demonstrates diffuse hypointense T2 signal which could be due to parenchymal disease versus hemosiderosis. GALLBLADDER: The gallbladder is distended contains multiple gallstones. There is mild diffuse gallbladder wall thickening. No evidence of significant pericholecystic fluid or inflammatory changes. SPLEEN: Spleen is normal in size demonstrate diffuse hypointense T2 signal. PANCREAS: Mild atrophy of the pancreas is noted. The main pancreatic duct is mildly dilated. ADRENALS: No evidence of mass lesion at the adrenal glands. KIDNEYS: The right mid kidney is small in size demonstrate thin cortex and contains multiple small cysts. There is kidney noted at the right lower abdomen likely represent transplanted kidney. The left kidney is not clearly visualized AORTA: No aneurysm. ASCITES: No evidence of significant ascites in the abdomen and pelvis P OTHER FINDINGS: Cardiomegaly is noted. IMPRESSION: Incomplete study. Cholelithiasis and mild diffuse gallbladder wall thickening. No evidence of pericholecystic fluid or inflammatory changes to suggest acute cholecystitis. No evidence of choledocholithiasis. The CBD measures 7 millimeter ( upper normal limit). Small size telida right kidney and possible transplanted kidney in the right lower abdomen. Left kidney was not visualized (status post left nephrectomy ). Mildly dilated main pancreatic duct.
[2017-10-28] MEDS: Insulin Reg-LOW-Coverage SC SCH ×4 (10:48→21:55)
[2017-10-28] MEDS: Multivitamin Vitamin B Complex (Nephro-Vite) Tab PO SCH (10:53)
--- NOTE | 2017-10-28 13:20 | PN ---
DATE: 10/28/2017 DIALYSIS PROGRESS NOTE SUBJECTIVE: This 67-year-old male is dialyzing in the [facility] Renal Dialysis Unit on a F160, 140 sodium, 2K bicarb bath. PHYSICAL EXAMINATION VITAL SIGNS: Blood pressure 143/66, pulse is 85. HEART: Regular S1, S2. LUNGS: Clear. EXTREMITIES: No edema. LABORATORY DATA: Random blood sugar 111. Bilirubin 0.7, AST 41, ALT 56, alkaline phosphatase 120 showing the normalization of all liver function testing. Plan is to dialyze this patient for 3 hours today. I am aiming for 3.5 kg fluid removal. No Banda MD MTDD
--- NOTE | 2017-10-28 13:23 | PN ---
DATE: 10/28/2017 SUBJECTIVE: This 67-year-old male is in the Renal Dialysis Unit, dialyzing on a F160, 140 sodium, 2K bicarb bath. PHYSICAL EXAMINATION VITAL SIGNS: Blood pressure 140/61, pulse 87, blood flow rates 400 mL per minute. HEART: Regular. S1, S2. LUNGS: Clear. ABDOMEN: Soft. EXTREMITIES: No edema. LABORATORY DATA: Hemoglobin 10.4, hematocrit 32.8. Sodium 134, K 5.4, chloride 95, bicarb 22, BUN 47, creatinine of 11. The plan will be to dialyze this patient on a 2K bicarb 2.0 calcium bath. Today's calcium is 10.7. He will continue on 2 calcium dialysate. No Banda MD MTDMariano
[2017-10-28] MEDS ORDERED: Peg-Electrolyte Oral Soln 4L (Golytely) PO ONE (15:00)
[2017-10-28] MEDS ORDERED: Bisacodyl 5mg EC Tab PO ONE (20:00)
[2017-10-29] MEDS: Levothyroxine 25 MCG TAB PO SCH (05:32)
[2017-10-29 07:49] LABS: CALCIUM 10.1 mg/dL (8.4-10.5)
[2017-10-29] MEDS: Insulin Reg-LOW-Coverage SC SCH ×3 (09:50→16:53)
[2017-10-29] MEDS: Multivitamin Vitamin B Complex (Nephro-Vite) Tab PO SCH (09:55)
[2017-10-30] MEDS: Insulin Reg-LOW-Coverage SC SCH ×3 (00:19→11:46)
[2017-10-30] MEDS: Levothyroxine 25 MCG TAB PO SCH (05:22)
[2017-10-30 06:21] VITALS: RESP 20; O2SAT 98
[2017-10-30 06:57] LABS: HEMOGLOBIN 9.9 g/dL (14.0-18.0)
[2017-10-30 07:14] LABS: CALCIUM 10.4 mg/dL (8.4-10.5)
[2017-10-30] MEDS ORDERED: Darbepoetin Alfa 100 mcg/ml Inj IVP ONE (07:36)
[2017-10-30] MEDS: Multivitamin Vitamin B Complex (Nephro-Vite) Tab PO SCH (08:02)
--- NOTE | 2017-10-30 08:17 | PN ---
DATE: 10/29/2017 SUBJECTIVE: This 67-year-old male who was examined at the bedside. He remains in a normal sinus rhythm on the manager cardiac cath. He is being bowel prep for an elective colonoscopy in the setting of guaiac-positive stools and GI bleeding that required blood cell transfusion on hemodialysis. Since balloon angioplasty of his left circumflex artery, he has had no further chest pain and he denies fever or chills. PHYSICAL EXAMINATION: VITAL SIGNS: Temperature 98.2, respirations 20, pulse 84, blood pressure 121/65. Pulse ox 97% on room air. gambling monitor, normal sinus rhythm. HEENT: Head normocephalic, atraumatic. Eyes, no icterus. Ears, clear. Throat, noninjected. NECK: Supple. HEART: Regular S1, S2. LUNGS: Clear. ABDOMEN: Soft. EXTREMITIES: No clubbing, no cyanosis, no edema. SKIN: Without rash. NEUROLOGICAL: Intact. PSYCHOLOGICAL: Alert. VASCULAR: Legs warm to touch. He has an excellent bruits and thrill in his right upper extremity AV graft. LABORATORY DATA AND IMAGING STUDIES: Hemoglobin 10.4, hematocrit 32.8. PT/INR 1.21, PTT 33.6. Sodium 134, K 5.1, chloride 92, bicarb 31, BUN 29, creatinine 7.6, random blood sugar 131. Calcium normal 10.1. MRCP was reviewed. His common bile duct was normal in caliber. There was no evidence of choledocholithiasis and there was no evidence of intrahepatic biliary duct dilatation. The liver was mildly enlarged. The gallbladder showed multiple gallstones with no evidence of inflammation or cholecystitis. Pancreas was mildly atrophic. The main pancreatic duct was mildly dilated. This was discussed with Dr. Waters who has no further plans for any additional testings on his pancreas or pancreatic duct and of note, liver function testing has currently returned to normal with bilirubin 0.7, AST 41, ALT 56, and alk phos 120. IMPRESSION: This is a 67-year-old male with end-stage renal disease, hemodialysis dependent, admitted with gastrointestinal bleeding, anemia, requiring blood cell transfusion and chest pain that required cardiac cath, for which he underwent a balloon angioplasty of restenosis in his left circumflex artery and stent, also with comorbidities of left nephrectomy for renal cell carcinoma with probable pulmonary metastases, hyperlipidemia, chronic hypertension, stable atherosclerotic heart disease, peptic ulcer disease with gastroesophageal reflux disease, history of duodenal ulcer, hypothyroidism, degenerative arthritis and anemia of gastrointestinal bleeding and chronic disease. PLAN: The plan was discussed with the patient and his nurse, Libby Galloway at the bedside as well as family. We will be to continue the bowel prep for elective colonoscopy and the patient continues to be n.p.o. at present with orders for nasal O2 p.r.n., Zofran, Tylenol, Synthroid, Renagel, Plavix, Pepcid, minoxidil, Lopressor, Lipitor, insulin, and Ecotrin. The patient will have repeat basic metabolic panel and hemoglobin/hematocrit in the a.m. with scheduling for dialysis and hopeful discharge when cleared by Gastroenterology. Greater than 35 minutes was spent in the care management, review of x-rays, labs, medication and discussion of all of the above with the patient, family and nursing and GI. All questions were answered. No Banda MD MTDMariano
[2017-10-30 11:53] VITALS: BP 122/59; PULSE 85; TEMP 97.8
--- NOTE | 2017-10-30 12:37 | CP.PCM.PN ---
Subjective - Date & Time of Evaluation Date of Evaluation: 10/30/17 Time of Evaluation: 10:00 - Subjective Subjective: S&E at bedside, late this morning, had colonoscopy yesterday, found to have polyps, IH, and diverticulosis, polyps NOT removed was on anticoagulants. No acute overnight events or patient complaints. Tolerating oral intake. Objective - Vital Signs/Intake and Output Vital Signs (last 24 hours): Temp Pulse Resp BP Pulse Ox 97.8 F 85 20 122/59 L 98 10/30/17 11:52 10/30/17 11:52 10/30/17 11:52 10/30/17 11:52 10/30/17 06:00 Intake and Output: 10/30/17 10/30/17 06:59 18:59 Intake Total 360 Balance 360 - Medications Medications: Current Medications Acetaminophen (Tylenol 325mg Tab) 650 mg PO Q6H PRN PRN Reason: Fever >100.4 F Aspirin (Ecotrin) 81 mg PO DAILY [facility] Last Admin: 10/30/17 10:17 Dose: 81 mg Atorvastatin Calcium (Lipitor) 10 mg PO DIN [facility] Last Admin: 10/29/17 17:07 Dose: Not Given Clopidogrel Bisulfate (Plavix) 75 mg PO DAILY [facility] Last Admin: 10/30/17 10:17 Dose: 75 mg Famotidine (Pepcid) 20 mg PO HS [facility] Last Admin: 10/29/17 21:28 Dose: 20 mg Insulin Human Regular (Humulin R Low) 0 units SC ACHS [facility] PRN Reason: Protocol Last Admin: 10/30/17 11:46 Dose: 2 units Levothyroxine Sodium (Synthroid) 25 mcg PO 0600 [facility] Last Admin: 10/30/17 05:22 Dose: 25 mcg Metoprolol Tartrate (Lopressor) 25 mg PO BID [facility] Last Admin: 10/30/17 10:17 Dose: 25 mg Minoxidil (Minoxidil) 2.5 mg PO BID [facility] Last Admin: 10/30/17 10:17 Dose: 2.5 mg Ondansetron HCl (Zofran Inj) 4 mg IVP Q8H [facility] Last Admin: 10/30/17 05:22 Dose: 4 mg Sevelamer HCl (Renagel) 800 mg PO TID [facility] Last Admin: 10/30/17 10:17 Dose: 800 mg Vitamin B Complex/Vit C/Folic Acid (Nephro-Armando) 1 tab PO 0800 [facility] Last Admin: 10/30/17 08:02 Dose: Not Given - Labs Labs: 10/30/17 06:00 10/30/17 06:00 PT 14.0 SECONDS (9.4-12.5) H 10/21/17 13:00 INR 1.21 (0.93-1.08) H 10/21/17 13:00 APTT 33.6 Seconds (25.1-36.5) 10/21/17 13:00 - Constitutional Appears: No Acute Distress - Head Exam Head Exam: NORMOCEPHALIC - Eye Exam Eye Exam: Normal appearance. absent: Scleral icterus - ENT Exam ENT Exam: Mucous Membranes Moist - Respiratory Exam Respiratory Exam: NORMAL BREATHING PATTERN. absent: Respiratory Distress - Cardiovascular Exam Cardiovascular Exam: +S1, +S2 - GI/Abdominal Exam GI & Abdominal Exam: Soft, Normal Bowel Sounds. absent: Guarding, Tenderness, Rebound - Extremities Exam Extremities Exam: absent: Calf Tenderness, Pedal Edema - Neurological Exam Neurological Exam: Alert, Awake, Oriented x3 - Skin Skin Exam: Dry, Warm Assessment and Plan - Assessment and Plan (Free Text) Assessment: ASSESSMENT: S/P colon, colon polyps, not removed, IH, diverticulosis Anemia (+) Guiac Chest pain while on dialysis, s/p caridac cath, in stent restenosis w/ angioplasty Gallstones, mild pancreatic duct dilation, 4.5 cm H/O PUD GERD Renal cell Cancer, s/p nephrectomy CRF on dialysis H/O ASHD, w/ coronary stents PLAN: continue Pepcid On Plavix and aspirin monitor H/H, overt GI bleeding Renal diet as tolerated Repeat colon 6 months for colon polyps to be removed when able to be off PLAVIX , FU pancreatic dilated duct out patient Seen and discussed w/ Dr. Waters.
--- NOTE | 2017-10-30 14:16 | PN ---
DATE: 10/30/2017 DIALYSIS PROGRESS NOTE SUBJECTIVE: This 67-year-old male was in the renal dialysis unit. He is dialyzing on a F160, 140 sodium, 2K bicarb bath. No heparin protocol. He is dialyzing via a right upper extremity AV graft. Blood pressure is 147/65. His pulse is 98. I am dialyzing this patient for 3 hours today aiming for 3 kg off. Sodium 132, K 5.3, chloride 91, bicarb 27, BUN 45, creatinine 10.1, random blood sugar is 123. Calcium is normal at 10.4. He will continue on a 2K, 2 calcium bath. All of the above was reviewed with nurse, Marietta Edmonds, registered nurse at dialysis. No Banda MD MTDMariano
--- NOTE | 2017-10-30 14:21 | PN ---
DATE: 10/30/2017 DIALYSIS PROGRESS NOTE SUBJECTIVE: This 67-year-old male was in the renal dialysis unit, dialyzing on a F160, 140 sodium, 2K bicarb bath. No heparin protocol. PHYSICAL EXAMINATION: VITAL SIGNS: Blood pressure 143/68, pulse is 90. HEART: Regular S1, S2. LUNGS: Clear. LABORATORY DATA: Hemoglobin is 9.9, hematocrit is 31.1. ASSESSMENT AND PLAN: As discussed with the patient and nurse, Marietta Mir, the patient will receive 100 mcg of Aranesp IV on dialysis today. No Banda MD MTDD
--- NOTE | 2017-10-31 06:13 | DS ---
FINAL DIAGNOSES: Chest pain secondary to atherosclerotic heart disease requiring cardiac cath and balloon angioplasty of circumflex artery stenosis, also with GI bleeding and the patient was seen in consultation by Dr. Archer from Cardiology, Dr. Romel Waters from GI. Endoscopy was performed and showed a healed duodenal ulcer, mild gastritis. Colonoscopy was performed, it showed colon polyps not removed and diverticulosis. DISCHARGE MEDICATIONS: Lipitor 20 mg p.o. nightly, PhosLo 667 mg p.o. after meals t.i.d., Prilosec 20 mg p.o. daily, Plavix 75 mg p.o. daily, baby aspirin 81 mg p.o. daily, minoxidil 2.5 mg p.o. b.i.d., Lopressor 25 mg p.o. b.i.d., Synthroid 25 mcg p.o. daily. Low dose Regular Insulin protocol before meals and bedtime. SUMMARY: This 67-year-old male was admitted to [facility] ([facility] with chest pain and GI bleeding with guaiac-positive stools. He was admitted to the Cardiac Unit. He underwent a cardiac catheterization that showed a restenosis in his stented left circumflex artery that was treated with balloon angioplasty with good results. The patient had no further chest pain. Because of guaiac-positive stools, the patient underwent endoscopy and colonoscopy with results as listed above. He was dialyzed throughout his hospital course on a no-heparin protocol, and at the time of discharge, vital signs were temperature 98.6, respirations 20, pulse 87, and blood pressure 118/60 with a pulse oximetry of 98% on room air. Final laboratory showed sodium 132, potassium 5.3, chloride 91, bicarb 27, BUN 45, creatinine 10.1, random blood sugar 123, calcium 10.4. Bilirubin 0.7, AST 41, ALT 56, alkaline phosphatase 120 normal. White count 8900, hemoglobin 9.9, hematocrit 31.1, platelets 229,000. Hepatitis A, B, C serologies were negative. The patient is discharged to home. He will follow up with Dr. Romel Waters regarding need for outpatient followup MRCP in approximately two months regarding a slightly dilated pancreatic duct for which he has no further recommendations at this time. He also we need to address the timing of polyp removal. The patient will also follow up with Dr. Leoncio Archer from Cardiology regarding his routine cardiology care. He is under the oncological care of Dr. Garcia at [facility] for a recent left nephrectomy with probable pulmonary metastasis secondary to renal cell carcinoma, and he is under his care for treatment of the above, and the patient will continue his hemodialysis treatment at the [facility] on Mondays, Wednesdays, and Fridays and will be monitored in my outpatient office as well. All of the above was reviewed in detail with the patient, family and nursing, co-consultants. All questions were answered. No Banda MD MTDD
== END 2017-10-30 14:08 | disposition home or self-care (01) | DRG 250 ==
LOC: ED 09:20 → ERH 12:01 → 3RSO 16:53 → 2RNO 10-23 10:25
PROVIDERS: ADMIT Internal Medicine; ATTEND Internal Medicine
PROC: 02703ZZ Dilation of Coronary Artery, One Artery, Percutaneous Approach (ICD-10-PCS; principal; 2017-10-23)
PROC: 4A023N7 Measurement of Cardiac Sampling and Pressure, Left Heart, Percutaneous Approach (ICD-10-PCS; 2017-10-23)
PROC: B2151ZZ Fluoroscopy of Left Heart using Low Osmolar Contrast (ICD-10-PCS; 2017-10-23)
PROC: B2111ZZ Fluoroscopy of Multiple Coronary Arteries using Low Osmolar Contrast (ICD-10-PCS; 2017-10-23)
PROC: 0DJ08ZZ Inspection of Upper Intestinal Tract, Via Natural or Artificial Opening Endoscopic (ICD-10-PCS; 2017-10-25)
PROC: 5A1D70Z Performance of Urinary Filtration, Intermittent, Less than 6 Hours Per Day (ICD-10-PCS; 2017-10-25)
PROC: 5A1D70Z Performance of Urinary Filtration, Intermittent, Less than 6 Hours Per Day (ICD-10-PCS; 2017-10-28)
PROC: 0DJD8ZZ Inspection of Lower Intestinal Tract, Via Natural or Artificial Opening Endoscopic (ICD-10-PCS; 2017-10-29)
DX: I25.110 Atherosclerotic heart disease of native coronary artery with unstable angina pectoris (principal); N18.6 End stage renal disease; T82.855A Stenosis of coronary artery stent, initial encounter; K92.2 Gastrointestinal hemorrhage, unspecified; C78.00 Secondary malignant neoplasm of unspecified lung; I12.0 Hypertensive chronic kidney disease with stage 5 chronic kidney disease or end stage renal disease; E10.22 Type 1 diabetes mellitus with diabetic chronic kidney disease; I48.0 Paroxysmal atrial fibrillation; I08.1 Rheumatic disorders of both mitral and tricuspid valves; E83.39 Other disorders of phosphorus metabolism; K29.50 Unspecified chronic gastritis without bleeding; K63.5 Polyp of colon; K57.30 Diverticulosis of large intestine without perforation or abscess without bleeding; I27.20 Pulmonary hypertension, unspecified; D63.8 Anemia in other chronic diseases classified elsewhere; E03.9 Hypothyroidism, unspecified; K64.8 Other hemorrhoids; Z87.891 Personal history of nicotine dependence; K21.9 Gastro-esophageal reflux disease without esophagitis; G40.909 Epilepsy, unspecified, not intractable, without status epilepticus; E78.5 Hyperlipidemia, unspecified; M19.90 Unspecified osteoarthritis, unspecified site; K80.20 Calculus of gallbladder without cholecystitis without obstruction; K86.89 Other specified diseases of pancreas; D50.0 Iron deficiency anemia secondary to blood loss (chronic); Y83.1 Surgical operation with implant of artificial internal device as the cause of abnormal reaction of the patient, or of later complication, without mention of misadventure at the time of the procedure; Z99.2 Dependence on renal dialysis; Z79.4 Long term (current) use of insulin; Z79.82 Long term (current) use of aspirin; Z90.5 Acquired absence of kidney; Z85.528 Personal history of other malignant neoplasm of kidney; Z86.11 Personal history of tuberculosis; Z87.11 Personal history of peptic ulcer disease

== ENCOUNTER 2018-01-20 09:25 | Inpatient (IN) | payer MEDICAID, MEDICARE ==
[2018-01-20 09:32] VITALS: BMI 26.4
--- NOTE | 2018-01-20 09:54 | ED PDOC ---
Arrival/HPI - General Chief Complaint: Chest Pain Time Seen by Provider: 01/20/18 09:33 Historian: Patient - History of Present Illness Narrative History of Present Illness (Text): 01/20/18 09:50 67 year old male, whose PMH includea CHF, diabetes, renal failure, and hypothyroidism, who presents to the emergency department complaining of chest pain and shortness of breath, s/p completing his dialysis prior to arrival. Patient denies any fever, headache, nausea, vomiting, cough, diarrhea, dizziness , or other complaints. Time/Duration: Prior to Arrival Symptom Onset: Sudden Symptom Course: Unchanged Past Medical History - Provider Review Nursing Documentation Reviewed: Yes - Infectious Disease Hx of Infectious Diseases: None - Tetanus Immunization Tetanus Immunization: Unknown - Cardiac Hx Cardiac Disorders: Yes Hx Congestive Heart Failure: Yes Hx Pacemaker: No - Pulmonary Hx Respiratory Disorders: Yes (H/O SMOKING CIGARETTES .SMOKED FOR 20 YRS) Hx Bronchitis: Yes Hx Pneumonia: Yes Hx Tuberculosis: Yes Other/Comment: SMOKED FOR 20 YRS - Neurological Hx Neurological Disorder: Yes Hx Seizures: No (denies) - HEENT Hx HEENT Disorder: Yes Hx Cataracts: Yes - Renal Hx Renal Disorder: Yes Hx Renal Failure: Yes - Endocrine/Metabolic Hx Endocrine Disorders: Yes Hx Diabetes Mellitus Type 1: Yes Hx Hypothyroidism: Yes - Hematological/Oncological Hx Blood Transfusions: Yes Hx Blood Transfusion Reaction: No - Integumentary Hx Dermatological Disorder: Yes (OLD NF SCARRED AREA LEFT UPPER ARM. SHUNT TO RIGHT UPPER ARM) Other/Comment: dry tight discolored slin to ble +1 edema rll - Musculoskeletal/Rheumatological Hx Musculoskeletal Disorders: Yes Hx Falls: Yes - Gastrointestinal Hx Gastrointestinal Disorders: No - Genitourinary/Gynecological Hx Genitourinary Disorders: Yes (voids very little in am ANURIA) - Psychiatric Hx Emotional Abuse: No Hx Physical Abuse: No Hx Substance Use: No - Surgical History Hx Cardiac Catheterization: Yes Other/Comment: Kidney - Anesthesia Hx Anesthesia Reactions: No Hx Malignant Hyperthermia: No - Suicidal Assessment Feels Threatened In Home Enviroment: No Family/Social History - Physician Review Nursing Documentation Reviewed: Yes Family/Social History: Unknown Family HX Smoking Status: Former Smoker Hx Alcohol Use: Yes (USED TO DRINK HEAVILY H/O QUIT) Hx Substance Use: No Hx Substance Use Treatment: No Allergies/Home Meds Allergies/Adverse Reactions: Allergies No Known Allergies Allergy (Verified 10/21/17 19:52) Home Medications: Home Meds Medication Instructions Recorded Confirmed Metoprolol Tartrate [Lopressor] 25 mg PO TID 01/17/15 10/30/17 Levothyroxine [Synthroid] 25 mcg PO DAILY 07/28/15 10/30/17 Aspirin [Ecotrin] 81 mg PO DAILY 12/30/15 10/30/17 Minoxidil 5 mg PO PRN PRN 12/30/15 10/30/17 Atorvastatin [Lipitor] 20 mg PO DIN 06/18/17 10/21/17 Clopidogrel [Plavix] 75 mg PO DAILY 10/21/17 10/30/17 Omeprazole 20 mg PO DAILY 10/21/17 10/21/17 Vitamin B Complex/Vit C/Folic 1 tab PO DAILY 10/21/17 10/21/17 [Nephro-Armando] Review of Systems - Review of Systems Constitutional: absent: Fevers Eyes: absent: Vision Changes Respiratory: SOB. absent: Cough Cardiovascular: Chest Pain Gastrointestinal: absent: Abdominal Pain, Vomiting Genitourinary Male: absent: Dysuria Musculoskeletal: absent: Back Pain Neurological: absent: Headache Endocrine: absent: Diaphoresis Physical Exam Vital Signs Temp Pulse Pulse Resp BP Pulse Ox 01/20/18 10:46 103 H 21 151/63 H 100 01/20/18 10:06 98 H 20 145/69 100 01/20/18 10:00 103 H 01/20/18 09:51 98.7 F 102 H 21 168/80 H 79 L Appearance: Positive for: Well-Appearing, Non-Toxic, Comfortable Pain Distress: None Mental Status: Positive for: Alert and Oriented X 3 - Systems Exam Head: Present: Atraumatic, Normocephalic Pupils: Present: PERRL Extroacular Muscles: Present: EOMI Conjunctiva: Present: Normal Neurological: Present: GCS=15, CN II-XII Intact, Speech Normal Skin: Present: Warm, Dry, Normal Color. No: Rashes Psychiatric: Present: Alert, Oriented x 3, Normal Insight, Normal Concentration Medical Decision Making ED Course and Treatment: 01/20/18 Impression: 67 year old male, complaining of chest pain and shortness of breath. Plan: -- EKG -- Chest X-ray -- Labs -- Reassess and disposition Progress Notes: 01/20/18 09:[address] Clifford, who is aware of plan and advices to start patient on IV Hyperril and Plavix. He also states patient will be taken to [facility] lab[facility] tomorrow morning. 01/20/18 10:[address] Blari, who is aware of plan and agreed to admission. - Lab Interpretations Lab Results: 01/20/18 09:43 01/20/18 09:43 Lab Results 01/20/18 09:43: Sodium 141, Potassium 3.5 L, Chloride 92 L, Carbon Dioxide 27, Anion Gap 25 H, BUN 33 H, Creatinine 5.7 H, Est GFR ( Amer) 12, Est GFR ( Non-Af Amer) 10, Random Glucose 105, Calcium 9.8, Magnesium 2.2, Total Bilirubin 0.7, AST 29, ALT 19, Alkaline Phosphatase 151 H D, Lactate Dehydrogenase 382, Total Creatine Kinase 52, Troponin I 0.03 D, NT-Pro-B Natriuret Pep 51436 H, Total Protein 8.6 H, Albumin 4.7, Globulin 3.8, Albumin/ Globulin Ratio 1.2 01/20/18 09:43: PT 12.4, INR 1.08, APTT 30.1 01/20/18 09:43: WBC 9.4, RBC 4.49, Hgb 12.9 L D, Hct 37.0 L, MCV 82.4 D, MCH 28.7, MCHC 34.9, RDW 15.0 H, Plt Count 196, MPV 9.3, Gran % 62.5, Lymph % (Auto ) 14.3 L, Pierce % (Auto) 14.7 H, Eos % (Auto) 8.2 H, Baso % (Auto) 0.3, Gran # 5.88, Lymph # (Auto) 1.4, Pierce # (Auto) 1.4 H, Eos # (Auto) 0.8 H, Baso # (Auto ) 0.03 I have reviewed the lab results: Yes - RAD Interpretation Radiology Orders: 01/20/18 09:39 CHEST PORTABLE [RAD] Stat Salon Supervisor: Radiologist - EKG Interpretation Interpreted by ED Physician: Yes Type: 12 lead EKG - Medication Orders Current Medication Orders: Nitroglycerin/Dextrose (Nitroglycerin 50 Mg/250 Ml D5w) 50 mg in 250 mls @ 1.5 mls/hr IV .Q24H PRN; Protocol; 5 MCG/MIN PRN Reason: TITRATE PER PROTOCOL Heparin Sodium/Sodium Chloride (Heparin 77743 Units/250ml 1/2 Normal Saline) 25 ,000 units in 250 mls @ 7.62 mls/hr IV .Q24H PRN; Protocol; 12 UNITS/KG/HR PRN Reason: TITRATE PER PROTOCOL Last Admin: 01/20/18 10:31 Dose: 7.62 mls/hr eMAR Start Stop Document 01/20/18 10:31 [email or web address] (Rec: 01/20/18 10:31 [email or web address] [id number]) Intravenous Solution Start Date 01/20/18 Start Time 10:31 Discontinued Medications Clopidogrel Bisulfate (Plavix) 300 mg PO STAT STA Stop: 01/20/18 10:08 Last Admin: 01/20/18 10:32 Dose: 300 mg Nitroglycerin (Nitrostat Sl Tab) 0.4 mg SL STAT STA Stop: 01/20/18 10:30 Last Admin: 01/20/18 10:39 Dose: 0.4 mg - Scribe Statement The provider has reviewed the documentation as recorded by the Carla Cedillo Provider Scribe Attestation: All medical record entries made by the Carla were at my direction and personally dictated by me. I have reviewed the chart and agree that the record accurately reflects my personal performance of the history, physical exam, medical decision making, and the department course for this patient. I have also personally directed, reviewed, and agree with the discharge instructions and disposition. Disposition/Present on Arrival - Present on Arrival History of DVT/PE: No History of Uncontrolled Diabetes: No Urinary Catheter: No History of Decub. Ulcer: No History Surgical Site Infection Following: None - Disposition Forms: [employer] (Macedonian)
[2018-01-20 10:01] LABS: BASO # 0.03 K/mm3 (0.0-2.0); BASO % 0.3 % (0.0-3.0); EOS # 0.8 (0.0-0.7); EOS % 8.2 % (1.5-5.0); GRAN # 5.88 (1.4-6.5); GRAN % 62.5 % (50.0-68.0); HEMOGLOBIN 12.9 g/dL (14.0-18.0); LYMPH # 1.4 (1.2-3.4); LYMPH % 14.3 % (22.0-35.0); MEAN CELL VOLUME 82.4 fl (80.0-105.0); MEAN CORPUSCULAR HEMOGLOBIN 28.7 pg (25.0-35.0); MEAN CORPUSCULAR HGB CONC 34.9 g/dl (31.0-37.0); MEAN PLATELET VOLUME 9.3 fl (7.0-11.0); MONO # 1.4 (0.1-0.6); MONO % 14.7 % (1.0-6.0); RBC 4.49 10^6/uL (3.5-6.1); WHITE BLOOD COUNT 9.4 10^3/ul (4.5-11.0)
[2018-01-20 10:03] LABS: ALB/GLOB RATIO 1.2 (1.1-1.8); ALBUMIN 4.7 g/dL (3.0-4.8); CALCIUM 9.8 mg/dL (8.4-10.5)
[2018-01-20 10:06] LABS: INR 1.08 (0.93-1.08); PARTIAL THROMBOPLASTIN TIME 30.1 Seconds (25.1-36.5); PROTHROMBIN TIME 12.4 SECONDS (9.4-12.5)
[2018-01-20] MEDS ORDERED: Nitroglycerin 50mg in D5W 50 MG/250 ML BOTTLE IV PRN (10:13)
[2018-01-20 10:14] LABS: TROPONIN I 0.03 ng/mL
[2018-01-20] MEDS ORDERED: Heparin25000 units/250ml 1/2NS 25,000 UNITS/250 ML BAG IV PRN (10:15)
--- NOTE | 2018-01-20 10:26 | RAD ---
HISTORY: chest pain COMPARISON: 10/21/2017 FINDINGS: LUNGS: No active pulmonary disease. PLEURA: No significant pleural effusion identified, no pneumothorax apparent. CARDIOVASCULAR: Normal. OSSEOUS STRUCTURES: No significant abnormalities. VISUALIZED UPPER ABDOMEN: Normal. OTHER FINDINGS: None. IMPRESSION: No active disease.
[2018-01-20] MEDS ORDERED: Morphine 4 mg/ml ISec IVP STA (12:38)
--- NOTE | 2018-01-20 12:48 | CP.PCM.CON ---
History of Present Illness - History of Present Illness History of Present Illness: MICU Consult Note HPI Patient is 67yo male with PMHx CHF, diabetes, ESRD on HD MWF, and hypothyroidism , with recent admission to [facility] for cardiac tamponade s/p window, presents from HD after complaints of CP. Pt reports chest pain, sternal, non radiating, without alleviating or aggravating factors. Denies fever, chills, cough, SOB, palpitations, JENSEN, dizziness, diaphoresis, recent travel. No other constitutional symptoms. Plan for cardiac cath tomorrow. Bedside ECHO, demonstrates depressed EF, with minimal pericardial effusion. PMHx as above PSHx AV Fistula Meds as per EMR FHx NC Social denies smoking, etoh, drug use Review of Systems - Review of Systems Review of Systems: as per HPI Past Patient History - Infectious Disease Hx of Infectious Diseases: None - Tetanus Immunizations Tetanus Immunization: Unknown - Past Medical History & Family History Past Medical History?: Yes - Past Social History Smoking Status: Former Smoker - CARDIAC Hx Cardiac Disorders: Yes Hx Congestive Heart Failure: Yes Hx Pacemaker: No - PULMONARY Hx Respiratory Disorders: Yes (H/O SMOKING CIGARETTES .SMOKED FOR 20 YRS) Hx Bronchitis: Yes Hx Pneumonia: Yes Hx Tuberculosis: Yes Other/Comment: SMOKED FOR 20 YRS - NEUROLOGICAL Hx Neurological Disorder: Yes Hx Seizures: No (denies) - HEENT Hx HEENT Problems: Yes Hx Cataracts: Yes - RENAL Hx Chronic Kidney Disease: Yes Hx Renal Failure: Yes - ENDOCRINE/METABOLIC Hx Endocrine Disorders: Yes Hx Diabetes Mellitus Type 1: Yes Hx Hypothyroidism: Yes - HEMATOLOGICAL/ONCOLOGICAL Hx Blood Transfusions: Yes Hx Blood Transfusion Reaction: No - INTEGUMENTARY Hx Dermatological Problems: Yes (OLD NF SCARRED AREA LEFT UPPER ARM. SHUNT TO RIGHT UPPER ARM) Other/Comment: dry tight discolored slin to ble +1 edema rll - MUSCULOSKELETAL/RHEUMATOLOGICAL Hx Musculoskeletal Disorders: Yes Hx Falls: Yes - GASTROINTESTINAL Hx Gastrointestinal Disorders: No - GENITOURINARY/GYNECOLOGICAL Hx Genitourinary Disorders: Yes (voids very little in am ANURIA) - PSYCHIATRIC Hx Emotional Abuse: No Hx Physical Abuse: No Hx Substance Use: No - SURGICAL HISTORY Hx Cardiac Catheterization: Yes Other/Comment: Kidney - ANESTHESIA Hx Anesthesia Reactions: No Hx Malignant Hyperthermia: No Meds Allergies/Adverse Reactions: Allergies Allergy/AdvReac Type Severity Reaction Status Date / Time No Known Allergies Allergy Verified 10/21/17 19:52 - Medications Medications: Current Medications Aspirin (Ecotrin) 81 mg PO DAILY GURVINDER Atorvastatin Calcium (Lipitor) 20 mg PO DIN GURVINDER Calcium Acetate (Phoslo) 667 mg PO WM GURVINDER Clopidogrel Bisulfate (Plavix) 75 mg PO DAILY [facility] Nitroglycerin/Dextrose (Nitroglycerin 50 Mg/250 Ml D5w) 50 mg in 250 mls @ 1.5 mls/hr IV .Q24H PRN; Protocol; 5 MCG/MIN PRN Reason: TITRATE PER PROTOCOL Last Admin: 01/20/18 11:46 Dose: 5 mcg/min, 1.5 mls/hr Heparin Sodium/Sodium Chloride (Heparin 67943 Units/250ml 1/2 Normal Saline) 25 ,000 units in 250 mls @ 7.62 mls/hr IV .Q24H PRN; Protocol; 12 UNITS/KG/HR PRN Reason: TITRATE PER PROTOCOL Last Admin: 01/20/18 10:31 Dose: 7.62 mls/hr Levothyroxine Sodium (Synthroid) 25 mcg PO DAILY [facility] Metoprolol Tartrate (Lopressor) 25 mg PO TID [facility] Morphine Sulfate (Morphine) 4 mg IVP STAT STA Stop: 01/20/18 12:39 Pantoprazole Sodium (Protonix Ec Tab) 20 mg PO DAILY [facility] Sevelamer HCl (Renagel) 800 mg PO TID [facility] Vitamin B Complex/Vit C/Folic Acid (Nephro-Armando) 1 tab PO DAILY [facility] Physical Exam - Constitutional Appears: Non-toxic, No Acute Distress - Head Exam Head Exam: NORMAL INSPECTION - Eye Exam Eye Exam: Normal appearance - ENT Exam ENT Exam: Mucous Membranes Moist - Respiratory Exam Respiratory Exam: Clear to Auscultation Bilateral, NORMAL BREATHING PATTERN - Cardiovascular Exam Cardiovascular Exam: REGULAR RHYTHM, +S1, +S2 - GI/Abdominal Exam GI & Abdominal Exam: Normal Bowel Sounds, Soft - Extremities Exam Extremities exam: Positive for: normal inspection - Neurological Exam Neurological exam: Alert, Oriented x3 Results - Vital Signs Recent Vital Signs: Last Vital Signs Temp 98.8 F 01/20/18 10:59 Pulse 110 H 01/20/18 12:18 Resp 19 01/20/18 12:18 BP 123/46 L 01/20/18 12:18 Pulse Ox 100 01/20/18 12:18 - Labs Result Diagrams: 01/20/18 09:43 01/20/18 09:43 Assessment & Plan - Assessment and Plan (Free Text) Assessment: 67yo male a/w chest pain CHEST PAIN SOB ESRD on HD HTN CHF hx of Pericardial Effusion - currently afebrile, HD stable, in mild discomfort from chest pain, on Heparin drip, and nitro drip - EKG with LVH with strain pattern, NSST changes Recommend: - Supp o2 as needed - panculture - BP control - Nitro drip - Heparin Drip - ASA, Plavix - Cardiac cath tomorrow AM - repeat cardiac enzymes - NPO after MN - follow up renal - follow up cardiology - GI ppx - DVT ppx, Heparin drip - Admit to CCU
[2018-01-20] MEDS ORDERED: Pneumococcal 23-Valent Vaccine IM ONE (16:41)
[2018-01-21] MEDS ORDERED: Morphine 4 mg/ml ISec IVP STA (02:05)
--- NOTE | 2018-01-21 04:41 | HP ---
DATE OF EXAM: 01/20/2018 HISTORY OF PRESENT ILLNESS: This 67-year-old male was examined at his bedside and is admitted for chest pain and shortness of breath upon completion of hemodialysis earlier today where in emergency room, he was noted to have EKG changes consistent with possible subendocardial myocardial infarction. PAST MEDICAL HISTORY: Significant for atherosclerotic heart disease; congestive heart failure; status post myocardial infarction; coronary artery stenting; end-stage renal disease, hemodialysis dependent and recent left nephrectomy for renal cell carcinoma with possible metastases to lung. Medical course is also consistent with hypothyroidism, peptic ulcer disease with GERD, hyperphosphatemia, chronic hypertension, hyperlipidemia, anemia of chronic disease and degenerative arthritis. ALLERGIES: THE PATIENT HAS NO KNOWN ALLERGIES TO MEDICATION. SOCIAL HISTORY: He is a current nondrinker, nonsmoker, non IV drug misuser. FAMILY HISTORY: Noncontributory and he attends hemodialysis at [facility] Saturday, Saturday and Saturday morning. OUTPATIENT MEDICATIONS: Included multivitamin 1 tablet daily, PhosLo 667 mg p.o. pc meals t.i.d., Prilosec 20 mg p.o. daily, minoxidil 5 mg p.o. daily p.r.n. accelerated hypertension, Lopressor 25 mg p.o. b.i.d., Synthroid 25 mcg p.o. daily, Plavix 75 mg p.o. daily, Lipitor 20 mg p.o. at dinner time and Ecotrin 81 mg p.o. daily. REVIEW OF SYSTEMS: HEENT: Head review, no headache or seizure. Eye review, no change in visual acuity. Ear review, No hearing loss. Throat review: No swallowing difficulty. NECK REVIEW: No stiffness. CARDIAC REVIEW: He had substernal chest discomfort and pressure associated with shortness of breath, which did not improve with the termination of dialysis today. He stated that he did experience some mild diaphoresis, but denied jaw pain or radiation to his arm or shoulder. There was no nausea or vomiting associated with this discomfort. LUNGS: No cough. No hemoptysis. GASTROINTESTINAL: As per HPI. GENITOURINARY: As per HPI. He is on renal dialysis Saturday, Saturday and Fridays. He is status post left nephrectomy. ENDOCRINE: Hyperlipidemia, diet-controlled insulin-dependent diabetes mellitus. VASCULAR: No claudication. PSYCHOLOGICAL: No anxiety. No depression. NEUROLOGICAL: No knowledge of stroke. PHYSICAL EXAMINATION: GENERAL: Patient was in a normal sinus rhythm on the air sampling and monitoring. VITAL SIGNS: Temperature of 98.8, respirations 20, pulse 103 and blood pressure 133/54 with a pulse ox of 100% on room air. HEENT: Head: Normocephalic, atraumatic. Eyes: No icterus. Ears: Clear. Throat: Noninjected. NECK: Supple. HEART : Regular S1 and S2. No pathological rubs, murmurs or gallops. LUNGS: Clear. ABDOMEN: Soft. No rebound, no guarding. No tenderness. EXTREMITIES: No edema. SKIN: Without rash. NEUROLOGICAL: Intact. PSYCHOLOGICAL: Alert. VASCULAR: Legs warm to touch. LABORATORY DATA: White count 9400, hemoglobin 12.9, hematocrit 37, platelets 196,000. PT/INR 1.08, PTT 30.1. Sodium 145, K 3.5 post dialysis, chloride 92, bicarb 27, BUN 33, creatinine 5.7 post dialysis. Glucose 105, calcium 9.8. Magnesium 2.2. Bilirubin 0.7, AST 29, ALT 19 and alk phos 151. CPK 52. Troponin #1 0.03, troponin #2 0.07, troponin #3 0.95. BNP 16,100. Chest x-ray was reviewed. It showed no evidence of pleural effusion, no pneumothorax, no pulmonary infiltrate, no congestive heart failure. EKG reportedly showed ST-segment depressions in leads V4, V5 and V6. IMPRESSION: A 67-year-old male with history of recent cardiac tamponade with pericardial window at [facility], now admitted with chest pain, EKG changes, rule out subendocardial myocardial infarction. Of note, an intensive care bedside echocardiogram was performed, which demonstrated a depressed ejection fraction with a minimal pericardial effusion. PLAN: The plan will be to outline medications, maintain the patient on a nitroglycerin drip, heparin drip, continue aspirin and Plavix, protect with GI prophylaxis and proceed with cardiac catheterization in a.m. under the direction of Dr. Leoncio Archer from Cardiology. I have spoken with the renal dialysis nurses. They will be prepared for hemodialysis post cardiac cath and patient will also be scheduled for CBC, phosphorous, magnesium and comprehensive metabolic panel in the a.m. Greater than 75 minutes was spent in the care management, review of labs, orders, x-rays and outlining of treatment plan and discussion of his case with family, nursing, bricklayer apprentice, Cardiology and dialysis nursing. All questions were answered. No Banda MD [email or web address]
[2018-01-21 06:36] LABS: HEMOGLOBIN 12.3 g/dL (14.0-18.0); MEAN CORPUSCULAR HGB CONC 32.4 g/dl (31.0-37.0); MEAN PLATELET VOLUME 9.4 fl (7.0-11.0); RBC 4.39 10^6/uL (3.5-6.1); RED CELL DISTRIBUTION WIDTH 14.9 % (11.5-14.5); WHITE BLOOD COUNT 8.9 10^3/ul (4.5-11.0)
[2018-01-21 06:38] LABS: MEAN CELL VOLUME 86.6 fl (80.0-105.0)
[2018-01-21 07:19] LABS: ALB/GLOB RATIO 1.2 (1.1-1.8); ALBUMIN 4.3 g/dL (3.0-4.8); CALCIUM 8.5 mg/dL (8.4-10.5); TROPONIN I 0.82 ng/mL
--- NOTE | 2018-01-21 07:41 | CP.CCUPN ---
<Hong Espino - Last Filed: 01/21/18 09:15> CCU Subjective - Physician Review Subjective (Free Text): ICU Progress Note Pt seen and examined at bedside. No acute overnight events. Patient reports no chest pain or SOB, off nitroglycerin drip. Pt denies CP, SOB, n/v/d, abdominal pain, fever, chills, JENSEN, or dizziness. CCU Objective - Vital Signs / Intake & Output Vital Signs (Last 4 hours): Vital Signs Temp Pulse Resp BP Pulse Ox 01/21/18 06:10 94 H 23 100 01/21/18 06:00 95 H 18 141/83 100 01/21/18 05:50 93 H 18 99 01/21/18 05:40 96 H 35 H 100 01/21/18 05:30 92 H 21 95 01/21/18 05:20 90 24 100 01/21/18 05:10 90 18 99 01/21/18 05:00 88 19 114/53 L 99 01/21/18 04:50 93 H 22 100 01/21/18 04:40 91 H 23 96 01/21/18 04:30 97 H 57 H 100 01/21/18 04:20 91 H 19 100 01/21/18 04:10 92 H 28 H 100 01/21/18 04:00 98.9 F 90 24 130/49 L 100 01/21/18 03:50 93 H 16 100 01/21/18 03:40 90 27 H 100 Intake and Output (Last 8hrs): Intake & Output 01/20/18 01/21/18 01/21/18 22:59 06:59 14:59 Intake Total 197 30 Balance 197 30 Weight 63.5 kg Intake: IV 77 30 Heparin drip 47 Tridil 30 Oral 120 - Physical Exam Head: Positive for: Atraumatic, Normocephalic Pupils: Positive for: PERRL Extroacular Muscles: Positive for: EOMI Conjunctiva: Positive for: Normal Mouth: Positive for: Moist Mucous Membranes Neck: Positive for: Normal Range of Motion Respiratory/Chest: Positive for: Rales (Crackles left lower base). Negative for : Respiratory Distress, Accessory Muscle Use, Wheezes, Rhonchi Cardiovascular: Positive for: Normal S1, S2. Negative for: Murmurs, Rub, Gallop , Muffled Back: Positive for: Normal Inspection Upper Extremity: Positive for: Normal Inspection Lower Extremity: Positive for: Normal Inspection Neurological: Positive for: GCS=15, CN II-XII Intact, Speech Normal Skin: Positive for: Warm, Dry, Normal Color. Negative for: Rashes Psychiatric: Positive for: Alert, Oriented x 3, Normal Insight, Normal Concentration - Medications Active Medications: Active Medications Generic Name Dose Route Start Last Admin Trade Name Freq PRN Reason Stop Dose Admin Acetaminophen 650 mg 01/20/18 13:41 01/20/18 14:09 Tylenol 325mg Tab PO 650 mg Q6H PRN Administration Fever >100.4 F Aspirin 81 mg 01/21/18 10:00 Ecotrin PO DAILY GURVINDER Atorvastatin Calcium 20 mg 01/20/18 17:00 01/20/18 17:32 Lipitor PO 20 mg DIN GURVINDER Administration Calcium Acetate 667 mg 01/20/18 12:00 01/20/18 17:32 Phoslo PO 667 mg WM GURVINDER Administration Clopidogrel Bisulfate 75 mg 01/21/18 10:00 Plavix PO DAILY GUR[facility]INDER Nitroglycerin/Dextrose 50 mg in 250 mls @ 1.5 mls/hr 01/20/18 10:13 01/20/18 19:00 Nitroglycerin 50 Mg/250 Ml D5w IV 0 mcg/min .Q24H PRN 0 mls/hr TITRATE PER PROTOCOL Titration Protocol 5 MCG/MIN Heparin Sodium/Sodium Chloride 25,000 units in 250 mls @ 7.62 mls/hr 01/20/18 10:15 01/21/18 00:42 Heparin 31456 Units/250ml 1/2 Normal Saline IV 16 units/kg/hr .Q24H PRN 10.16 mls/hr TITRATE PER PROTOCOL Titration Protocol 12 UNITS/KG/HR Levothyroxine Sodium 25 mcg 01/21/18 10:00 Synthroid PO DAILY GURVINDER Metoprolol Tartrate 25 mg 01/20/18 14:00 01/20/18 14:09 Lopressor PO 25 mg TID GURVINDER Administration Pantoprazole Sodium 20 mg 01/21/18 10:00 Protonix Ec Tab PO DAILY GURVINDER Sevelamer HCl 800 mg 01/20/18 14:00 01/20/18 17:32 Renagel PO 800 mg TID GURVINDER Administration Vitamin B Complex/Vit C/Folic Acid 1 tab 01/21/18 10:00 Nephro-Armando PO DAILY GURVINDER - Patient Studies Lab Studies: Lab Studies 01/21/18 01/21/18 01/21/18 Range/Units 07:00 05:20 05:20 WBC 8.9 (4.5-11.0) 10^3/ul RBC 4.39 (3.5-6.1) 10^6/uL Hgb 12.3 L (14.0-18.0) g/dL Hct 38.0 L (42.0-52.0) % MCV 86.6 D (80.0-105.0) fl MCH 28.0 (25.0-35.0) pg MCHC 32.4 (31.0-37.0) g/dl RDW 14.9 H (11.5-14.5) % Plt Count 179 (120.0-450.0) 10^3/uL MPV 9.4 (7.0-11.0) fl APTT 45.8 H (25.1-36.5) Seconds Sodium 139 (132-148) mmol/L Potassium 4.6 (3.6-5.0) mmol/L Chloride 91 L (98-107) mmol/L Carbon Dioxide 27 (21-33) mmol/L Anion Gap 25 H (10-20) BUN 61 H (7-21) mg/dL Creatinine 10.0 H* D (0.8-1.5) mg/dl Est GFR ( Amer) 6 Est GFR (Non-Af Amer) 5 Random Glucose 113 H (70-110) mg/dL Calcium 8.5 (8.4-10.5) mg/dL Phosphorus 6.6 H (2.5-4.5) mg/dL Magnesium 2.3 H (1.7-2.2) mg/dL Total Bilirubin 0.5 (0.2-1.3) mg/dL AST 25 (17-59) U/L ALT 22 (7-56) U/L Alkaline Phosphatase 113 (38-126) U/L Troponin I 0.82 H* ng/mL Total Protein 8.0 (5.8-8.3) g/dL Albumin 4.3 (3.0-4.8) g/dL Globulin 3.7 gm/dL Albumin/Globulin Ratio 1.2 (1.1-1.8) 01/20/18 01/20/18 01/20/18 Range/Units 23:37 17:05 17:05 WBC (4.5-11.0) 10^3/ul RBC (3.5-6.1) 10^6/uL Hgb (14.0-18.0) g/dL Hct (42.0-52.0) % MCV (80.0-105.0) fl MCH (25.0-35.0) pg MCHC (31.0-37.0) g/dl RDW (11.5-14.5) % Plt Count (120.0-450.0) 10^3/uL MPV (7.0-11.0) fl APTT 43.7 H 39.0 H (25.1-36.5) Seconds Sodium (132-148) mmol/L Potassium (3.6-5.0) mmol/L Chloride (98-107) mmol/L Carbon Dioxide (21-33) mmol/L Anion Gap (10-20) BUN (7-21) mg/dL Creatinine (0.8-1.5) mg/dl Est GFR ( Amer) Est GFR (Non-Af Amer) Random Glucose (70-110) mg/dL Calcium (8.4-10.5) mg/dL Phosphorus (2.5-4.5) mg/dL Magnesium (1.7-2.2) mg/dL Total Bilirubin (0.2-1.3) mg/dL AST (17-59) U/L ALT (7-56) U/L Alkaline Phosphatase (38-126) U/L Troponin I 0.95 H* D ng/mL Total Protein (5.8-8.3) g/dL Albumin (3.0-4.8) g/dL Globulin gm/dL Albumin/Globulin Ratio (1.1-1.8) 01/20/18 Range/Units 11:52 WBC (4.5-11.0) 10^3/ul RBC (3.5-6.1) 10^6/uL Hgb (14.0-18.0) g/dL Hct (42.0-52.0) % MCV (80.0-105.0) fl MCH (25.0-35.0) pg MCHC (31.0-37.0) g/dl RDW (11.5-14.5) % Plt Count (120.0-450.0) 10^3/uL MPV (7.0-11.0) fl APTT (25.1-36.5) Seconds Sodium (132-148) mmol/L Potassium (3.6-5.0) mmol/L Chloride (98-107) mmol/L Carbon Dioxide (21-33) mmol/L Anion Gap (10-20) BUN (7-21) mg/dL Creatinine (0.8-1.5) mg/dl Est GFR ( Amer) Est GFR (Non-Af Amer) Random Glucose (70-110) mg/dL Calcium (8.4-10.5) mg/dL Phosphorus (2.5-4.5) mg/dL Magnesium (1.7-2.2) mg/dL Total Bilirubin (0.2-1.3) mg/dL AST (17-59) U/L ALT (7-56) U/L Alkaline Phosphatase (38-126) U/L Troponin I 0.07 D ng/mL Total Protein (5.8-8.3) g/dL Albumin (3.0-4.8) g/dL Globulin gm/dL Albumin/Globulin Ratio (1.1-1.8) Laboratory Results - last 24 hr 01/20/18 01/20/18 01/20/18 11:52 17:05 17:05 WBC RBC Hgb Hct MCV MCH MCHC RDW Plt Count MPV APTT 39.0 H Sodium Potassium Chloride Carbon Dioxide Anion Gap BUN Creatinine Est GFR ( Amer) Est GFR (Non-Af Amer) Random Glucose Calcium Phosphorus Magnesium Total Bilirubin AST ALT Alkaline Phosphatase Troponin I 0.07 D 0.95 H* D Total Protein Albumin Globulin Albumin/Globulin Ratio 01/20/18 01/21/18 01/21/18 23:37 05:20 05:20 WBC 8.9 RBC 4.39 Hgb 12.3 L Hct 38.0 L MCV 86.6 D MCH 28.0 MCHC 32.4 RDW 14.9 H Plt Count 179 MPV 9.4 APTT 43.7 H Sodium 139 Potassium 4.6 Chloride 91 L Carbon Dioxide 27 Anion Gap 25 H BUN 61 H Creatinine 10.0 H* D Est GFR ( Amer) 6 Est GFR (Non-Af Amer) 5 Random Glucose 113 H Calcium 8.5 Phosphorus 6.6 H Magnesium 2.3 H Total Bilirubin 0.5 AST 25 ALT 22 Alkaline Phosphatase 113 Troponin I 0.82 H* Total Protein 8.0 Albumin 4.3 Globulin 3.7 Albumin/Globulin Ratio 1.2 01/21/18 07:00 WBC RBC Hgb Hct MCV MCH MCHC RDW Plt Count MPV APTT 45.8 H Sodium Potassium Chloride Carbon Dioxide Anion Gap BUN Creatinine Est GFR ( Amer) Est GFR (Non-Af Amer) Random Glucose Calcium Phosphorus Magnesium Total Bilirubin AST ALT Alkaline Phosphatase Troponin I Total Protein Albumin Globulin Albumin/Globulin Ratio EKG/Cardiology Studies: Cardiology / EKG Studies 01/20/18 09:26 ELECTROCARDIOGRAM Stat Comment: Reason For Exam: chest pain 01/21/18 EKG [ELECTROCARDIOGRAM] Routine Comment: Reason For Exam: chest pain Critical Care Progress Note - Nutrition Nutrition: Nutrition Category Date Time Status Renal Diet [DIET] Diets 01/20/18 Dinner Ordered Assessment/Plan - Assessment and Plan (Free Text) Assessment: 67 yo M with PMH of CAD s/p stents, CHF, ESRD on HD, pericardial effusion s/p pericardial window, diabetes, and hypothyroidism presented with CP and SOB during/after hemodialysis. Patient admitted to ICU with chest pain and ST changes on EKG on heparin and nitroglycerin drip. Subsequently, found to have elevated troponin on repeat cardiac enzymes. Patient will undergo cardiac catherization today. Patient will need HD after catherization. Plan: Neuro: - AAOx3 - Maintain normothermia CV: - Cardiac catherization today - EKG on admission reviewed: LVH, ST depression on lateral leads, PAC - Troponin elevated - Echo ordered (Echo from 06/2017 LVEF 68.4%) - Heparin gtt - Nitroglycerin gtt, currently off - ASA, Plavix, Lipitor, Lopressor - Maintain MAP > 65 - Cardiology consulted Pulm: - CXR shows no active disease - Maintain O2 > 90% - O2 via NC Renal: - Creatinine elevated, 10 - Will likely need Hemodialysis after catherization - Cont PhosLo and Renegel - Monitor electrolytes - Maintain normovolemia GI: - Protonix for GI PPx - NPO for catherization Endo: - Cont Synthroid - Maintain euglycemia Heme: - Heparin gtt - Maintain therapeutic PTT on heparin Pt seen and discussed in detail with Dr. Mcneil. Timothy Espino, PGY1 <Crispin Mcneil - Last Filed: 01/22/18 09:58> CCU Objective - Vital Signs / Intake & Output Vital Signs (Last 4 hours): Vital Signs Pulse Resp BP Pulse Ox 01/22/18 09:27 78 122/51 L 01/22/18 06:40 74 14 95 01/22/18 06:30 75 21 62 L 01/22/18 06:20 75 12 91 L 01/22/18 06:10 74 19 100 01/22/18 06:00 75 27 H 01/22/18 05:59 76 27 H Intake and Output (Last 8hrs): Intake & Output 01/21/18 01/22/18 01/22/18 22:59 06:59 14:59 Intake Total 650 Output Total 1200 Balance -550 Intake: IV 200 Left Hand 200 Oral 450 Output: Other 1200 Other: # Bowel Movements 0 - Medications Active Medications: Active Medications Generic Name Dose Route Start Last Admin Trade Name Freq PRN Reason Stop Dose Admin Acetaminophen 650 mg 01/20/18 13:41 01/20/18 14:09 Tylenol 325mg Tab PO 650 mg Q6H PRN Administration Fever >100.4 F Aspirin 81 mg 01/21/18 10:00 01/22/18 09:26 Ecotrin PO 81 mg DAILY GURVINDER Administration Atorvastatin Calcium 20 mg 01/20/18 17:00 01/21/18 17:10 Lipitor PO 20 mg DIN GURVINDER Administration Calcium Acetate 667 mg 01/20/18 12:00 01/22/18 09:28 Phoslo PO 667 mg WM GURVINDER Administration Clopidogrel Bisulfate 75 mg 01/21/18 10:00 01/22/18 09:26 Plavix PO 75 mg DAILY GURVINDER Administration Insulin Human Regular 0 units 01/21/18 16:30 01/22/18 07:30 Humulin R Low SC Not Given [facility] Protocol Levothyroxine Sodium 25 mcg 01/21/18 10:00 01/22/18 09:26 Synthroid PO 25 mcg DAILY GURVINDER Administration Metoprolol Tartrate 25 mg 01/20/18 14:00 01/22/18 09:27 Lopressor PO 25 mg TID GURVINDER Administration Pantoprazole Sodium 20 mg 01/21/18 10:00 01/22/18 09:26 Protonix Ec Tab PO 20 mg DAILY GURVINDER Administration Vitamin B Complex/Vit C/Folic Acid 1 tab 01/21/18 10:00 01/22/18 09:26 Nephro-Armando PO 1 tab DAILY GURVINDER Administration - Patient Studies Lab Studies: Microbiology Studies 01/20/18 15:46 MRSA Culture (Admit) - Final Naris MRSA NOT DETECTED Lab Studies 01/22/18 01/22/18 01/21/18 Range/Units 06:00 06:00 17:03 WBC 9.3 (4.5-11.0) 10^3/ul RBC 4.31 (3.5-6.1) 10^6/uL Hgb 12.1 L (14.0-18.0) g/dL Hct 37.2 L (42.0-52.0) % MCV 86.3 (80.0-105.0) fl MCH 28.1 (25.0-35.0) pg MCHC 32.5 (31.0-37.0) g/dl RDW 14.8 H (11.5-14.5) % Plt Count 171 (120.0-450.0) 10^3/uL MPV 9.2 (7.0-11.0) fl Sodium 140 (132-148) mmol/L Potassium 5.1 H (3.6-5.0) mmol/L Chloride 90 L (98-107) mmol/L Carbon Dioxide 23 (21-33) mmol/L Anion Gap 33 H (10-20) BUN 82 H (7-21) mg/dL Creatinine 12.8 H* D (0.8-1.5) mg/dl Est GFR ( Amer) 5 Est GFR (Non-Af Amer) 4 POC Glucose (mg/dL) 204 H (65-110) mg/dL Random Glucose 69 L (70-110) mg/dL Calcium 9.3 (8.4-10.5) mg/dL Phosphorus 8.4 H (2.5-4.5) mg/dL Magnesium 2.5 H (1.7-2.2) mg/dL Total Bilirubin 0.5 (0.2-1.3) mg/dL AST 29 (17-59) U/L ALT 16 (7-56) U/L Alkaline Phosphatase 122 (38-126) U/L Total Protein 8.1 (5.8-8.3) g/dL Albumin 4.5 (3.0-4.8) g/dL Globulin 3.6 gm/dL Albumin/Globulin Ratio 1.2 (1.1-1.8) Laboratory Results - last 24 hr 01/21/18 01/22/18 01/22/18 17:03 06:00 06:00 WBC 9.3 RBC 4.31 Hgb 12.1 L Hct 37.2 L MCV 86.3 MCH 28.1 MCHC 32.5 RDW 14.8 H Plt Count 171 MPV 9.2 Sodium 140 Potassium 5.1 H Chloride 90 L Carbon Dioxide 23 Anion Gap 33 H BUN 82 H Creatinine 12.8 H* D Est GFR ( Amer) 5 Est GFR (Non-Af Amer) 4 POC Glucose (mg/dL) 204 H Random Glucose 69 L Calcium 9.3 Phosphorus 8.4 H Magnesium 2.5 H Total Bilirubin 0.5 AST 29 ALT 16 Alkaline Phosphatase 122 Total Protein 8.1 Albumin 4.5 Globulin 3.6 Albumin/Globulin Ratio 1.2 Critical Care Progress Note - Nutrition Nutrition: Nutrition Category Date Time Status Renal Diet [DIET] Diets 01/20/18 Dinner Ordered Attending/Attestation - Attestation I have personally seen and examined this patient.: Yes I have fully participated in the care of the patient.: Yes I have reviewed all pertinent clinical information: Yes Notes (Text): 01/22/18 09:52 67 yo male with multiple cardiovascular risk factors came with ACS, was put on DAP, bb, TAC, statins and has undergone coronary angio. Hemodynamically and respiratory hernandez stable. Transferred to [facility] by cardiology service ccm time 40 min
--- NOTE | 2018-01-21 08:12 | CARD ---
APPROVED REPORT EKG Measurement Heart [id number] <Conclusion> Sinus tachycardia with premature atrial complexes with aberrant conduction Left ventricular hypertrophy with ST_T Changes. Correlate clinically for Ischaemia.
[2018-01-21] MEDS ORDERED: Lidocaine 2% Inj (20ml) ONE (09:19)
[2018-01-21] MEDS ORDERED: Midazolam 2 MG/2 ML VIAL ONE ×3 (09:19→10:37)
[2018-01-21] MEDS ORDERED: Iodixanol 320 MG/ML 200 ML BOTTLE IV ONE (09:20)
[2018-01-21] MEDS ORDERED: Non Formulary Medication (Omeprazole [Omeprazole] 20 MG) PO SCH (10:00)
--- NOTE | 2018-01-21 10:26 | CARD ---
APPROVED REPORT EKG Measurement Heart [id number] <Conclusion> Normal sinus rhythm Possible Left atrial enlargement Borderline ECG
--- NOTE | 2018-01-21 11:38 | CARDCATH ---
PROCEDURE DATE: 01/21/2018 PROCEDURES: 1. Selective left and right coronary angiography. 2. Left ventriculography. 3. Right femoral arteriography. 4. Angio-Seal deployment. HISTORY: This is a 67-year-old male with known coronary artery disease, status post previous multivessel PCI, who was admitted with acute coronary syndrome yesterday and cardiac catheterization was advised. INDICATIONS: Acute coronary syndrome, known coronary artery disease. CORONARY ANGIOGRAM: 1. The left mainstem was normal. 2. Left anterior descending artery had mild to moderate calcification present in its proximal segment. There is evidence of mild diffuse irregularities. There was a 50% stenosis of the LAD in the early distal segment of the vessel. The diagonal branch had evidence of mild diffuse disease. The very distal segment of the vessel had moderate diffuse disease. 3. The left circumflex artery gave rise to one large obtuse marginal branch. The previously placed stent in this vessel had evidence of a 40% in-stent restenosis. 4. The right coronary artery had a widely patent stent in its proximal segment. The artery was dominant. Mild diffuse irregularities are noted distally. The posterior descending artery had an ostial 40% stenosis. LEFT VENTRICULOGRAPHY: A hand injection was performed in the left ventricle revealing evidence of normal wall motion with an ejection fraction of 65%. There is no aortic valve gradient noted on catheter pullback. Mitral regurgitation was not assessed. RIGHT FEMORAL ARTERIOGRAPHY: A right femoral arteriogram was performed in the JOHN projection. This revealed no evidence of significant disease and the level of arterial puncture was appropriate. The puncture site was then closed with deployment of an Angio-Seal device. CONCLUSION: 1. Moderate left circumflex in-stent restenosis. 2. Mild to moderate diffuse coronary artery disease. 3. Patent right coronary artery stent. 4. Normal left ventricular systolic function. RECOMMENDATIONS: Given the above findings, continue medical therapy and risk factor control will be advised. A total of 90 mL of intravenous contrast was used and the patient will be scheduled for dialysis later today. Leoncio Archer MD cc: No Banda MD.
--- NOTE | 2018-01-21 12:05 | CON ---
DATE: 01/21/2018 CONSULTATION INDICATIONS: NSTEMI. HISTORY OF PRESENT ILLNESS: This is a 67-year-old male, known to our practice. Admitted after he developed chest pain and shortness of breath at the end of hemodialysis yesterday. He was brought to the emergency room. Subsequently, admitted to the CCU where he is resting comfortably this morning. This symptoms have subsided. He is on IV nitroglycerin and IV heparin. His troponins are elevated. A cardiac catheterization with coronary intervention is planned for later this morning. There is no orthopnea, PND, syncope, presyncope, lightheadedness, dizziness, vertigo, palpitations, edema, claudication, fever, chills, cough, sputum production, hemoptysis, abdominal pain, nausea, vomiting, diarrhea, constipation, melena. PAST MEDICAL HISTORY: Complex. He has known coronary artery disease with prior stents in the circumflex artery and the right coronary artery. In October, he underwent evaluation for recurring chest pain and 80% in-stent restenosis was noted in the circumflex artery. A balloon angioplasty was done at that time. He has a history of chronic kidney disease and 3 times a week hemodialysis. He has paroxysmal atrial fibrillation, hypertension, diabetes, hypothyroidism, anemia, seizure disorder, peptic ulcer disease and GERD. There is a history of a nephrectomy for renal cell cancer. He is a former smoker. An echocardiogram in the past has shown normal LV function with moderate tricuspid regurgitation, severe pulmonary hypertension and mild mitral regurgitation. MEDICATIONS AT THE TIME OF ADMISSION: Include aspirin, Lipitor, metoprolol, vitamins, omeprazole, Pepcid, PhosLo, Plavix, Renagel and levothyroxine. There were no medication allergies reported. SOCIAL HISTORY: He lives at home with his . He does not smoke cigarettes. He does not drink alcohol. FAMILY HISTORY: Noncontributory. REVIEW OF SYSTEMS: Ten-point review of systems otherwise unremarkable except as noted above. PHYSICAL EXAMINATION: GENERAL: He is a well-developed man, lying in bed in the CCU. His is at the bedside. VITAL SIGNS: Notable for sinus rhythm, 94 beats per minute; afebrile; 141/83; respirations 23, O2 sat 100% on nasal cannula. HEENT: Reveals no neck vein distention, thyromegaly, carotid bruit. Mucous membranes moist. Conjunctivae pink. NECK: Supple. LUNGS: Lung urrutia, a few scattered rhonchi. HEART: Examination of the heart revealed normal first and second heart sounds with systolic murmur along the left sternal border. ABDOMEN: Soft. Bowel sounds present. No mass, organomegaly, tenderness, rebound, guarding, CVA tenderness or palpable abdominal aortic aneurysm. EXTREMITY: Revealed no cyanosis, clubbing, edema. NEUROLOGICAL: Awake, alert and oriented. SKIN: Warm and dry. No rash or cellulitis. PSYCHIATRIC: Normal as to mood and affect. LABORATORY DATA AND IMAGING: EKG demonstrates regular sinus rhythm, poor R-wave progression. There are deep ST depressions noted in leads V4 through V6. Lesser ST depressions noted in multiple limb leads. These are changes from a prior EKG. The chest x-ray reveals no active disease. White count normal, hemoglobin 12.3, hematocrit 38, platelet count 179,000. PT, PTT, INR normal initially. PTT 45.8, on heparin therapy this morning. Electrolytes unremarkable. Potassium 4.6. Today's BUN is 61, creatinine 10, blood sugar 113, magnesium 2.3. LFTs unremarkable. CK initially 52. Troponin 0.03, repeat 0.07, repeat 0.95, repeat 0.82. BNP 16,100. IMPRESSION: Moshe Coleman is a 67-year-old renal dialysis patient who developed chest pain, shortness of breath at the end of dialysis yesterday whose EKG was ischemic and who has elevated troponin levels as noted. He has known coronary artery disease with balloon angioplasty of an in-stent restenosis of the circumflex artery stent in 10/2017. At this point, he is n.p.o., on IV heparin and IV nitroglycerin with a cardiac catheterization plan for later this morning. I will repeat his EKG. He is getting aspirin, Lipitor, metoprolol, Plavix. We have plans for hemodialysis following the procedure. Once the catheterization is done, we will make additional recommendations. An echocardiogram is ordered. We will follow along with you. Carlos A Faulkner MD [facility]
[2018-01-21] MEDS: Multivitamin Vitamin B Complex (Nephro-Vite) Tab PO SCH (14:46)
--- NOTE | 2018-01-21 15:48 | DS ---
DATE: 01/21/2018 CRITICAL CARE PROGRESS NOTE SUBJECTIVE: This 67-year-old male was examined in bed 1 of the critical care unit at the [facility]. He was having a dialysis treatment performed at his bedside. This case was reviewed in detail with nurse, Mor Anna, registered nurse. I did discuss this case in detail with Dr. Leoncio Archer from Cardiology. The patient completed a cardiac cath earlier today where he was noted to have medical coronary artery disease. His previously balloon angioplastied circumflex artery showed a restenosis of approximately 40% and the patient was noted to have a normal ejection fraction. The patient will need additional and continued medical therapy for his coronary artery disease and does not require any stenting or coronary artery bypass intervention at this time. PHYSICAL EXAMINATION VITAL SIGNS: His temperature was 98.2, respirations 16, pulse 81 with a blood pressure of 121/61 and pulse ox 100% on room air. HEENT: Head normocephalic, atraumatic. Eyes: No icterus. Ears: Clear. Throat: Noninjected. NECK: Supple. HEART: Regular S1, S2. LUNGS: Clear. ABDOMEN: Soft. EXTREMITIES: No edema. SKIN: Without rash. NEUROLOGICAL: Intact. PSYCHOLOGICAL: Alert and oriented x3. VASCULAR: Legs warm to touch. LABORATORY DATA: White count 8900, hemoglobin 12.3, hematocrit 38, platelets 179,000. PTT is 45.8. Sodium 139, K is 4.6, chloride 91, bicarb 27, BUN 61, creatinine 10, random blood sugar 113. Phosphorous 6.6. Magnesium 2.3. All liver function testing was normal including bilirubin 0.5, AST 25, ALT 22 and alk phos 113. Troponins were 0.03, 0.07, 0.95 and 0.82. IMPRESSION: A 67-year-old male with admission for unstable angina, probable subendocardial myocardial infarction with cardiac catheterization showing medical coronary artery disease and a normal left ventricular ejection fraction with comorbidities of end-stage renal disease, hemodialysis dependent; hyperlipidemia; hypertension; history of left nephrectomy for renal cell carcinoma; hyperphosphatemia; peptic ulcer disease with gastroesophageal reflux disease; hypothyroidism and degenerative arthritis as well as insulin-dependent diabetes mellitus. PLAN: The plan as discussed with the patient, nursing and Dr. Archer will be to maintain this patient in the critical care unit where he is receiving bedside dialysis. He will have his next scheduled dialysis in the a.m. and he will continue on Ecotrin 81 mg p.o. daily, Lipitor 20 mg p.o. at dinner time, Lopressor 25 mg p.o. t.i.d., multivitamin 1 tablet daily, PhosLo 667 mg p.o. after meals t.i.d., Plavix 75 mg p.o. daily, Protonix 20 mg p.o. daily, Synthroid 25 mcg p.o. daily and Tylenol 650 p.o. every 6 hours p.r.n. pain or temperature greater than 101. He will be transferred to the cardiac unit when medically stable. He will have physical therapy for reconditioning and gait training and will continue with outpatient oncological followup with his oncologist at the [facility]. Greater than 60 minutes was spent in the care and management, review of labs, orders, medication and outlining of dialysis and discussion of his treatment plan with Dr. Archer from Cardiology today. All questions were answered. No Banda MD [facility]
[2018-01-21] MEDS: Levothyroxine 25 MCG TAB PO SCH (16:52)
[2018-01-21] MEDS: Pantoprazole 20 mg EC Tab PO SCH (16:53)
[2018-01-21] MEDS: Insulin Reg-LOW-Coverage SC SCH (17:08)
[2018-01-22] MEDS: Insulin Reg-LOW-Coverage SC SCH ×5 (00:39→21:33)
[2018-01-22 07:04] LABS: HEMOGLOBIN 12.1 g/dL (14.0-18.0); MEAN CELL VOLUME 86.3 fl (80.0-105.0); MEAN CORPUSCULAR HEMOGLOBIN 28.1 pg (25.0-35.0); MEAN CORPUSCULAR HGB CONC 32.5 g/dl (31.0-37.0); MEAN PLATELET VOLUME 9.2 fl (7.0-11.0); RBC 4.31 10^6/uL (3.5-6.1); RED CELL DISTRIBUTION WIDTH 14.8 % (11.5-14.5); WHITE BLOOD COUNT 9.3 10^3/ul (4.5-11.0)
[2018-01-22 07:52] LABS: ALB/GLOB RATIO 1.2 (1.1-1.8); ALBUMIN 4.5 g/dL (3.0-4.8); CALCIUM 9.3 mg/dL (8.4-10.5)
--- NOTE | 2018-01-22 07:52 | CARD ---
APPROVED REPORT EXAM: Two-dimensional and M-mode echocardiogram with Doppler and color Doppler. INDICATION NSTEMI 2D DIMENSIONS Left Atrium (2D)4.6 (1.6-4.0cm)IVSd1.6 (0.7-1.1cm) LVDd4.4 (3.9-5.9cm)PWd1.4 (0.7-1.1cm) LVDs2.7 (2.5-4.0cm)FS (%) 38.4 % LVEF (%)68.9 (>50%) M-Mode DIMENSIONS Aortic Root3.20 (2.2-3.7cm)Aortic Cusp Exc.1.50 (1.5-2.0cm) Aortic Valve AoV Peak Lvyulzlq125.0cm/sAoV VTI32.8cmAO Peak GR.10mmHg LVOT Peak Knhwuygb066.0cm/sLVOT VTI32.50cmAO Mean GR.6mmHg Mitral Valve MV E Xoqjfqrl96.6cm/sMV A Nymnmphj490.0cm/sE/A ratio0.7 TDI Lateral E' Peak V7.21cm/sMedial E' Peak V5.46cm/sE/Lateral E'13.1 E/Medial E'17.3 Pulmonary Valve PV Peak Fohblhzg06.4cm/sPV Peak Grad.3mmHg Tricuspid Valve TR Peak Gdxbvffy942aj/sRAP URRLZRMK09cpAyVU Peak Gr.48mmHg [id number] LEFT VENTRICLE The left ventricle is normal size. There is moderate concentric left ventricular hypertrophy. The left ventricular function is normal. The left ventricular ejection fraction is within the normal range. There is normal LV segmental wall motion. RIGHT VENTRICLE The right ventricle is normal size. The right ventricular systolic function is normal. ATRIA The left atrium is moderately dilated. The right atrium is moderately dilated. The interatrial septum is intact with no evidence for an atrial septal defect. AORTIC VALVE The aortic valve is moderately calcified. No aortic regurgitation is present. There is no aortic valvular stenosis. MITRAL VALVE Mitral annular calcification is severe. Mitral regurgitation is mild. There is no mitral valve stenosis. TRICUSPID VALVE The tricuspid valve is normal in structure. There is moderate tricuspid regurgitation. PULMONIC VALVE The pulmonary valve is normal in structure. GREAT VESSELS The aortic root is normal in size. The IVC is normal in size and collapses >50% with inspiration. PERICARDIAL EFFUSION There is no pleural effusion. There is no pericardial effusion. <Conclusion> Biatrial enlargement. Normal LV size and systolic function. Moderate concentric LVH. Mild MR. Moderate TR.
[2018-01-22] MEDS: Pantoprazole 20 mg EC Tab PO SCH (09:26)
[2018-01-22] MEDS: Levothyroxine 25 MCG TAB PO SCH (09:26)
[2018-01-22] MEDS: Multivitamin Vitamin B Complex (Nephro-Vite) Tab PO SCH (09:26)
--- NOTE | 2018-01-22 14:26 | PN ---
DATE: 01/22/2018 SUBJECTIVE: The patient is seen sitting in a chair in the CCU. He is comfortable at the present time. He denies any chest pain. MEDICATIONS: His current medications include Ecotrin, Lipitor 20 mg daily, metoprolol 25 mg t.i.d., PhosLo, Plavix 75 mg daily, Protonix 20 mg daily, Synthroid 25 mcg daily. PHYSICAL EXAMINATION GENERAL: He is a middle-aged male who appears comfortable at rest. VITAL SIGNS: His blood pressure is 118/60 with a pulse of 72, respirations are 16. He is in sinus rhythm and he is afebrile. HEENT: No JVD. CHEST: Few scattered rhonchi. HEART: PMI displaced laterally with a soft systolic murmur in the lower left sternal border. ABDOMEN: Soft, nontender with normoactive bowel sounds. EXTREMITIES: No edema. Catheterization site is clean and dry. No hematoma noted. DIAGNOSTIC DATA: Potassium 5.1, BUN and creatinine 82 and 12.8. White count 9.3, hemoglobin and hematocrit 12.1 and 37.2 with a platelet count of 171,000. IMPRESSION: 1. Known coronary artery disease status post prior multivessel percutaneous coronary intervention with recent unstable symptoms. Catheterization yesterday confirmed moderate in-stent restenosis of his left circumflex stent and unchanged moderate diffuse disease. 2. Chronic renal failure, maintained on dialysis. 3. History of paroxysmal atrial fibrillation. 4. Status post nephrectomy for renal cell carcinoma. RECOMMENDATIONS: His current medications will be continued for now. If he has recurrent symptoms, intensified medical therapy will be planned. Indefinite aspirin and Plavix therapy should be planned as well. From a cardiac standpoint, he appears stable for discharge home once medically cleared. Outpatient followup will be arranged. Leoncio Archer MD [facility]
[2018-01-23 00:21] VITALS: RESP 20
[2018-01-23 06:08] VITALS: O2SAT 96
[2018-01-23 07:20] LABS: HEMOGLOBIN 11.5 g/dL (14.0-18.0); MEAN CELL VOLUME 85.9 fl (80.0-105.0); MEAN CORPUSCULAR HGB CONC 32.6 g/dl (31.0-37.0); MEAN PLATELET VOLUME 9.6 fl (7.0-11.0); RBC 4.11 10^6/uL (3.5-6.1); RED CELL DISTRIBUTION WIDTH 14.6 % (11.5-14.5); WHITE BLOOD COUNT 7.8 10^3/ul (4.5-11.0)
--- NOTE | 2018-01-23 07:44 | CP.PCM.PN ---
Subjective - Date & Time of Evaluation Date of Evaluation: 01/23/18 Time of Evaluation: 07:00 - Subjective Subjective: Stable on 2R. No CP or SOB. V/S noted. RSR PE: Lungs: clear Cor.: S1S2 Abd.: benign Ext.: no edema Neuro.: alert I/O= 880/1500 recorded Cath data noted. Echo noted: NL LV, Mild MR, moderate TR Objective - Vital Signs/Intake and Output Vital Signs (last 24 hours): Temp Pulse Resp BP Pulse Ox 97.4 F L 74 20 140/61 96 01/23/18 06:00 01/23/18 06:08 01/23/18 06:00 01/23/18 06:00 01/23/18 06:00 Intake and Output: 01/23/18 01/23/18 06:59 18:59 Intake Total 180 Balance 180 - Medications Medications: Current Medications Acetaminophen (Tylenol 325mg Tab) 650 mg PO Q6H PRN PRN Reason: Fever >100.4 F Last Admin: 01/20/18 14:09 Dose: 650 mg Aspirin (Ecotrin) 81 mg PO DAILY [facility] Last Admin: 01/22/18 09:26 Dose: 81 mg Atorvastatin Calcium (Lipitor) 20 mg PO DIN [facility] Last Admin: 01/22/18 18:33 Dose: 20 mg Calcium Acetate (Phoslo) 667 mg PO WM [facility] Last Admin: 01/22/18 18:33 Dose: 667 mg Clopidogrel Bisulfate (Plavix) 75 mg PO DAILY [facility] Last Admin: 01/22/18 09:26 Dose: 75 mg Insulin Human Regular (Humulin R Low) 0 units SC ACHS [facility] PRN Reason: Protocol Last Admin: 01/22/18 21:33 Dose: Not Given Levothyroxine Sodium (Synthroid) 25 mcg PO DAILY [facility] Last Admin: 01/22/18 09:26 Dose: 25 mcg Metoprolol Tartrate (Lopressor) 25 mg PO TID [facility] Last Admin: 01/22/18 18:33 Dose: 25 mg Pantoprazole Sodium (Protonix Ec Tab) 20 mg PO DAILY [facility] Last Admin: 01/22/18 09:26 Dose: 20 mg Vitamin B Complex/Vit C/Folic Acid (Nephro-Armando) 1 tab PO DAILY [facility] Last Admin: 01/22/18 09:26 Dose: 1 tab - Labs Labs: 01/23/18 07:00 01/22/18 06:00 PT 12.4 SECONDS (9.4-12.5) 01/20/18 09:43 INR 1.08 (0.93-1.08) 01/20/18 09:43 APTT 45.8 Seconds (25.1-36.5) H 01/21/18 07:00 Assessment and Plan - Assessment and Plan (Free Text) Assessment: CP, SOB Moderate CAD, moderate ISR S/P POBA C.A. 10/20 Echo: Nl LV, Mild MR, moderate TR CKD/HD PAF S/P nephrectomy for Renal Cell CA HBP Diabetes Hypothyroidism PUD GERD Former Smoker. Plan: Medical Tx. for CAD Make metoprolol [address] Solo ECHEVARRIA Home soon, once medically cleared. Cardiology F/U with to be arranged.
[2018-01-23 08:07] LABS: ALB/GLOB RATIO 1.1 (1.1-1.8); ALBUMIN 4.2 g/dL (3.0-4.8); CALCIUM 8.8 mg/dL (8.4-10.5)
[2018-01-23] MEDS: Insulin Reg-LOW-Coverage SC SCH ×2 (08:34→11:39)
[2018-01-23] MEDS: Pantoprazole 20 mg EC Tab PO SCH (09:02)
[2018-01-23] MEDS: Levothyroxine 25 MCG TAB PO SCH (09:02)
[2018-01-23] MEDS: Multivitamin Vitamin B Complex (Nephro-Vite) Tab PO SCH (09:02)
[2018-01-23 11:59] VITALS: BP 119/55; PULSE 66; TEMP 98.2
--- NOTE | 2018-01-23 12:01 | PN ---
DATE: 01/22/2018 DIALYSIS PROGRESS NOTE SUBJECTIVE: This 67-year-old male was examined in the renal dialysis unit where he is dialyzing on a F160, 140 sodium, 2K bicarb bath. PHYSICAL EXAMINATION: VITAL SIGNS: Blood pressure was 137/66 with a pulse of 92. HEART: Regular S1, S2. LUNGS: Clear. ABDOMEN: Soft. EXTREMITIES: No edema. The patient will continue on dialysis today. He is aiming for 2 kg of fluid removal. No Banda MD
--- NOTE | 2018-01-23 14:26 | DS ---
DATE OF EXAM: 01/23/2018 FINAL DIAGNOSES: Unstable angina; stable atherosclerotic heart disease; end-stage renal disease, hemodialysis dependent; insulin-dependent diabetes mellitus; hyperlipidemia; hyperphosphatemia, hypothyroidism, degenerative arthritis; left nephrectomy; history of metastatic kidney cancer to lung. DISPOSITION: Home. Follow up with myself in my medical office in 1 week. Follow up with Dr. Leoncio Archer from Cardiology. Follow up with his oncologist at [facility] as outlined. DISCHARGE DIET: Renal, heart-healthy. DISCHARGE MEDICATIONS: Lopressor 50 mg p.o. b.i.d., Ecotrin 81 mg p.o. daily, regular low-dose insulin protocol before meals and at bedtime, Lipitor 20 mg p.o. at dinnertime, multivitamin 1 tablet daily, PhosLo 667 mg p.o. after meals t.i.d., Plavix 75 mg p.o. daily, Protonix 20 mg p.o. daily, Synthroid 25 mcg p.o. daily. SUMMARY: This 67-year-old male was admitted to the [facility] after completing dialysis and complaining of dyspnea at rest and exertion. He was admitted to Intensive Care with concerns of a subendocardial myocardial infarction. He underwent a 2-D echocardiogram that was reviewed and showed no evidence of pericardial effusion with biatrial enlargement, normal LV size and systolic function, moderate concentric left ventricular hypertrophy, moderate tricuspid regurgitation and mild mitral regurgitation. He also had a cardiac catheterization performed by Dr. Leoncio Archer; that was discussed and reviewed with him and family that showed left main coronary artery normal. The left anterior descending artery had mild to moderate calcification present in its proximal sub-segment with evidence of mild diffuse irregularities with an 50% stenosis of his left anterior descending coronary artery in the early distal segment of the vessel. The diagonal branch had evidence of mild diffuse disease and the very distal segment of the vessel had moderate diffuse disease. His left circumflex artery gave rise to one of his large obtuse marginal branches and a previously placed stent in this vessel had evidence of a 40% in-stent restenosis. The right coronary artery had a widely patent stent in its proximal segment, the artery is dominant and mild diffuse irregularities were noted distally. The posterior descending artery had an ostial 40% stenosis. His left ventricular wall motion had an ejection fraction of approximately 65% and there was no aortic valve gradient noted on catheter pullback. All of the above was discussed in detail with the patient and his daughter, Nicanor Coleman, a registered nurse. At the time of this dictation, the patient's temperature is 97.4, respirations 20, blood pressure 140/61. Pulse ox 96% on room air with a pulse of 74%. Discharge labs show white count 7800, hemoglobin 11.5, hematocrit 35.3, platelets 153,000. Sodium 139, potassium 4.6, chloride 93, bicarb 30, BUN 51, creatinine 8.7, random blood sugar 112. All liver function testing is normal including bilirubin 0.5, AST 30, ALT 31 and alkaline phosphatase 115. The patient is discharged to home to the care of his family who provide 24 hours supervision of this patient and he will continue his hemodialysis treatment as an outpatient at the [facility] Ren[facility] D[facility] Unit every Saturday, Saturday and Saturday. The patient will continue his oncologic management, cardiac management, and renal dialysis management as outlined above. All of the above was discussed in detail with the patient and family. Greater than 35 minutes was spent in the care management, review of labs, orders and x-rays with this patient and family members as well as co-consultants. All questions were answered. No Banda MD [facility]
--- NOTE | 2018-01-23 16:44 | PN ---
DATE: 01/22/2018 SUBJECTIVE: This 67-year-old male is dialyzing in the renal dialysis unit. He is on a 2K bicarb bath. Blood flow rates are 400 mL at present. OBJECTIVE: VITAL SIGNS: Blood pressure is 114/58 with a pulse of 76. He is afebrile. HEART: Regular S1, S2. LUNGS: Clear. DATA: Labs show white count 9300, hemoglobin 12.1, hematocrit 37.2, platelets 171,000. Sodium 140, K 5.1, chloride 90, bicarb 23, BUN 82, creatinine 12.8. Random blood sugar was 69. The patient will dialyze on a 2K bicarb bath. We are aiming for 2 kg of fluid removal today. I have discussed this case in detail with his daughter, Kathryn Coleman. His Lopressor has been increased to 50 mg p.o. b.i.d. and she is aware of his need for medical management of his atherosclerotic coronary artery disease. No Banda MD MTDD
== END 2018-01-23 13:03 | disposition home or self-care (01) | DRG 280 ==
LOC: ED 09:25 → ERH 10:49 → CCU 13:15 → 2RSO 01-22 21:09
PROVIDERS: ADMIT Internal Medicine; ATTEND Internal Medicine
PROC: 4A023N7 Measurement of Cardiac Sampling and Pressure, Left Heart, Percutaneous Approach (ICD-10-PCS; principal; 2018-01-21)
PROC: B2151ZZ Fluoroscopy of Left Heart using Low Osmolar Contrast (ICD-10-PCS; 2018-01-21)
PROC: B2111ZZ Fluoroscopy of Multiple Coronary Arteries using Low Osmolar Contrast (ICD-10-PCS; 2018-01-21)
PROC: 5A1D70Z Performance of Urinary Filtration, Intermittent, Less than 6 Hours Per Day (ICD-10-PCS; 2018-01-22)
DX: I21.4 Non-ST elevation (NSTEMI) myocardial infarction (principal); N18.6 End stage renal disease; T82.855A Stenosis of coronary artery stent, initial encounter; I13.2 Hypertensive heart and chronic kidney disease with heart failure and with stage 5 chronic kidney disease, or end stage renal disease; I31.3 Pericardial effusion (noninflammatory); C78.00 Secondary malignant neoplasm of unspecified lung; I25.110 Atherosclerotic heart disease of native coronary artery with unstable angina pectoris; I50.9 Heart failure, unspecified; E03.9 Hypothyroidism, unspecified; K21.9 Gastro-esophageal reflux disease without esophagitis; I27.22 Pulmonary hypertension due to left heart disease; I08.1 Rheumatic disorders of both mitral and tricuspid valves; I48.0 Paroxysmal atrial fibrillation; G40.909 Epilepsy, unspecified, not intractable, without status epilepticus; E10.22 Type 1 diabetes mellitus with diabetic chronic kidney disease; K27.9 Peptic ulcer, site unspecified, unspecified as acute or chronic, without hemorrhage or perforation; D63.8 Anemia in other chronic diseases classified elsewhere; E78.5 Hyperlipidemia, unspecified; E83.39 Other disorders of phosphorus metabolism; M19.90 Unspecified osteoarthritis, unspecified site; Y83.1 Surgical operation with implant of artificial internal device as the cause of abnormal reaction of the patient, or of later complication, without mention of misadventure at the time of the procedure; Z99.2 Dependence on renal dialysis; Z79.02 Long term (current) use of antithrombotics/antiplatelets; Z79.82 Long term (current) use of aspirin; Z86.11 Personal history of tuberculosis; Z90.5 Acquired absence of kidney; Z85.528 Personal history of other malignant neoplasm of kidney; Z87.891 Personal history of nicotine dependence; Z87.01 Personal history of pneumonia (recurrent)

== ENCOUNTER 2018-01-29 08:58 | Inpatient (IN) | payer MEDICARE ==
--- NOTE | 2018-01-29 09:17 | ED PDOC ---
Arrival/HPI - General Chief Complaint: Chest Pain Time Seen by Provider: 01/29/18 09:14 Historian: Patient - History of Present Illness Narrative History of Present Illness (Text): 01/29/18 09:35 Patient is a 67 year old male with a past medical history of end stage renal disease, who presents to the emergency department complaining of left sided chest pain with associated dyspnea, which started today during dialysis. Patient reports that he started experiencing his symptoms after undergoing 2 hours of dialysis treatment. of note patient normally undergoes 3 hours of dialysis. Patient describes his chest pain as a pressure and notes that he wasn 't experiencing any dyspnea or chest pain prior to dialysis. Patient notes that he has experienced similar symptoms which were evaluated. Patient hasn't taken any medications today. Patient denies any fevers, chills, diaphoresis, headache, dizziness, cough, abdominal pain, nausea, vomiting, diarrhea, back pain, neck pain, or any other complaint. Of note patient admits to undergoing stent placement but is unsure if stents were placed in coronary arteries. PMD: Time/Duration: Prior to Arrival Symptom Onset: Sudden Quality: Pressure Context: Other (During dialysis) Past Medical History - Provider Review Nursing Documentation Reviewed: Yes - Infectious Disease Hx of Infectious Diseases: None - Tetanus Immunization Tetanus Immunization: Unknown - Cardiac Hx Cardiac Disorders: Yes Hx Congestive Heart Failure: Yes Hx Pacemaker: No - Pulmonary Hx Respiratory Disorders: Yes (H/O SMOKING CIGARETTES .SMOKED FOR 20 YRS) Hx Bronchitis: Yes Hx Pneumonia: Yes Hx Tuberculosis: Yes Other/Comment: SMOKED FOR 20 YRS - Neurological Hx Neurological Disorder: Yes Hx Seizures: No (denies) - HEENT Hx HEENT Disorder: Yes Hx Cataracts: Yes - Renal Hx Renal Disorder: Yes Hx Renal Failure: Yes - Endocrine/Metabolic Hx Endocrine Disorders: Yes Hx Diabetes Mellitus Type 1: Yes Hx Hypothyroidism: Yes - Hematological/Oncological Hx Blood Transfusions: Yes Hx Blood Transfusion Reaction: No - Integumentary Hx Dermatological Disorder: Yes (OLD NF SCARRED AREA LEFT UPPER ARM. SHUNT TO RIGHT UPPER ARM) Other/Comment: dry tight discolored slin to ble +1 edema rll - Musculoskeletal/Rheumatological Hx Musculoskeletal Disorders: Yes Hx Falls: Yes - Gastrointestinal Hx Gastrointestinal Disorders: No - Genitourinary/Gynecological Hx Genitourinary Disorders: Yes (voids very little in am ANURIA) - Psychiatric Hx Emotional Abuse: No Hx Physical Abuse: No Hx Substance Use: No - Surgical History Hx Cardiac Catheterization: Yes Other/Comment: Kidney - Anesthesia Hx Anesthesia: Yes Hx Anesthesia Reactions: No Hx Malignant Hyperthermia: No - Suicidal Assessment Feels Threatened In Home Enviroment: No Family/Social History - Physician Review Nursing Documentation Reviewed: Yes Family/Social History: No Known Family HX Smoking Status: Former Smoker Hx Alcohol Use: Yes (USED TO DRINK HEAVILY H/O QUIT) Hx Substance Use: No Hx Substance Use Treatment: No Allergies/Home Meds Allergies/Adverse Reactions: Allergies No Known Allergies Allergy (Verified 10/21/17 19:52) Home Medications: Home Meds Medication Instructions Recorded Confirmed Levothyroxine [Synthroid] 25 mcg PO DAILY 07/28/15 01/29/18 Minoxidil 5 mg PO PRN PRN 12/30/15 01/29/18 Atorvastatin [Lipitor] 20 mg PO DIN 06/18/17 01/29/18 Clopidogrel [Plavix] 75 mg PO DAILY 10/21/17 01/29/18 Vitamin B Complex/Vit C/Folic 1 tab PO DAILY 10/21/17 01/29/18 [Nephro-Armando] Ranolazine [Ranexa] 500 mg PO BID 01/29/18 01/29/18 Review of Systems - Physician Review All systems were reviewed & negative as marked: Yes - Review of Systems Constitutional: absent: Fevers Gastrointestinal: absent: Nausea Physical Exam - Physical Exam Narrative Physical Exam (Text): 01/29/18 09:41 Constitutional: No acute distress. Head: Normocephalic. Atraumatic. Eyes: PERRL. ENT: Moist mucous membranes. Neck: Supple. Cardiovascular: Regular rate. Chest: No tenderness. Respiratory: Clear to auscultation bilaterally. Breathing heavily. Pulse oximetry 100% at room air. GI: Soft. Nondistended. (+) epigastric tenderness. No guarding or rebound. Back: No CVA tenderness. Musculoskeletal: No tenderness or swelling of extremities. Skin: No rash. Neurologic: Alert, no focal deficit. Vital Signs Temp Pulse Resp BP Pulse Ox 01/29/18 09:42 80 20 166/81 H 99 01/29/18 09:04 97.9 F 88 20 144/122 H 98 Medical Decision Making ED Course and Treatment: 01/29/18 09:43 Impression: Patient is a 67 year old male who is complaining of chest pain and associated dyspnea, which started earlier today during dialysis. Differential Diagnosis included but are not limited to: ACS vs. CHF vs. pneumonia Plan: --EKG --labs --cardiac enzymes --Chest X-ray --aspirin --Pepcid --Nitroglycerin -- Reassess and disposition Prior Visits: Notes and results from previous visits were reviewed. Patient last presented at Emergency department on 01/20/18 for chest pain and was hospitalized. Progress Notes: EKG shows NSR at [address]. [address] depression in inferior and lateral leads. Interpreted by me. 01/29/18 10:07 Chest X-ray: Creator : Silvia Argueta HISTORY: chest pain COMPARISON: 01/20/2018 FINDINGS: LUNGS: Vague oval opacity projects over the posterior right 8th rib in the mid right lung zone not appreciated such on the prior study. No other areas of focal potential patchy infiltrate or focal nodular pathology is evident on this exam. Apparently patient status post left nephrectomy. A right pulmonary nodule metastatic lesion is a diagnosis of exclusion. Consider follow-up CT chest imaging for this. Pulmonary vasculature is mildly increased-similar in appearance PLEURA: No significant pleural effusion identified, no pneumothorax apparent. CARDIOVASCULAR: Top-normal heart size. Mild pulmonary venous congestion Atherosclerotic vascular calcifications present. . Left axillary vascular stent present -similar OSSEOUS STRUCTURES: Deformity of the right ribs-similar to prior study correlate clinically with prior intervention and/or prior known pathology here VISUALIZED UPPER ABDOMEN: Normal. OTHER FINDINGS: IMPRESSION: Perceived vague nodular opacity over right mid lung zone - of unclear significance. Interval pulmonary metastatic nodule is 1 consideration. There is relative radiolucency of the right posterior 9th rib here and a lytic lesion with contiguous right pleural parenchymal pathology here is another consideration. Small infiltrate is another History of left nephrectomy noted. Consider follow-up CT chest imaging. 01/29/18 10:09 Discussed chest X-ray with radiologist and will order chest CT. 01/29/18 10:16 Reevaluation: Patient reports feeling better. 01/29/18 11:20 CT Chest without contrast: Creator : Silvia Argueta IMPRESSION: Progressive pulmonary metastases -more pronounced in the right lung - concomitant nodular infiltrates not excluded. Short-term follow-up imaging advised. Consider PET-CT imaging if needed. Deformity right rib cage -similar appearance -no interval gross lytic lesion seen 01/29/18 11:30 Case discussed with , who is aware of patient and recommends patient be admitted to her services. - Lab Interpretations Lab Results: 01/29/18 09:00 01/29/18 09:00 Lab Results 01/29/18 09:00: Sodium 140, Potassium 4.4, Chloride 91 L, Carbon Dioxide 30, Anion Gap 24 H, BUN 27 H, Creatinine 5.4 H, Est GFR ( Amer) 13, Est GFR ( Non-Af Amer) 11, Random Glucose 108, Calcium 9.8, Total Bilirubin 0.7, AST 35, ALT 33, Alkaline Phosphatase 162 H D, Total Creatine Kinase 54, Troponin I 0.02 D, NT-Pro-B Natriuret Pep 78948 H, Total Protein 8.9 H, Albumin 4.8, Globulin 4.0, Albumin/Globulin Ratio 1.2, Lipase 392 H 01/29/18 09:00: PT 11.1, INR 0.97, APTT 36.8 H 01/29/18 09:00: WBC 14.9 H D, RBC 4.82, Hgb 13.9 L D, Hct 40.1 L, MCV 83.2, MCH 28.8, MCHC 34.7, RDW 14.2, Plt Count 238, MPV 9.4, Gran % 73.9 H, Lymph % (Auto ) 17.8 L, [place] % (Auto) 5.4, Eos % (Auto) 2.6, Baso % (Auto) 0.3, Gran # 11.03 H , Lymph # (Auto) 2.7, [place] # (Auto) 0.8 H, Eos # (Auto) 0.4, Baso # (Auto) 0.04 I have reviewed the lab results: Yes - RAD Interpretation Radiology Orders: 01/29/18 09:15 CHEST PORTABLE [RAD] Stat 01/29/18 10:04 CHEST W/O CONTRAST [CT] Stat Side Stitcher: Radiologist - EKG Interpretation Interpreted by ED Physician: Yes Type: 12 lead EKG - Medication Orders Current Medication Orders: Cefepime HCl (Maxipime 1gm) 1 gm in 100 mls @ 100 mls/hr IVPB STAT STA PRN Reason: Protocol Stop: 01/29/18 12:31 Vancomycin HCl (Vancomycin 1gm) 1 gm in 250 mls @ 167 mls/hr IVPB STAT STA PRN Reason: Protocol Stop: 01/29/18 13:01 Discontinued Medications Aspirin (Aspirin) 325 mg PO STAT STA Stop: 01/29/18 09:16 Last Admin: 01/29/18 09:25 Dose: 325 mg Famotidine (Pepcid) 20 mg IVP STAT STA Stop: 01/29/18 09:29 Last Admin: 01/29/18 09:49 Dose: 20 mg IVP Administration Document 01/29/18 09:49 MIRTHA (Rec: 01/29/18 09:49 MIRTHA [id number]) Charges for Administration # of IVP Administrations 1 Nitroglycerin (Nitrostat Sl Tab) 0.4 mg SL STAT STA Stop: 01/29/18 09:17 Last Admin: 01/29/18 09:25 Dose: 0.4 mg - Scribe Statement The provider has reviewed the documentation as recorded by the Jenibsissy Mendez Provider Scribe Attestation: All medical record entries made by the Scribe were at my direction and personally dictated by me. I have reviewed the chart and agree that the record accurately reflects my personal performance of the history, physical exam, medical decision making, and the department course for this patient. I have also personally directed, reviewed, and agree with the discharge instructions and disposition. Disposition/Present on Arrival - Present on Arrival Any Indicators Present on Arrival: No History of DVT/PE: No History of Uncontrolled Diabetes: No Urinary Catheter: No History of Decub. Ulcer: No History Surgical Site Infection Following: None - Disposition Have Diagnosis and Disposition been Completed?: Yes Diagnosis: Pneumonia Disposition: HOSPITALIZED Disposition Time: 11:40 Patient Plan: Admission, Telemetry Condition: GUARDED Forms: [employer] (Georgian)
[2018-01-29 09:27] LABS: BASO # 0.04 K/mm3 (0.0-2.0); BASO % 0.3 % (0.0-3.0); EOS # 0.4 (0.0-0.7); EOS % 2.6 % (1.5-5.0); GRAN # 11.03 (1.4-6.5); GRAN % 73.9 % (50.0-68.0); HEMOGLOBIN 13.9 g/dL (14.0-18.0); LYMPH # 2.7 (1.2-3.4); LYMPH % 17.8 % (22.0-35.0); MEAN CELL VOLUME 83.2 fl (80.0-105.0); MEAN CORPUSCULAR HEMOGLOBIN 28.8 pg (25.0-35.0); MEAN CORPUSCULAR HGB CONC 34.7 g/dl (31.0-37.0); MEAN PLATELET VOLUME 9.4 fl (7.0-11.0); MONO # 0.8 (0.1-0.6); MONO % 5.4 % (1.0-6.0); RBC 4.82 10^6/uL (3.5-6.1); RED CELL DISTRIBUTION WIDTH 14.2 % (11.5-14.5); WHITE BLOOD COUNT 14.9 10^3/ul (4.5-11.0)
[2018-01-29 09:41] LABS: ALB/GLOB RATIO 1.2 (1.1-1.8); ALBUMIN 4.8 g/dL (3.0-4.8); CALCIUM 9.8 mg/dL (8.4-10.5)
[2018-01-29 09:46] LABS: INR 0.97 (0.93-1.08); PARTIAL THROMBOPLASTIN TIME 36.8 Seconds (25.1-36.5); PROTHROMBIN TIME 11.1 SECONDS (9.4-12.5)
[2018-01-29 09:47] LABS: TROPONIN I 0.02 ng/mL
--- NOTE | 2018-01-29 10:01 | RAD ---
HISTORY: chest pain COMPARISON: 01/20/2018 FINDINGS: LUNGS: Vague oval opacity projects over the posterior right 8th rib in the mid right lung zone not appreciated such on the prior study. No other areas of focal potential patchy infiltrate or focal nodular pathology is evident on this exam. Apparently patient status post left nephrectomy. A right pulmonary nodule metastatic lesion is a diagnosis of exclusion. Consider follow-up CT chest imaging for this. Pulmonary vasculature is mildly increased-similar in appearance PLEURA: No significant pleural effusion identified, no pneumothorax apparent. CARDIOVASCULAR: Top-normal heart size. Mild pulmonary venous congestion Atherosclerotic vascular calcifications present. . Left axillary vascular stent present -similar OSSEOUS STRUCTURES: Deformity of the right ribs-similar to prior study correlate clinically with prior intervention and/or prior known pathology here VISUALIZED UPPER ABDOMEN: Normal. OTHER FINDINGS: IMPRESSION: Perceived vague nodular opacity over right mid lung zone - of unclear significance. Interval pulmonary metastatic nodule is 1 consideration. There is relative radiolucency of the right posterior 9th rib here and a lytic lesion with contiguous right pleural parenchymal pathology here is another consideration. Small infiltrate is another History of left nephrectomy noted. Consider follow-up CT chest imaging. Comments: These findings were discussed with the ER physician on 01/29/2018 at 9:58 a.m.
--- NOTE | 2018-01-29 11:16 | CT ---
PROCEDURE: CT Chest without contrast HISTORY: chest pain, dyspnea COMPARISON: 10/14/2017 TECHNIQUE: Contiguous axial images were obtained through the chest without intravenous contrast enhancement. Sagittal and coronal reconstructions were performed. Radiation dose (DLP): 311 mGy-cm. This CT exam was performed using one or more of the following dose reduction techniques: Automated exposure control, adjustment of the mA and/or kV according to patient size, and/or use of iterative reconstruction technique. FINDINGS: LUNGS: Interval pleural base nodules posterior left upper lobe on the order of 4 to 5 mm in size are noted. Irregular coalescing nonspecific nodular opacities in the right upper lobe noted- coalescent pulmonary nodules metastatic surrounding inflammatory changes are 1 consideration. This is noted given the additional anterior inferior right upper lobe pleural-based confluent nodular opacities concerning for interval pulmonary nodular minutes here. Similar findings interval nodular opacities with contiguous pleural continuity in the most superior segment of the right lower lobe posteriorly is also noted. This blends with inflammatory of bronchiectatic changes which have also progressed since the prior exam. Small sub cm pulmonary nodules are also seen in the right lung laterally mid lung zone is axis series 3, image 61 these are interval changes as well the prior right lower lobe posterior pulmonary nodule has increased in size currently more coalescent in appearance also pleural parenchymal based measuring up to 2.5 cm on this exam progressive pulmonary close nodular med surg compatible with this. Pleural effusions small a much smaller right pleural effusion with minimal right pleural thickening is also suggested. There is trace discoid atelectasis and/or blending fluid and/or pleural contiguous thickening MEDIASTINUM: Unremarkable thoracic aorta. No aneurysm. Normal sized heart. Main pulmonary artery unremarkable. No vascular congestion. A few shotty mediastinal lymph nodes are present. No suspicious enlarged lymph nodes appreciated. Cardiomegaly. Atherosclerotic vascular calcifications present. . Trace pericardial fluid present -less than before PLEURA: Left pleural effusion -an interval change. Trace right pleural effusion. No pneumothorax. BONES: There is chronic appearing deformity of the right posterior rib cage. No gross lytic lesion is appreciated on this exam. UPPER ABDOMEN: Note of left nephrectomy status and small right kidney OTHER FINDINGS: None. IMPRESSION: Progressive pulmonary metastases -more pronounced in the right lung -concomitant nodular infiltrates not excluded. Short-term follow-up imaging advised. Consider PET-CT imaging if needed. Deformity right rib cage -similar appearance -no interval gross lytic lesion seen
[2018-01-29] MEDS ORDERED: Cefepime 1gm in NS 100ml 1 GM/100 ML BAG IVPB STA (11:32)
[2018-01-29] MEDS ORDERED: Vancomycin 1gm in NS 250ml 1 GM/250 ML BAG IVPB STA (11:32)
[2018-01-29 14:26] VITALS: BMI 18.6
[2018-01-29] MEDS ORDERED: Pneumococcal 23-Valent Vaccine IM ONE (14:26)
[2018-01-29] MEDS: Levalbuterol 0.63 MG/3 ML Inhal Soln UD IH SCH ×3 (16:04→19:40)
[2018-01-29] MEDS: Insulin Reg-LOW-Coverage SC SCH ×2 (16:33→22:04)
--- NOTE | 2018-01-29 16:48 | CARD ---
APPROVED REPORT EKG Measurement Heart [id number] CT [id number] <Conclusion> Normal sinus rhythm Possible Left atrial enlargement ST & T wave abnormality, consider lateral ischemia Prolonged QT Abnormal ECG
--- NOTE | 2018-01-29 18:03 | HP ---
DATE OF EXAM: 01/29/2018 HISTORY OF PRESENT ILLNESS: This 67-year-old male was examined in the [facility] ER bed 5 in the presence of his and this case was reviewed in detail with himself and family members including his daughter, Nicanor Coleman and Dr. Leoncio Kessler, emergency room physician. The patient is 67 years old and attends hemodialysis Mondays, Wednesdays and Fridays at the [facility] renal dialysis unit. Two hours into his treatment this morning, he experienced cough, shortness of breath and chills. He was sent to the [facility] ER where on chest x-ray he was noted to have a vagal opacity over his right posterior 8th rib in the right midlung zone consistent with an infiltrate or nodule. As a result, he was sent for a followup chest CT that was reviewed, which showed progressive pulmonary metastases more pronounced in the right lung with a ribcage deformity similar in nature and no evidence of lytic lesion. Also noted surrounding his metastatic nodules were inflammatory changes consistent with bronchiectatic changes as well as pulmonary nodules now in his right lung and a small pleural effusion was noted as well. PAST MEDICAL HISTORY: The patient's past medical history is significant for left nephrectomy; metastatic renal cell cancer, under the care of his oncologist and manager emergency at [facility]; also with history of end-stage renal disease, hemodialysis dependent; hyperphosphatemia; stable atherosclerotic heart disease; hyperlipidemia; chronic hypertension and hypothyroidism and insulin-dependent diabetes mellitus; peptic ulcer disease with GERD and anemia. ALLERGIES: THE PATIENT HAS NO KNOWN ALLERGIES TO MEDICATION. SOCIAL HISTORY: He is a former smoker, a nondrinker, non IV drug misuser with no known allergies to medication. OUTPATIENT MEDICATIONS: Included Ranexa, Plavix, PhosLo, Lipitor, Ecotrin, multivitamin, Lopressor, Synthroid and Pepcid. REVIEW OF SYSTEMS: Constitutional review: He complained of chills while on dialysis today. Denied any knowledge of fever or night sweats. On head review, denied headache. On eye review, denied change in visual acuity. Ear review: No hearing loss. Throat review: No swallowing difficulty. Neck review: No stiffness. Cardiac review: As per HPI. Pulmonary: As per HPI. GI: Peptic ulcer disease with GERD. : End-stage renal disease, hemodialysis dependent. Endocrine: Insulin-dependent diabetes mellitus and hyperlipidemia. Vascular: No claudication. Hematological: Anemia of chronic disease. Musculoskeletal: Degenerative arthritis. Psychological: No anxiety. No depression. Neurological: No knowledge of stroke. PHYSICAL EXAMINATION: VITAL SIGNS: He is in a normal sinus rhythm on the monitoring tech. Temperature 97.9, respirations 20, pulse 88, blood pressure 166/81, pulse ox was 99% on 2 L nasal O2. HEENT: Head normocephalic, atraumatic. Eyes: No icterus. Ears: Clear. Throat: Noninjected. NECK: Supple. HEART: With regular S1, S2. LUNGS: With rhonchi and occasional wheezing that cleared with coughing in his right posterior lung field. ABDOMEN: Soft. EXTREMITIES: No edema. SKIN: Without rash. NEUROLOGICAL: Intact. PSYCHOLOGICAL: Alert. VASCULAR: Legs warm to touch. He has a bruits and thrill in his right upper extremity AV fistula. LABORATORY DATA: White count 14,900, hemoglobin 13.9, hematocrit 40.1, platelets 238,000. PT/INR 0.97, PTT 36.8. Sodium 140, K 4.4, chloride 91, bicarb 30, BUN 27, creatinine 5.4, random blood sugar 108, bilirubin 0.7, AST 35, ALT 33, alk phos 163, BNP 13,800, CPK normal at 54, troponin 0.02, lipase 392. IMPRESSION: A 67-year-old male with end-stage renal disease, hemodialysis dependent with probable metastatic renal cell carcinoma to his lungs, now with chills, cough and right lung infiltrate, rule out superimposed pneumonia. Also with hyperlipidemia, hyperphosphatemia, anemia of chronic disease, hypertension, stable atherosclerotic heart disease, hypothyroidism, peptic ulcer disease with gastroesophageal reflux disease. PLAN: The plan is to admit this patient to the cardiac unit. He will have blood and sputum cultures sent. He will be given empiric antibiotics including Maxipime 1 g IV stat and vancomycin 1 g IV stat. A consultation with Dr. Henok De has been requested. He will receive pulmonary toiletry with Xopenex inhalational therapy as well as insulin coverage, Robitussin DM, nasal O2. Pending his clinical progress, additional testing and intervention will be entertained. The patient will follow up with his oncologist once cleared by Infectious Disease and greater than 75 minutes was spent in the care and management, review of labs, orders, x-rays and outlining of treatment plan for this patient today. This case was also reviewed with his daughter, Nicanor in detail who is a registered nurse. All questions were answered. No Banda MD
--- NOTE | 2018-01-29 21:10 | CP.PCM.CON ---
History of Present Illness - History of Present Illness History of Present Illness: Infectious Disease Consultation: January 29, 2018 67 yo male with left sided chest discomfort and SOB while at HD. The patient has multiple medical issues including Atrial Fibrillation. Denies other symptoms. PMHx: renal cell carcinoma, end-stage renal disease on HD, ASHD, GERD, Peptic Ulcer Disease, hypothyroidism, chronic hypertension, and anemia of chronic disease, ESRD on HD, Atrial fibrillation. PSHx: left nephrectomy, dialysis access Allergies: NKDA Social Hx: No current tobacco, EtOH, or illicit drug use Active Medications Acetaminophen (Tylenol 325mg Tab) 650 mg PO Q6H PRN PRN Reason: Fever >100.4 F Aspirin (Ecotrin) 81 mg PO DAILY [facility] Atorvastatin Calcium (Lipitor) 20 mg PO HS [facility] Calcium Acetate (Phoslo) 667 mg PO WM [facility] Last Admin: 01/29/18 19:33 Dose: 667 mg Clopidogrel Bisulfate (Plavix) 75 mg PO DAILY [facility] Famotidine (Pepcid) 20 mg PO HS [facility] Guaifenesin/Dextromethorphan (Robitussin Dm) 10 ml PO Q4H PRN PRN Reason: Cough Insulin Human Regular (Humulin R Low) 0 units SC ACHS [facility] PRN Reason: Protocol Last Admin: 01/29/18 16:33 Dose: 1 units Levalbuterol HCl (Xopenex) 0.63 mg IH QIDRESP [facility] Last Admin: 01/29/18 19:38 Dose: 0.63 mg Levothyroxine Sodium (Synthroid) 25 mcg PO 0600 [facility] Metoprolol Tartrate (Lopressor) 50 mg PO BID [facility] Last Admin: 01/29/18 19:33 Dose: 50 mg Multivitamins (Thera Tab) 1 tab PO DAILY [facility] Family Hx: none given ROS: Chest discomfort, SOB NO abdominal pain, melena, hematuria, hematemesis, hematochezia, depression, anxiety, diarrhea, vomiting, vision loss, hearing loss, loss of consciousness. Past Patient History - Infectious Disease Hx of Infectious Diseases: None - Tetanus Immunizations Tetanus Immunization: Unknown - Past Medical History & Family History Past Medical History?: Yes - Past Social History Smoking Status: Former Smoker - CARDIAC Hx Cardiac Disorders: Yes (ACS,) Hx Cardia Arrhythmia: Yes (AFIB WITH RVR) Hx Congestive Heart Failure: Yes Hx Hypercholesterolemia: Yes Hx Hypertension: Yes Hx Pacemaker: No - PULMONARY Hx Respiratory Disorders: Yes (H/O SMOKING CIGARETTES .SMOKED FOR 20 YRS) Hx Bronchitis: Yes Hx Pneumonia: Yes Hx Tuberculosis: Yes Other/Comment: SMOKED FOR 20 YRS - NEUROLOGICAL Hx Neurological Disorder: Yes Hx Seizures: No (denies) - HEENT Hx HEENT Problems: Yes Hx Cataracts: Yes (LEFT) - RENAL Hx Chronic Kidney Disease: Yes Date of Last Dialysis Treatment: 01/29/18 Hx Renal Failure: Yes - ENDOCRINE/METABOLIC Hx Endocrine Disorders: Yes Hx Diabetes Mellitus Type 1: Yes Hx Hypothyroidism: Yes - HEMATOLOGICAL/ONCOLOGICAL Hx Blood Disorders: Yes (sepsis) Hx Anemia: Yes (blood transfusion) - INTEGUMENTARY Hx Dermatological Problems: Yes (OLD NF SCARRED AREA LEFT UPPER ARM. SHUNT TO RIGHT UPPER ARM) Other/Comment: dry tight discolored skin to ble +1 edema rll. 5- DRY DARKENED SKIN DISCOLORATION TO BILATERAL LE.THIN FALKY SKIN.TIGHT SKIN TO BLE. - MUSCULOSKELETAL/RHEUMATOLOGICAL Hx Musculoskeletal Disorders: Yes Hx Falls: Yes - GASTROINTESTINAL Hx Gastrointestinal Disorders: No - GENITOURINARY/GYNECOLOGICAL Hx Genitourinary Disorders: Yes (voids very little in am .ANURIA) - PSYCHIATRIC Hx Emotional Abuse: No Hx Physical Abuse: No Hx Substance Use: No - SURGICAL HISTORY Hx Surgeries: Yes (L AND RIGHT SHUNTS.MARITA [employer]CTIONING SHUNT.) Hx Cardiac Catheterization: Yes Other/Comment: Kidney-L NEPHRECTOMY - ANESTHESIA Hx Anesthesia: Yes Hx Anesthesia Reactions: No Hx Malignant Hyperthermia: No Meds Allergies/Adverse Reactions: Allergies Allergy/AdvReac Type Severity Reaction Status Date / Time No Known Allergies Allergy Verified 01/29/18 11:52 - Medications Medications: Current Medications Acetaminophen (Tylenol 325mg Tab) 650 mg PO Q6H PRN PRN Reason: Fever >100.4 F Aspirin (Ecotrin) 81 mg PO DAILY [facility] Atorvastatin Calcium (Lipitor) 20 mg PO HS [facility] Calcium Acetate (Phoslo) 667 mg PO WM [facility] Last Admin: 01/29/18 19:33 Dose: 667 mg Clopidogrel Bisulfate (Plavix) 75 mg PO DAILY [facility] Famotidine (Pepcid) 20 mg PO HS [facility] Guaifenesin/Dextromethorphan (Robitussin Dm) 10 ml PO Q4H PRN PRN Reason: Cough Insulin Human Regular (Humulin R Low) 0 units SC ACHS [facility] PRN Reason: Protocol Last Admin: 01/29/18 16:33 Dose: 1 units Levalbuterol HCl (Xopenex) 0.63 mg IH QIDRESP [facility] Last Admin: 01/29/18 19:38 Dose: 0.63 mg Levothyroxine Sodium (Synthroid) 25 mcg PO 0600 [facility] Metoprolol Tartrate (Lopressor) 50 mg PO BID [facility] Last Admin: 01/29/18 19:33 Dose: 50 mg Multivitamins (Thera Tab) 1 tab PO DAILY [facility] Physical Exam - Constitutional Appears: Non-toxic, No Acute Distress, Chronically Ill - Head Exam Head Exam: ATRAUMATIC, NORMOCEPHALIC - Eye Exam Eye Exam: EOMI, PERRL Pupil Exam: NORMAL ACCOMODATION, PERRL - ENT Exam ENT Exam: Mucous Membranes Moist, Normal External Ear Exam, TM's Normal Bilaterally - Neck Exam Neck exam: Positive for: Full Rom, Normal Inspection - Respiratory Exam Respiratory Exam: Clear to Auscultation Bilateral, NORMAL BREATHING PATTERN. absent: Rales, Rhonchi, Wheezes - Cardiovascular Exam Cardiovascular Exam: REGULAR RHYTHM, RRR, +S1, +S2 - GI/Abdominal Exam GI & Abdominal Exam: Normal Bowel Sounds, Soft, Tenderness. absent: Distended ( epigastric.) - Extremities Exam Extremities exam: Positive for: full ROM, normal inspection - Neurological Exam Neurological exam: Alert, CN II-XII Intact, Oriented x3 - Psychiatric Exam Psychiatric exam: Normal Affect, Normal Mood - Skin Skin Exam: Intact, Normal Color Results - Vital Signs Recent Vital Signs: Last Vital Signs Temp 98.5 F 01/29/18 16:49 Pulse 83 01/29/18 16:49 Resp 19 01/29/18 16:49 BP 111/59 L 01/29/18 16:49 Pulse Ox 98 01/29/18 16:49 - Labs Result Diagrams: 01/29/18 09:00 01/29/18 09:00 Labs: Laboratory Results - last 24 hr 01/29/18 16:48 POC Glucose (mg/dL) 176 H Assessment & Plan - Assessment and Plan (Free Text) Assessment: 67 yo male with left sided chest pain and SOB. CT showing signs of potential pneumonia but showing heavy signs of pulmonary metastatic disease from his previous renal carcinoma. Can start Cefepime for now. PET scan would be useful and follow up with Oncology. BNP is significantly elevated and procalcitonin pending. Degree of pulmonary metastatic disease can explain much of the patient's symptoms. Supportive care. Poor half-way prognosis for the patient. Thank you for allowing me to participate in the care of the patient, we will follow with you.
[2018-01-29] MEDS: Cefepime 1gm in NS 100ml 1 GM/100 ML BAG IVPB SCH (23:29)
[2018-01-30] MEDS: Levothyroxine 25 MCG TAB PO SCH (06:01)
[2018-01-30] MEDS: Levalbuterol 0.63 MG/3 ML Inhal Soln UD IH SCH ×4 (07:41→19:20)
[2018-01-30] MEDS: Insulin Reg-LOW-Coverage SC SCH ×4 (07:59→22:50)
[2018-01-30] MEDS: Multivitamin Therapeutic Tab PO SCH (09:52)
[2018-01-30] MEDS: guaiFENesin DM 200 mg-20 mg/10 ml UD PO PRN ×2 (10:36→17:24)
--- NOTE | 2018-01-30 13:55 | PN ---
DATE: 01/30/2018 SUBJECTIVE: This 67-year-old male remains hospitalized on the cardiac unit for newly noted right lung pneumonia. He presented to the [facility] with atypical chest discomfort, shortness of breath, and shaking chills while on dialysis. Chest x-ray and CAT scan confirmed a newly noted right lung infiltrate in the setting of metastatic kidney cancer to his lungs. As discussed with his family, especially daughter, Nicanor, he has newly noted nodules in addition to increasing in size of previously noted metastatic lesions. This will be followed up by her father's cat operator and oncologist at the [facility] when medically stable. At present, the patient is feeling better on parenteral antibiotics and is being followed by Dr. Henok De from Infectious Disease. The patient was cultured at the time of admission and at present, his cultures remain pending. He denies any fever, chills, chest pain, or hemoptysis. PHYSICAL EXAMINATION: VITAL SIGNS: He is in a normal sinus rhythm on the can cleaner. Temperature 97.7, respirations are 16, pulse 74, and blood pressure 135/49 with a pulse ox of 98%. HEENT: Head: Normocephalic, atraumatic. Eyes: No icterus. Ears: Clear. Throat: Noninjected. NECK: Supple. HEART: S1, S2. LUNGS: Rhonchi in the right posterior lung base. No wheezing, no rales. ABDOMEN: Soft. Extremities: No edema. SKIN: Without rash. NEUROLOGIC: Deconditioned. VASCULAR: Legs warm to touch. PSYCHOLOGIC: Alert and oriented x3. NEURO: Intact. LABORATORY DATA: White count 14,900, hemoglobin 13.9, hematocrit 40.1, and platelets 238,000. PT/INR 0.97, PTT 36.8. Sodium 140, K 4.4, chloride 91, bicarb 30. BUN 27, creatinine 5.4. Random blood sugar 169. Bilirubin 0.7, AST 35, ALT 33, and alk phos 162. BNP 13,800. Chest x-ray and CT of chest were reviewed. They are consistent with progressive pulmonary metastases more pronounced in the right lung with a concomitant nodular infiltrate noted as well. As discussed with the patient and daughter, Nicanor [place], registered nurse, upon clearance by Infectious Disease. The patient should be considered for a PET/CT image by his cat operator, oncologist for further evaluation and management of recent chest x-ray and CT of chest findings. At present, the patient remains hospitalized, receiving Ecotrin 81 mg p.o. daily, regular low-dose insulin coverage before meals and at bedtime, Lipitor 20 mg p.o. at bedtime, Lopressor 50 mg p.o. b.i.d., Maxipime 1 g IV every 24 hours, Pepcid 20 mg p.o. at bedtime, PhosLo 667 mg p.o. with meals t.i.d., Plavix 75 mg p.o. daily, Robitussin DM 10 mL p.o. every 4 hours p.r.n. cough, Synthroid 25 mcg p.o. daily, multivitamin one tablet daily, Tylenol 650 p.o. every 6 hours p.r.n. fever or pain, and Xopenex inhalational therapy 0.63 four times daily. He is wearing nasal O2 and tolerating renal diabetic diet. He will be maintained on fall precautions and is ordered to have physical therapy for reconditioning and gait training. I will discuss the timing and plan for probable transitional care rehab with Nursing and case management, and all of the above was discussed in detail with the patient and family today. Greater than 35 minutes was spent in the care management, review of labs, orders, x-rays, and outlining of care and disposition for this patient. All questions were answered. No Banda MD MTDD
--- NOTE | 2018-01-30 19:10 | CP.PCM.PN ---
Subjective - Date & Time of Evaluation Date of Evaluation: 01/30/18 Time of Evaluation: 17:00 - Subjective Subjective: Infectious Disease Follow Up: January 30, 2018 67 yo male with left sided chest discomfort and SOB while at HD. The patient has multiple medical issues including Atrial Fibrillation. Denies other symptoms. CT scan showing signs of potential pneumonia but showing heavy signs of pulmonary metastatic disease from his previous renal carcinoma. Patient occasionally on O2 supplementation. He is making no new complaints. Objective - Vital Signs/Intake and Output Vital Signs (last 24 hours): Temp Pulse Resp BP Pulse Ox 97.7 F 65 20 145/63 100 01/30/18 16:44 01/30/18 17:22 01/30/18 16:44 01/30/18 17:22 01/30/18 16:44 - Medications Medications: Current Medications Acetaminophen (Tylenol 325mg Tab) 650 mg PO Q6H PRN PRN Reason: Fever >100.4 F Aspirin (Ecotrin) 81 mg PO DAILY [facility] Last Admin: 01/30/18 09:52 Dose: 81 mg Atorvastatin Calcium (Lipitor) 20 mg PO HS [facility] Last Admin: 01/29/18 22:06 Dose: 20 mg Calcium Acetate (Phoslo) 667 mg PO WM [facility] Last Admin: 01/30/18 17:21 Dose: 667 mg Clopidogrel Bisulfate (Plavix) 75 mg PO DAILY [facility] Last Admin: 01/30/18 09:52 Dose: 75 mg Famotidine (Pepcid) 20 mg PO HS [facility] Last Admin: 01/29/18 22:07 Dose: 20 mg Guaifenesin/Dextromethorphan (Robitussin Dm) 10 ml PO Q4H PRN PRN Reason: Cough Last Admin: 01/30/18 17:24 Dose: 10 ml Home Med (Home Med) 1 unit PO BID [facility] Cefepime HCl (Maxipime 1gm) 1 gm in 100 mls @ 100 mls/hr IVPB Q24H [facility] PRN Reason: Protocol Last Admin: 01/29/18 23:29 Dose: 100 mls/hr Insulin Human Regular (Humulin R Low) 0 units SC ACHS [facility] PRN Reason: Protocol Last Admin: 01/30/18 17:21 Dose: 2 units Levalbuterol HCl (Xopenex) 0.63 mg IH QIDRESP [facility] Last Admin: 01/30/18 15:29 Dose: 0.63 mg Levothyroxine Sodium (Synthroid) 25 mcg PO 0600 [facility] Last Admin: 01/30/18 06:01 Dose: 25 mcg Metoprolol Tartrate (Lopressor) 50 mg PO BID [facility] Last Admin: 01/30/18 17:22 Dose: 50 mg Multivitamins (Thera Tab) 1 tab PO DAILY [facility] Last Admin: 01/30/18 09:52 Dose: 1 tab - Labs Labs: PT 11.1 SECONDS (9.4-12.5) 01/29/18 09:00 INR 0.97 (0.93-1.08) 01/29/18 09:00 APTT 36.8 Seconds (25.1-36.5) H 01/29/18 09:00 - Constitutional Appears: Non-toxic, No Acute Distress, Chronically Ill - Head Exam Head Exam: ATRAUMATIC, NORMOCEPHALIC - Eye Exam Eye Exam: EOMI, PERRL Pupil Exam: NORMAL ACCOMODATION, PERRL - ENT Exam ENT Exam: Mucous Membranes Moist, Normal External Ear Exam, TM's Normal Bilaterally - Neck Exam Neck Exam: Full ROM, Normal Inspection - Respiratory Exam Respiratory Exam: Decreased Breath Sounds, Clear to Ausculation Bilateral, NORMAL BREATHING PATTERN. absent: Rales, Rhonchi, Wheezes - Cardiovascular Exam Cardiovascular Exam: REGULAR RHYTHM, RRR, +S1, +S2 - GI/Abdominal Exam GI & Abdominal Exam: Soft, Normal Bowel Sounds. absent: Distended, Tenderness - Extremities Exam Extremities Exam: Full ROM, Normal Inspection - Neurological Exam Neurological Exam: Alert, Awake, CN II-XII Intact, Oriented x3 - Psychiatric Exam Psychiatric exam: Normal Affect, Normal Mood - Skin Skin Exam: Intact, Normal Color Assessment and Plan - Assessment and Plan (Free Text) Assessment: 67 yo male with left sided chest pain and SOB. CT showing signs of potential pneumonia but showing heavy signs of pulmonary metastatic disease from his previous renal carcinoma. Continue on Cefepime for now. PET scan would be useful and follow up with Oncology. BNP is significantly elevated and procalcitonin pending. Degree of pulmonary metastatic disease can explain much of the patient's symptoms. Spoke with the patient's daughter Ada. Supportive care. Poor shelter prognosis for the patient. Thank you for allowing me to participate in the care of the patient, we will follow with you.
[2018-01-30] MEDS: Cefepime 1gm in NS 100ml 1 GM/100 ML BAG IVPB SCH (22:55)
[2018-01-31] MEDS: Levothyroxine 25 MCG TAB PO SCH (05:27)
[2018-01-31 06:45] VITALS: RESP 16; TEMP 97.6; O2SAT 99
[2018-01-31 07:18] LABS: BASO # 0.03 K/mm3 (0.0-2.0); BASO % 0.3 % (0.0-3.0); EOS # 0.7 (0.0-0.7); EOS % 6.6 % (1.5-5.0); GRAN # 8.62 (1.4-6.5); GRAN % 77.5 % (50.0-68.0); LYMPH # 0.9 (1.2-3.4); LYMPH % 7.7 % (22.0-35.0); MEAN CORPUSCULAR HEMOGLOBIN 28.3 pg (25.0-35.0); MEAN CORPUSCULAR HGB CONC 33.8 g/dl (31.0-37.0); MEAN PLATELET VOLUME 8.9 fl (7.0-11.0); MONO # 0.9 (0.1-0.6); MONO % 7.9 % (1.0-6.0); RBC 3.81 10^6/uL (3.5-6.1); RED CELL DISTRIBUTION WIDTH 14.3 % (11.5-14.5); WHITE BLOOD COUNT 11.1 10^3/ul (4.5-11.0)
[2018-01-31 07:22] LABS: HEMOGLOBIN 10.8 g/dL (14.0-18.0)
[2018-01-31] MEDS: Levalbuterol 0.63 MG/3 ML Inhal Soln UD IH SCH ×3 (07:47→15:38)
[2018-01-31 07:52] LABS: ALB/GLOB RATIO 1.1 (1.1-1.8); ALBUMIN 3.8 g/dL (3.0-4.8); CALCIUM 8.5 mg/dL (8.4-10.5)
[2018-01-31] MEDS: Insulin Reg-LOW-Coverage SC SCH ×2 (07:59→11:30)
[2018-01-31 08:29] VITALS: BP 149/53
[2018-01-31] MEDS ORDERED: RANEXA 500 MG PO SCH (10:00)
[2018-01-31] MEDS: Multivitamin Therapeutic Tab PO SCH (10:33)
[2018-01-31 16:52] VITALS: PULSE 84
--- NOTE | 2018-01-31 17:12 | CP.PCM.PN ---
Subjective - Date & Time of Evaluation Date of Evaluation: 01/31/18 Time of Evaluation: 15:00 - Subjective Subjective: Infectious Disease Follow Up: January 31, 2018 67 yo male with left sided chest discomfort and SOB while at HD. The patient has multiple medical issues including Atrial Fibrillation. Denies other symptoms. CT scan showing signs of potential pneumonia but showing heavy signs of pulmonary metastatic disease from his previous renal carcinoma. Patient occasionally on O2 supplementation. He is otherwise at his normal state of health. He is making no new complaints. Objective - Vital Signs/Intake and Output Vital Signs (last 24 hours): Temp Pulse Resp BP Pulse Ox 97.6 F 84 16 149/53 L 99 01/31/18 06:00 01/31/18 14:00 01/31/18 06:00 01/31/18 06:00 01/31/18 06:00 Intake and Output: 01/31/18 01/31/18 06:59 18:59 Intake Total 620 540 Output Total 0 Balance 620 540 - Labs Labs: 01/31/18 06:00 01/31/18 06:00 PT 11.1 SECONDS (9.4-12.5) 01/29/18 09:00 INR 0.97 (0.93-1.08) 01/29/18 09:00 APTT 36.8 Seconds (25.1-36.5) H 01/29/18 09:00 - Constitutional Appears: Non-toxic, No Acute Distress, Chronically Ill - Head Exam Head Exam: ATRAUMATIC, NORMOCEPHALIC - Eye Exam Eye Exam: EOMI, PERRL Pupil Exam: NORMAL ACCOMODATION, PERRL - ENT Exam ENT Exam: Mucous Membranes Moist, Normal External Ear Exam, TM's Normal Bilaterally - Neck Exam Neck Exam: Full ROM, Normal Inspection - Respiratory Exam Respiratory Exam: Decreased Breath Sounds, Clear to Ausculation Bilateral, NORMAL BREATHING PATTERN. absent: Rales, Rhonchi, Wheezes - Cardiovascular Exam Cardiovascular Exam: REGULAR RHYTHM, RRR, +S1, +S2 - GI/Abdominal Exam GI & Abdominal Exam: Soft, Normal Bowel Sounds. absent: Distended, Tenderness - Extremities Exam Extremities Exam: Full ROM, Normal Inspection - Neurological Exam Neurological Exam: Alert, Awake, CN II-XII Intact, Oriented x3 - Psychiatric Exam Psychiatric exam: Normal Affect, Normal Mood - Skin Skin Exam: Intact, Normal Color Assessment and Plan - Assessment and Plan (Free Text) Assessment: 67 yo male with left sided chest pain and SOB. CT showing signs of potential pneumonia but showing heavy signs of pulmonary metastatic disease from his previous renal carcinoma. Continue on Cefepime for now. PET scan would be useful and follow up with Oncology. BNP is significantly elevated and procalcitonin pending. Procalcitonin of 1.08. Degree of pulmonary metastatic disease can explain much of the patient's symptoms. Spoke with the patient's daughter Ada. Supportive care. Can consider use of 7 days of Keflex PO BID 500mg. Can consider discharge today. Poor residential prognosis for the patient. Thank you for allowing me to participate in the care of the patient, we will follow with you.
--- NOTE | 2018-02-01 02:06 | DS ---
DATE OF EXAM: 01/31/2018. FINAL DIAGNOSES: Right lung bronchial pneumonia; end-stage renal disease, hemodialysis dependent; hyperphosphatemia; hyperlipidemia; stable atherosclerotic heart disease; status post left nephrectomy with metastatic renal cell cancer to the lungs; chronic hypertension; hypothyroidism; peptic ulcer disease with gastroesophageal reflux disease; anemia of chronic disease; degenerative arthritis and deconditioning. DISPOSITION: Home. FOLLOWUP: The patient is to follow up with Dr. Garcia, his oncologist at [facility] within the next week. As per the patient and family request, copies of the patient's most recent chest x-ray and chest CT were faxed to Dr. Garcia to fax number [phone] today. The patient was followed during the course of this hospital stay by Dr. Henok De from Infectious Disease, who cleared the patient for discharge. He gave the patient a prescription for Keflex 500 mg p.o. b.i.d., #14. OTHER DISCHARGE MEDICATIONS: Will include Plavix 75 mg p.o. daily, Ranexa 500 mg p.o. b.i.d., PhosLo 667 mg p.o. with meals t.i.d., Lipitor 20 mg p.o. daily, Ecotrin 81 mg p.o. daily, multivitamin 1 tablet daily, Lopressor 50 mg p.o. b.i.d., Synthroid 25 mcg p.o. daily, Pepcid 20 mg p.o. at bedtime, multivitamin 1 tablet daily, Lopressor 50 mg b.i.d., Synthroid 25 mcg p.o. daily. SUMMARY: This 67-year-old male was admitted to [facility] after experiencing cough, chills and atypical chest pain while on dialysis, which on chest x-ray and CT of the lungs confirmed a right pulmonary infiltrate in the setting of metastatic lung cancer to the lungs. The patient has a history of renal cell carcinoma and is under the oncological care of Dr. Garcia, oncologist at [facility]. At the time of this dictation, temperature is 97.6, pulse 84, blood pressure 149/53 and pulse ox 99% on room air with a respiratory rate of 16. His lungs are clear. There is no wheezing. Abdomen is soft. Extremities: No edema. LABORATORY DATA: White count 11,100, hemoglobin 10.8, hematocrit 32, platelets 191,000. Sodium 135, K 4.9, chloride 93, bicarb 25, BUN 60, creatinine 10.1, random blood sugar 132. All liver function testing was normal including bilirubin 0.4, AST 25, ALT 28 and alk phos 115. Procalcitonin level was 1.08. The patient was cleared by Infectious Disease for discharge to home with close monitoring by his immediate family. The patient is aware that for any change in signs and symptoms, he should re-present directly to the [facility] ER. Hopefully, he and family will be compliant with the above and they are aware of his need to follow up with Oncology early next week as able. Greater than 35 minutes was spent in the care and management, review of labs, orders, x-ray, discussion of this case with nursing, case management, Dr. De, family and readying of reports for faxing to Dr. Garcia. All questions were answered. No Banda MD CHRIS
== END 2018-01-31 16:57 | disposition home or self-care (01) | DRG 193 ==
LOC: ED 08:58 → ERH 11:36 → 3RNO 12:48
PROVIDERS: ADMIT Internal Medicine; ATTEND Internal Medicine
PROC: 5A1D70Z Performance of Urinary Filtration, Intermittent, Less than 6 Hours Per Day (ICD-10-PCS; principal; 2018-01-31)
DX: J18.0 Bronchopneumonia, unspecified organism (principal); N18.6 End stage renal disease; C78.00 Secondary malignant neoplasm of unspecified lung; J47.0 Bronchiectasis with acute lower respiratory infection; I13.2 Hypertensive heart and chronic kidney disease with heart failure and with stage 5 chronic kidney disease, or end stage renal disease; I50.9 Heart failure, unspecified; K21.9 Gastro-esophageal reflux disease without esophagitis; I25.10 Atherosclerotic heart disease of native coronary artery without angina pectoris; I48.91 Unspecified atrial fibrillation; E11.22 Type 2 diabetes mellitus with diabetic chronic kidney disease; D63.8 Anemia in other chronic diseases classified elsewhere; E78.5 Hyperlipidemia, unspecified; E78.00 Pure hypercholesterolemia, unspecified; E03.9 Hypothyroidism, unspecified; E83.39 Other disorders of phosphorus metabolism; M19.90 Unspecified osteoarthritis, unspecified site; Z85.528 Personal history of other malignant neoplasm of kidney; Z99.2 Dependence on renal dialysis; Z90.5 Acquired absence of kidney; Z87.891 Personal history of nicotine dependence; Z87.11 Personal history of peptic ulcer disease; Z79.4 Long term (current) use of insulin